=== PATIENT | male | born 1935 | race Caucasian/White ===

== ENCOUNTER → 2020-10-11 12:40 | Outpatient (BNVA) | payer OTHER, SELFPAY | PROVIDERS: PCP Internal Medicine; Referring Provider Internal Medicine; Visit Provider Internal Medicine Pulmonary Disease | DX: Z76.89 Persons encountering health services in other specified circumstances (principal) ==

== ENCOUNTER 2020-12-05 10:21 | Outpatient (REF) | payer OTHER, SELFPAY ==
[2020-12-05 11:15] LABS: Anion Gap 12 (12-20); Blood Urea Nitrogen 34 mg/dL (9-16); Calcium 8.5 mg/dL (8.4-10.2); Carbon Dioxide 32 mmol/L (22-29); Chloride 99 mmol/L (96-108); Estimated Glomerular Filt Rate 31; Potassium 4.7 mmol/L (3.3-5.1); Sodium 138 mmol/L (135-145)
== END 2020-12-05 10:22 | disposition home or self-care (01) ==
LOC: HO.LAB 10:21
PROVIDERS: PCP Internal Medicine; Visit Provider Internal Medicine Hypertension Specialist
DX: I13.0 Hypertensive heart and chronic kidney disease with heart failure and stage 1 through stage 4 chronic kidney disease, or unspecified chronic kidney disease (principal); N18.30 Chronic kidney disease, stage 3 unspecified
CPT/HCPCS: 36415; 80051; 82310; 82565; 84520

== ENCOUNTER → 2021-01-01 14:15 | Outpatient (BNVA) | payer OTHER, SELFPAY | PROVIDERS: PCP Internal Medicine; Visit Provider Internal Medicine | DX: Z45.02 Encounter for adjustment and management of automatic implantable cardiac defibrillator (principal); I25.5 Ischemic cardiomyopathy; I48.0 Paroxysmal atrial fibrillation; Z51.81 Encounter for therapeutic drug level monitoring; Z79.899 Other long term (current) drug therapy | CPT/HCPCS: 93005 ==

== ENCOUNTER 2021-01-09 11:04 | Outpatient (REF) | payer OTHER, SELFPAY ==
[2021-01-09 12:35] LABS: TSH reflex Free T4 1.47 uIU/mL (0.32-4.0)
== END 2021-01-09 11:05 | disposition home or self-care (01) ==
LOC: HO.LAB 11:04
PROVIDERS: PCP Internal Medicine; Visit Provider Internal Medicine
DX: I25.5 Ischemic cardiomyopathy (principal)
CPT/HCPCS: 36415; 84443

== ENCOUNTER 2021-02-02 10:23 | Outpatient (REF) | payer OTHER, SELFPAY ==
[2021-02-02 11:38] LABS: Hematocrit 44.7 % (42-52); Mean Corpuscular HGB Conc 31.3 g/dl (31.0-36.0); Mean Corpuscular Hemoglobin 31.4 pg (27.0-33.0); Mean Corpuscular Volume 100.2 fL (80-98); Mean Platelet Volume 10.9 fL (9.4-12.4); Platelet Count 119 X10*3/uL (160-400); Red Blood Count 4.46 X10*6/uL (4.60-5.80); Red Cell Distribution Width 14.4 % (11.0-16.0); White Blood Count 6.7 X10*3/uL (4.8-10.8)
[2021-02-02 11:45] LABS: Glucose Urine UA NEG (NEG); Leukocyte Esterase Urine NEG (NEG); Nitrite Urine NEG (NEG); PH 6.5 (5.0-8.0); Specific Gravity - Urine <= 1.005 (1.005-1.025); Urine Blood NEG (NEG); Urine Ketones NEG (NEG); Urine Protein NEG (NEG-TRACE)
[2021-02-02 11:48] LABS: Appearance Urine CLEAR; Color Urine YELLOW
[2021-02-02 12:25] LABS: Creatinine Urine 27.13 mg/dL; Protein/Creatinine Ratio, Ur 0.55 (<0.2); Total Protein Urine Random 15 mg/dL (<12)
[2021-02-02 16:02] LABS: Anion Gap 11 (12-20); Blood Urea Nitrogen 26 mg/dL (9-16); Calcium 8.6 mg/dL (8.4-10.2); Carbon Dioxide 30 mmol/L (22-29); Chloride 105 mmol/L (96-108); Estimated Glomerular Filt Rate 38; Potassium 5.2 mmol/L (3.3-5.1); Sodium 141 mmol/L (135-145)
== END 2021-02-02 10:24 | disposition home or self-care (01) ==
LOC: HO.LAB 10:23
PROVIDERS: PCP Internal Medicine; Visit Provider Internal Medicine Hypertension Specialist
DX: N18.31 Chronic kidney disease, stage 3a (principal)
CPT/HCPCS: 36415; 80051; 81003; 82310; 82565; 84156; 84520; 85027; 86021

== ENCOUNTER 2021-02-26 13:45 | Outpatient (REF) | payer OTHER, SELFPAY ==
--- NOTE | ~2021-02-26 | XR_ITS ---
EXAMINATION: XR FOOT, RIGHT CLINICAL INFORMATION: Pain over lateral and plantar areas. Rule out fracture. COMPARISON: None TECHNIQUE: Three-view right foot study. FINDINGS: There is no evidence of acute fracture or dislocation of the right foot. No radiopaque foreign body identified. No significant joint space narrowing is noted. There is a small plantar calcaneal spur. An Achilles calcaneal spur is also seen. There are vascular calcifications present. XR/XR foot RT min 3V IMPRESSION: No significant right foot bony abnormality appreciated. No radiopaque foreign body.
== END 2021-02-26 13:46 | disposition home or self-care (01) ==
LOC: HO.XRAY 13:45
PROVIDERS: PCP Internal Medicine; Visit Provider Internal Medicine
DX: M79.671 Pain in right foot (principal)
CPT/HCPCS: 73630

== ENCOUNTER 2021-04-19 10:18 | Inpatient (IN) | payer OTHER, SELFPAY ==
--- NOTE | ~2021-04-19 | CT_ITS ---
EXAMINATION: CT CHEST WITHOUT CONTRAST CLINICAL INFORMATION: Dyspnea and scant hemoptysis COMPARISON: None TECHNIQUE: Multidetector volumetric CT imaging of the chest was done. Axial MIP volume rendering provided. Sagittal and coronal reformatted images were obtained. This CT examination was performed using dose optimization techniques as appropriate, variously including the following: *Automated exposure control *Adjustment of mA and/or kV according to patient size (this includes techniques or standardized protocols for targeted exams where dose is matched to indication/reason for exam; i.e. 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 There are a several subpleural parenchymal thickening in both lower lobes and right middle lobe. There is mild thickening of superior right major fissure. There is no consolidation, mass or nodule seen. MEDIASTINUM: There are numerous mediastinal lymph nodes. The largest precarinal pretracheal lymph node measures 1.2 x 1.7 cm. Second largest para-aortic lymph node measures 1.8 x 1.2 cm. Thoracic aorta is of normal caliber. No pericardial effusion seen. There are coronary artery calcifications present. There are pacer electrodes in right atrium and right ventricle. Central trachea and the bronchi appears widely patent. No bronchiectasis seen. PLEURA: There is minimal bilateral posterior pleural thickening. No evidence of pleural effusion. AXILLA: No lymphadenopathy. UPPER ABDOMEN: Visualized liver, spleen, pancreas and bilateral adrenal glands are unremarkable. No radiopaque gallstones seen. OSSEOUS STRUCTURES: No lytic or sclerotic process seen. There is mild degenerative disc changes mid dorsal spine with superior endplate deformities T4 and T5 vertebra likely chronic. CT/CT chest wo con IMPRESSION: Diffuse chronic interstitial lung disease with superimposed groundglass attenuation likely acute parenchymal inflammatory changes but no acute consolidation seen. No large mass or mass effect seen. There is diffuse reactionary abnormal mediastinal lymph nodes secondary to inflammatory process. Bilateral posterior pleural thickening without effusion. No calcifications seen.
--- NOTE | 2021-04-19 10:23 | ED.SOB ---
HPI - SOB/Dyspnea General Chief Complaint: Dyspnea Stated Complaint: SOB Time Seen by Provider: 04/19/21 10:22 Source: patient Mode of arrival: ambulatory Limitations: no limitations History of Present Illness HPI Narrative: 86 yo male with hx of IPF not on O2 and doesn't use inhalers, ischemic cardiomyopathy with [employer] device (recently interrogated) PAF on eliquis always compliant here with 2 weeks of worsening shortness of breath with exertion he has a cough with scant hemoptysis as wel, no CP, no weight gain or LE edema MD elicited complaint: shortness of breath and cough Pertinent past history: congestive heart failure and other (IPF) Onset (ago): week(s) (2) Timing: intermittent and progressively worsening Severity: moderate Exacerbating factors: exertion and coughing Relieving factors: rest Known history of: congestive heart failure Associated symptoms: cough, wheezing and sputum production (with some scant hemoptysis) Treatment prior to arrival: none Related Data Home Medications Medication Instructions Recorded Confirmed gabapentin 100 mg capsule 200 mg PO TID PRN cap 10/11/20 04/19/21 simvastatin 10 mg tablet 10 mg PO BEDTIME 10/11/20 04/19/21 amiodarone 100 mg tablet 100 mg PO MOWEFR@1000 tab 01/01/21 04/19/21 furosemide 20 mg PO DAILY 04/19/21 04/19/21 Previous Rx's Medication Instructions Recorded apixaban 2.5 mg tablet 2.5 mg PO BID #180 tab 03/13/21 Allergies Allergy/AdvReac Type Severity Reaction Status Date / Time metoprolol [METOPROLOL] AdvReac Severe SYNCOPE Verified 01/01/21 14:40 Review of Systems Review of Systems: Constitutional : No Fever, No Chills ENT/Mouth : No sore throat, No Rhinorrhea, No Swallowing Difficulty Eyes: No Eye Pain, No Swelling, No Redness Cardiovascular : No Chest Pain, positive SOB, No Orthopnea, no Edema Respiratory : pos Cough, pos Sputum, No Wheezing, positive dyspnea Gastrointestinal : No Nausea, No Vomiting, No Diarrhea, No abdominal Pain, No Hematochezia, No Melena Genitourinary : No Dysuria, No Urinary Frequency, No Hematuria Musculoskeletal : No joint pain, No Myalgias Skin : No Skin Lesions, No rash Neuro : No Weakness, No Numbness, No Dizziness, No Headache Psych : No Anxiety/Panic, No Depression Heme/Lymph: No Bruising, No Lymphadenopathy Endocrine : No Polyuria, No Polydipsia All other systems reviewed and are negative [facility] Past Medical History Attestation statement: The following information was validated with the patient. Medical History Ischemic cardiomyopathy PAF (paroxysmal atrial fibrillation) Surgical History History of implantable cardiac defibrillator (ICD) (~02/2016) Family History Family History (Updated 01/01/21 @ 14:41 by Yasmin Blas Roger) Father No problems noted. Mother No problems noted. Social History Social History (Updated 04/19/21 @ 10:36 by Lara Sweeney DO) Patient Tobacco Use Status: Former Tobacco user Use of substances other than those prescribed or required for medical reasons: No Advance Directives: Yes Advance Directives Information Provided: Yes Advance Directives on File: No Physical Exam Vital Signs: Vital Signs: Last Vital Signs Temp 97.4 F 04/19/21 10:29 Pulse 68 04/19/21 11:27 Resp 12 04/19/21 10:29 BP 141/100 H 04/19/21 10:29 Pulse Ox 87 L 04/19/21 13:19 Body Mass Index 25.7 Appearance: Alert. Oriented X3. No acute distress. Eyes: Pupils equal, round and reactive to light. ENT: Pharynx normal. Neck: Normal inspection. Neck supple. CVS: irregular heart rate and rhythm. Pulses slightly decreased throughout Respiratory: No respiratory distress. Breath sounds decreased with rhonchi and wheezes end exp wheezes posteriorly Abdomen: Soft and non-tender. Skin: Skin warm and dry. Normal skin color. Normal skin turgor. Extremities: No lower extremity edema. No calf ttp Neuro: Oriented X 3. No motor deficit. No sensory deficit. Course Course Course Narrative: still 87% RA after treatments which is new for the patient at this time given CT scan possible infection/bronchitis suspected will start on antibiotics and admit to medicine 1418 lactic acidosis is post albuterol use and not due to infection or severe sepsis at this time MDM - SOB/Dyspnea MDM Narrative Medical decision making narrative: 86 yo male with hx of IPF not on O2 and doesn't use inhalers, ischemic cardiomyopathy with [employer] device (recently interrogated) PAF on eliquis always compliant here with 2 weeks of worsening shortness of breath with exertion he has a cough with scant hemoptysis as well, no CP, no weight gain or LE edema at this time he has wheezing at this time will try neb and IV steroids could be bronchitis, bnp, EKG, CT chest for mass/lesion, pneumonia, dispo per results and findings may need admission given hypoxia normal range 95% came in at 87% Lab Data Result diagrams: 04/19/21 11:16 04/19/21 11:16 Labs: Lab Results 04/19/21 04/19/21 04/19/21 Range/Units 11:16 11:16 11:16 WBC 6.6 (4.8-10.8) X10*3/uL RBC 5.13 (4.60-5.80) X10*6/uL Hgb 15.8 (14.0-18.0) g/dl Hct 49.3 (42-52) % MCV 96.1 (80-98) fL MCH 30.8 (27.0-33.0) pg MCHC 32.0 (31.0-36.0) g/dl RDW 13.2 (11.0-16.0) % Plt Count 128 L (160-400) X10*3/uL MPV 10.4 (9.4-12.4) fL Immature Gran % (Auto) 0.3 (0.0-0.4) % Neut % (Auto) 70.9 (45-73) % Lymph % (Auto) 16.3 L (20-40) % [place] % (Auto) 7.3 (2-11) % Eos % (Auto) 4.7 H (0-4) % Baso % (Auto) 0.5 (0-2) % Lymph # (Auto) 1.1 L (1.2-4.9) X10*3/uL [place] # (Auto) 0.5 (0.1-1.2) X10*3/uL Eos # (Auto) 0.3 (0.0-0.4) X10*3/uL Baso # (Auto) 0.0 (0.0-0.2) X10*3/uL Abs Immat Gran (auto) 0.02 (0.00-0.03) X10*3/uL Absolute Neuts (auto) 4.7 (2.0-8.3) X10*3/uL Absolute Nucleated RBC 0.000 (0.0-0.012) X10*3/uL Nucleated RBC % (auto) 0.0 (0.0-0.2) /100WBC PT (10.8-13.0) SEC INR (0.9-1.1) APTT Cancelled Sodium 140 (135-145) mmol/L Potassium 4.8 (3.3-5.1) mmol/L Chloride 103 (96-108) mmol/L Carbon Dioxide 29 (22-29) mmol/L Anion Gap 13 (12-20) BUN 30 H (9-16) mg/dL Creatinine 1.60 H (0.5-1.4) mg/dL Estim Creat Clear Calc 36.3 Estimated GFR 41 Random Glucose 108 (60-115) mg/dL Lactic Acid (0.5-2.0) mmol/L Calcium 9.2 D (8.4-10.2) mg/dL Magnesium 2.1 (1.6-2.6) mg/dL Total Bilirubin 0.5 (0.0-1.0) mg/dL Direct Bilirubin 0.3 (0.0-0.5) mg/dL AST 22 (5-37) U/L ALT 15 (0-40) U/L Alkaline Phosphatase 128 H (39-117) U/L Troponin I High Sens (<3.5-35.0) ng/L B-Natriuretic Peptide (<100) pg/mL Total Protein 7.2 (6.5-8.0) g/dL Albumin 4.0 (3.5-5.0) g/dL Lipase 14 (8-78) U/L COVID-19 (MICHELLE) (Negative) COVID-19 Clin Com 04/19/21 04/19/21 04/19/21 Range/Units 11:16 11:16 11:16 WBC (4.8-10.8) X10*3/uL RBC (4.60-5.80) X10*6/uL Hgb (14.0-18.0) g/dl Hct (42-52) % MCV (80-98) fL MCH (27.0-33.0) pg MCHC (31.0-36.0) g/dl RDW (11.0-16.0) % Plt Count (160-400) X10*3/uL MPV (9.4-12.4) fL Immature Gran % (Auto) (0.0-0.4) % Neut % (Auto) (45-73) % Lymph % (Auto) (20-40) % [place] % (Auto) (2-11) % Eos % (Auto) (0-4) % Baso % (Auto) (0-2) % Lymph # (Auto) (1.2-4.9) X10*3/uL [place] # (Auto) (0.1-1.2) X10*3/uL Eos # (Auto) (0.0-0.4) X10*3/uL Baso # (Auto) (0.0-0.2) X10*3/uL Abs Immat Gran (auto) (0.00-0.03) X10*3/uL Absolute Neuts (auto) (2.0-8.3) X10*3/uL Absolute Nucleated RBC (0.0-0.012) X10*3/uL Nucleated RBC % (auto) (0.0-0.2) /100WBC PT 13.9 H (10.8-13.0) SEC INR 1.2 H (0.9-1.1) APTT 35.7 Sodium (135-145) mmol/L Potassium (3.3-5.1) mmol/L Chloride (96-108) mmol/L Carbon Dioxide (22-29) mmol/L Anion Gap (12-20) BUN (9-16) mg/dL Creatinine (0.5-1.4) mg/dL Estim Creat Clear Calc Estimated GFR Random Glucose (60-115) mg/dL Lactic Acid (0.5-2.0) mmol/L Calcium (8.4-10.2) mg/dL Magnesium (1.6-2.6) mg/dL Total Bilirubin (0.0-1.0) mg/dL Direct Bilirubin (0.0-0.5) mg/dL AST (5-37) U/L ALT (0-40) U/L Alkaline Phosphatase (39-117) U/L Troponin I High Sens 16.4 (<3.5-35.0) ng/L B-Natriuretic Peptide 1481 H (<100) pg/mL Total Protein (6.5-8.0) g/dL Albumin (3.5-5.0) g/dL Lipase (8-78) U/L COVID-19 (MICHELLE) (Negative) COVID-19 Clin Com 04/19/21 04/19/21 Range/Units 11:22 13:50 WBC (4.8-10.8) X10*3/uL RBC (4.60-5.80) X10*6/uL Hgb (14.0-18.0) g/dl Hct (42-52) % MCV (80-98) fL MCH (27.0-33.0) pg MCHC (31.0-36.0) g/dl RDW (11.0-16.0) % Plt Count (160-400) X10*3/uL MPV (9.4-12.4) fL Immature Gran % (Auto) (0.0-0.4) % Neut % (Auto) (45-73) % Lymph % (Auto) (20-40) % [place] % (Auto) (2-11) % Eos % (Auto) (0-4) % Baso % (Auto) (0-2) % Lymph # (Auto) (1.2-4.9) X10*3/uL [place] # (Auto) (0.1-1.2) X10*3/uL Eos # (Auto) (0.0-0.4) X10*3/uL Baso # (Auto) (0.0-0.2) X10*3/uL Abs Immat Gran (auto) (0.00-0.03) X10*3/uL Absolute Neuts (auto) (2.0-8.3) X10*3/uL Absolute Nucleated RBC (0.0-0.012) X10*3/uL Nucleated RBC % (auto) (0.0-0.2) /100WBC PT (10.8-13.0) SEC INR (0.9-1.1) APTT Sodium (135-145) mmol/L Potassium (3.3-5.1) mmol/L Chloride (96-108) mmol/L Carbon Dioxide (22-29) mmol/L Anion Gap (12-20) BUN (9-16) mg/dL Creatinine (0.5-1.4) mg/dL Estim Creat Clear Calc Estimated GFR Random Glucose (60-115) mg/dL Lactic Acid 3.2 H* (0.5-2.0) mmol/L Calcium (8.4-10.2) mg/dL Magnesium (1.6-2.6) mg/dL Total Bilirubin (0.0-1.0) mg/dL Direct Bilirubin (0.0-0.5) mg/dL AST (5-37) U/L ALT (0-40) U/L Alkaline Phosphatase (39-117) U/L Troponin I High Sens (<3.5-35.0) ng/L B-Natriuretic Peptide (<100) pg/mL Total Protein (6.5-8.0) g/dL Albumin (3.5-5.0) g/dL Lipase (8-78) U/L COVID-19 (MICHELLE) Negative (Negative) COVID-19 Clin Com See Note ECG Data Attestation: I personally reviewed and interpreted this ECG as follows: ECG interpretation date: 04/19/21 ECG interpretation time: 11:23 Interpretation: Rate: 68 Rhythm: paced with PVCs x 2 [place]: left Normal P waves. Normal KAVIN. wide QRS ST T wave : no RACHEL, nonspecific qTC: normal prior studies: no acute ischemia The study has been interpreted contemporaneously by me. . Discharge Plan Discharge Clinical Impression: Bronchitis, Hemoptysis, Hypoxia Patient Disposition: Admitted As Inpatient
[2021-04-19 10:29] VITALS: BP 141/100; PULSE 120; RESP 12; TEMP 36.3; O2SAT 94; BMI 25.7
--- NOTE | 2021-04-19 10:30 | ECG_ITS ---
Test Reason : SHORTNESS OF BREATH Blood Pressure : / mmHG Vent. Rate : 068 BPM Atrial Rate : 068 BPM P-R Int : 120 ms QRS Dur : 184 ms QT Int : 514 ms P-R-T Axes : 058 -67 119 degrees QTc Int : 546 ms Atrial-sensed ventricular-paced rhythm with occasional Premature ventricular complexes Abnormal ECG When compared with ECG of 11-AUG-2019 12:14, Premature ventricular complexes are now Present Referred By: Lara Sweeney Electronically Signed By:BETITO LANDEROS
--- NOTE | 2021-04-19 10:48 | HE.PHANOTE ---
MED REC COMPLETE, NO ISSUES
[2021-04-19 11:21] LABS: MANUAL DIFF FLAG NO
[2021-04-19] MEDS: Albuterol Sulfate (0.083%) 2.5 MG/3 ML VIAL.NEB INHALE (11:26)
[2021-04-19 11:27] VITALS: PULSE 68; O2SAT 94
[2021-04-19 11:27] LABS: Basophils Percent Auto 0.5 % (0-2); Eosinophils Absolute Auto 0.3 X10*3/uL (0.0-0.4); Eosinophils Percent Auto 4.7 % (0-4); Hematocrit 49.3 % (42-52); Hemoglobin 15.8 g/dl (14.0-18.0); Imm Gran Abs Auto 0.02 X10*3/uL (0.00-0.03); Imm Gran Pct Auto 0.3 % (0.0-0.4); Lymphocytes Absolute Auto 1.1 X10*3/uL (1.2-4.9); Lymphocytes Percent Auto 16.3 % (20-40); Mean Corpuscular Hemoglobin 30.8 pg (27.0-33.0); Mean Corpuscular Volume 96.1 fL (80-98); Mean Platelet Volume 10.4 fL (9.4-12.4); Monocytes Absolute Auto 0.5 X10*3/uL (0.1-1.2); Monocytes Percent Auto 7.3 % (2-11); Neutrophils Absolute Auto 4.7 X10*3/uL (2.0-8.3); Neutrophils Percent Auto 70.9 % (45-73); Platelet Count 128 X10*3/uL (160-400); Red Blood Count 5.13 X10*6/uL (4.60-5.80); Red Cell Distribution Width 13.2 % (11.0-16.0); White Blood Count 6.6 X10*3/uL (4.8-10.8)
[2021-04-19 11:32] LABS: INTERNATIONAL NORM RATIO 1.2 (0.9-1.1); Prothrombin Time 13.9 SEC (10.8-13.0)
[2021-04-19 11:35] LABS: Partial Thromboplastin Time 35.7 SEC (24.1-38.0)
[2021-04-19] MEDS: methylPREDNISolone Sod Succ 125 MG/2 ML VIAL 60 MG IVPUSH (11:40)
[2021-04-19 11:46] LABS: COVID-19 Test Negative (Negative); IDNOW Serial# 9DD0AD1C
[2021-04-19 11:58] LABS: Alanine Aminotransferase 15 U/L (0-40); Alkaline Phosphatase 128 U/L (39-117); Anion Gap 13 (12-20); Aspartate Amino Transferase 22 U/L (5-37); Bilirubin Direct 0.3 mg/dL (0.0-0.5); Bilirubin Total 0.5 mg/dL (0.0-1.0); Blood Urea Nitrogen 30 mg/dL (9-16); Calcium 9.2 mg/dL (8.4-10.2); Carbon Dioxide 29 mmol/L (22-29); Chloride 103 mmol/L (96-108); Creatinine Clr Calc Pharmacy 36.3; Estimated Glomerular Filt Rate 41; Glucose Random 108 mg/dL (60-115); Lipase 14 U/L (8-78); Magnesium 2.1 mg/dL (1.6-2.6); Potassium 4.8 mmol/L (3.3-5.1); Sodium 140 mmol/L (135-145); Total Protein 7.2 g/dL (6.5-8.0)
[2021-04-19 12:01] LABS: B Type Natriuretic Peptide 1481 pg/mL (<100); Troponin-I High Sensitivity 16.4 ng/L (<3.5-35.0)
[2021-04-19 13:19] VITALS: O2SAT 87
[2021-04-19] MEDS: cefTRIAXone sodium 1 GM in 0.9 % Sodium Chloride 50 ML IV (14:18)
[2021-04-19 14:27] LABS: Lactic Acid 3.2 mmol/L (0.5-2.0)
[2021-04-19] MEDS: Doxycycline Hyclate 100 MG in 0.9 % Sodium Chloride 250 ML 166.67 MG IV (15:12)
[2021-04-19 15:53] LABS: Reflex Lactate? Lactic Acid Added
[2021-04-19 16:00] VITALS: PULSE 70; RESP 18; O2SAT 97
--- NOTE | 2021-04-19 16:39 | PM.IMHP ---
History of Present Illness Date of Service: 04/19/21 <YULIET Mcdonald - Last Filed: 04/19/21 17:06> Chief Complaint: Shortness of breath <YULIET Mcdonald - Last Filed: 04/19/21 17:06> This is an 86-year-old male with history underlying idiopathic pulmonary fibrosis, atrial fibrillation on ischemic cardiomyopathy status post ICD placement who presented to the emergency department with complaints of shortness breath. Patient was diagnosed with IPF 10 years ago but does not currently use any inhaler or nebulizer at home. He reports a change in his breathing over the past few days but stops short of saying he feels short of breath. He reports having chronic postnasal drip and chronic cough especially in the morning. He has in admitted phlegm production which is primarily clear. He had 1 episode of pink tinged sputum this morning which prompted him to come to the emergency department for evaluation. He denies any recent sick contacts, fever, chills. He denies orthopnea, PND. He exercises on a daily basis. Has never required home oxygen. Today his oxygen saturation was low at 87% on room air. Lab work was unremarkable with the exception of a lactic acid of 3.2. Chest CT shows interstitial lung disease with superimposed ground-glass attenuation acute parenchymal inflammatory changes but no acute consolidation. He was given a breathing treatment, IV Solu-Medrol and empiric antibiotics in the decision was made to admit him for further management. <YULIET Mcdonald - Last Filed: 04/19/21 17:06> Review of Systems Review of Systems: Yes all other systems are reviewed and are negative <YULIET Mcdonald Last Filed: 04/19/21 17:06> Constitutional: Constitutional: Denies chills and Denies fever(s) <YULIET Mcdonald Last Filed: 04/19/21 17:06> Cardiovascular: Cardiovascular: Denies chest pain and Denies dyspnea on exertion <YULIET Mcdonald Last Filed: 04/19/21 17:06> Respiratory: Respiratory: Denies change in phlegm color, Denies excessive phlegm production and Denies dyspnea on exertion <YULIET Mcdonald Last Filed: 04/19/21 17:06> Gastrointestinal: Gastrointestinal: Denies abdominal pain <YULIET Mcdonald - Last Filed: 04/19/21 17:06> [facility] Medical History: Medical History CKD (chronic kidney disease) IPF (idiopathic pulmonary fibrosis) Ischemic cardiomyopathy PAF (paroxysmal atrial fibrillation) <YULIET Mcdonald - Last Filed: 04/19/21 17:06> Functional capacity: independent ambulation <YULIET Mcdonald - Last Filed: 04/19/21 17:06> Family History: Family History Father No problems noted. Mother No problems noted. <YULIET Mcdonald - Last Filed: 04/19/21 17:06> Family history: reviewed and not pertinent <YULIET Mcdonald - Last Filed: 04/19/21 17:06> Surgical History: Surgical History History of implantable cardiac defibrillator (ICD) (~02/2016) <YULIET Mcdonald - Last Filed: 04/19/21 17:06> Social History: Social History Household Members: Family Household Members Other:: son Housing: House Do you presently have visiting nurse or other home services: No Alcohol intake: former Patient Tobacco Use Status: Former Tobacco user Quit Date: 1973 Smoked in Last 30 Days: No e-Cigarette/Vaping Use: Former Use Use of substances other than those prescribed or required for medical reasons: No Currently Displaying Signs/Symptoms of Drug Intoxication Withdrawal: No Any prior treatment program specific to substance use: No Have you been hit, kicked, punched, or otherwise hurt by someone within the past year? If so, by whom?: No Do you feel safe in your current relationship?: No Current Relationship Is there a partner from a previous relationship who is making you feel unsafe now?: No Are you made to feel afraid or neglected: No Advance Directives: Yes Advance Directives Information Provided: Yes Advance Directives on File: No Advance Directives Date on File: 04/19/21 Do you have thoughts of harming others: None Do you have a plan to hurt others: No Plan Recently lost weight without trying: No Eating poorly because of decreased appetite: No Nutrition Risks: No Nutritional Risk Poor oral hygiene: No service: Yes Current occupational status: retired <YULIET Mcdonald - Last Filed: 04/19/21 17:06> Meds Allergies/Adverse reactions: Allergies Allergy/AdvReac Type Severity Reaction Status Date / Time metoprolol [METOPROLOL] AdvReac Severe SYNCOPE Verified 01/01/21 14:40 <YULIET Mcdonald - Last Filed: 04/19/21 17:06> Active Medications: Current Medications Generic Name Dose Route Start Last Admin Trade Name Freq PRN Reason Stop Dose Admin Pharmacy Consult 1 each 04/19/21 10:30 Consult Rx Perform Med Rec MISCELLANE ONCE PRN Consult order <YULIET Mcdonald - Last Filed: 04/19/21 17:06> Home medications: Home Medications Medication Instructions Recorded Confirmed Last Taken Type gabapentin 100 mg capsule 200 mg PO TID PRN cap 10/11/20 04/19/21 Unknown History simvastatin 10 mg tablet 10 mg PO BEDTIME 10/11/20 04/19/21 04/18/21 History amiodarone 100 mg tablet 100 mg PO MOWEFR@1000 tab 01/01/21 04/19/21 04/18/21 History furosemide 20 mg PO DAILY 04/19/21 04/19/21 04/19/21 History <YULIET Mcdonald - Last Filed: 04/19/21 17:06> Physical Exam Vital Signs and Narrative: Vital Signs: Last Vital Signs Temp 97.4 F 04/19/21 10:29 Pulse 68 04/19/21 11:27 Resp 12 04/19/21 10:29 BP 141/100 H 04/19/21 10:29 Pulse Ox 87 L 04/19/21 13:19 Body Mass Index 25.7 <YULIET Mcdonald - Last Filed: 04/19/21 17:06> Const: Nutritional Appearance: well nourished <YULIET Mcdonald - Last Filed: 04/19/21 17:06> Orientation/consciousness: patient oriented x3 <YULIET Mcdonald - Last Filed: 04/19/21 17:06> HENMT: Head: Yes normocephalic and Yes atraumatic <YULIET Mcdonald - Last Filed: 04/19/21 17:06> Eyes: Sclerae: sclerae normal <YULIET Mcdonald - Last Filed: 04/19/21 17:06> Chest: Chest palpation & inspection: normal inspection of the chest <YULIET Mcdonald - Last Filed: 04/19/21 17:06> Resp: Other: dry inspiratory crackles <YULIET Mcdonald - Last Filed: 04/19/21 17:06> Effort & Inspection: normal respiratory effort and no respiratory distress <YULIET Mcdonald - Last Filed: 04/19/21 17:06> Cardio: Rate: regular rate <YULIET Mcdonald - Last Filed: 04/19/21 17:06> Rhythm: regular rhythm <YULIET Mcdonald - Last Filed: 04/19/21 17:06> GI: Palpation (GI): Soft to palpation and nontender <YULIET Mcdonald - Last Filed: 04/19/21 17:06> Neuro: General: patient oriented x3 <YULIET Mcdonald - Last Filed: 04/19/21 17:06> Cranial nerves: Yes CN's II-XII intact bilaterally and Yes Bilaterally intact EOM present <YULIET Mcdonald - Last Filed: 04/19/21 17:06> Extrem: Other: no leg edema <YULIET Mcdonald - Last Filed: 04/19/21 17:06> Results Labs CBC and Chem 7: : 04/19/21 11:16 04/19/21 11:16 <YULIET Mcdonald - Last Filed: 04/19/21 17:06> Labs: Laboratory Results - last 24 hr 04/19/21 04/19/21 04/19/21 11:16 11:16 11:16 MCV 96.1 MCH 30.8 MCHC 32.0 RDW 13.2 Plt Count 128 L MPV 10.4 Immature Gran % (Auto) 0.3 Neut % (Auto) 70.9 Lymph % (Auto) 16.3 L [place] % (Auto) 7.3 Eos % (Auto) 4.7 H Baso % (Auto) 0.5 Lymph # (Auto) 1.1 L [place] # (Auto) 0.5 Eos # (Auto) 0.3 Baso # (Auto) 0.0 Abs Immat Gran (auto) 0.02 Absolute Neuts (auto) 4.7 Absolute Nucleated RBC 0.000 Nucleated RBC % (auto) 0.0 PT INR APTT Cancelled Anion Gap 13 Estim Creat Clear Calc 36.3 Estimated GFR 41 Random Glucose 108 Lactic Acid Calcium 9.2 D Magnesium 2.1 Total Bilirubin 0.5 Direct Bilirubin 0.3 AST 22 ALT 15 Alkaline Phosphatase 128 H Troponin I High Sens B-Natriuretic Peptide Total Protein 7.2 Albumin 4.0 Lipase 14 COVID-19 (MICHELLE) COVID-19 [facility] [place] 04/19/21 04/19/21 04/19/21 11:16 11:16 11:16 MCV MCH MCHC RDW Plt Count MPV Immature Gran % (Auto) Neut % (Auto) Lymph % (Auto) [place] % (Auto) Eos % (Auto) Baso % (Auto) Lymph # (Auto) [place] # (Auto) Eos # (Auto) Baso # (Auto) Abs Immat Gran (auto) Absolute Neuts (auto) Absolute Nucleated RBC Nucleated RBC % (auto) PT 13.9 H INR 1.2 H APTT 35.7 Anion Gap Estim Creat Clear Calc Estimated GFR Random Glucose Lactic Acid Calcium Magnesium Total Bilirubin Direct Bilirubin AST ALT Alkaline Phosphatase Troponin I High Sens 16.4 B-Natriuretic Peptide 1481 H Total Protein Albumin Lipase COVID-19 (MICHELLE) COVID-[place] 04/19/21 04/19/21 11:22 13:50 MCV MCH MCHC RDW Plt Count MPV Immature Gran % (Auto) Neut % (Auto) Lymph % (Auto) [place] % (Auto) Eos % (Auto) Baso % (Auto) Lymph # (Auto) [place] # (Auto) Eos # (Auto) Baso # (Auto) Abs Immat Gran (auto) Absolute Neuts (auto) Absolute Nucleated RBC Nucleated RBC % (auto) PT INR APTT Anion Gap Estim Creat Clear Calc Estimated GFR Random Glucose Lactic Acid 3.2 H* Calcium Magnesium Total Bilirubin Direct Bilirubin AST ALT Alkaline Phosphatase Troponin I High Sens B-Natriuretic Peptide Total Protein Albumin Lipase COVID-19 (MICHELLE) Negative COVID-19 Clin Com See Note <YULIET Mcdonald - Last Filed: 04/19/21 17:06> Imaging Radiologist's Impressions: Impressions Chest CT 04/19/21 10:30 IMPRESSION: Diffuse chronic interstitial lung disease with superimposed groundglass attenuation likely acute parenchymal inflammatory changes but no acute consolidation seen. No large mass or mass effect seen. There is diffuse reactionary abnormal mediastinal lymph nodes secondary to inflammatory process. Bilateral posterior pleural thickening without effusion. No calcifications seen. <YULIET Mcdonald - Last Filed: 04/19/21 17:06> Assessment and Plan (1) Hypoxia: Status: Acute <YULIET Mcdonald - Last Filed: 04/19/21 17:06> (2) PAF (paroxysmal atrial fibrillation): Status: Acute <YULIET Mcdonald - Last Filed: 04/19/21 17:06> This is an 86-year-old male with history of IPF, ischemic cardiomyopathy status post ICD placement, CKD, a atrial fibrillation on amiodarone and anticoagulation with Eliquis who presents to the emergency department with shortness of breath found to have hypoxia Acute respiratory failure with hypoxia Likely progression of underlying IPF. No heart failure symptoms No evidence of superimposed pneumonia Does not use supplemental oxygen or any inhalers at home. -continue supplemental oxygen. Will need home oxygen evaluation -continue IV solu-medrol bid -prn breathing treatments -pulmonary consult -received empiric in ED, but with no leukocytosis, fever or phlegm production, no indication to continue abx at this time Ischemic cardiomyopathy Although BNP is elevated, patient does not appear to be in acute CHF -continue home dose of Lasix -unable to tolerate beta-sean in the past due to bradycardia, syncope. Unable to tolerate Gul[place]an/Arb due to underlying CKD -monitor fluid status closely while receiving steroids -of note lasix dose was recently decreased from 40 qd to 20 qd Hemoptysis In setting of AC for Eliquis One episode of pink tinged phlegm -continue Eliquis for now -monitor for further episodes of hemoptysis Elevated lactic acid Likely related to albuterol No evidence of sepsis. 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 Platelets at baseline DVT prophylaxis-Eliquis Code status-DNR/DNI HCP - Augustin Oswald Jr Attending-Dr. Kendrick <YULIET Mcdonald - Last Filed: 04/19/21 17:06> Quality Stroke Does the patient have a stroke diagnosis?: No <YULIET Mcdonald - Last Filed: 04/19/21 17:06> VTE Prior VTE?: No <YULIET Mcdonald - Last Filed: 04/19/21 17:06> VTE Risk Level:: Medical - moderate - high <YULIET Mcdonald - Last Filed: 04/19/21 17:06> VTE Device Contraindication: Treatment Not Indicated <YULIET Mcdonald - Last Filed: 04/19/21 17:06> VTE Drug Contraindication: N/A - Med Ordered <YULIET Mcdonald - Last Filed: 04/19/21 17:06>
[2021-04-19 17:57] VITALS: PULSE 77; RESP 18; O2SAT 97
[2021-04-19] MEDS: methylPREDNISolone Sod Succ 40 MG/ML VIAL IVPUSH (18:21)
--- NOTE | 2021-04-19 18:49 | MHC.CM.PN ---
CM met with this A&O, very independent, pleasant man, who lives with his son. Pt was in the [employer] and in the [employer]. Pt worked for the [employer] and did not pay into Social Security, so he does not qualify for Medicare. Pt has private insurance through [employer]. No IMM necessary. HCP is on file. Darek Arana Jr, So, is the HCP ([phone]). Pt has hx of idiopathic pulmonary fibrosis and does not use oxygen presently at home. Pt concerned that he may need home O2. CM explained that he is being treated for bronchitis with antibiotics and his oxygen saturation my improve with treatment. Explained that prior to d/c, he may have a respiratory assessment to determine if he needs home oxygen. Explained that RT and CM would work with him during his hospital stay. CM will follow for d/c needs.
[2021-04-19 19:10] LABS: ~Lactic Acid-LAB USE ONLY 2.8 mmol/L (0.5-2.0)
[2021-04-19 20:38] LABS: Reflex Lactate? 2 Y
[2021-04-19 21:23] LABS: ~Lactic Acid-LAB USE ONLY 3.4 mmol/L (0.5-2.0)
--- NOTE | 2021-04-19 21:31 | PC.NURSE ---
Report given to ASHLEY Newberry on [facility]. Preparing for admission/transfer to [facility].
[2021-04-19 21:57] VITALS: BP 129/76; PULSE 88; RESP 18; TEMP 36.9; O2SAT 98
[2021-04-19 22:19] VITALS: BMI 26.4
[2021-04-19] MEDS: Gabapentin 100 MG CAPSULE 200 MG PO (22:20)
[2021-04-19] MEDS: 0.9 % Sodium Chloride Flush 3 ML SYRINGE IVFLUSH (22:21)
[2021-04-19] MEDS: Apixaban 2.5 MG TABLET PO (22:21)
[2021-04-19] MEDS: Atorvastatin Calcium 10 MG TABLET PO (22:21)
[2021-04-20] VITALS (8 sets, daily range): BP systolic 125–153; BP diastolic 63–87; PULSE 61–98; RESP 18–20; TEMP 36–36.6; O2SAT 94–99; BMI 26.6
[2021-04-20] MEDS: methylPREDNISolone Sod Succ 40 MG/ML VIAL IVPUSH ×2 (05:09→15:48)
--- NOTE | 2021-04-20 09:38 | PM.CNPUL ---
History of Present Illness History of Present Illness Consult date: 04/20/21 Chief complaint: acute respiratory failure Narrative: This is a pulmonary evaluation. The patient is an 86-year-old gentleman with a known history of pulmonary fibrosis, cardiomyopathy and atrial fibrillation on amiodarone and Eliquis who presents with several months of worsening cough. He felt the cough is related to a postnasal drip. He did feel some congestion in the chest area however. On the day of the admission the patient brought up some pink tinged sputum he became concerned and jose to the emergency department. There he was noted to be hypoxic down to 87%. He denies any significant increased weight gain or lower extremity edema or orthopnea. Patient recently had his diuretics cut down. In addition to that he has continued on a small dose of amiodarone. He did have a repeat CT scan of the chest which demonstrated the ongoing fibrotic changes primarily in the periphery at the bases suggestive of idiopathic pulmonary fibrosis. In addition to that extensive ground-glass opacities. In the ER the patient was placed on oxygen was given a breathing treatment that quickly improved the cough. He did cough up more pink sputum which was blood mixed in with saliva he describes. Denied cleared up. In the hospital he has been kept on the Eliquis in seems to be tolerating it well. He also was started on Solu-Medrol and antibiotics. Also to note his lactic acid was elevated. Patient denies any fevers or chills or any sick contacts. Review of Systems Constitutional: Constitutional: Denies fever(s), Denies malaise, Denies night sweats and Denies weight gain ENT: Denies change in voice, Denies lip swelling, Denies mouth pain, Reports nasal congestion, Reports nasal discharge and Denies tongue swelling Cardiovascular: Cardiovascular: Denies chest pain Respiratory: Respiratory: Reports cough, Reports hemoptysis, Denies excessive phlegm production, Denies pain on inspiration and Denies pain with cough Gastrointestinal: Gastrointestinal: Denies abdominal pain Musculoskeletal: Musculoskeletal: Denies no additional musculoskeletal complaints Neurologic: Denies Neuro-related abnormal movements Psychiatric: Psychiatric: Denies no additional psychiatric complaints Hematologic/Lymphatic: Hematologic/Lymphatic: Denies easy bleeding and Denies lymphadenopathy Allergic/Immunologic: Allergic/Immunologic: Denies lip swelling and Denies tongue swelling [facility] Past Medical History Medical History (Updated 04/20/21 @ 09:44 by Quinton Gonzalez MD) CKD (chronic kidney disease) IPF (idiopathic pulmonary fibrosis) Ischemic cardiomyopathy PAF (paroxysmal atrial fibrillation) Pneumonia Functional capacity: independent ambulation Family History Family History Father No problems noted. Mother No problems noted. Family history: reviewed and not pertinent Surgical History Surgical History History of implantable cardiac defibrillator (ICD) (~02/2016) Social History Social History Household Members: Family Household Members Other:: son Housing: House Do you presently have visiting nurse or other home services: No Alcohol intake: former Patient Tobacco Use Status: Former Tobacco user Quit Date: 1973 Smoked in Last 30 Days: No e-Cigarette/Vaping Use: Former Use Use of substances other than those prescribed or required for medical reasons: No Currently Displaying Signs/Symptoms of Drug Intoxication Withdrawal: No Any prior treatment program specific to substance use: No Have you been hit, kicked, punched, or otherwise hurt by someone within the past year? If so, by whom?: No Do you feel safe in your current relationship?: No Current Relationship Is there a partner from a previous relationship who is making you feel unsafe now?: No Are you made to feel afraid or neglected: No Advance Directives: Yes Advance Directives Information Provided: Yes Advance Directives on File: No Advance Directives Date on File: 04/19/21 Do you have thoughts of harming others: None Do you have a plan to hurt others: No Plan Recently lost weight without trying: No Eating poorly because of decreased appetite: No Nutrition Risks: No Nutritional Risk Poor oral hygiene: No service: Yes Current occupational status: retired Meds Allergies Allergy/AdvReac Type Severity Reaction Status Date / Time metoprolol [METOPROLOL] AdvReac Severe SYNCOPE Verified 01/01/21 14:40 Active Medications: Current Medications Generic Name Dose Route Start Last Admin Trade Name Freq PRN Reason Stop Dose Admin Acetaminophen 650 mg 04/19/21 20:13 Acetaminophen 325 Mg Tablet PO Q6H PRN Pain, Mild (Pain Scale 1-3) Albuterol/Ipratropium 3 ml 04/19/21 20:13 Albuterol/Iprat 2.5/0.5mg 3 Ml Ampul.Neb INHALE RQ6H PRN Shortness of Breath Amiodarone HCl 100 mg 04/20/21 10:00 Amiodarone Hcl 200 Mg Tablet PO MOWEFR@1000 [facility] Apixaban 2.5 mg 04/19/21 21:00 04/19/21 22:21 Apixaban 2.5 Mg Tablet PO 2.5 mg BID NIKA Administration Atorvastatin Calcium 10 mg 04/19/21 21:00 04/19/21 22:21 Atorvastatin Calcium 10 Mg Tablet PO 10 mg BEDTIME NIKA Administration Docusate Sodium 100 mg 04/19/21 20:13 Docusate Sodium 100 Mg Capsule PO DAILY PRN Constipation Furosemide 20 mg 04/20/21 08:00 Furosemide 20 Mg Tablet PO DAILY@0800 [facility] Protocol Gabapentin 200 mg 04/19/21 20:13 04/19/21 22:20 Gabapentin 100 Mg Capsule PO 200 mg TID PRN Administration NEUROPATHY Methylprednisolone Sodium Succinate 40 mg 04/19/21 17:00 04/20/21 05:09 Methylprednisolone Sod Succ 40 Mg/Ml Vial IVPUSH 40 mg Q12H NIKA Administration Ondansetron HCl 4 mg 04/19/21 20:13 Ondansetron Hcl 4 Mg/2 Ml Vial IVPUSH Q8H PRN Nausea and Vomiting Pharmacy Consult 1 each 04/19/21 10:30 Consult Rx Perform Med Rec MISCELLANE ONCE PRN Consult order Sodium Chloride 3 ml 04/20/21 00:00 04/19/21 22:21 0.9 % Sodium Chloride Flush 3 Ml Syringe IVFLUSH 3 ml QSHIFT [facility] Administration Home Medications Medication Instructions Recorded Confirmed Last Taken Type gabapentin 100 mg capsule 200 mg PO TID PRN cap 10/11/20 04/19/21 Unknown History simvastatin 10 mg tablet 10 mg PO BEDTIME 10/11/20 04/19/21 04/18/21 History amiodarone 100 mg tablet 100 mg PO MOWEFR@1000 tab 01/01/21 04/19/21 04/18/21 History furosemide 20 mg PO DAILY 04/19/21 04/19/21 04/19/21 History Physical Exam Vital Signs: Vital Signs: Last Vital Signs Temp 97.3 F 04/20/21 07:54 Pulse 61 04/20/21 07:54 Resp 18 04/20/21 07:54 BP 153/73 H 04/20/21 07:54 Pulse Ox 99 04/20/21 07:54 Body Mass Index 26.6 Const: General: alert HENMT: General nose exam: Abnormal external nose present and Nasal discharge present Eyes: Pupils: Equal, round and reactive pupils present Neck: Neck: Yes normal visual inspection, Yes full ROM and Yes no lymphadenopathy Chest: Chest palpation & inspection: normal inspection of the chest Resp: Auscultation: diminished lung sounds Cardio: Rate: regular rate Rhythm: regular rhythm Heart sounds: S1 normal heart sound present and S2 normal heart sound present GI: Palpation (GI): Soft to palpation and nontender Auscultation: normal bowel sounds : General: Yes no CVA tenderness Back/Spine/Pelvis: Back: no CVA tenderness Skin: General skin exam: rashes and/or lesions noted Neuro: Cranial nerves: Yes Equal, round and reactive pupils present Results Laboratory Findings CBC and BMP: 04/19/21 11:16 04/19/21 11:16 ABG, PT/INR, D-dimer: ABG B-Natriuretic Peptide 1481 pg/mL (<100) H 04/19/21 11:16 PT/INR, D-dimer PT 13.9 SEC (10.8-13.0) H 04/19/21 11:16 INR 1.2 (0.9-1.1) H 04/19/21 11:16 Abnormal lab findings: Abnormal Labs 04/19/21 04/19/21 04/19/21 11:16 11:16 11:16 Plt Count 128 L Lymph % (Auto) 16.3 L Eos % (Auto) 4.7 H Lymph # (Auto) 1.1 L PT INR BUN 30 H Creatinine 1.60 H Lactic Acid Lactic Acid Fup @ 2Hr Lactic Acid Fup @ 4Hr Alkaline Phosphatase 128 H B-Natriuretic Peptide 1481 H 04/19/21 04/19/21 04/19/21 11:16 13:50 18:35 Plt Count Lymph % (Auto) Eos % (Auto) Lymph # (Auto) PT 13.9 H INR 1.2 H BUN Creatinine Lactic Acid 3.2 H* Lactic Acid Fup @ 2Hr 2.8 H* Lactic Acid Fup @ 4Hr Alkaline Phosphatase B-Natriuretic Peptide 04/19/21 20:52 Plt Count Lymph % (Auto) Eos % (Auto) Lymph # (Auto) PT INR BUN Creatinine Lactic Acid Lactic Acid Fup @ 2Hr Lactic Acid Fup @ 4Hr 3.4 H* Alkaline Phosphatase B-Natriuretic Peptide Assessment and Plan (1) Bronchitis: Status: Acute (2) Hemoptysis: Status: Acute (3) IPF (idiopathic pulmonary fibrosis): Status: Acute (4) Pneumonia: Qualifiers: Pneumonia type: due to unspecified organism Laterality: bilateral Lung location: unspecified part of lung Qualified Code(s): J18.9 - Pneumonia, unspecified organism Status: Acute Patient is presenting with frothy bloody sputum suggestive of an alveolar process. In this case pneumonitis versus diffuse alveolar hemorrhage. The diffuse event hemorrhage may be in the setting of Eliquis and volume overload status. In addition to that the patient does have evidence of wheezing and bronchospasms that were alleviated once he started the bronchodilator therapy. He does have a history of pulmonary fibrosis and has been given a diagnosis of idiopathic pulmonary fibrosis., but I do not feel strongly that this is related to an IPF exacerbation. In the meantime the use of amiodarone may be very actively contraindicated due to the concerns pulmonary toxicity. Recommendations: -continue IV steroids for an additional day then switch to p.o. with taper -continue antibiotics to cover 7 day, Vantin and doxycycline will be sufficient -6 minutes walk test to address the need for oxygen with activity -echocardiogram to assess any evidence of heart failure with his elevated brain atretic peptide and recently decreased Lasix -blood work requested evaluating for inflammatory conditions such as hyper sensitivity pneumonitis and connective tissue conditions -continue Eliquis, but, monitoring for any evidence of any worsening bleeding he should stop it -would really recommend stopping the amiodarone if it alternative could be due to his worsening interstitial lung disease in pneumonitis Procedures Date of Service Date of Service: 04/20/21
[2021-04-20] MEDS: Amiodarone HCL 200 MG TABLET 100 MG PO (09:41)
[2021-04-20] MEDS: Apixaban 2.5 MG TABLET PO ×2 (09:43→20:35)
[2021-04-20] MEDS: 0.9 % Sodium Chloride Flush 3 ML SYRINGE IVFLUSH ×3 (09:43→20:41)
[2021-04-20] MEDS: Furosemide 20 MG TABLET PO (09:43)
[2021-04-20] MEDS: Gabapentin 100 MG CAPSULE 200 MG PO ×2 (09:46→20:40)
[2021-04-20 10:34] LABS: Erythrocyte Sedimentation Rate 6 MM/HR (0-15)
--- NOTE | 2021-04-20 11:00 | CA_ITS ---
Transthoracic Echocardiogram Patient (Last, First, Middle): Darek Arana J Gender: Male Date of : 1935 Age: 86 Procedure Date: 04/20/2021 Procedure Type: Transthoracic Echocardiogram Location: OP Height: 182.88 cm Weight: 88.45 kg BSA: 2.11 m2 Heart Rate: bpm BP: 153 / 73 mmHg [employer]: DESTIN Referring MD: Quinton Gonzalez MD Symptoms: dyspnea, ?CHF Study Quality: Fair ECG Rhythm: Sinus, V paced, PVC Conclusions: - The left ventricular systolic function is severely decreased. The visually estimated ejection fraction is between 10-15%. - Evidence suggests grade II (moderate) diastolic dysfunction. - The apex, apical inferior, apical lateral, apical septum, and mid anteroseptal segments are akinetic. - Moderate pulmonary hypertension is present. Findings Left Ventricle Severely increased left ventricular cavity size. The left ventricular systolic function is severely decreased. The visually estimated ejection fraction is between 10-15%. E/E prime ratio is >15, consistent with elevated filling pressures. Evidence suggests grade II (moderate) diastolic dysfunction. Globally hypokinetic with additional regionality as described. Wall Motion Rest Echo Findings The apex, apical inferior, apical lateral, apical septum, and mid anteroseptal segments are akinetic. Tricuspid Valve There is mild tricuspid valve regurgitation. The right ventricular systolic pressure is 66 mmHg. Moderate pulmonary hypertension is present. Venous The inferior vena cava is mildly dilated and collapses less than 50% with inspiration. Prior Study Comparison Changes noted compared to prior study dated: 04/08/2019. LVEF lower. LV is dilated. RVSP is higher. Measurements 2D Linear Measurements IVSd: 0.61 0.6-0.9/0.6-1.0 cm LVIDd: 6.83 3.9-5.3/4.2-5.9 cm LVIDd Index: 3.24 2.4-3.2/2.2-3.1 cm/m2 LVIDs: 6.53 2.0-3.6 cm LVPWd: 0.77 0.7-1.1 cm LV Mass: 244.17 67-162/88-224 g LV Mass Index: 115.72 43-95/49-115 g/m2 2D Systolic Function EF 4C: 8.52 >55% EF 2C: 36.30 >55% EF BiP: 22.60 >55% Mitral Valve MV Pk E: 1.51 MV PK A: 1.18 MV Decel Time: 148.00 E/A: 1.30 E'Lateral: 5.10 E'Medial: 3.83 E/E' Med: 39.40 E/E' Lat: 29.60 PHT: 43.00 MVA PHT: 5.12 Decel Holt: 10.14 Diastolic Function MV Pk E: 1.51 MV Pk A: 1.18 E/A: 1.30 E'Medial: 3.83 E/E' Med: 39.40 E' Laterial: 5.10 E/E' Lat: 29.60 Tricuspid Valve TR Pk Antoni: 3.56 TR Pk Grad: 51.00 RA Press: 15.00 RVSP: 66.00 Updated in Other Vendor System with Status of Final Rudy De La Cruz MD electronically signed on 04/20/2021 2:13:57 PM with status of Final
--- NOTE | 2021-04-20 14:16 | P.PNIM_ITS ---
Subjective Subjective Date of Service: 04/20/21 Interval History: Noted 1 episode of hemoptysis this a.m. less than 1 tsp dark- colored blood, feels there is something at back of the throat, has history of chronic postnasal drip has tried Flonase in the past and developed nose bleed therefore stopped it, denies allergy symptoms, denies shortness of breath or worsening cough. ROS General no headache,no dizziness, no fever chills. CVS no chest pain, no palpitation. Respiratory + cough ,no sob Gastrointestinal no nausea, no vomiting, no abdominal pain Physical Exam Vital Signs: Vital Signs: Last Vital Signs Temp 97.9 F 04/20/21 11:20 Pulse 79 04/20/21 11:20 Resp 20 04/20/21 11:20 BP 150/86 H 04/20/21 11:20 Pulse Ox 97 04/20/21 11:20 Body Mass Index 26.6 General resting comfortably in no acute distress. Oral mucosa moist uvula midline, no redness Neck supple, no JVD. CVS regular rate rhythm, Respiratory lungs dry crackles at base, no respiratory distress, no wheeze, no rhonchi. Gastrointestinal abdomen soft, nontender, bowel sounds audible, no no guarding , no rigidity. Extremities no clubbing cyanosis or edema. Neuro nonfocal , moving all 4 extremity ,speech clear. Skin no rash Objective Data Current Medications Generic Name Dose Route Start Last Admin Trade Name Freq PRN Reason Stop Dose Admin Acetaminophen 650 mg 04/19/21 20:13 Acetaminophen 325 Mg Tablet PO Q6H PRN Pain, Mild (Pain Scale 1-3) Albuterol/Ipratropium 3 ml 04/19/21 20:13 Albuterol/Iprat 2.5/0.5mg 3 Ml Ampul.Neb INHALE RQ6H PRN Shortness of Breath Amiodarone HCl 100 mg 04/20/21 10:00 04/20/21 09:41 Amiodarone Hcl 200 Mg Tablet PO 100 mg MOWEFR@1000 NIKA Administration Apixaban 2.5 mg 04/19/21 21:00 04/20/21 09:43 Apixaban 2.5 Mg Tablet PO 2.5 mg BID NIKA Administration Atorvastatin Calcium 10 mg 04/19/21 21:00 04/19/21 22:21 Atorvastatin Calcium 10 Mg Tablet PO 10 mg BEDTIME NIKA Administration Docusate Sodium 100 mg 04/19/21 20:13 Docusate Sodium 100 Mg Capsule PO DAILY PRN Constipation Furosemide 20 mg 04/20/21 08:00 04/20/21 09:43 Furosemide 20 Mg Tablet PO 20 mg DAILY@0800 NIKA Administration Protocol Gabapentin 200 mg 04/19/21 20:13 04/20/21 09:46 Gabapentin 100 Mg Capsule PO 200 mg TID PRN Administration NEUROPATHY Methylprednisolone Sodium Succinate 40 mg 04/19/21 17:00 04/20/21 05:09 Methylprednisolone Sod Succ 40 Mg/Ml Vial IVPUSH 40 mg Q12H NIKA Administration Ondansetron HCl 4 mg 04/19/21 20:13 Ondansetron Hcl 4 Mg/2 Ml Vial IVPUSH Q8H PRN Nausea and Vomiting Pharmacy Consult 1 each 04/19/21 10:30 Consult Rx Perform Med Rec MISCELLANE ONCE PRN Consult order Sodium Chloride 3 ml 04/20/21 00:00 04/20/21 09:43 0.9 % Sodium Chloride Flush 3 Ml Syringe IVFLUSH 3 ml QSHIFT [facility] Administration Labs CBC & Chem 7: 04/19/21 11:16 04/19/21 11:16 Labs: Laboratory Results - last 24 hr 04/19/21 04/19/21 04/19/21 13:50 18:35 20:52 ESR Lactic Acid 3.2 H* Lactic Acid Fup @ 2Hr 2.8 H* Lactic Acid Fup @ 4Hr 3.4 H* 04/20/21 09:44 ESR 6 Lactic Acid Lactic Acid Fup @ 2Hr Lactic Acid Fup @ 4Hr Quality Stroke Does the patient have a stroke diagnosis?: No VTE Prior VTE?: No VTE Risk Level:: Medical - moderate - high VTE Device Contraindication: Treatment Not Indicated VTE Drug Contraindication: N/A - Med Ordered Assessment and Plan (1) Hypoxia: Status: Acute (2) Pneumonia: Status: Acute (3) IPF (idiopathic pulmonary fibrosis): Status: Acute (4) PAF (paroxysmal atrial fibrillation): Status: Acute (5) Ischemic cardiomyopathy: Status: Acute (6) Encounter for monitoring amiodarone therapy: Status: Acute (7) Hemoptysis: Status: Acute (8) Bronchitis: Status: Acute Assessment and Plan: 86-year-old male with history of IPF, ischemic cardiomyopathy status post ICD placement, CKD, a atrial fibrillation on amiodarone and anticoagulation with Eliquis who presents to the emergency department with shortness of breath found to have hypoxia Acute respiratory failure with hypoxia Feels better this morning, denies shortness of of breath, had 2 more episode of bloody sputum small amount, subsequent to that clear phlegm Question etiology, Likely progression of underlying IPF versus heart failure with history of ischemic cardiomyopathy status post ICD, Patient denies PND orthopnea, no leg edema although has elevated BNP 1481, previous BNP 626 in July 2019. No evidence of superimposed pneumonia, procalcitonin less than 0.02 Does not use supplemental oxygen or any inhalers at home. Echocardiogram obtained that showed EF of 10-15% with significant wall motion abnormality case discussed with Dr. De La Cruz patient EF his declined as co mpared to previous study Patient dose of Lasix was recently reduced to 20 from 40 mg Likely patient has CHF exacerbation will treat with low-dose IV Lasix 20 mg b.i.d., follow BMP and BNP, I/os daily wt. Will discontinue IV steroid, home O2 eval obtain patient does not qualify for oxygen, continue home inhalers, hold antibiotic Patient seen by Dr. Gonzalez await Pulmonary input Will obtain cardiology consultation Ischemic cardiomyopathy with mild CHF exacerbation with poor EF As above EF 10-15% will place on low-dose IV Lasix 20 b.i.d. -unable to tolerate beta-sean in the past due to bradycardia, syncope. Unable to tolerate Gulshan/Arb due to underlying CKD -monitor fluid status closely while receiving Lasix -of note lasix dose was recently decreased from 40 qd to 20 qd Hemoptysis Likely due to CHF exacerbation versus viral infection,In setting of AC for Eliquis, patient feels he is coughing up some thing that is stuck in throat and back of throat, exam benign Since no significant hemoptysis, stable hematocrit, will continue Eliquis for now monitor for further episodes of hemoptysis Elevated lactic acid Likely related to albuterol,No evidence of sepsis. 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 Platelets at baseline DVT prophylaxis-Eliquis Code status-DNR/DNI
[2021-04-20 16:00] LABS: Procalcitonin 0.02 ng/mL
[2021-04-20] MEDS: Furosemide 20 MG/2 ML VIAL IVPUSH (18:45)
[2021-04-20] MEDS: Atorvastatin Calcium 10 MG TABLET PO (20:35)
[2021-04-21 03:51] VITALS: BP 177/88; PULSE 66; RESP 18; TEMP 36.8; O2SAT 96
[2021-04-21] MEDS: Furosemide 20 MG/2 ML VIAL IVPUSH ×2 (04:23→16:37)
[2021-04-21 06:00] VITALS: BMI 25.8
[2021-04-21 06:07] LABS: Hematocrit 46.1 % (42-52); Mean Corpuscular HGB Conc 32.5 g/dl (31.0-36.0); Mean Corpuscular Hemoglobin 31.1 pg (27.0-33.0); Mean Corpuscular Volume 95.4 fL (80-98); Platelet Count 149 X10*3/uL (160-400); Red Blood Count 4.83 X10*6/uL (4.60-5.80); Red Cell Distribution Width 13.4 % (11.0-16.0); White Blood Count 14.8 X10*3/uL (4.8-10.8)
[2021-04-21 06:43] LABS: B Type Natriuretic Peptide 1464 pg/mL (<100)
[2021-04-21 07:45] VITALS: BP 138/81; PULSE 63; RESP 20; TEMP 35.9; O2SAT 98
[2021-04-21] MEDS: Apixaban 2.5 MG TABLET PO ×2 (08:56→21:20)
[2021-04-21] MEDS: Gabapentin 100 MG CAPSULE 200 MG PO (08:56)
[2021-04-21] MEDS: 0.9 % Sodium Chloride Flush 3 ML SYRINGE IVFLUSH ×3 (08:57→21:20)
[2021-04-21 11:17] VITALS: BP 156/87; PULSE 63; RESP 18; TEMP 36.3; O2SAT 99
[2021-04-21] MEDS: predniSONE 20 MG TABLET 40 MG PO (11:51)
--- NOTE | 2021-04-21 11:53 | PM.CNCAR ---
History of Present Illness History of Present Illness Date of Service: 04/21/21 Consult reason: congestive heart failure Chief complaint: acute respiratory failure Narrative: This is a cardiology consultation regarding congestive heart failure. He has been feeling somewhat short of breath in the last few days. 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 He also has history of paroxysmal atrial fibrillation suppressed with very low-dose of amiodarone. Additionally, chronic lung disease which predated the initiation of amiodarone. We not stress as the shortness of breath to see if cardiac issues play a role. Otherwise, he has not had any anginal-type symptoms. No significant leg swelling. It seems that his Lasix dose was cut back few months back, possibly due to renal insufficiency. Review of Systems Review of Systems: Yes all other systems are reviewed and are negative Cardiovascular: Cardiovascular: Reports as per HPI, Reports no additional cardiovascular complaints, Denies acrocyanosis, Denies cool extremities, Denies painful fingertips, Denies chest pain, Denies chest pain at rest, Denies diaphoresis, Denies syncope, Denies irregular heart rhythm, Denies claudication, Denies leg edema, Denies lightheadedness, Denies palpitations and Reports dyspnea Respiratory: Respiratory: Reports dyspnea Neurologic: Denies syncope Endocrine: Endocrine: Denies palpitations [facility] Past Medical History Medical History (Updated 04/21/21 @ 11:58 by Rudy De La Cruz MD) CKD (chronic kidney disease) IPF (idiopathic pulmonary fibrosis) Ischemic cardiomyopathy PAF (paroxysmal atrial fibrillation) Pneumonia Functional capacity: independent ambulation Family History Family History Father No problems noted. Mother No problems noted. Family history: reviewed and not pertinent Surgical History Surgical History History of implantable cardiac defibrillator (ICD) (~02/2016) Social History Social History Household Members: Family Household Members Other:: son Housing: House Do you presently have visiting nurse or other home services: No Alcohol intake: former Patient Tobacco Use Status: Former Tobacco user Quit Date: 1973 Smoked in Last 30 Days: No e-Cigarette/Vaping Use: Former Use Use of substances other than those prescribed or required for medical reasons: No Currently Displaying Signs/Symptoms of Drug Intoxication Withdrawal: No Any prior treatment program specific to substance use: No Have you been hit, kicked, punched, or otherwise hurt by someone within the past year? If so, by whom?: No Do you feel safe in your current relationship?: No Current Relationship Is there a partner from a previous relationship who is making you feel unsafe now?: No Are you made to feel afraid or neglected: No Advance Directives: Yes Advance Directives Information Provided: Yes Advance Directives on File: No Advance Directives Date on File: 04/19/21 Do you have thoughts of harming others: None Do you have a plan to hurt others: No Plan Recently lost weight without trying: No Eating poorly because of decreased appetite: No Nutrition Risks: No Nutritional Risk Poor oral hygiene: No service: Yes Current occupational status: retired [employer] Allergies Allergy/AdvReac Type Severity Reaction Status Date / Time metoprolol [METOPROLOL] AdvReac Severe SYNCOPE Verified 01/01/21 14:40 Active Medications: Current Medications Generic Name Dose Route Start Last Admin Trade Name Freq PRN Reason Stop Dose Admin Acetaminophen 650 mg 04/19/21 20:13 Acetaminophen 325 Mg Tablet PO Q6H PRN Pain, Mild (Pain Scale 1-3) Albuterol/Ipratropium 3 ml 04/19/21 20:13 Albuterol/Iprat 2.5/0.5mg 3 Ml Ampul.Neb INHALE RQ6H PRN Shortness of Breath Amiodarone HCl 100 mg 04/20/21 10:00 04/20/21 09:41 Amiodarone Hcl 200 Mg Tablet PO 100 mg MOWEFR@1000 NIKA Administration Apixaban 2.5 mg 04/19/21 21:00 04/21/21 08:56 Apixaban 2.5 Mg Tablet PO 2.5 mg BID NIKA Administration Atorvastatin Calcium 10 mg 04/19/21 21:00 04/20/21 20:35 Atorvastatin Calcium 10 Mg Tablet PO 10 mg BEDTIME NIKA Administration Cefuroxime Axetil 250 mg 04/21/21 09:00 04/21/21 11:51 Cefuroxime Axetil 250 Mg Tablet PO 250 mg Q12H NIKA Administration Docusate Sodium 100 mg 04/19/21 20:13 Docusate Sodium 100 Mg Capsule PO DAILY PRN Constipation Doxycycline Hyclate 100 mg 04/21/21 09:00 04/21/21 11:51 Doxycycline Hyclate 100 Mg Tablet PO 100 mg Q12H NIKA Administration Furosemide 20 mg 04/20/21 16:15 04/21/21 04:23 Furosemide 20 Mg/2 Ml Vial IVPUSH 20 mg Q12H NIAK Administration Protocol Gabapentin 200 mg 04/19/21 20:13 04/21/21 08:56 Gabapentin 100 Mg Capsule PO 200 mg TID PRN Administration NEUROPATHY Ondansetron HCl 4 mg 04/19/21 20:13 Ondansetron Hcl 4 Mg/2 Ml Vial IVPUSH Q8H PRN Nausea and Vomiting Pharmacy Consult 1 each 04/19/21 10:30 Consult Rx Perform Med Rec MISCELLANE ONCE PRN Consult order Prednisone 40 mg 04/21/21 09:00 04/21/21 11:51 Prednisone 20 Mg Tablet PO 40 mg DAILY NIKA Administration Sodium Chloride 3 ml 04/20/21 00:00 04/21/21 08:57 0.9 % Sodium Chloride Flush 3 Ml Syringe IVFLUSH 3 ml QSHIFT NIKA Administration Home Medications Medication Instructions Recorded Confirmed Last Taken Type gabapentin 100 mg capsule 200 mg PO TID PRN cap 10/11/20 04/19/21 Unknown History simvastatin 10 mg tablet 10 mg PO BEDTIME 10/11/20 04/19/21 04/18/21 History amiodarone 100 mg tablet 100 mg PO MOWEFR@1000 tab 01/01/21 04/19/21 04/18/21 History furosemide 20 mg PO DAILY 04/19/21 04/19/21 04/19/21 History Physical Exam Vital Signs: Vital Signs: Last Vital Signs Temp 97.4 F 04/21/21 11:17 Pulse 63 04/21/21 11:17 Resp 18 04/21/21 11:17 BP 156/87 H 04/21/21 11:17 Pulse Ox 99 04/21/21 11:17 Body Mass Index 25.8 Const: General: cooperative and no acute distress HENMT: Other: Unremarkable Neck: Neck: Yes normal visual inspection Chest: Chest palpation & inspection: normal inspection of the chest Resp: Auscultation: crackles and no wheezes Cardio: Jugular venous distension: no JVD Palpation: normal PMI Heart sounds: S1 normal heart sound present, S2 normal heart sound present, no gallops, no murmurs and no rubs GI: Palpation (GI): Soft to palpation Back/Spine/Pelvis: Other: unremarkable Skin: General skin exam: no rashes or lesions noted Neuro: Cranial nerves: Yes Other cranial nerve findings present Extrem: General: Yes no clubbing, cyanosis or edema Psych: Mental Status: other Results Labs and Meds Result diagrams: 04/21/21 05:03 04/19/21 11:16 Lab results: Laboratory Results - last 24 hr 04/20/21 04/21/21 04/21/21 15:00 05:03 05:03 WBC 14.8 H RBC 4.83 Hgb 15.0 Hct 46.1 MCV 95.4 MCH 31.1 MCHC 32.5 RDW 13.4 Plt Count 149 L MPV 11.0 Absolute Nucleated RBC 0.000 Nucleated RBC % (auto) 0.0 B-Natriuretic Peptide 1464 H Procalcitonin 0.02 ECG Attestation: I personally reviewed and interpreted this ECG as follows: Interpretation: EKG on admission with atrial sensing with biventricular pacing. Some atrial pacing as well. PVCs. Assessment and Plan (1) Acute on chronic systolic (congestive) heart failure: Status: Acute (2) Ischemic cardiomyopathy: Status: Acute (3) PAF (paroxysmal atrial fibrillation): Status: Acute (4) IPF (idiopathic pulmonary fibrosis): Status: Acute (5) PVC (premature ventricular contraction): Status: Acute (6) ICD (implantable cardioverter-defibrillator) in place: Status: Acute Overall, data are discordant. Clinically, he does not have any obvious volume overload. Impedance monitoring from his ICD does not show any fluid accumulation. Cardiac BNP is elevated about 1400 which is much higher than a prior value of 626 in 2019. Also it seems that lowering Lasix dose may have played a role but again not definitive. May try some empiric diuretics to see if it helps at all. If renal function gets worse then we will need to obviously cut back. Otherwise with regard to amiodarone, he is on the lowest possible dose. If we stop this, he will most likely go back into atrial fibrillation and he does not have any other options at this time. Other antiarrhythmics including sotalol, Tikosyn, flecainide extra are not suitable for someone like him with impaired LV function as well as renal insufficiency. Also he is not a good candidate for atrial fibrillation ablation. One option might be AV glynn ablation. Additionally he also has PVCs that interfere with biventricular pacing which limits the total effective time he has Bi V paced. If he stop the amiodarone his PVC burden might go up which will again interfere with the biventricular device function. This may in turn lead to more heart failure. Above was discussed in detail with the patient and he understands. For now may remain on the current dose of amiodarone. Also discussed with him about the fact that continuing amiodarone may possibly worsened lung disease but unfortunately there are no other options I could offer at this time. Also discussed with son at the bedside. Goals of care will need to get decided based on advanced cardiac as well as pulmonary disease and renal insufficiency. Procedures Date of Service Date of Service: 04/21/21
--- NOTE | 2021-04-21 12:07 | PM.PNPUL ---
Subjective Subjective Date of Service: 04/21/21 Interval history: Seen and examined. Doing well. Did have a walking oximetry and did desaturate briefly. I do think he would benefit from oxygen with activity if he desaturated to 88%. ECHO done with EF 10-15%. Diurising well. No significant hemoptysis, tolerating the Eliquis. Objective Data Labs CBC & Chem 7: 04/21/21 05:03 04/19/21 11:16 Labs: Laboratory Results - last 24 hr 04/20/21 04/21/21 04/21/21 15:00 05:03 05:03 WBC 14.8 H RBC 4.83 Hgb 15.0 Hct 46.1 MCV 95.4 MCH 31.1 MCHC 32.5 RDW 13.4 Plt Count 149 L MPV 11.0 Absolute Nucleated RBC 0.000 Nucleated RBC % (auto) 0.0 B-Natriuretic Peptide 1464 H Procalcitonin 0.02 Microbiology Microbiology Results: Microbiology 04/19/21 14:16 Blood - Venous Blood Culture - Preliminary No growth after 24 hours. 04/19/21 13:50 Blood - Venous Blood Culture - Preliminary No growth after 24 hours. Review of Systems Constitutional: Denies night sweats Denies change in voice, Denies lip swelling, Denies mouth pain, Reports nasal congestion, Reports nasal discharge and Denies tongue swelling Cardiovascular: Denies chest pain and Reports dyspnea on exertion Respiratory: Reports change in phlegm color, Reports chest congestion, Reports cough, Denies hemoptysis and Reports dyspnea on exertion Gastrointestinal: Denies abdominal pain Musculoskeletal: Denies no additional musculoskeletal complaints Denies Neuro-related abnormal movements Psychiatric: Denies no additional psychiatric complaints Hematologic/Lymphatic: Denies easy bleeding and Denies lymphadenopathy Allergic/Immunologic: Denies lip swelling and Denies tongue swelling Physical Exam Vital Signs: Vital Signs: Last Vital Signs Temp 97.4 F 04/21/21 11:17 Pulse 63 04/21/21 11:17 Resp 18 04/21/21 11:17 BP 156/87 H 04/21/21 11:17 Pulse Ox 99 04/21/21 11:17 Body Mass Index 25.8 Const: General: alert Neck: Neck: Yes normal visual inspection, Yes full ROM and Yes no lymphadenopathy Chest: Chest palpation & inspection: normal inspection of the chest Resp: Auscultation: rales and diminished lung sounds Cardio: Rate: regular rate Rhythm: regular rhythm Heart sounds: S1 normal heart sound present and S2 normal heart sound present GI: Palpation (GI): Soft to palpation and nontender Auscultation: normal bowel sounds Skin: General skin exam: rashes and/or lesions noted Procedures Date of Service Date of Service: 04/21/21 Assessment and Plan Assessment and plan (1) Acute on chronic systolic (congestive) heart failure: Status: Acute (2) Pneumonia: Status: Acute (3) IPF (idiopathic pulmonary fibrosis): Status: Acute (4) Hemoptysis: Status: Acute Assessment and Plan: Diuresis as tolerated LISBETH only as needed Osygen with activity of pox88% with activity Prednisone taper Complete 8 days of antibiotics Will set up F/U with Dr Fontanez in 1-2 weeks upon discharge Time Spent With Patient Time: Total time spent is greater than 50% in coordination of care (as documented) at patient's floor/unit and/or counseling patient: Time with patient: 15 - 24 minutes Progress Note: Quality Stroke Does the patient have a stroke diagnosis?: No
[2021-04-21 15:11] VITALS: BP 150/76; PULSE 61; RESP 18; TEMP 36.4; O2SAT 99
--- NOTE | 2021-04-21 15:54 | HO.PM.IMPN ---
Subjective Subjective Date of Service: 04/21/21 Interval History: 1 episode mild hemoptysis, since then coughing up only mucus dyspnea improved no chest pain no edema Physical Exam Vital Signs: Vital Signs: Last Vital Signs Temp 97.5 F 04/21/21 15:11 Pulse 61 04/21/21 15:11 Resp 18 04/21/21 15:11 BP 150/76 H 04/21/21 15:11 Pulse Ox 99 04/21/21 15:11 Body Mass Index 25.8 Gen: in no acute distress HEENT: sclera anicteric, moist mucus membranes Neck: supple Lungs: dry inspiratory crackles bilaterally Heart: regular rate and rhythm, no murmurs Abd: soft, non-tender, non-distended Ext: no edema Skin: warm/well-perfused Neuro: alert and oriented x3, no focal findings Psych: appropriate affect Objective Data Current Medications Generic Name Dose Route Start Last Admin Trade Name Freq PRN Reason Stop Dose Admin Acetaminophen 650 mg 04/19/21 20:13 Acetaminophen 325 Mg Tablet PO Q6H PRN Pain, Mild (Pain Scale 1-3) Albuterol/Ipratropium 3 ml 04/19/21 20:13 Albuterol/Iprat 2.5/0.5mg 3 Ml Ampul.Neb INHALE RQ6H PRN Shortness of Breath Amiodarone HCl 100 mg 04/20/21 10:00 04/20/21 09:41 Amiodarone Hcl 200 Mg Tablet PO 100 mg MOWEFR@1000 NIKA Administration Apixaban 2.5 mg 04/19/21 21:00 04/21/21 08:56 Apixaban 2.5 Mg Tablet PO 2.5 mg BID NIKA Administration Atorvastatin Calcium 10 mg 04/19/21 21:00 04/20/21 20:35 Atorvastatin Calcium 10 Mg Tablet PO 10 mg BEDTIME NIKA Administration Cefuroxime Axetil 250 mg 04/21/21 09:00 04/21/21 11:51 Cefuroxime Axetil 250 Mg Tablet PO 250 mg Q12H INKA Administration Docusate Sodium 100 mg 04/19/21 20:13 Docusate Sodium 100 Mg Capsule PO DAILY PRN Constipation Doxycycline Hyclate 100 mg 04/21/21 09:00 04/21/21 11:51 Doxycycline Hyclate 100 Mg Tablet PO 100 mg Q12H NIKA Administration Furosemide 20 mg 04/20/21 16:15 04/21/21 04:23 Furosemide 20 Mg/2 Ml Vial IVPUSH 20 mg Q12H NIKA Administration Protocol Gabapentin 200 mg 04/19/21 20:13 04/21/21 08:56 Gabapentin 100 Mg Capsule PO 200 mg TID PRN Administration NEUROPATHY Ondansetron HCl 4 mg 04/19/21 20:13 Ondansetron Hcl 4 Mg/2 Ml Vial IVPUSH Q8H PRN Nausea and Vomiting Pharmacy Consult 1 each 04/19/21 10:30 Consult Rx Perform Med Rec MISCELLANE ONCE PRN Consult order Prednisone 40 mg 04/21/21 09:00 04/21/21 11:51 Prednisone 20 Mg Tablet PO 40 mg DAILY NIKA Administration Sodium Chloride 3 ml 04/20/21 00:00 04/21/21 08:57 0.9 % Sodium Chloride Flush 3 Ml Syringe IVFLUSH 3 ml QSHIFT NIKA Administration Labs CBC & Chem 7: 04/21/21 05:03 04/19/21 11:16 Labs: Laboratory Results - last 24 hr 04/20/21 04/21/21 04/21/21 15:00 05:03 05:03 WBC 14.8 H RBC 4.83 Hgb 15.0 Hct 46.1 MCV 95.4 MCH 31.1 MCHC 32.5 RDW 13.4 Plt Count 149 L MPV 11.0 Absolute Nucleated RBC 0.000 Nucleated RBC % (auto) 0.0 B-Natriuretic Peptide 1464 H Procalcitonin 0.02 Microbiology Microbiology Results: Microbiology 04/19/21 13:50 Blood Culture - Preliminary Blood - Venous No growth after 48 hours. 04/19/21 14:16 Blood Culture - Preliminary Blood - Venous No growth after 24 hours. Quality Stroke Does the patient have a stroke diagnosis?: No VTE Prior VTE?: No VTE Risk Level:: Medical - moderate - high VTE Device Contraindication: Treatment Not Indicated VTE Drug Contraindication: N/A - Med Ordered Assessment and Plan (1) Hypoxia: Status: Acute (2) Pneumonia: Status: Acute (3) IPF (idiopathic pulmonary fibrosis): Status: Acute (4) PAF (paroxysmal atrial fibrillation): Status: Acute (5) Ischemic cardiomyopathy: Status: Acute (6) Encounter for monitoring amiodarone therapy: Status: Acute (7) Hemoptysis: Status: Acute (8) Bronchitis: Status: Acute Assessment and Plan: hospital d#3 86yo M with IPF, ischemic CM, HFrEF s/p ICD placement, CKD, AF anticoagulated with apixaban presented with dyspnea admitted with hypoxic respiratory failure # acute bronchitis # IPF - per Pulmonology, steroid taper and cefuroxime/doxycycline d#1 - O2 weaned off - OK to continue AC per Pulmonology - risks of continuing amiodarone reviewed but no better options per Cardiology; see discussion below # COPD # ischemic CM with acute/chronic HFrEF - LVEF 10-15%. On low-dose IV furosemide 20 mg bid. Outpt PO dose recently decreased from 40 mg daily to 20 mg daily; may require something in between - Cardiology following, discussed amiodarone as below - unable to tolerate B-sean in past due to bradycardia/syncope - unable to tolerate ISI-I/ARB due to CKD # acute respiratory failure with hypoxia - resolved, does not require home O2. treat bronchitis and CHF as above # hemoptysis - mild and appears to be resolving - suspect due to CHF exacerbation/COPD exacerbation in setting of AC with apixaban. discussed with Pulmonology- continue apixaban for now and continue to monitor. 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
[2021-04-21] MEDS: Atorvastatin Calcium 10 MG TABLET PO (21:20)
[2021-04-21 22:55] VITALS: BP 131/71; PULSE 82; RESP 18; TEMP 36.6; O2SAT 94
[2021-04-22] VITALS (7 sets, daily range): BP systolic 115–170; BP diastolic 64–97; PULSE 62–89; RESP 16–19; TEMP 36.1–37.1; O2SAT 94–98; BMI 25.4
[2021-04-22] MEDS: Furosemide 20 MG/2 ML VIAL IVPUSH ×2 (05:15→15:42)
[2021-04-22 06:32] LABS: Hematocrit 51.3 % (42-52); Hemoglobin 16.6 g/dl (14.0-18.0); Mean Corpuscular HGB Conc 32.4 g/dl (31.0-36.0); Mean Corpuscular Hemoglobin 30.7 pg (27.0-33.0); Mean Corpuscular Volume 94.8 fL (80-98); Mean Platelet Volume 10.8 fL (9.4-12.4); Platelet Count 170 X10*3/uL (160-400); Red Blood Count 5.41 X10*6/uL (4.60-5.80); Red Cell Distribution Width 13.3 % (11.0-16.0); White Blood Count 14.5 X10*3/uL (4.8-10.8)
[2021-04-22 06:57] LABS: Anion Gap 12 (12-20); Blood Urea Nitrogen 43 mg/dL (9-16); Calcium 9.1 mg/dL (8.4-10.2); Carbon Dioxide 31 mmol/L (22-29); Chloride 100 mmol/L (96-108); Estimated Glomerular Filt Rate 43; Glucose Random 96 mg/dL (60-115); Potassium 4.4 mmol/L (3.3-5.1); Sodium 139 mmol/L (135-145)
[2021-04-22 07:00] LABS: B Type Natriuretic Peptide 1445 pg/mL (<100)
[2021-04-22 08:34] LABS: Procalcitonin 0.02 ng/mL
[2021-04-22] MEDS: 0.9 % Sodium Chloride Flush 3 ML SYRINGE IVFLUSH ×2 (08:44→15:43)
[2021-04-22] MEDS: predniSONE 20 MG TABLET 40 MG PO (08:44)
[2021-04-22] MEDS: Apixaban 2.5 MG TABLET PO ×2 (08:44→20:56)
--- NOTE | 2021-04-22 11:50 | PM.PNCARD ---
Subjective Subjective Date of Service: 04/22/21 Interval history: States he feels better. Review of Systems Review of Systems Yes all other systems are reviewed and are negative Cardiovascular: Reports as per HPI, Reports no additional cardiovascular complaints, Denies acrocyanosis, Denies cool extremities, Denies painful fingertips, Denies chest pain, Denies chest pain at rest, Denies diaphoresis, Denies syncope, Denies irregular heart rhythm, Denies claudication, Denies leg edema, Denies lightheadedness, Denies palpitations and Reports dyspnea Respiratory: Reports dyspnea Denies syncope Endocrine: Denies palpitations Physical Exam Vital Signs: Last Vital Signs Temp 97.4 F 04/22/21 11:16 Pulse 65 04/22/21 11:16 Resp 16 04/22/21 11:16 BP 161/89 H 04/22/21 11:16 Pulse Ox 98 04/22/21 11:16 Body Mass Index 25.4 Const General: cooperative and no acute distress HENTX Other: Unremarkable Neck Neck: Yes normal visual inspection Chest Chest palpation & inspection: normal inspection of the chest Resp Auscultation: crackles and no wheezes Cardio Jugular venous distension: no JVD Palpation: normal PMI Heart sounds: S1 normal heart sound present, S2 normal heart sound present, no gallops, no murmurs and no rubs GI Palpation (GI): Soft to palpation Back/Spine/Pelvis Other: unremarkable Skin General skin exam: no rashes or lesions noted Neuro Cranial nerves: Yes Other cranial nerve findings present Extrem General: Yes no clubbing, cyanosis or edema Psych Mental Status: other Results Labs and Meds Result diagrams: 04/22/21 06:01 04/22/21 06:01 Lab results: Laboratory Results - last 24 hr 04/22/21 04/22/21 04/22/21 06:01 06:01 06:01 WBC 14.5 H RBC 5.41 Hgb 16.6 Hct 51.3 MCV 94.8 MCH 30.7 MCHC 32.4 RDW 13.3 Plt Count 170 MPV 10.8 Absolute Nucleated RBC 0.000 Nucleated RBC % (auto) 0.0 Sodium 139 Potassium 4.4 Chloride 100 Carbon Dioxide 31 H Anion Gap 12 BUN 43 H Creatinine 1.53 H Estim Creat Clear Calc 38.0 Estimated GFR 43 Random Glucose 96 Calcium 9.1 Magnesium 2.0 B-Natriuretic Peptide 1445 H Procalcitonin 04/22/21 06:01 WBC RBC Hgb Hct MCV MCH MCHC RDW Plt Count MPV Absolute Nucleated RBC Nucleated RBC % (auto) Sodium Potassium Chloride Carbon Dioxide Anion Gap BUN Creatinine Estim Creat Clear Calc Estimated GFR Random Glucose Calcium Magnesium B-Natriuretic Peptide Procalcitonin 0.02 Progress Note: A&P Assessment and plan (1) Acute on chronic systolic (congestive) heart failure: Status: Acute (2) Ischemic cardiomyopathy: Status: Acute (3) PAF (paroxysmal atrial fibrillation): Status: Acute (4) IPF (idiopathic pulmonary fibrosis): Status: Acute (5) PVC (premature ventricular contraction): Status: Acute (6) ICD (implantable cardioverter-defibrillator) in place: Status: Acute Assessment and Plan: Overall, data are discordant. Clinically, he does not have any obvious volume overload. Impedance monitoring from his ICD does not show any fluid accumulation. Cardiac BNP is elevated about 1400 which is much higher than a prior value of 626 in 2019. Also it seems that lowering Lasix dose may have played a role but again not definitive. May try some empiric diuretics to see if it helps at all. If renal function gets worse then we will need to obviously cut back. Otherwise with regard to amiodarone, he is on the lowest possible dose. If we stop this, he will most likely go back into atrial fibrillation and he does not have any other options at this time. Other antiarrhythmics including sotalol, Tikosyn, flecainide extra are not suitable for someone like him with impaired LV function as well as renal insufficiency. Also he is not a good candidate for atrial fibrillation ablation. One option might be AV glynn ablation. Additionally he also has PVCs that interfere with biventricular pacing which limits the total effective time he has Bi V paced. If we stop the amiodarone his PVC burden might go up which will again interfere with the biventricular device function. This may in turn lead to more heart failure. Hence, for now may remain on the current dose of amiodarone. Also discussed with him about the fact that continuing amiodarone may possibly worsened lung disease but unfortunately there are no other options I could offer at this time. Goals of care will need to get decided based on advanced cardiac as well as pulmonary disease and renal insufficiency. Fall Risk Details Current Medications: Current Medications Generic Name Dose Route Start Last Admin Trade Name Mariano PRN Reason Stop Dose Admin Acetaminophen 650 mg 04/19/21 20:13 Acetaminophen 325 Mg Tablet PO Q6H PRN Pain, Mild (Pain Scale 1-3) Albuterol/Ipratropium 3 ml 04/19/21 20:13 Albuterol/Iprat 2.5/0.5mg 3 Ml Ampul.Neb INHALE RQ6H PRN Shortness of Breath Amiodarone HCl 100 mg 04/20/21 10:00 04/20/21 09:41 Amiodarone Hcl 200 Mg Tablet PO 100 mg MOWEFR@1000 NIKA Administration Apixaban 2.5 mg 04/19/21 21:00 04/22/21 08:44 Apixaban 2.5 Mg Tablet PO 2.5 mg BID NIKA Administration Atorvastatin Calcium 10 mg 04/19/21 21:00 04/21/21 21:20 Atorvastatin Calcium 10 Mg Tablet PO 10 mg BEDTIME NIKA Administration Cefuroxime Axetil 250 mg 04/21/21 09:00 04/22/21 08:43 Cefuroxime Axetil 250 Mg Tablet PO 250 mg Q12H NIKA Administration Docusate Sodium 100 mg 04/19/21 20:13 Docusate Sodium 100 Mg Capsule PO DAILY PRN Constipation Doxycycline Hyclate 100 mg 04/21/21 09:00 04/22/21 08:44 Doxycycline Hyclate 100 Mg Tablet PO 100 mg Q12H NIKA Administration Furosemide 20 mg 04/20/21 16:15 04/22/21 05:15 Furosemide 20 Mg/2 Ml Vial IVPUSH 20 mg Q12H NIKA Administration Protocol Gabapentin 200 mg 04/19/21 20:13 04/21/21 08:56 Gabapentin 100 Mg Capsule PO 200 mg TID PRN Administration NEUROPATHY Ondansetron HCl 4 mg 04/19/21 20:13 Ondansetron Hcl 4 Mg/2 Ml Vial IVPUSH Q8H PRN Nausea and Vomiting Pharmacy Consult 1 each 04/19/21 10:30 Consult Rx Perform Med Rec MISCELLANE ONCE PRN Consult order Prednisone 40 mg 04/21/21 09:00 04/22/21 08:44 Prednisone 20 Mg Tablet PO 40 mg DAILY NIKA Administration Sodium Chloride 3 ml 04/20/21 00:00 04/22/21 08:44 0.9 % Sodium Chloride Flush 3 Ml Syringe IVFLUSH 3 ml QSHIFT NIKA Administration Time Spent With Patient Time: Total time spent is greater than 50% in coordination of care (as documented) at patient's floor/unit and/or counseling patient: Time with patient: less than 15 minutes Progress Note: Quality Stroke Does the patient have a stroke diagnosis?: No Procedures Date of Service Date of Service: 04/22/21
--- NOTE | 2021-04-22 14:46 | HO.PM.IMPN ---
Subjective Subjective Date of Service: 04/22/21 Interval History: no further hemoptysis dyspneic with exertion no chest pain Physical Exam Vital Signs: Vital Signs: Last Vital Signs Temp 97.4 F 04/22/21 11:16 Pulse 65 04/22/21 11:16 Resp 16 04/22/21 11:16 BP 161/89 H 04/22/21 11:16 Pulse Ox 98 04/22/21 11:16 Body Mass Index 25.4 Gen: in no acute distress HEENT: sclera anicteric, moist mucus membranes Neck: supple Lungs: dry inspiratory crackles bilaterally Heart: regular rate and rhythm, no murmurs Abd: soft, non-tender, non-distended Ext: no edema Skin: warm/well-perfused Neuro: alert and oriented x3, no focal findings Psych: appropriate affect Objective Data Current Medications Generic Name Dose Route Start Last Admin Trade Name Freq PRN Reason Stop Dose Admin Acetaminophen 650 mg 04/19/21 20:13 Acetaminophen 325 Mg Tablet PO Q6H PRN Pain, Mild (Pain Scale 1-3) Albuterol/Ipratropium 3 ml 04/19/21 20:13 Albuterol/Iprat 2.5/0.5mg 3 Ml Ampul.Neb INHALE RQ6H PRN Shortness of Breath Amiodarone HCl 100 mg 04/20/21 10:00 04/20/21 09:41 Amiodarone Hcl 200 Mg Tablet PO 100 mg MOWEFR@1000 NIKA Administration Apixaban 2.5 mg 04/19/21 21:00 04/22/21 08:44 Apixaban 2.5 Mg Tablet PO 2.5 mg BID NIKA Administration Atorvastatin Calcium 10 mg 04/19/21 21:00 04/21/21 21:20 Atorvastatin Calcium 10 Mg Tablet PO 10 mg BEDTIME NIKA Administration Cefuroxime Axetil 250 mg 04/21/21 09:00 04/22/21 08:43 Cefuroxime Axetil 250 Mg Tablet PO 250 mg Q12H NIKA Administration Docusate Sodium 100 mg 04/19/21 20:13 Docusate Sodium 100 Mg Capsule PO DAILY PRN Constipation Doxycycline Hyclate 100 mg 04/21/21 09:00 04/22/21 08:44 Doxycycline Hyclate 100 Mg Tablet PO 100 mg Q12H NIKA Administration Furosemide 20 mg 04/20/21 16:15 04/22/21 05:15 Furosemide 20 Mg/2 Ml Vial IVPUSH 20 mg Q12H NIKA Administration Protocol Gabapentin 200 mg 04/19/21 20:13 04/21/21 08:56 Gabapentin 100 Mg Capsule PO 200 mg TID PRN Administration NEUROPATHY Ondansetron HCl 4 mg 04/19/21 20:13 Ondansetron Hcl 4 Mg/2 Ml Vial IVPUSH Q8H PRN Nausea and Vomiting Pharmacy Consult 1 each 04/19/21 10:30 Consult Rx Perform Med Rec MISCELLANE ONCE PRN Consult order Prednisone 40 mg 04/21/21 09:00 04/22/21 08:44 Prednisone 20 Mg Tablet PO 40 mg DAILY NIKA Administration Sodium Chloride 3 ml 04/20/21 00:00 04/22/21 08:44 0.9 % Sodium Chloride Flush 3 Ml Syringe IVFLUSH 3 ml QSHIFT NIKA Administration Labs CBC & Chem 7: 04/22/21 06:01 04/22/21 06:01 Labs: Laboratory Results - last 24 hr 04/22/21 04/22/21 04/22/21 06:01 06:01 06:01 WBC 14.5 H RBC 5.41 Hgb 16.6 Hct 51.3 MCV 94.8 MCH 30.7 MCHC 32.4 RDW 13.3 Plt Count 170 MPV 10.8 Absolute Nucleated RBC 0.000 Nucleated RBC % (auto) 0.0 Sodium 139 Potassium 4.4 Chloride 100 Carbon Dioxide 31 H Anion Gap 12 BUN 43 H Creatinine 1.53 H Estim Creat Clear Calc 38.0 Estimated GFR 43 Random Glucose 96 Calcium 9.1 Magnesium 2.0 B-Natriuretic Peptide 1445 H Procalcitonin 04/22/21 06:01 WBC RBC Hgb Hct MCV MCH MCHC RDW Plt Count MPV Absolute Nucleated RBC Nucleated RBC % (auto) Sodium Potassium Chloride Carbon Dioxide Anion Gap BUN Creatinine Estim Creat Clear Calc Estimated GFR Random Glucose Calcium Magnesium B-Natriuretic Peptide Procalcitonin 0.02 Microbiology Microbiology Results: Microbiology 04/19/21 14:16 Blood Culture - Preliminary Blood - Venous No growth after 48 hours. 04/19/21 13:50 Blood Culture - Preliminary Blood - Venous No growth after 48 hours. Quality Stroke Does the patient have a stroke diagnosis?: No VTE Prior VTE?: No VTE Risk Level:: Medical - moderate - high VTE Device Contraindication: Treatment Not Indicated VTE Drug Contraindication: N/A - Med Ordered Assessment and Plan (1) Hypoxia: Status: Acute (2) Pneumonia: Status: Acute (3) IPF (idiopathic pulmonary fibrosis): Status: Acute (4) PAF (paroxysmal atrial fibrillation): Status: Acute (5) Ischemic cardiomyopathy: Status: Acute (6) Encounter for monitoring amiodarone therapy: Status: Acute (7) Hemoptysis: Status: Acute (8) Bronchitis: Status: Acute Assessment and Plan: hospital d#4 86yo M with IPF, ischemic CM, HFrEF s/p ICD placement, CKD, AF anticoagulated with apixaban presented with dyspnea admitted with hypoxic respiratory failure # acute bronchitis # IPF - per Pulmonology, steroid taper and cefuroxime/doxycycline d#2 - O2 weaned off - OK to continue AC per Pulmonology - risks of continuing amiodarone reviewed but no better options per Cardiology; see discussion below # COPD # ischemic CM with acute/chronic HFrEF - LVEF 10-15%. On low-dose IV furosemide 20 mg bid- continue for 1 more day. Outpt PO dose recently decreased from 40 mg daily to 20 mg daily; may require something in between - Cardiology following, discussed amiodarone as below - unable to tolerate B-sean in past due to bradycardia/syncope - unable to tolerate ISI-I/ARB due to CKD # acute respiratory failure with hypoxia - resolved, does not require home O2. treat bronchitis and CHF as above # hemoptysis - mild and appears to be resolving - suspect due to CHF exacerbation/COPD exacerbation in setting of AC with apixaban. discussed with Pulmonology- continue apixaban for now and continue to monitor. 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
--- NOTE | 2021-04-22 15:45 | PC.NURSE ---
Patient had back to back runs vtach for about 5 minutes. Patient asymptomatic. Patient in paced rhythm. Dr. Park notified. No new orders.
--- NOTE | 2021-04-22 16:22 | W.MHC.ACPN ---
Advanced Care Planning Note Advanced Care Planning Note Discussed with: patient Time spent (in minutes): 20 Narrative: Discussed patient's overall prognosis. While has has improved clinically this admission, long-term prognosis is poor. Pt is DNR/DNI. He knows well that he has 3 serious dysfunctional organ systems: cardiac, pulmonary, and renal. He recognizes his conditions are not curable. His goal is palliation of symptoms. His from pancreatic cancer and he wishes to avoid suffering as she did. Plan d/c home with VNA, could consider hospice at some point if he wishes not to return to the hospital. Date of service 04/22/21 Problems Discussed (1) Hypoxia: (2) Pneumonia: (3) IPF (idiopathic pulmonary fibrosis): (4) PAF (paroxysmal atrial fibrillation): (5) Ischemic cardiomyopathy: (6) Encounter for monitoring amiodarone therapy: (7) Hemoptysis: (8) Bronchitis:
[2021-04-22] MEDS: Atorvastatin Calcium 10 MG TABLET PO (20:56)
[2021-04-23] MEDS: 0.9 % Sodium Chloride Flush 3 ML SYRINGE IVFLUSH ×2 (01:28→08:39)
[2021-04-23 03:44] VITALS: BP 138/85; PULSE 63; RESP 20; TEMP 36.8; O2SAT 98
[2021-04-23] MEDS: Furosemide 20 MG/2 ML VIAL IVPUSH (05:17)
[2021-04-23 05:33] VITALS: BMI 26.3
[2021-04-23 07:42] VITALS: BP 126/75; PULSE 76; RESP 18; TEMP 36.3; O2SAT 97
[2021-04-23 08:36] VITALS: BP 126/75; PULSE 76
[2021-04-23] MEDS: Amiodarone HCL 200 MG TABLET 100 MG PO (08:36)
[2021-04-23] MEDS: Apixaban 2.5 MG TABLET PO (08:37)
[2021-04-23] MEDS: predniSONE 20 MG TABLET 40 MG PO (08:37)
[2021-04-23 09:58] VITALS: BP 126/75; PULSE 76
--- NOTE | 2021-04-23 11:41 | MHC.CM.PN ---
Patient has been medically cleared for dc to home with VNA.A referral has been made to NA, who has been made aware of today's dc.
--- NOTE | 2021-04-23 11:46 | P.DS_ITS ---
DS: Providers Provider Date of Service: 04/23/21 Date of admission: 04/19/21 16:36 Primary care physician: Song Quiñonez MD Consults: 04/19/21 20:13 Consult to Pulmonology Routine Consulting Provider: Quinton Gonzalez Reason for consultation: Respiratory failure, IPF Has provider been notified: No 04/20/21 16:11 Consult to Cardiology Routine Consulting Provider: Rudy De La Cruz Reason for consultation: chf Has provider been notified: Yes DS: Diagnosis Discharge Diagnosis (1) Hypoxia: Status: Acute (2) Pneumonia: Status: Acute (3) IPF (idiopathic pulmonary fibrosis): Status: Acute (4) PAF (paroxysmal atrial fibrillation): Status: Acute (5) Ischemic cardiomyopathy: Status: Acute (6) Encounter for monitoring amiodarone therapy: Status: Acute (7) Hemoptysis: Status: Acute (8) Bronchitis: Status: Acute (9) Acute on chronic HFrEF (heart failure with reduced ejection fraction): Status: Acute (10) CKD (chronic kidney disease): Status: Acute DS: Medications Discharge Medications Home Medications: Home Medications Medication Instructions Recorded Confirmed gabapentin 100 mg capsule 200 mg PO TID PRN cap 10/11/20 04/19/21 simvastatin 10 mg tablet 10 mg PO BEDTIME 10/11/20 04/19/21 amiodarone 100 mg tablet 100 mg PO MOWEFR@1000 tab 01/01/21 04/19/21 Previous Rx's Medication Instructions Recorded apixaban 2.5 mg tablet 2.5 mg PO BID #180 tab 03/13/21 cefuroxime axetil 250 mg PO Q12H #6 tab 04/23/21 doxycycline hyclate 100 mg PO Q12H #6 tab 04/23/21 furosemide 20 mg PO Q OTHER DAY #15 tab 04/23/21 furosemide 40 mg PO Q OTHER DAY #15 tab 04/23/21 prednisone See Rx Instructions .ROUTE 04/23/21 .COMPLEX #11 tab DS: Summary Hospital Course Hospital Course: from admission H+P by hospitalist YULIET Lindsay, 04/19/21: This is an 86-year-old male with history underlying idiopathic pulmonary fibrosis, atrial fibrillation on ischemic cardiomyopathy status post ICD placement who presented to the emergency department with complaints of shortness breath. Patient was diagnosed with IPF 10 years ago but does not currently use any inhaler or nebulizer at home. He reports a change in his breathing over the past few days but stops short of saying he feels short of breath. He reports having chronic postnasal drip and chronic cough especially in the morning. He has in admitted phlegm production which is primarily clear. He had 1 episode of pink tinged sputum this morning which prompted him to come to the emergency department for evaluation. He denies any recent sick contacts, fever, chills. He denies orthopnea, PND. He exercises on a daily basis. Has never required home oxygen. Today his oxygen saturation was low at 87% on room air. Lab work was unremarkable with the exception of a lactic acid of 3.2. Chest CT shows interstitial lung disease with superimposed ground-glass attenuation acute parenchymal inflammatory changes but no acute consolidation. He was given a breathing treatment, IV Solu-Medrol and empiric antibiotics in the decision was made to admit him for further management. This 86 year-old man with IPF, ischemic cardiomyopathy, ischemic cardiomyopathy, AF, and CKD was admitted to the [facility] with hypoxic respiratory failure. Cardiology and Pulmonology were consulted. Minor hemoptysis resolved and ultimately was attributed to pulmonary edema and bronchitis/pneumonia in the setting of apixaban anticoagulation. He was treated with steroid taper [to continue 8 more days upon discharge] and cefuroxime plus doxycycline [to complete 3 more days upon discharge]. He was diuresed with IV furosemide, with negative fluid balance of 6.4L over the course of the admission. His outpatient furosemide dose was changed to 40 mg alternating with 20 mg on alternate days. Ultimately, it was decided to continue amiodarone at the lowest possible dosedue to concern of ILD; other antiarrhythmics were not usable due to renal insufficiency. Also, the amiodarone suppresses his PVCs, which interfere with biventricular pacing; stopping amiodarone might increase PVC burden and interfere with BiV pacer function, provoking worsening CHF. No beta sean was started due to intolerance with bradycardia and syncope in the past; ISI-I/ARB could not be started due to renal dysfunction. Renal function remained stable at baseline CKD 3/4. He was weaned off O2 and did not qualify for home O2. He was discharged home with VNA services and will require follow up with Cardiology, Pulmonology and Nephrology. Hypersensitivity pneumonia and connective tissue disorder labs are pending at the time of discharge and should be followed up by his primary care doctor and intravenous therapy nurse. Time Spent with Patient Time attestation: Total time spent providing and/or coordinating discharge services: 45 Discharge coordination time: Greater than 30 minutes Quality: Stroke Does the patient have a stroke diagnosis?: No Physical Exam Vital Signs: Vital Signs: Last Vital Signs Temp 97.3 F 04/23/21 07:42 Pulse 76 04/23/21 09:58 Resp 18 04/23/21 07:42 BP 126/75 04/23/21 09:58 Pulse Ox 97 04/23/21 07:42 Body Mass Index 26.3 Gen: in no acute distress HEENT: sclera anicteric, moist mucus membranes Neck: supple Lungs: dry inspiratory crackles bilaterally Heart: regular rate and rhythm, no murmurs Abd: soft, non-tender, non-distended Ext: no edema Skin: warm/well-perfused Neuro: alert and oriented x3, no focal findings Psych: appropriate affect DS: Data Data Completed and Pending Completed studies during hospitalization [Text1]: Laboratory Results WBC 14.5 X10*3/uL (4.8-10.8) H 04/22/21 06:01 RBC 5.41 X10*6/uL (4.60-5.80) 04/22/21 06:01 Hgb 16.6 g/dl (14.0-18.0) 04/22/21 06:01 Hct 51.3 % (42-52) 04/22/21 06:01 MCV 94.8 fL (80-98) 04/22/21 06:01 MCH 30.7 pg (27.0-33.0) 04/22/21 06:01 MCHC 32.4 g/dl (31.0-36.0) 04/22/21 06:01 RDW 13.3 % (11.0-16.0) 04/22/21 06:01 Plt Count 170 X10*3/uL (160-400) 04/22/21 06:01 MPV 10.8 fL (9.4-12.4) 04/22/21 06:01 Immature Gran % (Auto) 0.3 % (0.0-0.4) 04/19/21 11:16 Neut % (Auto) 70.9 % (45-73) 04/19/21 11:16 Lymph % (Auto) 16.3 % (20-40) L 04/19/21 11:16 Calvert % (Auto) 7.3 % (2-11) 04/19/21 11:16 Eos % (Auto) 4.7 % (0-4) H 04/19/21 11:16 Baso % (Auto) 0.5 % (0-2) 04/19/21 11:16 Lymph # (Auto) 1.1 X10*3/uL (1.2-4.9) L 04/19/21 11:16 Calvert # (Auto) 0.5 X10*3/uL (0.1-1.2) 04/19/21 11:16 Eos # (Auto) 0.3 X10*3/uL (0.0-0.4) 04/19/21 11:16 Baso # (Auto) 0.0 X10*3/uL (0.0-0.2) 04/19/21 11:16 Abs Immat Gran (auto) 0.02 X10*3/uL (0.00-0.03) 04/19/21 11:16 Absolute Neuts (auto) 4.7 X10*3/uL (2.0-8.3) 04/19/21 11:16 Absolute Nucleated RBC 0.000 X10*3/uL (0.0-0.012) 04/22/21 06:01 Nucleated RBC % (auto) 0.0 /100WBC (0.0-0.2) 04/22/21 06:01 ESR 6 MM/HR (0-15) 04/20/21 09:44 PT 13.9 SEC (10.8-13.0) H 04/19/21 11:16 INR 1.2 (0.9-1.1) H 04/19/21 11:16 APTT 35.7 SEC (24.1-38.0) 04/19/21 11:16 APTT Cancelled 04/19/21 11:16 Sodium 139 mmol/L (135-145) 04/22/21 06:01 Potassium 4.4 mmol/L (3.3-5.1) 04/22/21 06:01 Chloride 100 mmol/L (96-108) 04/22/21 06:01 Carbon Dioxide 31 mmol/L (22-29) H 04/22/21 06:01 Anion Gap 12 (12-20) 04/22/21 06:01 BUN 43 mg/dL (9-16) H 04/22/21 06:01 Creatinine 1.53 mg/dL (0.5-1.4) H 04/22/21 06:01 Estim Creat Clear Calc 38.0 04/22/21 06:01 Estimated GFR 43 04/22/21 06:01 Random Glucose 96 mg/dL (60-115) 04/22/21 06:01 Lactic Acid 3.2 mmol/L (0.5-2.0) H* 04/19/21 13:50 Lactic Acid Fup @ 2Hr 2.8 mmol/L (0.5-2.0) H* 04/19/21 18:35 Lactic Acid Fup @ 4Hr 3.4 mmol/L (0.5-2.0) H* 04/19/21 20:52 Calcium 9.1 mg/dL (8.4-10.2) 04/22/21 06:01 Magnesium 2.0 mg/dL (1.6-2.6) 04/22/21 06:01 Total Bilirubin 0.5 mg/dL (0.0-1.0) 04/19/21 11:16 Direct Bilirubin 0.3 mg/dL (0.0-0.5) 04/19/21 11:16 AST 22 U/L (5-37) 04/19/21 11:16 ALT 15 U/L (0-40) 04/19/21 11:16 Alkaline Phosphatase 128 U/L (39-117) H 04/19/21 11:16 Troponin I High Sens 16.4 ng/L (<3.5-35.0) 04/19/21 11:16 B-Natriuretic Peptide 1445 pg/mL (<100) H 04/22/21 06:01 Total Protein 7.2 g/dL (6.5-8.0) 04/19/21 11:16 Albumin 4.0 g/dL (3.5-5.0) 04/19/21 11:16 Lipase 14 U/L (8-78) 04/19/21 11:16 Procalcitonin 0.02 ng/mL 04/22/21 06:01 COVID-19 (MICHELLE) Negative (Negative) 04/19/21 11:22 COVID-19 Clin Com See Note 04/19/21 11:[address] 04/19/21 10:30 IMPRESSION: Diffuse chronic interstitial lung disease with superimposed groundglass attenuation likely acute parenchymal inflammatory changes but no acute consolidation seen. No large mass or mass effect seen. There is diffuse reactionary abnormal mediastinal lymph nodes secondary to inflammatory process. Bilateral posterior pleural thickening without effusion. No calcifications seen. TTE 04/20/21 - The left ventricular systolic function is severely decreased. The visually estimated ejection fraction is between 10-15%. - Evidence suggests grade II (moderate) diastolic dysfunction. - The apex, apical inferior, apical lateral, apical septum, and mid anteroseptal segments are akinetic. - Moderate pulmonary hypertension is present. Discharge Plan Discharge Patient Disposition: Home Health Service Discharge Diagnosis: bronchitis, pulmonary fibrosis, CHF, ischemic cardiomyopathy, hemoptysis, SAULO/CKD, hypoxia Referrals: Shahzad KIM [Outside] - 1 Week Song Quiñonez MD [Primary Care Provider] - 1 Week Discharge Medications: New cefuroxime axetil 250 mg Tablet 250 mg PO Q12H Qty: 6 RF: 0 doxycycline hyclate 100 mg Tablet 100 mg PO Q12H Qty: 6 RF: 0 prednisone 10 mg tablet See Rx Instructions .ROUTE .COMPLEX Qty: 11 RF: 0 furosemide 20 mg tablet 20 mg PO Q OTHER DAY Qty: 15 RF: 0 furosemide 40 mg tablet 40 mg PO Q OTHER DAY Qty: 15 RF: 0 Continued apixaban [Eliquis] 2.5 mg tablet 2.5 mg PO BID Qty: 180 RF: 2 amiodarone 100 mg tablet 100 mg PO MOWEFR@1000 RF: 0 simvastatin 10 mg tablet 10 mg PO BEDTIME RF: 0 gabapentin 100 mg capsule 200 mg PO TID PRN (Reason: NEUROPATHY) RF: 0 Discontinued furosemide 20 mg Tablet 20 mg PO DAILY RF: 0 Discharge Orders: Discharge Order (Routine); Ordered 04/23/21 Ordered By: Kimi Park Diet: low salt diet Activity on Discharge: As tolerated Stand Alone Forms: Patient Portal Discharge page Other Ambulatory Orders: Basic Metabolic Panel (Routine) Timeframe: 1 Week Facility: [facility] - Location: Laboratory Ordered By: Kimi Park Care Plan Goals: relief of shortness of breath palliation of symptoms Health Concerns: heart failure, pulmonary fibrosis, bronchitis, pneumonia, chronic kidney disease Plan of Treatment: see Dr Quiñonez (Primary Care) in 1 week take furosemide 40 mg every other day, alternating with 20 mg every other day weigh yourself daily; dry weight is around 176 lb follow up with Dr De La Cruz (Cardiology) in 2 weeks [address] [facility] [place] [address] take antibiotics, cefuroxime 250 mg twice daily PLUS doxycycline 100 mg twice daily for 3 more days take prednisone taper for 8 more days as follows: 20 mg daily x 4 days 10 mg daily x 2 days 5 mg daily x 2 days follow up with Dr Fontanez (Pulmonology) in 2 weeks [address] [place] [address] draw labs in 1-2 weeks: BMP [non-fasting] follow up with Dr Cyr (Nephrology) in 2 weeks [address] [facility], [address] [place] [address] (p) [phone] Assessment: as above Patient Instructions: Heart Failure (DC), Pneumonia (DC)
--- NOTE | 2021-04-23 11:59 | W.MHC.F2F ---
Service Date Service Date: 04/23/21 Encounter Date of encounter: 04/23/21 Reasons for Services Signs and symptoms assessed: dyspnea Reason for shelter: medication management, medication treatment and teach disease management Reason for physical therapy: home safety and mobility, therapeutic exercises, gait/transfer training, assess need for DME, ADL training and energy conservation Overseeing Care: Song Quiñonez Homebound: Leaving the home is medically contraindicated at this time without the asist of a device and/or another person due th the listed conditions above and below. Reason homebound: unsteady gait / fall risk, fall risk related to blood pressure changes and weakness related to hospital stay Homebound supporting statement: Mr Arana was admitted to [facility] 04/19-04/23/21 for CHF exacerbation, bronchitis/pneumonia, pulmonary fibrosis, and AF. Requesting VNA services for CHF monitoring/medication management and home PT. Certification: Based on the above findings, I certify that this patient is confined to the home and needs intermittent shelter care, physical therapy and/or speech therapy, or continues to need occupational therapy. The patient is under my care, and I have initiated the establishment of the plan of care. The patient will be followed by a physician who will periodically review the plan of care.
[2021-04-23 12:00] VITALS: BP 133/90; PULSE 89; RESP 16; TEMP 36.4; O2SAT 100
[2021-04-23 14:42] LABS: Anti Nuclear Antibody Screen POSITIVE (NEGATIVE); Anti Nuclear Antibody Titer 1:40 titer
[2021-04-26 21:42] LABS: Immunoglobulin E 1633 kU/L (<OR=114)
[2021-04-27 21:57] LABS: Asperg fumigatus Precip Abs NEGATIVE (NEGATIVE); Micropoly faeni Abs NEGATIVE (NEGATIVE); Pigeon serum Abs NEGATIVE (NEGATIVE); Saccharo pora viridis Abs NEGATIVE (NEGATIVE); Thermo candidus Abs NEGATIVE (NEGATIVE); Thermoa vulgaris #1 NEGATIVE (NEGATIVE)
== END 2021-04-23 12:48 | disposition home health service (06) | DRG 139 ==
LOC: HO.ED 13:15 → HO.EDOVER 17:21 → HO.IMC 20:42
PROVIDERS: Hospitalist; Admitting Provider Physician Assistant Medical; Emergency Provider Emergency Medicine; PCP Internal Medicine; Visit Provider Family Medicine
DX: J18.9 Pneumonia, unspecified organism (principal); J96.01 Acute respiratory failure with hypoxia; I50.23 Acute on chronic systolic (congestive) heart failure; D69.6 Thrombocytopenia, unspecified; E87.2 Acidosis; J84.112 Idiopathic pulmonary fibrosis; J44.0 Chronic obstructive pulmonary disease with (acute) lower respiratory infection; N18.4 Chronic kidney disease, stage 4 (severe); I25.5 Ischemic cardiomyopathy; J44.1 Chronic obstructive pulmonary disease with (acute) exacerbation; R04.2 Hemoptysis; J20.9 Acute bronchitis, unspecified; I49.3 Ventricular premature depolarization; I48.0 Paroxysmal atrial fibrillation; Z95.810 Presence of automatic (implantable) cardiac defibrillator; Z20.822 Contact with and (suspected) exposure to COVID-19; Z79.01 Long term (current) use of anticoagulants; Z87.891 Personal history of nicotine dependence; Z79.899 Other long term (current) drug therapy; E78.5 Hyperlipidemia, unspecified; Z66 Do not resuscitate
CPT/HCPCS: 36415; 71250; 80048; 80076; 82785; 83605; 83690; 83735; 83880; 84145; 84484; 85025; 85027; 85610; 85652; 85730; 86038; 86039; 86331; 86606; 86609; 87040; 87635; 93005; 93308; 94640; 97116; 97161; 99285; J0696; J1940; J2920; J2930

== ENCOUNTER 2021-04-30 09:54 | Outpatient (REF) | payer OTHER, SELFPAY ==
[2021-04-30 11:18] LABS: Anion Gap 12 (12-20); Blood Urea Nitrogen 34 mg/dL (9-16); Carbon Dioxide 31 mmol/L (22-29); Chloride 102 mmol/L (96-108); Estimated Glomerular Filt Rate 42; Glucose Random 97 mg/dL (60-115); Potassium 4.9 mmol/L (3.3-5.1); Sodium 140 mmol/L (135-145)
== END 2021-04-30 09:55 | disposition home or self-care (01) ==
LOC: HO.LAB 09:54
PROVIDERS: PCP Internal Medicine; Referring Provider Internal Medicine Hypertension Specialist; Visit Provider Family Medicine
DX: I50.23 Acute on chronic systolic (congestive) heart failure (principal); N18.9 Chronic kidney disease, unspecified
CPT/HCPCS: 36415; 80048

== ENCOUNTER 2021-05-01 10:24 | Outpatient (REF) | payer OTHER, SELFPAY ==
--- NOTE | ~2021-05-01 | XR_ITS ---
EXAMINATION: XR CHEST CLINICAL INFORMATION: Rule out pneumonia. COMPARISON: None TECHNIQUE: 2 views of the chest were obtained. FINDINGS: The lungs are well-expanded with prominent reticular interstitial changes groundglass opacification in both lungs but no confluent infiltrate. There is mild bronchial wall thickening but no bronchiectasis seen. There is no pleural effusion. The heart size is normal. Pulmonary vascularity is normal. There are pacer electrodes in right atrium and right ventricle. No gross bony abnormality seen. XR/XR chest 2V IMPRESSION: Increased reticular interstitial thickening, mild bronchial wall thickening and groundglass attenuation suggestive of chronic interstitial lung changes. Similar findings were seen on the CT chest exam 04/19/2021. No acute infiltrate seen.
== END 2021-05-01 10:25 | disposition home or self-care (01) ==
LOC: HO.XRAY 10:24
PROVIDERS: PCP Internal Medicine; Visit Provider Internal Medicine
DX: J98.09 Other diseases of bronchus, not elsewhere classified (principal)
CPT/HCPCS: 71046

== ENCOUNTER → 2021-05-08 11:11 | Outpatient (BNVA) | payer OTHER, SELFPAY | PROVIDERS: PCP Internal Medicine; Visit Provider Internal Medicine Pulmonary Disease ==

== ENCOUNTER → 2021-07-02 13:12 | Outpatient (REF) | payer OTHER, SELFPAY ==
--- NOTE | 2021-07-02 13:18 | CA_ITS ---
Transthoracic Echocardiogram Patient (Last, First, Middle): Darek Arana J Gender: Male Date of : 1935 Age: 86 Procedure Date: 07/02/2021 Procedure Type: Transthoracic Echocardiogram Location: OP Height: 185.42 cm Weight: 82.56 kg BSA: 2.07 m2 Heart Rate: bpm BP: 105 / 55 mmHg Fine Arts Packer: Referring MD: Rudy De La Cruz MD Symptoms: I25.5 - Ischemic cardiomyopathy Conclusions: - Mildly dilated left ventricle with severe LV systolic dysfunction with LVEF of 15-20% with regional wall motion abnormality in LAD territory consistent with prior infarction and overall findings consistent with ischemic cardiomyopathy. Impaired relaxation with elevated filling pressures noted Findings Procedure Information The patient receives contrast. Left Ventricle Mildly increased left ventricular cavity size. There is normal left ventricular wall thickness. The left ventricular systolic function is severely decreased. The visually estimated ejection fraction is between 15 20%. There is evidence of regional wall motion abnormalities. Spectral Doppler is indicative of an impaired relaxation filling pattern. Elevated filling pressures. Wall Motion Rest Echo Findings The basal anterior segment is hypokinetic. The apical anterior, mid anterior, mid inferoseptal, basal anteroseptal, and mid anteroseptal segments are akinetic. The apex and apical septum segments are dyskinetic. All other scored wall segments showed normal motion. Prior Study Comparison No significant change compared to prior study dated: 04/20/2021. Measurements 2D Linear Measurements LVIDd: 6.01 3.9-5.3/4.2-5.9 cm LVIDd Index: 2.90 2.4-3.2/2.2-3.1 cm/m2 LVIDs: 5.63 2.0-3.6 cm LVPWd: 0.87 0.7-1.1 cm 2D Systolic Function EF 4C: 9.47 >55% EF 2C: 52.00 >55% Mitral Valve MV Pk E: 0.68 MV PK A: 1.08 MV Decel Time: 391.00 E/A: 0.60 E'Lateral: 4.43 E'Medial: 2.48 E/E' Med: 27.30 E/E' Lat: 15.30 Diastolic Function MV Pk E: 0.68 MV Pk A: 1.08 E/A: 0.60 E'Medial: 2.48 E/E' Med: 27.30 E' Laterial: 4.43 E/E' Lat: 15.30 Tricuspid Valve TR Pk Antoni: 2.78 TR Pk Grad: 31.00 RA Press: 3.00 RVSP: 34.00 Updated in Other Vendor System with Status of Final Matteo Adams MD electronically signed on 07/03/2021 8:51:17 AM with status of Final
== END ==
LOC: HO.CARD 13:12
PROVIDERS: Visit Provider Internal Medicine
DX: I25.5 Ischemic cardiomyopathy (principal)
CPT/HCPCS: 93308; Q9957

== ENCOUNTER → 2021-08-06 12:18 | Outpatient (BNVA) | payer OTHER, SELFPAY | PROVIDERS: PCP Internal Medicine; Referring Provider Internal Medicine; Visit Provider Internal Medicine | DX: Z45.02 Encounter for adjustment and management of automatic implantable cardiac defibrillator (principal); I25.5 Ischemic cardiomyopathy; I48.0 Paroxysmal atrial fibrillation; Z51.81 Encounter for therapeutic drug level monitoring; Z79.899 Other long term (current) drug therapy | CPT/HCPCS: 93005 ==

== ENCOUNTER → 2021-10-17 12:47 | Outpatient (BNVA) | payer OTHER, SELFPAY | PROVIDERS: PCP Internal Medicine; Visit Provider Internal Medicine Pulmonary Disease ==

== ENCOUNTER 2021-10-30 08:33 | Outpatient (REF) | payer OTHER, SELFPAY ==
--- NOTE | ~2021-10-30 | CT_ITS ---
EXAMINATION: CT CHEST WITHOUT CONTRAST CLINICAL INFORMATION: J84.112 - Idiopathic pulmonary fibrosis COMPARISON: Chest radiographs 05/01/2021, 07/11/2019, CT chest 04/19/2021, 07/19/2020, 02/11/2019 TECHNIQUE: Multidetector volumetric CT imaging of the chest is performed without intravenous contrast. Axial MIP volume rendering provided. Sagittal and coronal reformatted images were obtained. Additional 3 high-resolution images obtained through the upper, mid, and lower zones. This CT examination was performed using dose optimization techniques as appropriate, variously including the following: *Automated exposure control *Adjustment of mA and/or kV according to patient size (this includes techniques or standardized protocols for targeted exams where dose is matched to indication/reason for exam; i.e. extremities or head) *Use of iterative reconstruction technique DLP: 283 mGy-cm FINDINGS: VET TECH: AICD with 3 leads. Generator overlying left shoulder. LUNGS: Scattered geographic groundglass opacities noted on prior exam 04/19/2021 have resolved. There is no lobar or segmental airspace consolidation or residual groundglass opacities. The central airways are clear. There is again mild uniform bronchiolar wall thickening greater bilateral lower zones. Emphysematous changes are stable. Accentuated subpleural reticular markings are again noted along with honeycombing similar in severity and distribution to prior exams. This involves both the upper and lower zones, greatest right lateral base. There is no mass or interval nodule. There are a few scattered punctate subpleural calcified granulomata are again seen. MEDIASTINUM: Scattered small mediastinal nodes stable. No interval hilar or mediastinal adenopathy or mass. No pericardial effusion. Thoracic aorta normal in caliber. Fullness right main pulmonary artery stable. PLEURA: There is no pleural effusion. No pleural mass or thickening. AXILLA: No lymphadenopathy. UPPER ABDOMEN: Small cyst interpolar left kidney under 2 cm stable. Small splenule left upper quadrant stable. Adrenal glands are unremarkable. OSSEOUS STRUCTURES: No acute bony abnormality. Multilevel degenerative changes thoracic spine. Superior endplate concavity's upper thoracic region stable. CT/CT chest wo con IMPRESSION: 1. Interval resolution geographic groundglass opacities since prior CT 04/19/2021. 2. Subpleural fibrotic changes similar in distribution and severity to prior studies dating back to 02/11/2019.
== END 2021-10-30 08:34 | disposition home or self-care (01) ==
LOC: HO.CT 08:33
PROVIDERS: PCP Internal Medicine; Visit Provider Internal Medicine Pulmonary Disease
DX: J84.112 Idiopathic pulmonary fibrosis (principal); Z95.810 Presence of automatic (implantable) cardiac defibrillator
CPT/HCPCS: 71250

== ENCOUNTER 2021-11-08 14:33 | Outpatient (REF) | payer OTHER, SELFPAY ==
--- NOTE | 2021-11-08 17:14 | PFT_ITS ---
Forced vital capacity, FEV1, VEF57-05, and MVV are all normal. Post bronchodilator therapy, there is no change. Total lung capacity is slightly decreased. Residual volume moderately decreased. Diffusion capacity is markedly decreased. CLINICAL IMPRESSION: There is no evidence of obstructive airway disorder. Mild to moderate restrictive pulmonary disorder is noted. Diffusion capacity is markedly decreased and this may be due to pulmonary emphysema, pulmonary vascular disease, non pulmonary factors. For this, clinical correlation is recommended. These results are compared with the test of 10/06/2019 and basically there is no significant change. Regulo Mancini MD MSB/MODL / [id number]
== END 2021-11-08 14:34 | disposition home or self-care (01) ==
LOC: HO.RESP 14:33
PROVIDERS: PCP Internal Medicine; Visit Provider Internal Medicine Pulmonary Disease
DX: J84.112 Idiopathic pulmonary fibrosis (principal)
CPT/HCPCS: 94060; 94727; 94729

== ENCOUNTER → 2021-12-20 13:44 | Outpatient (BNVA) | payer OTHER, SELFPAY | PROVIDERS: PCP Internal Medicine; Visit Provider Internal Medicine Pulmonary Disease ==

== ENCOUNTER → 2022-02-04 13:19 | Outpatient (BNVA) | payer OTHER, SELFPAY | PROVIDERS: PCP Internal Medicine; Referring Provider Internal Medicine; Visit Provider Internal Medicine | DX: Z45.02 Encounter for adjustment and management of automatic implantable cardiac defibrillator (principal); I25.5 Ischemic cardiomyopathy; I48.0 Paroxysmal atrial fibrillation; Z51.81 Encounter for therapeutic drug level monitoring; Z79.899 Other long term (current) drug therapy | CPT/HCPCS: 93005 ==

== ENCOUNTER 2022-02-14 09:54 | Outpatient (REF) | payer OTHER, SELFPAY ==
[2022-02-14 10:17] LABS: MANUAL DIFF FLAG NO
[2022-02-14 10:49] LABS: Basophils Percent Auto 0.4 % (0-2); Eosinophils Absolute Auto 0.3 X10*3/uL (0.0-0.4); Eosinophils Percent Auto 4.9 % (0-4); Hemoglobin 13.9 g/dl (14.0-18.0); Imm Gran Abs Auto 0.02 X10*3/uL (0.00-0.03); Imm Gran Pct Auto 0.3 % (0.0-0.4); Lymphocytes Absolute Auto 1.2 X10*3/uL (1.2-4.9); Lymphocytes Percent Auto 16.7 % (20-40); Mean Corpuscular HGB Conc 32.3 g/dl (31.0-36.0); Mean Corpuscular Hemoglobin 30.7 pg (27.0-33.0); Mean Corpuscular Volume 94.9 fL (80.0-98.0); Mean Platelet Volume 10.4 fL (9.4-12.4); Monocytes Absolute Auto 0.6 X10*3/uL (0.1-1.2); Monocytes Percent Auto 8.2 % (2-11); Neutrophils Absolute Auto 4.8 x10*3/uL (2.0-8.3); Neutrophils Percent Auto 69.5 % (45-73); Platelet Count 135 X10*3/uL (160-400); Red Blood Count 4.53 X10*6/uL (4.60-5.80); Red Cell Distribution Width 13.6 % (11.0-16.0)
[2022-02-14 11:09] LABS: Anion Gap 15 (12-20); Blood Urea Nitrogen 33 mg/dL (9-16); Calcium 9.3 mg/dL (8.4-10.2); Carbon Dioxide 28 mmol/L (22-29); Chloride 100 mmol/L (96-108); Estimated Glomerular Filt Rate 33; Potassium 4.6 mmol/L (3.3-5.1); Sodium 138 mmol/L (135-145)
== END 2022-02-14 09:55 | disposition home or self-care (01) ==
LOC: HO.LAB 09:54
PROVIDERS: PCP Internal Medicine; Visit Provider Internal Medicine Hypertension Specialist
DX: N18.31 Chronic kidney disease, stage 3a (principal)
CPT/HCPCS: 36415; 80051; 82310; 82565; 84520; 85025

== ENCOUNTER 2022-03-25 11:31 | Emergency (ER) | payer OTHER, SELFPAY ==
--- NOTE | ~2022-03-25 | XR_ITS ---
EXAMINATION: XR CHEST CLINICAL INFORMATION: Shaking chills COMPARISON: Chest CT 10/30/2021 TECHNIQUE: 2 views of the chest were obtained. FINDINGS: The lungs are hyperinflated with bilateral increased reticular interstitial thickening likely chronic interstitial disease unchanged to previous CT 10/22/2021. No consolidation seen. Heart size and pulmonary vascularity is normal. There are dual pacer electrodes in right atrium and right ventricle. No gross bony abnormality seen. XR/XR chest 2V IMPRESSION: Chronic interstitial lung changes with no acute pneumonic consolidation.
[2022-03-25 11:56] VITALS: BP 137/71; PULSE 100; RESP 18; TEMP 37; O2SAT 97; BMI 23.8
--- NOTE | 2022-03-25 12:02 | ECG_ITS ---
Test Reason : BRADYCARDIC Blood Pressure : / mmHG Vent. Rate : 106 BPM Atrial Rate : 106 BPM P-R Int : 128 ms QRS Dur : 168 ms QT Int : 368 ms P-R-T Axes : 088 -76 111 degrees QTc Int : 488 ms Atrial-sensed ventricular-paced rhythm Abnormal ECG When compared with ECG of 19-APR-2021 11:17, Premature ventricular complexes are no longer Present Vent. rate has increased BY 38 BPM Referred By: Generic ED Physician Electronically Signed By:Samuel Rosas
[2022-03-25 12:16] LABS: MANUAL DIFF FLAG NO
[2022-03-25 12:21] LABS: Basophils Percent Auto 0.5 % (0-2); Eosinophils Absolute Auto 0.1 X10*3/uL (0.0-0.4); Eosinophils Percent Auto 2.1 % (0-4); Hematocrit 49.9 % (42.0-52.0); Hemoglobin 15.7 g/dl (14.0-18.0); Imm Gran Abs Auto 0.02 X10*3/uL (0.00-0.03); Imm Gran Pct Auto 0.3 % (0.0-0.4); Lymphocytes Absolute Auto 0.5 X10*3/uL (1.2-4.9); Lymphocytes Percent Auto 7.1 % (20-40); Mean Corpuscular HGB Conc 31.5 g/dl (31.0-36.0); Mean Corpuscular Hemoglobin 30.4 pg (27.0-33.0); Mean Corpuscular Volume 96.5 fL (80.0-98.0); Mean Platelet Volume 9.7 fL (9.4-12.4); Monocytes Absolute Auto 0.1 X10*3/uL (0.1-1.2); Monocytes Percent Auto 1.7 % (2-11); Neutrophils Absolute Auto 5.9 x10*3/uL (2.0-8.3); Neutrophils Percent Auto 88.3 % (45-73); Platelet Count 130 X10*3/uL (160-400); Red Blood Count 5.17 X10*6/uL (4.60-5.80); Red Cell Distribution Width 13.4 % (11.0-16.0); White Blood Count 6.7 X10*3/uL (4.8-10.8)
[2022-03-25 12:34] LABS: Anion Gap 16 (12-20); Blood Urea Nitrogen 31 mg/dL (9-16); Calcium 9.5 mg/dL (8.4-10.2); Carbon Dioxide 26 mmol/L (22-29); Chloride 103 mmol/L (96-108); Estimated Glomerular Filt Rate 34; Glucose Random 109 mg/dL (60-115); Potassium 5.5 mmol/L (3.3-5.1); Sodium 139 mmol/L (135-145)
--- NOTE | 2022-03-25 17:17 | ED.GENADULT ---
HPI - General Adult General Chief complaint: General Medical Stated complaint: shakes Time Seen by Provider: 03/25/22 17:17 Source: patient Mode of arrival: ambulatory Limitations: no limitations History of Present Illness HPI narrative: [place] cold and started to have the shakes, could not stop shivering. A nurse saw him, Pulse was 48, and he appeared cold. Patient now feels better Related Data Home Medications Medication Instructions Recorded Confirmed gabapentin 100 mg capsule 200 mg PO TID PRN cap 10/11/20 02/04/22 simvastatin 10 mg tablet 10 mg PO BEDTIME 10/11/20 02/04/22 Previous Rx's Medication Instructions Recorded furosemide 20 mg tablet 20 mg PO Q OTHER DAY #15 tab 04/23/21 furosemide 40 mg tablet 40 mg PO Q OTHER DAY #15 tab 04/23/21 amiodarone 100 mg tablet 100 mg PO MOWEFR@1000 90 Days #39 06/04/21 tab apixaban 2.5 mg tablet (Eliquis) 2.5 mg PO BID #180 tab 01/02/22 Allergies Allergy/AdvReac Type Severity Reaction Status Date / Time metoprolol [METOPROLOL] AdvReac Severe SYNCOPE Verified 02/04/22 13:41 Review of Systems Constitutional: Constitutional: Reports no additional constitutional complaints Eyes: Eyes: Reports no additional eye complaints ENT: Denies dizziness Cardiovascular: Cardiovascular: Reports no additional cardiovascular complaints Respiratory: Respiratory: Reports as per HPI Gastrointestinal: Gastrointestinal: Reports no additional gastrointestinal complaints Musculoskeletal: Musculoskeletal: Reports no additional musculoskeletal complaints Integumentary/Breasts: Skin/Breast: Denies rash Neurologic: Reports system reviewed and no additional complaints, except as documented, Denies dizziness and Denies Sensory deficit (Neuro) Psychiatric: Psychiatric: Denies anxiety [facility] Past Medical History Medical History (Updated 03/25/22 @ 20:20 by Kevin Henriquez MD) Acute on chronic HFrEF (heart failure with reduced ejection fraction) Acute on chronic systolic (congestive) heart failure Bronchitis CKD (chronic kidney disease) Encounter for monitoring amiodarone therapy Hemoptysis Hypoxia ICD (implantable cardioverter-defibrillator) in place IPF (idiopathic pulmonary fibrosis) Ischemic cardiomyopathy PAF (paroxysmal atrial fibrillation) Pneumonia PVC (premature ventricular contraction) Surgical History History of implantable cardiac defibrillator (ICD) (~02/2016) Family History Family History Father No problems noted. Mother No problems noted. Social History Social History Household Members: Family Household Members Other:: son Housing: House Do you presently have visiting nurse or other home services: No Alcohol intake: former Patient Tobacco Use Status: Former Tobacco user Quit Date: 1973 e-Cigarette/Vaping Use: Former Use Advance Directives: Yes Advance Directives on File: Yes Advance Directives Date on File: 04/19/21 service: Yes Current occupational status: retired Physical Exam ED Vital Signs: Vital Signs - 24 hr 03/25/22 11:56 Temperature 98.6 F Pulse Rate 100 Respiratory Rate 18 Blood Pressure 137/71 Pulse Oximetry 97 BMI result Body Mass Index 23.8 Const General: healthy appearing Nutritional Appearance: average body habitus Orientation/consciousness: oriented to person and patient oriented x3 Limitations: no limitations HENMT Head: Yes normal to inspection Ears: external ears normal General nose exam: Normal external nose present Mouth: Normal oral and palatal mucosa present and oropharynx normal Throat: Yes posterior oropharynx normal Eyes General: appearance normal, both eyes and all related structures Neck Neck: Yes normal visual inspection Chest Other: RRR 3/6 ANGELITO Resp Auscultation: clear to auscultation bilaterally Cardio Other: 3/6 ANGELITO Jugular venous distension: no JVD Rate: regular rate Rhythm: regular rhythm GI Inspection: Yes normal to inspection Palpation (GI): Soft to palpation, nontender and No hepatosplenomegaly present Auscultation: normal bowel sounds General: Yes no CVA tenderness Back/Spine/Pelvis Back: no CVA tenderness Skin General skin exam: no rashes or lesions noted Neuro General: oriented to person and patient oriented x3 Cranial nerves: Yes CN's II-XII intact bilaterally Motor exam (neuro): 5/5 motor strength present throughout Sensory Exam: No Sensory deficit (Neuro) Extrem General: Yes normal to inspection Psych Appearance: grossly normal Course Reevaluation(s) Reevaluation #1: patient does not want to wait for urine, no evidence of infection will follow up with doctor to check urine and revisted. I doubt that this is infection of nature Time: 20:18 Medical Decision Making Lab Data Result diagrams: 03/25/22 12:12 03/25/22 12:12 Labs: Lab Results 03/25/22 03/25/22 Range/Units 12:12 12:12 WBC 6.7 (4.8-10.8) X10*3/uL RBC 5.17 (4.60-5.80) X10*6/uL Hgb 15.7 (14.0-18.0) g/dl Hct 49.9 (42.0-52.0) % MCV 96.5 (80.0-98.0) fL MCH 30.4 (27.0-33.0) pg MCHC 31.5 (31.0-36.0) g/dl RDW 13.4 (11.0-16.0) % Plt Count 130 L (160-400) X10*3/uL MPV 9.7 (9.4-12.4) fL Immature Gran % (Auto) 0.3 (0.0-0.4) % Neut % (Auto) 88.3 H (45-73) % Lymph % (Auto) 7.1 L (20-40) % [place] % (Auto) 1.7 L (2-11) % Eos % (Auto) 2.1 (0-4) % Baso % (Auto) 0.5 (0-2) % Lymph # (Auto) 0.5 L (1.2-4.9) X10*3/uL [place] # (Auto) 0.1 (0.1-1.2) X10*3/uL Eos # (Auto) 0.1 (0.0-0.4) X10*3/uL Baso # (Auto) 0.0 (0.0-0.2) X10*3/uL Abs Immat Gran (auto) 0.02 (0.00-0.03) X10*3/uL Absolute Neuts (auto) 5.9 (2.0-8.3) x10*3/uL Absolute Nucleated RBC 0.000 (0.0-0.012) X10*3/uL Nucleated RBC % (auto) 0.0 (0.0-0.2) /100WBC Sodium 139 (135-145) mmol/L Potassium 5.5 H (3.3-5.1) mmol/L Chloride 103 (96-108) mmol/L Carbon Dioxide 26 (22-29) mmol/L Anion Gap 16 (12-20) BUN 31 H (9-16) mg/dL Creatinine 1.90 H (0.5-1.4) mg/dL Estim Creat Clear Calc 30.0 Estimated GFR 34 Random Glucose 109 (60-115) mg/dL Calcium 9.5 (8.4-10.2) mg/dL Imaging Data Chest x-ray: Radiologist's impression: FINDINGS: The lungs are hyperinflated with bilateral increased reticular interstitial thickening likely chronic interstitial disease unchanged to previous CT 10/22/2021. No consolidation seen. Heart size and pulmonary vascularity is normal. There are dual pacer electrodes in right atrium and right ventricle. No gross bony abnormality seen. XR/XR chest 2V IMPRESSION: Chronic interstitial lung changes with no acute pneumonic consolidation. ECG Data Attestation: I personally reviewed and interpreted this ECG as follows: Interpretation: sinus rate 60, ventricular paced rhythm Discharge Plan Discharge Clinical Impression: Shaking, Shaking chills Patient Disposition: Home, Self-Care Additional Instructions: return for increase fever, shortness of breath or shaking chills Prescriptions: No Action amiodarone 100 mg tablet 100 mg PO MOWEFR@1000 90 Days Qty: 39 3RF Eliquis 2.5 mg tablet 2.5 mg PO BID Qty: 180 2RF furosemide 20 mg tablet 20 mg PO Q OTHER DAY Qty: 15 0RF furosemide 40 mg tablet 40 mg PO Q OTHER DAY Qty: 15 0RF simvastatin 10 mg tablet 10 mg PO BEDTIME 0RF gabapentin 100 mg capsule 200 mg PO TID PRN (Reason: NEUROPATHY) 0RF Referrals: Song Quiñonez MD [Primary Care Provider] - 2 days
[2022-03-25 18:00] VITALS: BP 120/81; PULSE 87; RESP 15; TEMP 36.8; O2SAT 94
--- NOTE | 2022-03-25 20:52 | PC.NURSE ---
assessment not completed by previous RN
== END 2022-03-25 20:53 | disposition home or self-care (01) ==
PROVIDERS: Emergency Provider Emergency Medicine; PCP Internal Medicine
DX: R68.83 Chills (without fever) (principal); I13.0 Hypertensive heart and chronic kidney disease with heart failure and stage 1 through stage 4 chronic kidney disease, or unspecified chronic kidney disease; N18.9 Chronic kidney disease, unspecified; I50.23 Acute on chronic systolic (congestive) heart failure; I48.0 Paroxysmal atrial fibrillation; Z79.01 Long term (current) use of anticoagulants; Z95.810 Presence of automatic (implantable) cardiac defibrillator
CPT/HCPCS: 36415; 71046; 80048; 85025; 93005; 99283

== ENCOUNTER 2022-05-29 08:53 | Outpatient (REF) | payer OTHER, SELFPAY ==
[2022-05-29 09:49] LABS: Hematocrit 42.6 % (42.0-52.0); Hemoglobin 13.4 g/dl (14.0-18.0); Mean Corpuscular HGB Conc 31.5 g/dl (31.0-36.0); Mean Corpuscular Volume 95.5 fL (80.0-98.0); Mean Platelet Volume 10.4 fL (9.4-12.4); Platelet Count 142 X10*3/uL (160-400); Red Blood Count 4.46 X10*6/uL (4.60-5.80); Red Cell Distribution Width 13.3 % (11.0-16.0); White Blood Count 6.3 X10*3/uL (4.8-10.8)
[2022-05-29 10:26] LABS: Anion Gap 13 (12-20); Blood Urea Nitrogen 32 mg/dL (9-16); Carbon Dioxide 29 mmol/L (22-29); Chloride 105 mmol/L (96-108); Estimated Glomerular Filt Rate 30; Potassium 5.6 mmol/L (3.3-5.1); Sodium 141 mmol/L (135-145)
[2022-05-29 10:32] LABS: Uric Acid 8.8 mg/dL (3.4-7.0)
[2022-05-29 12:16] LABS: Creatinine Urine 100.72 mg/dL; Protein/Creatinine Ratio, Ur 0.42 (<0.2); Total Protein Urine Random 42 mg/dL (<12)
[2022-05-30 14:22] LABS: Calcium (PTHI) 9.3 mg/dL (8.6-10.3); PTHI 91 pg/mL (16-77)
== END 2022-05-29 08:54 | disposition home or self-care (01) ==
LOC: HO.LAB 08:53
PROVIDERS: PCP Internal Medicine; Visit Provider Internal Medicine Hypertension Specialist
DX: N18.32 Chronic kidney disease, stage 3b (principal)
CPT/HCPCS: 36415; 80051; 82310; 82565; 83970; 84156; 84520; 84550; 85027

== ENCOUNTER → 2022-08-05 12:59 | Outpatient (BNVA) | payer OTHER, SELFPAY | PROVIDERS: PCP Internal Medicine; Referring Provider Internal Medicine; Visit Provider Internal Medicine | DX: Z45.02 Encounter for adjustment and management of automatic implantable cardiac defibrillator (principal); I25.5 Ischemic cardiomyopathy; I48.0 Paroxysmal atrial fibrillation; Z51.81 Encounter for therapeutic drug level monitoring; Z79.899 Other long term (current) drug therapy | CPT/HCPCS: 93005 ==

== ENCOUNTER → 2023-01-10 12:46 | Outpatient (BNVA) | payer OTHER, SELFPAY | PROVIDERS: PCP Internal Medicine; Visit Provider Internal Medicine Pulmonary Disease | DX: J84.112 Idiopathic pulmonary fibrosis (principal) ==

== ENCOUNTER → 2023-02-03 12:35 | Outpatient (BNVA) | payer OTHER, SELFPAY | PROVIDERS: PCP Internal Medicine; Referring Provider Internal Medicine; Visit Provider Internal Medicine | DX: I25.5 Ischemic cardiomyopathy (principal); I48.0 Paroxysmal atrial fibrillation | CPT/HCPCS: 93005 ==

== ENCOUNTER 2023-02-10 09:10 | Outpatient (REF) | payer OTHER, SELFPAY ==
[2023-02-10 10:15] LABS: Anion Gap 11 (12-20); Blood Urea Nitrogen 31 mg/dL (9-16); Carbon Dioxide 30 mmol/L (22-29); Chloride 104 mmol/L (96-108); Estimated Glomerular Filt Rate 33; Glucose Random 84 mg/dL (60-115); Potassium 4.6 mmol/L (3.3-5.1); Sodium 140 mmol/L (135-145)
== END 2023-02-10 09:11 | disposition home or self-care (01) ==
LOC: HO.LAB 09:10
PROVIDERS: PCP Internal Medicine; Visit Provider Internal Medicine Hypertension Specialist
DX: I12.9 Hypertensive chronic kidney disease with stage 1 through stage 4 chronic kidney disease, or unspecified chronic kidney disease (principal); N18.32 Chronic kidney disease, stage 3b
CPT/HCPCS: 36415; 80048

== ENCOUNTER → 2023-05-23 23:59 | Outpatient (BNV) | payer OTHER, SELFPAY ==
--- NOTE | 2023-06-05 21:16 | MHC.OFFVIS ---
Intake Intake Visit Reasons: Remote ICD Check- [facility] Allergies metoprolol [METOPROLOL] Adverse Reaction (Severe, Verified 02/03/23 12:59) SYNCOPE PFSH Medical History Acute on chronic HFrEF (heart failure with reduced ejection fraction) Acute on chronic systolic (congestive) heart failure Bronchitis CKD (chronic kidney disease) Encounter for monitoring amiodarone therapy Hemoptysis Hypoxia ICD (implantable cardioverter-defibrillator) in place IPF (idiopathic pulmonary fibrosis) Ischemic cardiomyopathy PAF (paroxysmal atrial fibrillation) Pneumonia PVC (premature ventricular contraction) Surgical History History of implantable cardiac defibrillator (ICD) (~02/2016) Family History Father No problems noted. Mother No problems noted. Social History Household Members: Family Household Members Other:: son Housing: House Do you presently have visiting nurse or other home services: No Alcohol intake: former Patient Tobacco Use Status: Former Tobacco user Quit Date: 1973 e-Cigarette/Vaping Use: Former Use Advance Directives Date on File: 04/19/21 service: Yes Current occupational status: retired Office Procedures Cardiac Device Check Cardiac Device Check Details: Date of service 05/23/2023; Battery life 4.8months; normal lead parameters; no treated VT/VF; adequate Biv pacing ; normal ICD function. [id number] Cardiac Interrogation, implant defibrillator w/interim Procedure code (CPT) selection complete Assessment & Plan Assessment & Plan (1) Ischemic cardiomyopathy: Code(s): I25.5 - Ischemic cardiomyopathy Coding Level of Care Code Procedure Only Diagnoses Ischemic cardiomyopathy I25.5 CPT Codes Cardiac Device Check - Cardiac Device 13: [id number] Cardiac Interrogation, implant defibrillator w/interim ([id number])
== END ==
PROVIDERS: PCP Internal Medicine; Visit Provider Internal Medicine
DX: I25.5 Ischemic cardiomyopathy (principal); Z95.810 Presence of automatic (implantable) cardiac defibrillator
CPT/HCPCS: 93295

== ENCOUNTER → 2023-06-02 23:59 | Outpatient (BNV) | payer OTHER, SELFPAY ==
--- NOTE | 2023-06-07 14:33 | MHC.OFFVIS ---
Intake Intake Visit Reasons: Remote HF Monitoring- [facility] Allergies metoprolol [METOPROLOL] Adverse Reaction (Severe, Verified 02/03/23 12:59) SYNCOPE PFSH Medical History Acute on chronic HFrEF (heart failure with reduced ejection fraction) Acute on chronic systolic (congestive) heart failure Bronchitis CKD (chronic kidney disease) Encounter for monitoring amiodarone therapy Hemoptysis Hypoxia ICD (implantable cardioverter-defibrillator) in place IPF (idiopathic pulmonary fibrosis) Ischemic cardiomyopathy PAF (paroxysmal atrial fibrillation) Pneumonia PVC (premature ventricular contraction) Surgical History History of implantable cardiac defibrillator (ICD) (~02/2016) Family History Father No problems noted. Mother No problems noted. Social History Household Members: Family Household Members Other:: son Housing: House Do you presently have visiting nurse or other home services: No Alcohol intake: former Patient Tobacco Use Status: Former Tobacco user Quit Date: 1973 e-Cigarette/Vaping Use: Former Use Advance Directives Date on File: 04/19/21 service: Yes Current occupational status: retired Office Procedures Cardiac Device Check Cardiac Device Check Details: Date of service- 06/02/2023; based on impedance data and physiological variables, there is no evidence of worsening congestive heart failure. [id number] Cardiac Device Interrogation, cardio physiologic monitor Procedure code (CPT) selection complete Assessment & Plan Assessment & Plan (1) Ischemic cardiomyopathy: Code(s): I25.5 - Ischemic cardiomyopathy Coding Level of Care Code Procedure Only Diagnoses Ischemic cardiomyopathy I25.5 CPT Codes Cardiac Device Check - Cardiac Device 15: [id number] Cardiac Device Interrogation, cardio physiologic monitor ([id number])
== END ==
PROVIDERS: PCP Internal Medicine; Visit Provider Internal Medicine
DX: I25.5 Ischemic cardiomyopathy (principal)
CPT/HCPCS: 93297

== ENCOUNTER → 2023-07-28 23:59 | Outpatient (BNV) | payer OTHER, SELFPAY ==
--- NOTE | 2023-08-03 10:16 | MHC.OFFVIS ---
Intake Intake Visit Reasons: REmote HF monitoring- [facility] Allergies metoprolol [METOPROLOL] Adverse Reaction (Severe, Verified 02/03/23 12:59) SYNCOPE PFSH Medical History Acute on chronic HFrEF (heart failure with reduced ejection fraction) Acute on chronic systolic (congestive) heart failure Bronchitis CKD (chronic kidney disease) Encounter for monitoring amiodarone therapy Hemoptysis Hypoxia ICD (implantable cardioverter-defibrillator) in place IPF (idiopathic pulmonary fibrosis) Ischemic cardiomyopathy PAF (paroxysmal atrial fibrillation) Pneumonia PVC (premature ventricular contraction) Surgical History History of implantable cardiac defibrillator (ICD) (~02/2016) Family History Father No problems noted. Mother No problems noted. Social History Household Members: Family Household Members Other:: son Housing: House Do you presently have visiting nurse or other home services: No Alcohol intake: former Patient Tobacco Use Status: Former Tobacco user Quit Date: 1973 e-Cigarette/Vaping Use: Former Use Advance Directives Date on File: 04/19/21 service: Yes Current occupational status: retired Office Procedures Cardiac Device Check Cardiac Device Check Details: Date of service- 07/28/2023; based on impedance data and physiological variables, there is no evidence of worsening congestive heart failure. [id number] Cardiac Device Interrogation, cardio physiologic monitor Procedure code (CPT) selection complete Assessment & Plan Assessment & Plan (1) Ischemic cardiomyopathy: Code(s): I25.5 - Ischemic cardiomyopathy Coding Level of Care Code Procedure Only Diagnoses Ischemic cardiomyopathy I25.5 CPT Codes Cardiac Device Check - Cardiac Device 15: [id number] Cardiac Device Interrogation, cardio physiologic monitor ([id number])
== END ==
PROVIDERS: PCP Internal Medicine; Visit Provider Internal Medicine
DX: I25.5 Ischemic cardiomyopathy (principal)
CPT/HCPCS: 93297

== ENCOUNTER 2023-08-04 12:32 | Outpatient (AMB) | payer OTHER, SELFPAY ==
--- NOTE | 2023-08-04 12:53 | MHC.OFFVIS ---
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 He has as functional as he has been in the last several years. Still able to exercise, do sit-ups, right indoor bicycle extra. Sometimes gets short of breath but other times he can do a lot of activity. [facility] Medical History Acute on chronic HFrEF (heart failure with reduced ejection fraction) Acute on chronic systolic (congestive) heart failure Bronchitis CKD (chronic kidney disease) Encounter for monitoring amiodarone therapy Hemoptysis Hypoxia ICD (implantable cardioverter-defibrillator) in place IPF (idiopathic pulmonary fibrosis) Ischemic cardiomyopathy PAF (paroxysmal atrial fibrillation) Pneumonia PVC (premature ventricular contraction) Surgical History History of implantable cardiac defibrillator (ICD) (~02/2016) Family History Father No problems noted. Mother No problems noted. Social History Household Members: Family Household Members Other:: son Housing: House Do you presently have visiting nurse or other home services: No Alcohol intake: former Patient Tobacco Use Status: Former Tobacco user Quit Date: 1973 e-Cigarette/Vaping Use: Former Use Advance Directives Date on File: 04/19/21 service: Yes Current occupational status: retired Review of Systems Const Denies weakness ENT Denies dizziness Card Denies chest pain, Denies chest pain with activity, Denies syncope, Denies rapid heart rate, Denies pedal edema, Denies edema, Denies leg edema, Denies lightheadedness, Denies palpitations, Denies dyspnea, Denies dyspnea on exertion and Denies orthopnea Resp Denies cough, Denies dyspnea and Denies dyspnea on exertion GI Denies hematochezia and Denies change in stool character Musc Denies abnormal gait, Denies muscle cramps, Denies muscle weakness, Denies numbness, Denies radiating pain into limb and Denies tingling Neuro Denies abnormal gait, Denies dizziness, Denies syncope, Denies numbness, Denies tingling and Denies weakness Endo Denies palpitations Physical Exam Vital Signs: Last Vital Signs Pulse 79 08/04/23 12:55 BP 130/62 08/04/23 12:55 BMI result Body Mass Index 24.7 Const General: comfortable and no acute distress Orientation/consciousness: patient oriented x3 HEENT Other: Unremarkable Head: Yes normal to inspection Neck Neck: Yes normal visual inspection Chest Chest palpation & inspection: normal inspection of the chest Resp Auscultation: rales Cardio Palpation: normal PMI Heart sounds: S1 normal heart sound present, S2 normal heart sound present, no gallops, no murmurs and no rubs GI Palpation (GI): Soft to palpation Back/Spine/Pelvis Other: unremarkable Skin General skin exam: no rashes or lesions noted Neuro General: patient oriented x3 Extrem General: Yes normal to inspection Psych Mental Status: mental status grossly normal Office Procedures Cardiac Device Check Cardiac Device Check Details: ICD interrogated today. Battery status will reach TRESSA in less than 3 months. Normal lead parameters. Biventricular pacing 92%. No shocks delivered. Overall, normal device function. [id number] Cardiac Device Check, multi lead implantable defibrillator Procedure code (CPT) selection complete EKG Details: EKG with atrial sensed, biventricular paced rhythm but there is also PVCs in a pattern of bigeminy. [id number], Complete Assessment & Plan Assessment & Plan (1) Ischemic cardiomyopathy: Code(s): I25.5 - Ischemic cardiomyopathy Plan: Clinically, no volume overload. Can remain on the current dose of Lasix. In the past, recurrent episodes of symptomatic hypotension/syncope from beta-blockers and hence not taking it. Due to CKD, not on any ISI inhibitors or ARB or Entresto and also runs low blood pressures. (2) PAF (paroxysmal atrial fibrillation): Code(s): I48.0 - Paroxysmal atrial fibrillation Plan: Maintained on low-dose amiodarone. Not considered to be a suitable ablation candidate. Last TSH unremarkable, through PCP. Will call PCP's office for any recent labs. If not can repeat. Patient is well aware of the fact that he does not have any other alternative to Amiodarone in spite of the fact that he has some pulmonary disease. (3) Encounter for monitoring amiodarone therapy: Code(s): Z51.81 - Encounter for therapeutic drug level monitoring; Z79.899 - Other computer terminal operator (current) drug therapy Plan: Follow thyroid function as above. Pulmonary status can be followed through pulmonology. There is no other alternative to Amiodarone and if stopped, probably will go back into atrial fibrillation leading to decompensated heart failure. Hence the need to continue. This has been discussed several times. (4) Implantable cardioverter-defibrillator generator end of life: Code(s): Z45.02 - Encounter for adjustment and management of automatic implantable cardiac defibrillator Plan: Device to reach TRESSA less than 3 months. Hence will call EP for appointment. Patient aware. Plan Plan discussed with son who came for appointment. Orders: Referrals Cardiac Electrophysiology Referral I42.9 - Cardiomyopathy, unspecified, Z45.02 - Encounter for adjustment and management of automatic implantable cardiac defibrillator Coding Level of Care Code Est Pt Level 4 (91011) Diagnoses Ischemic cardiomyopathy I25.5 PAF (paroxysmal atrial fibrillation) I48.0 Encounter for monitoring amiodarone therapy Z51.81; Z79.899 Implantable cardioverter-defibrillator generator end of life Z45.02 CPT Codes Cardiac Device Check - Cardiac Device 6: [id number] Cardiac Device Check, multi lead implantable defibrillator ([id number]) EKG - CPT: 89933-Xxmkmlxhzzuhwfrsm, Complete ([id number])
[2023-08-04 12:55] VITALS: BP 130/62; PULSE 79; BMI 24.7
== END 2023-08-04 13:29 | disposition home or self-care (01) ==
PROVIDERS: PCP Internal Medicine; Visit Provider Internal Medicine
DX: I25.5 Ischemic cardiomyopathy (principal); I48.0 Paroxysmal atrial fibrillation; Z51.81 Encounter for therapeutic drug level monitoring; Z79.899 Other long term (current) drug therapy; Z45.02 Encounter for adjustment and management of automatic implantable cardiac defibrillator
CPT/HCPCS: 93010; 93284; 99214

== ENCOUNTER → 2023-08-04 12:32 | Outpatient (BNVA) | payer OTHER, SELFPAY | PROVIDERS: PCP Internal Medicine; Visit Provider Internal Medicine | DX: I25.5 Ischemic cardiomyopathy (principal); I48.0 Paroxysmal atrial fibrillation | CPT/HCPCS: 93005 ==

== ENCOUNTER → 2023-08-12 23:59 | Outpatient (BNV) | payer OTHER, SELFPAY ==
--- NOTE | 2023-08-19 13:39 | A.OFFVIS_ITS ---
Intake Intake Visit Reasons: Remote ICD Check- [facility] Allergies metoprolol [METOPROLOL] Adverse Reaction (Severe, Verified 08/04/23 12:54) [facility] [employer] [facility] Medical History Acute on chronic HFrEF (heart failure with reduced ejection fraction) Acute on chronic systolic (congestive) heart failure Bronchitis CKD (chronic kidney disease) Encounter for monitoring amiodarone therapy Hemoptysis Hypoxia ICD (implantable cardioverter-defibrillator) in place IPF (idiopathic pulmonary fibrosis) Ischemic cardiomyopathy PAF (paroxysmal atrial fibrillation) Pneumonia PVC (premature ventricular contraction) Surgical History History of implantable cardiac defibrillator (ICD) (~02/2016) Family History Father No problems noted. Mother No problems noted. Social History Household Members: Family Household Members Other:: son Housing: House Do you presently have visiting nurse or other home services: No Alcohol intake: former Patient Tobacco Use Status: Former Tobacco user Quit Date: 1973 e-Cigarette/Vaping Use: Former Use Advance Directives Date on File: 04/19/21 service: Yes Current occupational status: retired Office Procedures Cardiac Device Check Cardiac Device Check Details: Date of service 08/12/2023; Battery life <3months; normal lead parameters; adequate biv pacing; no treated VT/VF; ; normal ICD function. [id number] Cardiac Interrogation, implant defibrillator w/interim Procedure code (CPT) selection complete Assessment & Plan Assessment & Plan (1) Ischemic cardiomyopathy: Code(s): I25.5 - Ischemic cardiomyopathy Coding Level of Care Code Procedure Only Diagnoses Ischemic cardiomyopathy I25.5 CPT Codes Cardiac Device Check - Cardiac Device 13: [id number] Cardiac Interrogation, implant defibrillator w/interim ([id number])
== END ==
PROVIDERS: PCP Internal Medicine; Visit Provider Internal Medicine
DX: I25.5 Ischemic cardiomyopathy (principal); Z95.810 Presence of automatic (implantable) cardiac defibrillator
CPT/HCPCS: 93295

== ENCOUNTER 2023-08-13 08:34 | Outpatient (REF) | payer OTHER, SELFPAY | END 2023-08-13 08:35 | disposition home or self-care (01) | LOC: HO.LAB 08:34 | PROVIDERS: PCP Internal Medicine; Visit Provider Internal Medicine Hypertension Specialist | DX: N18.32 Chronic kidney disease, stage 3b (principal) | CPT/HCPCS: 36415; 80048; 85027 ==

== ENCOUNTER 2023-08-29 10:34 | Outpatient (REF) | payer OTHER, SELFPAY ==
--- NOTE | ~2023-08-29 | XR_ITS ---
EXAMINATION: XR KNEE AP STANDING CLINICAL INFORMATION: Bilateral knee pain. COMPARISON: None available. TECHNIQUE: AP and lateral standing views of bilateral knees. FINDINGS: LEFT KNEE: Marked degenerative changes in the medial compartment with loss of the joint space, subchondral sclerosis and remodeling. Mild chondrocalcinosis in the lateral compartment. No significant joint effusion. Bones are diffusely demineralized. Vascular calcifications. RIGHT KNEE: The bones are diffusely demineralized. Vascular calcifications. No significant joint effusion. Mild medial joint space narrowing with small medial marginal osteophytes. XR/XR knee standing BI IMPRESSION: 1. Marked degenerative changes left knee. 2. Mild degenerative changes right knee.
== END 2023-08-29 10:35 | disposition home or self-care (01) ==
LOC: HO.HMGCX 10:34
PROVIDERS: PCP Internal Medicine; Visit Provider Internal Medicine
DX: M25.561 Pain in right knee (principal); M25.562 Pain in left knee
CPT/HCPCS: 73565

== ENCOUNTER 2023-09-05 10:50 | Outpatient (AMB) | payer OTHER, SELFPAY ==
[2023-09-05 11:00] VITALS: BP 122/60; PULSE 65; BMI 25.8
--- NOTE | 2023-09-05 11:00 | HO.NEPHOV_ITS ---
HPI HPI Comments History of Present Illness Details Elderly man with significant for?persistent AFib Eliquis, HFrEF w/ EF 15-20% on 09/09/2023, NSTEMI 09/2023, idiopathic pulmonary fibrosis, ischemic cardiomyopathy s/p AICD placement, CKD 3, and gout Here for follow-up regarding CKD. 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 Mother No problems noted. Social History Household Members: Children Household Members Other:: son Housing: House Do you presently have visiting nurse or other home services: No Alcohol intake: former Patient Tobacco Use Status: Former Tobacco user Quit Date: 1973 Tobacco use type: Cigarette, Cigar and Pipe e-Cigarette/Vaping Use: Never Used Second Hand Smoke Exposure: No Advance Directives Date on File: 04/19/21 service: Yes Current occupational status: retired Vital Signs 09/05/23 11:00 Height 6 ft Weight 190 lb 2 oz BMI 25.8 BP 122/60 Blood Pressure Location Lt brachial Position Sitting Pulse 65 Pulse Source Palpation Physical Exam Vital Signs: Last Vital Signs Pulse 65 09/05/23 11:00 BP 122/60 09/05/23 11:00 BMI result Body Mass Index 25.8 Const General: comfortable Nutritional Appearance: well nourished Orientation/consciousness: patient oriented x3 HEENT Head: No normal to inspection Mouth: moist mucous membranes Neck Neck: Yes supple and Yes no JVD Resp Auscultation: clear to auscultation bilaterally, no rales and rub present Cardio Jugular venous distension: no JVD Palpation: no palpable S3 and no palpable S4 Heart sounds: no rubs GI Palpation (GI): Soft to palpation and nontender Percussion: No Fluid wave present General: Yes no CVA tenderness Back/Spine/Pelvis Back: no CVA tenderness Skin General skin exam: no rashes or lesions noted Neuro General: patient oriented x3 Extrem General: Yes no pedal edema and No clubbing Results Reviewed Results Reviewed: Labs labs reviewed Assessment & Plan Assessment & Plan (1) CKD (chronic kidney disease): Code(s): N18.9 - Chronic kidney disease, unspecified Qualifiers: Chronic kidney disease stage: stage 3 (moderate) Chronic kidney disease stage 3 subtype: stage 3b (GFR 30-44) Qualified Code(s): N18.32 - Chronic kidney disease, stage 3b Plan: Renal functions close to baseline. No signs or symptoms of uremia or fluid overload. Continue washing function closely and avoid nephrotoxic agents including NSAIDs (2) Acute on chronic HFrEF (heart failure with reduced ejection fraction): Code(s): I50.23 - Acute on chronic systolic (congestive) heart failure Plan: Needs to stay on low-salt diet. Continue same dose of diuretics Follow-up with Cardiology as needed Orders: Orders Blood Urea Nitrogen 6 Months I50.23 - Acute on chronic systolic (congestive) heart failure, N18.9 - Chronic kidney disease, unspecified Calcium 6 Months I50.23 - Acute on chronic systolic (congestive) heart failure, N18.9 - Chronic kidney disease, unspecified PTHI 6 Months I50.23 - Acute on chronic systolic (congestive) heart failure, N18.9 - Chronic kidney disease, unspecified Electrolytes 6 Months I50.23 - Acute on chronic systolic (congestive) heart failure, N18.9 - Chronic kidney disease, unspecified Creatinine 6 Months I50.23 - Acute on chronic systolic (congestive) heart failure, N18.9 - Chronic kidney disease, unspecified Complete Blood Count no Diff 6 Months I50.23 - Acute on chronic systolic (conges tive) heart failure, N18.9 - Chronic kidney disease, unspecified Uric Acid 6 Months I50.23 - Acute on chronic systolic (congestive) heart failure, N18.9 - Chronic kidney disease, unspecified Coding Level of Care Code Est Pt Level 3 (54049) Diagnoses Stage 3b chronic kidney disease N18.32 Chronic kidney disease stage: stage 3 (moderate) Chronic kidney disease stage 3 subtype: stage 3b (GFR 30-44) Acute on chronic HFrEF (heart failure with reduced ejection fraction) I50.23
== END 2023-09-05 11:19 | disposition home or self-care (01) ==
LOC: HO.HKA 10:50
PROVIDERS: PCP Internal Medicine; Visit Provider Internal Medicine Hypertension Specialist
DX: N18.32 Chronic kidney disease, stage 3b (principal); I50.23 Acute on chronic systolic (congestive) heart failure
CPT/HCPCS: 99213

== ENCOUNTER → 2023-09-05 10:50 | Outpatient (BNVA) | payer OTHER, SELFPAY | PROVIDERS: PCP Internal Medicine; Visit Provider Internal Medicine Hypertension Specialist ==

== ENCOUNTER 2023-09-08 11:20 | Inpatient (IN) | payer OTHER, SELFPAY ==
[2023-09-08] VITALS (9 sets, daily range): BP systolic 99–140; BP diastolic 52–80; PULSE 48–77; RESP 14–20; TEMP 36.1–36.8; O2SAT 94–100; BMI 25.8; BMI 25.1
--- NOTE | ~2023-09-08 | XR_ITS ---
EXAMINATION: XR CHEST CLINICAL INFORMATION: Pain COMPARISON: Previous chest x-ray most recent March 2022 TECHNIQUE: 2 views of the chest were obtained. FINDINGS: The cardiac silhouette is enlarged but stable. There is a left subclavian pacemaker unchanged in position. There are increased peripheral interstitial markings suggestive of interstitial lung disease. This appears increased from previous exam. No definite acute pneumonia is seen. There is no pleural effusion or pneumothorax. There are degenerative changes of the spine and right shoulder. XR/XR chest 2V IMPRESSION: Interstitial lung disease. This appears increased from prior chest x-ray March 2022.
--- NOTE | 2023-09-08 11:35 | ECG_ITS ---
Test Reason : pain Blood Pressure : / mmHG Vent. Rate : 074 BPM Atrial Rate : 040 BPM P-R Int : 000 ms QRS Dur : 188 ms QT Int : 476 ms P-R-T Axes : 000 -66 133 degrees QTc Int : 528 ms AV dual-paced rhythm with frequent Premature ventricular complexes Abnormal ECG When compared with ECG of 25-MAR-2022 11:59, Premature ventricular complexes are now Present Vent. rate has decreased BY 32 BPM Referred By: Lui Arnold Electronically Signed By:REAGAN FAJARDO MD
--- NOTE | 2023-09-08 11:35 | ED.GENADULT ---
HPI - General Adult General Chief complaint: Dyspnea Stated complaint: SOB Time Seen by Provider: 09/08/23 12:57 Source: patient and family Mode of arrival: ambulatory History of Present Illness HPI narrative: An 88-year-old male with underlying IPF, chronic heart failure, CKD, cardiomyopathy who presents after having his AICD adjusted he thinks approximately 1 month ago and since that time states that he has become progressively more short of breath, he is currently on chronic anticoagulation. He denies any chest pain or palpitations but states that he has been experiencing dizziness on exertion but denies any lower extremity swelling. Patient has taken all medications today. Related Data Home Medications Medication Instructions Recorded Confirmed gabapentin 100 mg capsule 200 mg PO TID NEUROPATHY 10/11/20 09/08/23 simvastatin 10 mg tablet 10 mg PO BEDTIME 10/11/20 09/08/23 allopurinol 100 mg tablet 100 mg PO DAILY 02/03/23 09/08/23 amiodarone 100 mg tablet 100 mg PO MOWEFR@0900 09/08/23 09/08/23 furosemide 20 mg tablet 20 mg PO SUTUTHSA@0900 09/08/23 09/08/23 furosemide 40 mg tablet 40 mg PO MOWEFR@0900 09/08/23 09/08/23 Previous Rx's Medication Instructions Recorded apixaban 2.5 mg tablet (Eliquis) 2.5 mg PO BID #180 tabs 05/26/23 Allergies Allergy/AdvReac Type Severity Reaction Status Date / Time metoprolol [METOPROLOL] AdvReac Severe SYNCOPE Verified 09/05/23 11:01 Review of Systems Review of Systems: Pertinent positives and negatives as stated in HPI [facility] Past Medical History Source: nursing notes reviewed Medical History Acute on chronic HFrEF (heart failure with reduced ejection fraction) ICD (implantable cardioverter-defibrillator) in place PVC (premature ventricular contraction) Acute on chronic systolic (congestive) heart failure Pneumonia CKD (chronic kidney disease) Hypoxia Hemoptysis Bronchitis Encounter for monitoring amiodarone therapy PAF (paroxysmal atrial fibrillation) IPF (idiopathic pulmonary fibrosis) Ischemic cardiomyopathy Surgical History History of implantable cardiac defibrillator (ICD) (~02/2016) Family History Family History Father No problems noted. Mother No problems noted. Social History Social History Household Members: Family Household Members Other:: son Housing: House Do you presently have visiting nurse or other home services: No Alcohol intake: former Patient Tobacco Use Status: Former Tobacco user Quit Date: 1973 Smoked in Last 30 Days: No e-Cigarette/Vaping Use: Former Use Use of substances other than those prescribed or required for medical reasons: No Advance Directives: No Advance Directives Information Provided: No Advance Directives Date on File: 04/19/21 service: Yes Current occupational status: retired Physical Exam ED Vital Signs: Vital Signs - 24 hr 09/08/23 11:35 09/08/23 11:55 09/08/23 13:08 Temperature 98.2 F Pulse Rate 52 48 L 62 Respiratory Rate 18 14 14 Blood Pressure 122/62 119/68 Pulse Oximetry 100 99 98 Oxygen Delivery Method Room Air Room Air Room Air BMI result Body Mass Index 25.8 VITAL SIGNS: Reviewed. GENERAL: Well developed, well nourished, in no acute distress. HEAD: Normocephalic/atraumatic EYES: PERRLA, EOMI EARS: Ext canals without abnormality NOSE: Nares patent bilateral OROPHARYNX: no oral lesions noted, posterior pharynx clear NECK: Supple, no adenopathy LUNGS: Bibasilar rales, no tachypnea and no expiratory wheeze, good inspiratory effort. SpO2<98> CARDIOVASCULAR: Regular rate and rhythm without noted murmurs, no JVD or lower extremity edema. ABDOMEN: Soft, non-tender, non-distended with bowel sounds. MUSCULOSKELETAL: No tenderness, deformities, or effusions noted on gross inspection. EXTREMITIES: No cyanosis, clubbing or edema. SKIN: Inspection of the skin reveals no rashes NEUROLOGIC: Alert and oriented x 4. Strength and sensation to light touch were grossly intact x 4. Course Course Course Narrative: CHLOE- an 80-year-old male presents for evaluation of shortness of breath with exertion. Patient has a pacemaker he believes the batteries are running low and is not capturing appropriately. He reports that his pulse was ?45 this morning. ? Plan for EKG, labs. Patient follows with cardiology this facility, Dr De La Cruz Medical Decision Making Medical Decision Making [facility] Narrative: 1310: 88-year-old male with history and clinical presentation, DDX: CHF, unlikely to be viral or bacterial etiologies as there is no clinical history of fevers/cough, will rule out anemia, given cardiac history will evaluate for primary cardiac etiology. 1319: I reviewed all investigations and hematologic indices demonstrates a chronically stable normocytic anemia without leukocytosis or left shift, there is a chronically stable thrombocytopenia. Coagulation studies demonstrate results consistent with chronic anticoagulation, patient's last Eliquis was this morning. Chemistry indices demonstrate chronically stable CKD without electrolyte abnormalities, there is slight elevation in the transaminases but the alkaline phosphatase is chronically elevated arguing against in combination with clinical exam any hepatobiliary obstruction. High sensitivity troponin is noted to be elevated in the absence of worsening renal failure and comparison is 16.4, patient without complaints of active chest pain but does describe some dizziness with the shortness of breath. On review of the EKG, 30 not seem to be consistent pacer spikes, HR-74. Will repeat troponin, order BNP. 1324: I have reviewed cardiology's note from 08/19/2023 regarding interrogation on 08/12/2023 and interpretation at that time was that leads were within normal parameters with adequate be IV pacing and categorized as normal ICD function. At this time I will contact Cardiology for further direction and interrogate the ICD at this time. 1326: I discussed with Cardiology who was able to stand the [employer] novelties sales representative down stairs and this novelties sales representative reports that the ICD is functioning normally, Dr. De La Cruz feels that patient should be admitted. 1345: Repeat troponin is flat but still remains significantly elevated. In addition, BNP is noted to be significantly elevated without worsening renal function and on evaluation of corresponding chest x-rays given the underlying IPF difficult to determine on prelim read whether there is increased vascular congestion. Official read is still pending. 1349: I discussed case with inpatient hospitalist who is accepting admission. Patient given 40mg lasix, he is without hypoxia and otherwise appears stable. Differential Diagnosis Differential Diagnoses: The differential diagnosis associated with the presentation includes Please see the discussion above Admission/Observation Consideration of admission/observation: Escalation of care including admission/observation considered Please see the discussion above Consult Healthcare Provider Management of the patient was discussed with: Hospitalist and Drain Technician Please see the discussion above Lab Data [facility] Lab Attestation statement: I reviewed the patient's lab results. Please see the discussion above 09/08/23 12:06 09/08/23 12:06 Labs: Lab Results 09/08/23 09/08/23 09/08/23 Range/Units 10:26 12:06 13:08 WBC 6.4 (4.8-10.8) X10*3/uL RBC 4.32 L (4.60-5.80) X10*6/uL Hgb 13.5 L (14.0-18.0) g/dl Hct 42.3 (42.0-52.0) % MCV 97.9 (80.0-98.0) fL MCH 31.3 (27.0-33.0) pg MCHC 31.9 (31.0-36.0) g/dl RDW 14.0 (11.0-16.0) % Plt Count 150 L (160-400) X10*3/uL MPV 10.1 (9.4-12.4) fL Immature Gran % (Auto) 0.2 (0.0-0.4) % Neut % (Auto) 71.7 (45-73) % Lymph % (Auto) 14.9 L (20-40) % [place] % (Auto) 8.9 (2-11) % Eos % (Auto) 3.7 (0-4) % Baso % (Auto) 0.6 (0-2) % Lymph # (Auto) 1.0 L (1.2-4.9) X10*3/uL [place] # (Auto) 0.6 (0.1-1.2) X10*3/uL Eos # (Auto) 0.2 (0.0-0.4) X10*3/uL Baso # (Auto) 0.0 (0.0-0.2) X10*3/uL Abs Immat Gran (auto) 0.01 (0.00-0.03) X10*3/uL Absolute Neuts (auto) 4.6 (2.0-8.3) x10*3/uL Absolute Nucleated RBC 0.000 (0.0-0.012) X10*3/uL Nucleated RBC % (auto) 0.0 (0.0-0.2) /100WBC PT 13.4 H (11.1-13.3) SEC INR 1.1 (0.9-1.1) APTT 30.1 (26.0-36.4) SEC Sodium 138 (135-145) mmol/L Potassium 4.2 (3.3-5.1) mmol/L Chloride 102 (96-108) mmol/L Carbon Dioxide 27 (22-29) mmol/L Anion Gap 13 (12-20) BUN 30 H (9-16) mg/dL Creatinine 1.95 H (0.5-1.4) mg/dL Estim Creat Clear Calc 28.7 Estimated GFR 33 Random Glucose 123 H (60-115) mg/dL Calcium 9.1 (8.4-10.2) mg/dL Total Bilirubin 0.5 (0.0-1.0) mg/dL AST 70 H (5-37) U/L ALT 46 H (0-40) U/L Alkaline Phosphatase 120 H (39-117) U/L Troponin I High Sens 900.1 H* 906.2 H* (<3.5-35.0) ng/L B-Natriuretic Peptide 1584 H (<100) pg/mL Total Protein 7.6 (6.5-8.0) g/dL Albumin 3.7 (3.5-5.0) g/dL Lipase 12 (8-78) U/L Independent Interpretation I performed an independent interpretation of an: EKG Interpretation: AV dual paced, HR-74, no STEMI Radiology Impression Discussion of test interpretation with radiology: I have reviewed the radiologist's reading. Radiologist Impression: Official read from the radiologist has not yet been completed, preliminary review by me appears to be chronically stable when compared to prior chest x-ray. External Record Review External record reviewed: Office record, Outpatient record, Prior outpatient labs and Prior outpatient radiology Chronic Conditions Patient?s care impacted by: Other CKD, chronic anticoagulation, CHF Critical Care Time Critical Care Time Critical Care Time: Yes Total Critical Care Time: 45 Attestation: I personally attest to this time spent taking care of the patient. Discharge Plan Discharge Clinical Impression: Acute on chronic HFrEF (heart failure with reduced ejection fraction), Breath shortness, Elevated troponin, Dizziness Patient Disposition: Admitted As Inpatient
--- NOTE | 2023-09-08 12:09 | PC.NURSE ---
pt a&o x4, pleasant, calm, and cooperative. speaking in full complete sentences. pt resting quietly on stretcher with visitor at bedside. pt sts sob x1 week or so that has progressively worsened. pt also sts pulse should be in the 50s and has been in the 40s all morning. pt sts had pacemaker placed in 2015 and needs battery changed. appointment scheduled for october 2023. pt changed over to hospital attire. 20G IV placed to LAC, labs drawn and sent. pt placed on monitor and O2 monitor. awaiting provider pickup.
[2023-09-08 12:11] LABS: MANUAL DIFF FLAG NO
[2023-09-08 12:14] LABS: Basophils Percent Auto 0.6 % (0-2); Eosinophils Absolute Auto 0.2 X10*3/uL (0.0-0.4); Eosinophils Percent Auto 3.7 % (0-4); Hematocrit 42.3 % (42.0-52.0); Hemoglobin 13.5 g/dl (14.0-18.0); Imm Gran Abs Auto 0.01 X10*3/uL (0.00-0.03); Imm Gran Pct Auto 0.2 % (0.0-0.4); Lymphocytes Percent Auto 14.9 % (20-40); Mean Corpuscular HGB Conc 31.9 g/dl (31.0-36.0); Mean Corpuscular Hemoglobin 31.3 pg (27.0-33.0); Mean Corpuscular Volume 97.9 fL (80.0-98.0); Mean Platelet Volume 10.1 fL (9.4-12.4); Monocytes Absolute Auto 0.6 X10*3/uL (0.1-1.2); Monocytes Percent Auto 8.9 % (2-11); Neutrophils Absolute Auto 4.6 x10*3/uL (2.0-8.3); Neutrophils Percent Auto 71.7 % (45-73); Platelet Count 150 X10*3/uL (160-400); Red Blood Count 4.32 X10*6/uL (4.60-5.80); White Blood Count 6.4 X10*3/uL (4.8-10.8)
[2023-09-08 12:19] LABS: INTERNATIONAL NORM RATIO 1.1 (0.9-1.1); Prothrombin Time 13.4 SEC (11.1-13.3)
[2023-09-08 12:21] LABS: Partial Thromboplastin Time 30.1 SEC (26.0-36.4)
[2023-09-08 12:29] LABS: Alanine Aminotransferase 46 U/L (0-40); Albumin Level 3.7 g/dL (3.5-5.0); Alkaline Phosphatase 120 U/L (39-117); Anion Gap 13 (12-20); Aspartate Amino Transferase 70 U/L (5-37); Bilirubin Total 0.5 mg/dL (0.0-1.0); Blood Urea Nitrogen 30 mg/dL (9-16); Calcium 9.1 mg/dL (8.4-10.2); Carbon Dioxide 27 mmol/L (22-29); Chloride 102 mmol/L (96-108); Creatinine Clr Calc Pharmacy 28.7; Estimated Glomerular Filt Rate 33; Glucose Random 123 mg/dL (60-115); Lipase 12 U/L (8-78); Potassium 4.2 mmol/L (3.3-5.1); Sodium 138 mmol/L (135-145); Total Protein 7.6 g/dL (6.5-8.0)
[2023-09-08 12:39] LABS: Troponin-I High Sensitivity 900.1 ng/L (<3.5-35.0)
--- NOTE | 2023-09-08 12:41 | PC.NURSE ---
pt troponin back and elevated. pt still waiting for provider pickup. ASHLEY Vaughan notified Dr. Russell. aware.
--- NOTE | 2023-09-08 13:22 | PC.NURSE ---
pt 2nd troponin drawn per Dr. Hurley order. vital signs taken and stable. pt appears well. speaking in full complete sentences. rr even/unlabored.
[2023-09-08 13:36] LABS: B Type Natriuretic Peptide 1584 pg/mL (<100)
[2023-09-08 13:42] LABS: Troponin-I High Sensitivity 906.2 ng/L (<3.5-35.0)
--- NOTE | 2023-09-08 14:12 | PHA.MEDREC ---
Pharmacy Consult ? Medication Reconciliation Pharmacy has completed the medication reconciliation. Patient's son had list of medications. Patient confirmed medications. Hetal Newman, KayD
--- NOTE | 2023-09-08 14:51 | P.HPHOSP_ITS ---
History of Present Illness Date of Service: 09/08/23 Chief Complaint: Shortness of breath This is an 88-year-old male with history of idiopathic pulmonary fibrosis on home O2, atrial fibrillation on eliquis, ischemic cardiomyopathy status post AICD placement with generator due to replacment next month. He presents to the emergency department with shortness breath that has been ongoing for nearly a month now and seemed worse over the last weekend. His symptoms are more pronounced with exertion and at times associated with dizziness. No weight gain, no swelling in the legs. No chest pain. Work up has revealed increased BNP to 1584, troponin I to 906, repeat unchanged. No PND or orthopnea. Pace maker seems to be function properly, CXR is pending. He's given IV Lasix x 1 Review of Systems 2 Review of Systems: Shortness of breath with exertion, no chest pain, +dizziness, Yes all other systems are reviewed and are negative COUNT INCLUDES [facility] Medical History Acute on chronic HFrEF (heart failure with reduced ejection fraction) ICD (implantable cardioverter-defibrillator) in place PVC (premature ventricular contraction) Acute on chronic systolic (congestive) heart failure Pneumonia CKD (chronic kidney disease) Hypoxia Hemoptysis Bronchitis Encounter for monitoring amiodarone therapy PAF (paroxysmal atrial fibrillation) IPF (idiopathic pulmonary fibrosis) Ischemic cardiomyopathy Family History Father No problems noted. Mother No problems noted. Surgical History History of implantable cardiac defibrillator (ICD) (~02/2016) Social History Household Members: Family Household Members Other:: son Housing: House Do you presently have visiting nurse or other home services: No Alcohol intake: former Patient Tobacco Use Status: Former Tobacco user Quit Date: 1973 e-Cigarette/Vaping Use: Former Use Advance Directives Date on File: 04/19/21 service: Yes Current occupational status: retired Meds Allergies Allergy/AdvReac Type Severity Reaction Status Date / Time metoprolol [METOPROLOL] AdvReac Severe SYNCOPE Verified 09/05/23 11:01 Home Medications Medication Instructions Recorded Confirmed Last Taken Type gabapentin 100 mg capsule 200 mg PO TID NEUROPATHY 10/11/20 09/08/23 09/08/23 History simvastatin 10 mg tablet 10 mg PO BEDTIME 10/11/20 09/08/23 09/07/23 History allopurinol 100 mg tablet 100 mg PO DAILY 02/03/23 09/08/23 09/08/23 History amiodarone 100 mg tablet 100 mg PO MOWEFR@0900 09/08/23 09/08/23 09/08/23 History furosemide 20 mg tablet 20 mg PO SUTUTHSA@0900 09/08/23 09/08/23 09/07/23 History furosemide 40 mg tablet 40 mg PO MOWEFR@0900 09/08/23 09/08/23 09/08/23 History Physical Exam 2 Vital Signs and Narrative: Vital Signs: Last Vital Signs Temp 98.2 F 09/08/23 11:35 Pulse 62 09/08/23 13:08 Resp 14 09/08/23 13:08 BP 119/68 09/08/23 13:08 Pulse Ox 98 09/08/23 13:08 O2 Del Method Room Air 09/08/23 13:08 BMI result Body Mass Index 25.8 Const: Other: Constitutional: Alert, in no distress, heatlhy for his age Mental Status: Oriented to person, place and time. Eyes: Pupils are equal, round and reactive to light. Ear, Nose and Throat: Oropharynx clear, mucous membranes moist. Ears and nose without eformities. Respiratory: Clear to auscultation. No wheezing, rales or rhonchi. Cardiovascular: S1 S2 regular. No murmurs, rubs or gallops. Rales at both bases. No pedal edema Gastrointestinal: Abdomen soft, non-tender, non-distended. Normal bowel sounds.? Neurologic: Cranial nerves II-XII grossly intact. No focal neurological deficits. Moves all extremities spontaneously.? Skin: No rashes or lesions.? Musculoskeletal: No cyanosis or clubbing. Psychiatric: Normal mood and affect? Results Labs 09/08/23 12:06 09/08/23 12:06 Labs: Laboratory Results - last 24 hr 09/08/23 09/08/23 10:26 12:06 MCV 97.9 MCH 31.3 MCHC 31.9 RDW 14.0 Plt Count 150 L MPV 10.1 Immature Gran % (Auto) 0.2 Neut % (Auto) 71.7 Lymph % (Auto) 14.9 L [place] % (Auto) 8.9 Eos % (Auto) 3.7 Baso % (Auto) 0.6 Lymph # (Auto) 1.0 L [place] # (Auto) 0.6 Eos # (Auto) 0.2 Baso # (Auto) 0.0 Abs Immat Gran (auto) 0.01 Absolute Neuts (auto) 4.6 Absolute Nucleated RBC 0.000 Nucleated RBC % (auto) 0.0 PT 13.4 H INR 1.1 APTT 30.1 Anion Gap 13 Estim Creat Clear Calc 28.7 Estimated GFR 33 Random Glucose 123 H Calcium 9.1 Total Bilirubin 0.5 AST 70 H ALT 46 H Alkaline Phosphatase 120 H B-Natriuretic Peptide 1584 H Total Protein 7.6 Albumin 3.7 Lipase 12 Assessment and Plan (1) Dizziness: Status: Acute (2) Elevated troponin: Status: Acute (3) Breath shortness: Status: Acute (4) Implantable cardioverter-defibrillator generator end of life: Status: Acute Plan This is an 88-year-old male with history of idiopathic pulmonary fibrosis on home O2, atrial fibrillation on eliquis, ischemic cardiomyopathy status post AICD placement with generator due to replacment next month. Here with BURROWS, elevated BNP and elevated troponin. BURROWS--likely multifactorial from worsening IPF, heart failure -Treate unspecified heart failure with diuretic, bronchodilators and steroid for IPF Elevated troponin--? NTEMI, no chest pain, consult cardiology for further management, consider heparin if trops trending up Chronic AFIB--continue Amio, and Apixiban HLD statin h/o gout--allopurinol Neuropathy--Gabapenting admission for at least 2 midnights for management of BURROWS, Elevated tropnoin that need further work up and expert assessment DVT prophylaxis: Nelly full code, discussion Quality Stroke Does the patient have a stroke diagnosis?: No VTE Prior VTE?: No VTE Risk Level:: Medical - moderate - high VTE Device Contraindication: Treatment Not Indicated VTE Drug Contraindication: N/A - Med Ordered
[2023-09-08] MEDS: Furosemide 40 MG/4 ML VIAL IVPUSH (15:47)
--- NOTE | 2023-09-08 15:51 | PC.NURSE ---
pt medicated per jan. provided with urinal. rr even/unlabored. pt on monitor, HR in 70s. sating 95% on room air. speaking in full complete sentences. family at bedside. awaiting admit orders.
[2023-09-08] MEDS: methylPREDNISolone Sod Succ 40 MG/ML VIAL 20 MG IVPUSH (16:12)
[2023-09-08] MEDS: Albuterol/Iprat 2.5/0.5MG 3 ML AMPUL.NEB INHALE ×2 (16:18→19:38)
--- NOTE | 2023-09-08 19:06 | PC.NURSE ---
nurse to nurse report given to ASHLEY Nelson.
[2023-09-08] MEDS: Gabapentin 100 MG CAPSULE 200 MG PO (20:22)
[2023-09-08] MEDS: Atorvastatin Calcium 10 MG TABLET PO (20:22)
[2023-09-08] MEDS: Apixaban 2.5 MG TABLET PO (20:22)
[2023-09-08] MEDS: 0.9 % Sodium Chloride Flush 3 ML SYRINGE IVFLUSH (20:22)
[2023-09-08 20:32] LABS: Troponin-I High Sensitivity 1411.6 ng/L (<3.5-35.0)
[2023-09-09] VITALS (9 sets, daily range): BP systolic 105–134; BP diastolic 55–83; PULSE 50–92; RESP 16–20; TEMP 36.1–36.6; O2SAT 94–100; BMI 24.8
[2023-09-09] MEDS: methylPREDNISolone Sod Succ 40 MG/ML VIAL 20 MG IVPUSH ×2 (03:25→15:14)
--- NOTE | 2023-09-09 07:00 | CA_ITS ---
Transthoracic Echocardiogram Patient (Last, First, Middle): Darek Arana J Gender: Male Date of : 1935 Age: 88 Procedure Date: 09/09/2023 Procedure Type: Transthoracic Echocardiogram Location: [facility] [place] Height: 182.88 cm Weight: 83.92 kg BSA: 2.06 m2 Heart Rate: 78 bpm BP: 127 / 83 mmHg Drop Wire Operator: SARAH Referring MD: Kevin Alvarenga MD Bakery Sales Clerk: Matteo Adams MD Symptoms: NSTEMI, heart failure Study Quality: Fair but Adequate w Contrast ECG Rhythm: Ventriculary paced rhythm With PVCs Conclusions: - Mildly dilated left ventricle with severely reduced LV ejection fraction 15-20% with regional wall motion abnormality consistent with ischemic cardiomyopathy Findings Procedure Information Contrast agent, definity, is being given per protocol without apparent complications. Left Ventricle Mildly increased left ventricular cavity size. The left ventricular systolic function is severely decreased. The visually estimated ejection fraction is between 15-20%. Spectral Doppler is indicative of a pseudonormal filling pattern. E/E prime ratio is >15, consistent with elevated filling pressures. Evidence suggests grade II (moderate) diastolic dysfunction. There is no evidence of a thrombus in the left ventricle. Wall Motion Rest Echo Findings The inferior wall, inferolateral wall, the basal anterior, apical lateral, and basal anterolateral segments are hypokinetic. The entire septum, the apical anterior, and mid anterior segments are akinetic. The apex segment is dyskinetic. All other scored wall segments showed normal motion. Measurements 2D Linear Measurements IVSd: 0.85 0.6-0.9/0.6-1.0 cm LVIDd: 6.12 3.9-5.3/4.2-5.9 cm LVIDd Index: 2.97 2.4-3.2/2.2-3.1 cm/m2 LVIDs: 5.63 2.0-3.6 cm LVPWd: 1.12 0.7-1.1 cm LV Mass: 312.67 67-162/88-224 g LV Mass Index: 151.78 43-95/49-115 g/m2 LVOT Diam: 2.10 3.0+(-)1.3 cm 2D Systolic Function EF 4C: 19.00 >55% EF 2C: 14.10 >55% EF BiP: 18.50 >55% Mitral Valve MV Pk E: 1.16 MV PK A: 0.83 MV Decel Time: 179.00 E/A: 1.40 E'Lateral: 3.26 E'Medial: 3.37 E/E' Med: 34.40 E/E' Lat: 35.60 PHT: 52.00 MVA PHT: 4.23 Decel Eagle: 6.49 LVOT LVOT Pk Antoni: 0.82 LVOT Mn Antoni: 0.59 LVOT VTI: 0.16 LVOT Pk Grad: 3.00 LVOT Mn Grad: 2.00 LVOT Diam: 2.10 LVOT Area: 3.46 Diastolic Function MV Pk E: 1.16 MV Pk A: 0.83 E/A: 1.40 E'Medial: 3.37 E/E' Med: 34.40 E' Laterial: 3.26 E/E' Lat: 35.60 Right Ventricle TAPSE (mm): 18.00 TVS' Antoni: 9.00 Tricuspid Valve TR Pk Antoni: 2.98 TR Pk Grad: 36.00 RA Press: 15.00 RVSP: 51.00 Updated in Other Vendor System with Status of Final Matteo Adams MD electronically signed on 09/09/2023 4:28:54 PM with status of Final
[2023-09-09] MEDS: Albuterol/Iprat 2.5/0.5MG 3 ML AMPUL.NEB INHALE ×3 (07:56→19:50)
[2023-09-09] MEDS: Apixaban 2.5 MG TABLET PO (08:19)
[2023-09-09] MEDS: Furosemide 20 MG TABLET PO (08:19)
[2023-09-09] MEDS: allopurinoL 100 MG TABLET PO (08:20)
[2023-09-09] MEDS: Gabapentin 100 MG CAPSULE 200 MG PO ×3 (08:20→20:18)
[2023-09-09] MEDS: 0.9 % Sodium Chloride Flush 3 ML SYRINGE IVFLUSH ×2 (08:20→20:18)
--- NOTE | 2023-09-09 09:02 | MHC.CM.PN ---
Pt lives at home with his son/HCP Darek Arana . he is self-care, uses a cane. Pts goal is to return home with his son, pts son will transport him home. PCP: Dr. Song Quiñonez
--- NOTE | 2023-09-09 10:21 | P.PNIM_ITS ---
Subjective Subjective Date of Service: 09/09/23 Interval History: f/u on NSTEMI, heart failure overall reports feeling better, no chest pain or sob Physical Exam 2 Vital Signs: Vital Signs: Last Vital Signs Temp 97.0 F 09/09/23 07:22 Pulse 75 09/09/23 07:56 Resp 16 09/09/23 07:56 BP 127/83 09/09/23 07:22 Pulse Ox 96 09/09/23 07:22 O2 Del Method Room Air 09/09/23 07:22 BMI result Body Mass Index 24.8 Const: Other: General: AO X 3, no acute distress Resp: CTA bilateral CVS: S1,S2,RRR GI: +BS, NT, no distention Skin: No rash Neuro: motor grossly intact Psych: appropriate affect Objective Data Active Medications Acetaminophen (Acetaminophen 325 Mg Tablet) 650 mg PO Q6H PRN PRN Reason: Pain, Mild (Pain Scale 1-3) Albuterol Sulfate (Albuterol Sulfate (0.083%) 2.5 Mg/3 Ml Vial.Neb) 2.5 mg INHALE Q2H PRN PRN Reason: Shortness of Breath/Wheezing Albuterol/Ipratropium (Albuterol/Iprat 2.5/0.5mg 3 Ml Ampul.Neb) 3 ml INHALE RQ4H WHILE AWAKE [facility] Last Admin: 09/09/23 07:56 Dose: 3 ml Documented By: MARGOTH Allopurinol (Allopurinol 100 Mg Tablet) 100 mg PO DAILY [facility] Last Admin: 09/09/23 08:20 Dose: 100 mg Documented By: NAVDEEP Amiodarone HCl (Amiodarone Hcl 200 Mg Tablet) 100 mg PO MOWEFR@0900 [facility] Atorvastatin Calcium (Atorvastatin Calcium 10 Mg Tablet) 10 mg PO BEDTIME [facility] Last Admin: 09/08/23 20:22 Dose: 10 mg Documented By: TRES Furosemide (Furosemide 20 Mg Tablet) 20 mg PO SUTUTHSA@09 [facility]; Protocol Last Admin: 09/09/23 08:19 Dose: 20 mg Documented By: NAVDEEP Furosemide (Furosemide 40 Mg Tablet) 40 mg PO MOWEFR@0900 [facility]; Protocol Gabapentin (Gabapentin 100 Mg Capsule) 200 mg PO TID [facility] Last Admin: 09/09/23 08:20 Dose: 200 mg Documented By: NAVDEEP Melatonin (Melatonin 3 Mg Tablet) 6 mg PO BEDTIME PRN PRN Reason: Insomnia Methylprednisolone Sodium Succinate (Methylprednisolone Sod Succ 40 Mg/Ml Vial) 20 mg IVPUSH Q12H [facility] Last Admin: 09/09/23 03:25 Dose: 20 mg Documented By: TRES Ondansetron HCl (Ondansetron Hcl 4 Mg/2 Ml Vial) 4 mg IVPUSH Q8H PRN PRN Reason: Nausea and Vomiting Sodium Chloride (0.9 % Sodium Chloride Flush 3 Ml Syringe) 3 ml IVFLUSH QSHIFT [facility] Last Admin: 09/09/23 08:20 Dose: 3 ml Documented By: NAVDEEP Labs 09/08/23 12:06 09/08/23 12:06 Labs: Laboratory Results - last 24 hr 09/08/23 09/08/23 10:26 12:06 MCV 97.9 MCH 31.3 MCHC 31.9 RDW 14.0 Plt Count 150 L MPV 10.1 Immature Gran % (Auto) 0.2 Neut % (Auto) 71.7 Lymph % (Auto) 14.9 L [place] % (Auto) 8.9 Eos % (Auto) 3.7 Baso % (Auto) 0.6 Lymph # (Auto) 1.0 L [place] # (Auto) 0.6 Eos # (Auto) 0.2 Baso # (Auto) 0.0 Abs Immat Gran (auto) 0.01 Absolute Neuts (auto) 4.6 Absolute Nucleated RBC 0.000 Nucleated RBC % (auto) 0.0 PT 13.4 H INR 1.1 APTT 30.1 Anion Gap 13 Estim Creat Clear Calc 28.7 Estimated GFR 33 Random Glucose 123 H Calcium 9.1 Total Bilirubin 0.5 AST 70 H ALT 46 H Alkaline Phosphatase 120 H B-Natriuretic Peptide 1584 H Total Protein 7.6 Albumin 3.7 Lipase 12 Assessment and Plan (1) NSTEMI (non-ST elevated myocardial infarction): Status: Acute Plan This is an 88-year-old male with history of idiopathic pulmonary fibrosis on home O2, atrial fibrillation on eliquis, ischemic cardiomyopathy status post AICD placement with generator due to replacment next month. Here with BURROWS, elevated BNP and elevated troponin. BURROWS--likely multifactorial from worsening IPF, heart failure and NSTEMI -Treate unspecified heart failure with diuretic, bronchodilators and steroid for IPF, echo Elevated troponin, trend consistent with NTEMI, no chest pain -starting IV heparin for up to 72 hours, hold eliquis, ASA, no BB d/t reported allergy, Statin, Echo as above. cardiology to assess Chronic AFIB--continue Amio, and Apixiban (on hold while on IV heparin) HLD statin h/o gout--allopurinol CKD 4, Cr slightly worse, Nephrology consult Neuropathy--Gabapenting admission for at least 2 midnights for management of BURROWS, Elevated tropnoin that need further work up and expert assessment DVT prophylaxis: Eliquis full code, discussion Need for inpt: IV heparin for NSTEMI Quality Stroke Does the patient have a stroke diagnosis?: No VTE Prior VTE?: No VTE Risk Level:: Medical - moderate - high VTE Device Contraindication: Treatment Not Indicated VTE Drug Contraindication: N/A - Med Ordered
--- NOTE | 2023-09-09 10:38 | P.CONCA_ITS ---
History of Present Illness History of Present Illness Date of Service: 09/09/23 Requesting physician: Kevin [facility] Consult reason: myocardial infarction Chief complaint: BURROWS Narrative: I was consulted to see Darek in cardiology consultation today for progressive shortness of breath and elevated troponins. History was obtained from the patient in presence of his son at bedside. Patient with prior complicated medical history including myocardial infarction with anterior myocardial infarction 9096 with what appears to be since then significant ischemic cardiomyopathy. Patient also has atrial fibrillation status post cardioversion and being maintained on amiodarone therapy and had no recurrence. Heart failure with reduced ejection fraction, biventricular ICD placement for resynchronization therapy as has severe cardiomyopathy as a primary prevention. Eighty appendix pulmonary fibrosis, chronic kidney disease. Patient says usually in very good shape. Exercises regularly. He has been limited in more recent past due to his arthritis but otherwise remains functional. Over the last week or so as started noticing increasing exertional shortness of breath. Interestingly his symptoms during myocardial infarction in 1995 for exertional shortness of breath. He was admitted 2 years ago decompensated congestive heart failure. This time he came into the hospital and he felt that his symptoms were worse because of recent changes made to his ICD. Although on ICD interrogation it seems like he is Bi V pacing 94% time with frequent PVCs causing probably in adequate Bi V pacing with no episodes of atrial fibrillation. Initial blood workup showed elevated troponin and subsequent serial troponins have been rising with last troponin the 5000 range. His BNP is in about 2000 range. He denies any clear orthopnea, PND, leg edema. Does complain of dizziness. He has not had any syncopal episode or ICD discharge. He has been intolerant to multiple medications the past due to hypertension especially metoprolol which has caused him to have significant orthostatic hypotension and ICU admission in the past. He has also not currently on ISI-inhibitor or angiotensin receptor sean due to advanced kidney disease. Review of Systems 2 Constitutional: Constitutional: Denies chills, Reports fatigue, Denies fever(s), Denies night sweats and Reports weakness Eyes: Eyes: Reports no additional eye complaints Cardiovascular: Cardiovascular: Denies chest pain, Denies rapid heart rate, Denies leg edema, Reports lightheadedness, Denies palpitations and Reports dyspnea on exertion Respiratory: Respiratory: Reports no additional respiratory complaints and Reports dyspnea on exertion Gastrointestinal: Gastrointestinal: Reports no additional gastrointestinal complaints Genitourinary: Genitourinary: Reports no additional male genitourinary complaints Musculoskeletal: Musculoskeletal: Reports no additional musculoskeletal complaints Integumentary/Breasts: Skin/Breast: Reports system reviewed and no additional complaints, except as docu Neurologic: Reports system reviewed and no additional complaints, except as documented and Reports weakness Endocrine: Endocrine: Reports no additional endocrine complaints, Reports fatigue and Denies palpitations Hematologic/Lymphatic: Hematologic/Lymphatic: Reports no additional hematologic/lymphatic complaints [facility] Past Medical History Medical History Acute on chronic HFrEF (heart failure with reduced ejection fraction) ICD (implantable cardioverter-defibrillator) in place PVC (premature ventricular contraction) Acute on chronic systolic (congestive) heart failure Pneumonia CKD (chronic kidney disease) Hypoxia Hemoptysis Bronchitis Encounter for monitoring amiodarone therapy PAF (paroxysmal atrial fibrillation) IPF (idiopathic pulmonary fibrosis) Ischemic cardiomyopathy Family History Family History Father No problems noted. Mother No problems noted. Surgical History Surgical History History of implantable cardiac defibrillator (ICD) (~02/2016) Social History Social History Household Members: Family Household Members Other:: son Housing: House Do you presently have visiting nurse or other home services: No Alcohol intake: former Patient Tobacco Use Status: Former Tobacco user Quit Date: 1973 e-Cigarette/Vaping Use: Former Use Advance Directives Date on File: 04/19/21 service: Yes Current occupational status: retired Meds Allergies Allergy/AdvReac Type Severity Reaction Status Date / Time metoprolol [METOPROLOL] AdvReac Severe SYNCOPE Verified 09/05/23 11:01 Active Medications: Current Medications Acetaminophen (Acetaminophen 325 Mg Tablet) 650 mg PO Q6H PRN PRN Reason: Pain, Mild (Pain Scale 1-3) Albuterol Sulfate (Albuterol Sulfate (0.083%) 2.5 Mg/3 Ml Vial.Neb) 2.5 mg INHALE Q2H PRN PRN Reason: Shortness of Breath/Wheezing Albuterol/Ipratropium (Albuterol/Iprat 2.5/0.5mg 3 Ml Ampul.Neb) 3 ml INHALE RQ4H WHILE AWAKE [facility] Last Admin: 09/09/23 07:56 Dose: 3 ml Allopurinol (Allopurinol 100 Mg Tablet) 100 mg PO DAILY [facility] Last Admin: 09/09/23 08:20 Dose: 100 mg Amiodarone HCl (Amiodarone Hcl 200 Mg Tablet) 100 mg PO MOWEFR@0900 [facility] Aspirin (Aspirin Enteric Coated 81 Mg Tablet.) 81 mg PO DAILY [facility] Atorvastatin Calcium (Atorvastatin Calcium 40 Mg Tablet) 40 mg PO BEDTIME [facility] Furosemide (Furosemide 20 Mg Tablet) 20 mg PO SUTUTHSA@0900 [facility]; Protocol Last Admin: 09/09/23 08:19 Dose: 20 mg Furosemide (Furosemide 40 Mg Tablet) 40 mg PO MOWEFR@0900 [facility]; Protocol Gabapentin (Gabapentin 100 Mg Capsule) 200 mg PO TID [facility] Last Admin: 09/09/23 08:20 Dose: 200 mg Heparin Sodium (Porcine) (Heparin Sodium,Porcine 5,000 Unit/Ml Vial) 3,300 unit 40 unit/kg (3300 unit) IVPUSH PROTOCOL BOLUS PRN; Protocol PRN Reason: 40 unit/kg - Heparin Protocol Heparin Sodium (Porcine) (Heparin Sodium,Porcine 5,000 Unit/Ml Vial) 6,600 unit 80 unit/kg (6600 unit) IVPUSH PROTOCOL BOLUS PRN; Protocol PRN Reason: 80 unit/kg - Heparin Protocol Heparin Sodium/Sodium Chloride (Heparin Sodium,Porcine/1/2ns) 25,000 unit in 250 mls @ 0 mls/hr IVCONT .Q0M [facility]; Protocol Melatonin (Melatonin 3 Mg Tablet) 6 mg PO BEDTIME PRN PRN Reason: Insomnia Methylprednisolone Sodium Succinate (Methylprednisolone Sod Succ 40 Mg/Ml Vial) 20 mg IVPUSH Q12H [facility] Last Admin: 09/09/23 03:25 Dose: 20 mg Ondansetron HCl (Ondansetron Hcl 4 Mg/2 Ml Vial) 4 mg IVPUSH Q8H PRN PRN Reason: Nausea and Vomiting Sodium Chloride (0.9 % Sodium Chloride Flush 3 Ml Syringe) 3 ml IVFLUSH QSHIFT [facility] Last Admin: 09/09/23 08:20 Dose: 3 ml Home Medications Medication Instructions Recorded Confirmed Last Taken Type gabapentin 100 mg capsule 200 mg PO TID NEUROPATHY 10/11/20 09/08/23 09/08/23 History simvastatin 10 mg tablet 10 mg PO BEDTIME 10/11/20 09/08/23 09/07/23 History allopurinol 100 mg tablet 100 mg PO DAILY 02/03/23 09/08/23 09/08/23 History amiodarone 100 mg tablet 100 mg PO MOWEFR@0900 09/08/23 09/08/23 09/08/23 History furosemide 20 mg tablet 20 mg PO SUTUTHSA@0900 09/08/23 09/08/23 09/07/23 History furosemide 40 mg tablet 40 mg PO MOWEFR@0900 09/08/23 09/08/23 09/08/23 History Physical Exam 2 Vital Signs: Vital Signs: Last Vital Signs Temp 97.0 F 09/09/23 07:22 Pulse 75 09/09/23 07:56 Resp 16 09/09/23 07:56 BP 127/83 09/09/23 07:22 Pulse Ox 96 09/09/23 07:22 O2 Del Method Room Air 09/09/23 07:22 BMI result Body Mass Index 24.8 Const: General: cooperative, comfortable, no acute distress, alert, awake and Physically active Nutritional Appearance: well nourished O rientation/consciousness: patient oriented x3 HEENT: Head: Yes normocephalic and Yes atraumatic Neck: Neck: Yes trachea midline, Yes supple and Yes no JVD Resp: Effort & Inspection: normal respiratory effort Auscultation: crackles (Coarse) bilateral at the base and diminished lung sounds Cardio: Jugular venous distension: no JVD Palpation: abnormal PMI displaced PMI Rate: regular rate Rhythm: abnormal rhythm with ectopic beats H eart sounds: S1 normal heart sound present, S2 normal heart sound present, no click, no gallops and Murmur heart sound present systolic early GI: Auscultation: normal bowel sounds Skin: General skin exam: no rashes or lesions noted Neuro: General: patient oriented x3 and no focal motor deficits Extrem: General: Yes no clubbing, cyanosis or edema Psych: Appearance: grossly normal Objective Labs and Meds 09/08/23 12:06 09/08/23 12:06 Lab results: Laboratory Results - last 24 hr 09/08/23 09/08/23 09/08/23 10:26 12:06 13:08 WBC 6.4 RBC 4.32 L Hgb 13.5 L Hct 42.3 MCV 97.9 MCH 31.3 MCHC 31.9 RDW 14.0 Plt Count 150 L MPV 10.1 Immature Gran % (Auto) 0.2 Neut % (Auto) 71.7 Lymph % (Auto) 14.9 L [place] % (Auto) 8.9 Eos % (Auto) 3.7 Baso % (Auto) 0.6 Lymph # (Auto) 1.0 L [place] # (Auto) 0.6 Eos # (Auto) 0.2 Baso # (Auto) 0.0 Abs Immat Gran (auto) 0.01 Absolute Neuts (auto) 4.6 Absolute Nucleated RBC 0.000 Nucleated RBC % (auto) 0.0 PT 13.4 H INR 1.1 APTT 30.1 Sodium 138 Potassium 4.2 Chloride 102 Carbon Dioxide 27 Anion Gap 13 BUN 30 H Creatinine 1.95 H Estim Creat Clear Calc 28.7 Estimated GFR 33 Random Glucose 123 H Calcium 9.1 Total Bilirubin 0.5 AST 70 H ALT 46 H Alkaline Phosphatase 120 H Troponin I High Sens 900.1 H* 906.2 H* B-Natriuretic Peptide 1584 H Total Protein 7.6 Albumin 3.7 Lipase 12 09/08/23 09/09/23 19:42 08:31 WBC RBC Hgb Hct MCV MCH MCHC RDW Plt Count MPV Immature Gran % (Auto) Neut % (Auto) Lymph % (Auto) [place] % (Auto) Eos % (Auto) Baso % (Auto) Lymph # (Auto) [place] # (Auto) Eos # (Auto) Baso # (Auto) Abs Immat Gran (auto) Absolute Neuts (auto) Absolute Nucleated RBC Nucleated RBC % (auto) PT INR APTT Sodium Potassium Chloride Carbon Dioxide Anion Gap BUN Creatinine Estim Creat Clear Calc Estimated GFR Random Glucose Calcium Total Bilirubin AST ALT Alkaline Phosphatase Troponin I High Sens 1411.6 H* D 5263.0 H* D B-Natriuretic Peptide Total Protein Albumin Lipase EKG shows normal sinus rhythm with LV pacing and frequent PVCs, unifocal Imaging Radiologist's impression: Impressions Chest X-Ray 09/08/23 12:45 IMPRESSION: Interstitial lung disease. This appears increased from prior chest x-ray March 2022. Assessment and Plan (1) NSTEMI (non-ST elevated myocardial infarction): Status: Acute Patient progressive symptoms of shortness of breath with reduced exercise capacity, his symptoms of ischemia were shortness of breath in the past. Highly suggestive of NSTEMI and myocardial ischemia. At rest he is not having symptoms clinically does appear to be in heart failure. Elevated BNP most likely related to acute myocardial infarction as well. There is high likelihood of progressive coronary artery disease as a cause of his presentation and symptoms. This was discussed with him. He has multiple comorbidities including chronic kidney disease, advanced age, pulmonary fibrosis as well as atrial fibrillation which is currently controlled in addition to advanced LV systolic dysfunction. However given his overall generally good health we discussed about potential invasive approach to management of his NSTEMI. This will require switching his Eliquis to IV heparin and and eventual transfer to [facility] for cardiac catheterization. Risks related to procedure given his multiple comorbidities including risk of contrast induced nephropathy was discussed. He understands agrees and wants to discuss with Nephrology for further management. We discussed progressive ischemia and LV systolic dysfunction can also impact his near term as well as long-term outcomes including worsening renal function. He understands and agrees. Continue aspirin. High-intensity statin should be pursued. He has not tolerated any vasoactive medications due to low blood pressures in the past and would avoid metoprolol as well as renin angiotensin inhibitors. Overall prognosis is guarded. Greater than 40 minutes was spent in managing his complex care. Procedures Date of Service Date of Service: 09/09/23
[2023-09-09 11:01] LABS: INTERNATIONAL NORM RATIO 1.1 (0.9-1.1); Prothrombin Time 13.8 SEC (11.1-13.3)
[2023-09-09 11:04] LABS: PTT Heparin Drip 29.7 SEC (53-77.9)
[2023-09-09 11:15] LABS: Hematocrit 38.3 % (42.0-52.0); Hemoglobin 12.4 g/dl (14.0-18.0); Mean Corpuscular HGB Conc 32.4 g/dl (31.0-36.0); Mean Corpuscular Hemoglobin 30.8 pg (27.0-33.0); Mean Platelet Volume 10.5 fL (9.4-12.4); Platelet Count 158 X10*3/uL (160-400); Red Blood Count 4.03 X10*6/uL (4.60-5.80); Red Cell Distribution Width 13.8 % (11.0-16.0); White Blood Count 9.9 X10*3/uL (4.8-10.8)
[2023-09-09] MEDS: Heparin Sodium,Porcine/1/2NS 25,000 UNIT/250 ML IV.SOLN 9.95 UNIT IVCONT (11:23)
[2023-09-09] MEDS: Aspirin Enteric Coated 81 MG TABLET.DR PO (15:14)
[2023-09-09 18:22] LABS: PTT Heparin Drip 41.4 SEC (53-77.9)
[2023-09-09] MEDS: Heparin Sodium,Porcine 5,000 UNIT/ML VIAL 3300 UNIT IVPUSH (18:48)
[2023-09-09] MEDS: Atorvastatin Calcium 40 MG TABLET PO (20:18)
[2023-09-10] VITALS (7 sets, daily range): BP systolic 99–122; BP diastolic 63–95; PULSE 55–75; RESP 16–20; TEMP 36–36.7; O2SAT 95–97
[2023-09-10 00:44] LABS: PTT Heparin Drip 79.4 SEC (53-77.9)
[2023-09-10] MEDS: methylPREDNISolone Sod Succ 40 MG/ML VIAL 20 MG IVPUSH ×2 (02:49→14:41)
[2023-09-10 07:30] LABS: Prothrombin Time 12.7 SEC (11.1-13.3)
[2023-09-10 07:32] LABS: Hematocrit 38.1 % (42.0-52.0); Hemoglobin 12.6 g/dl (14.0-18.0); Mean Corpuscular HGB Conc 33.1 g/dl (31.0-36.0); Mean Corpuscular Hemoglobin 31.7 pg (27.0-33.0); Mean Platelet Volume 10.6 fL (9.4-12.4); PTT Heparin Drip 51.8 SEC (53-77.9); Platelet Count 158 X10*3/uL (160-400); Red Blood Count 3.97 X10*6/uL (4.60-5.80); Red Cell Distribution Width 14.2 % (11.0-16.0); White Blood Count 11.7 X10*3/uL (4.8-10.8)
[2023-09-10] MEDS: Amiodarone HCL 200 MG TABLET 100 MG PO (08:26)
[2023-09-10] MEDS: allopurinoL 100 MG TABLET PO (08:26)
[2023-09-10] MEDS: Gabapentin 100 MG CAPSULE 200 MG PO ×3 (08:26→22:48)
[2023-09-10] MEDS: Furosemide 40 MG TABLET PO (08:26)
[2023-09-10] MEDS: Aspirin Enteric Coated 81 MG TABLET.DR PO (08:26)
[2023-09-10] MEDS: 0.9 % Sodium Chloride Flush 3 ML SYRINGE IVFLUSH ×2 (08:29→22:49)
--- NOTE | 2023-09-10 09:41 | PM.EVENT ---
Event Note Date of Service: 09/10/23 Event Note: Thank you for the consult. 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 Renal function currently stable. Detailed consult note to follow.
[2023-09-10] MEDS: Heparin Sodium,Porcine/1/2NS 25,000 UNIT/250 ML IV.SOLN 11.61 UNIT IVCONT (10:15)
--- NOTE | 2023-09-10 10:48 | MHC.CM.PN ---
Per MD rounds patient is not medically cleared for dc, remains on heparin gtt. CM will continue to follow for dc needs.
[2023-09-10] MEDS: Ranolazine 500 MG TAB.ER.12H PO ×2 (10:55→22:49)
--- NOTE | 2023-09-10 11:15 | PM.PNCARD ---
Subjective Subjective Date of Service: 09/10/23 Principal diagnosis: NSTEMI Interval history: Patient complain of shortness of breath walking the hallways. Says these are tolerable symptoms. Denies any other heart failure symptoms. Denies lightheadedness, syncope. Blood pressure is optimized. Echocardiogram shows severely reduced LV ejection fraction at 15-20% Review of Systems Constitutional: Reports no additional constitutional complaints Cardiovascular: Denies chest pain, Denies rapid heart rate, Denies lightheadedness, Denies Loss of Consciousness, Reports dyspnea on exertion and Denies orthopnea Respiratory: Reports dyspnea on exertion Gastrointestinal: Reports no additional gastrointestinal complaints Musculoskeletal: Reports no additional musculoskeletal complaints Reports system reviewed and no additional complaints, except as documented Endocrine: Reports no additional endocrine complaints Physical Exam Vital Signs: Last Vital Signs Temp 98.1 F 09/10/23 07:56 Pulse 68 09/10/23 07:56 Resp 18 09/10/23 07:56 BP 117/70 09/10/23 07:56 Pulse Ox 97 09/10/23 07:56 O2 Del Method Room Air 09/10/23 07:56 BMI result Body Mass Index 24.8 Const General: cooperative, comfortable, no acute distress, alert, awake and Physically active Nutritional Appearance: well nourished Orientation/consciousness: patient oriented x3 HEENT Head: Yes normocephalic and Yes atraumatic Neck Neck: Yes trachea midline, Yes supple and Yes no JVD Resp Effort & Inspection: normal respiratory effort Auscultation: crackles (Coarse) bilateral at the base and diminished lung sounds Cardio Jugular venous distension: no JVD Palpation: abnormal PMI displaced PMI Rate: regular rate Rhythm: abnormal rhythm with ectopic beats Heart sounds: S1 normal heart sound present, S2 normal heart sound present, no click, no gallops and Murmur heart sound present systolic early GI Auscultation: normal bowel sounds Skin General skin exam: no rashes or lesions noted Neuro General: patient oriented x3 and no focal motor deficits Extrem General: Yes no clubbing, cyanosis or edema Psych Appearance: grossly normal Objective Labs and Meds 09/10/23 07:12 09/08/23 12:06 Lab results: Laboratory Results - last 24 hr 09/09/23 09/09/23 09/10/23 11:04 17:44 00:29 WBC 9.9 RBC 4.03 L Hgb 12.4 L Hct 38.3 L MCV 95.0 MCH 30.8 MCHC 32.4 RDW 13.8 Plt Count 158 L MPV 10.5 Absolute Nucleated RBC 0.000 Nucleated RBC % (auto) 0.0 PT INR aPTT Heparin Protocol 41.4 L D 79.4 H D 09/10/23 07:12 WBC 11.7 H RBC 3.97 L Hgb 12.6 L Hct 38.1 L MCV 96.0 MCH 31.7 MCHC 33.1 RDW 14.2 Plt Count 158 L MPV 10.6 Absolute Nucleated RBC 0.000 Nucleated RBC % (auto) 0.0 PT 12.7 INR 1.0 aPTT Heparin Protocol 51.8 L D Imaging Radiologist's impression: Impressions Chest X-Ray 09/08/23 12:45 IMPRESSION: Interstitial lung disease. This appears increased from prior chest x-ray March 2022. Progress Note: A&P Assessment and plan (1) NSTEMI (non-ST elevated myocardial infarction): Status: Acute Assessment and Plan: Patient with symptomatic myocardial ischemia with exertional shortness of breath with his anginal equivalent with NSTEMI. Still has exertional shortness of breath although he said he can not tolerate the symptoms. We discussed a cardiac catheterization yesterday and today tells me the sided to pursue conservative management. This is okay decision by me. He has multiple comorbidities including severe LV systolic dysfunction, idiopathic pulmonary fibrosis and chronic kidney disease and he is most worried about contrast induced nephropathy leading to end-stage renal disease. Cannot maximize any other medications as he has low blood pressure. Was started on Ranexa 500 mg b.i.d. as an antianginal. Continue amiodarone for rhythm control. Would add Plavix to his regimen. Continue IV heparin for 1 more day and switch to Eliquis starting tomorrow. Continue high-intensity statin therapy. Overall prognosis is guarded and we discussed about risk of recurrent myocardial infarction, progressive LV systolic dysfunction heart failure. He understands and agrees. Can switch to p.o. Lasix. Will continue to follow with you Time Spent With Patient Time: Total time managing care of this patient today ____ minutes. Progress Note: Quality Stroke Does the patient have a stroke diagnosis?: No Procedures Date of Service Date of Service: 09/10/23
--- NOTE | 2023-09-10 13:36 | P.PNIM_ITS ---
Subjective Subjective Date of Service: 09/10/23 Interval History: Feels good, no chest pain, but sob with exertion Physical Exam 2 Vital Signs: Vital Signs: Last Vital Signs Temp 98.1 F 09/10/23 11:35 Pulse 69 09/10/23 11:35 Resp 18 09/10/23 11:35 BP 113/65 09/10/23 11:35 Pulse Ox 95 09/10/23 11:35 O2 Del Method Room Air 09/10/23 11:35 BMI result Body Mass Index 24.8 Objective Data Active Medications Acetaminophen (Acetaminophen 325 Mg Tablet) 650 mg PO Q6H PRN PRN Reason: Pain, Mild (Pain Scale 1-3) Albuterol Sulfate (Albuterol Sulfate (0.083%) 2.5 Mg/3 Ml Vial.Neb) 2.5 mg INHALE Q2H PRN PRN Reason: Shortness of Breath/Wheezing Albuterol/Ipratropium (Albuterol/Iprat 2.5/0.5mg 3 Ml Ampul.Neb) 3 ml INHALE RQ4H WHILE AWAKE [facility] Last Admin: 09/10/23 11:56 Dose: Not Given Documented By: MARGOTH Non-Admin Reason: Patient Asleep Allopurinol (Allopurinol 100 Mg Tablet) 100 mg PO DAILY [facility] Last Admin: 09/10/23 08:26 Dose: 100 mg Documented By: JOYCE Amiodarone HCl (Amiodarone Hcl 200 Mg Tablet) 100 mg PO MOWEFR@0900 [facility] Last Admin: 09/10/23 08:26 Dose: 100 mg Documented By: JOYCE Aspirin (Aspirin Enteric Coated 81 Mg Tablet.) 81 mg PO DAILY [facility] Last Admin: 09/10/23 08:26 Dose: 81 mg Documented By: JOYCE Atorvastatin Calcium (Atorvastatin Calcium 40 Mg Tablet) 40 mg PO BEDTIME [facility] Last Admin: 09/09/23 20:18 Dose: 40 mg Documented By: RAYMOND Furosemide (Furosemide 20 Mg Tablet) 20 mg PO SUTUTHSA@0900 [facility]; Protocol Last Admin: 09/09/23 08:19 Dose: 20 mg Documented By: NAVDEEP Furosemide (Furosemide 40 Mg Tablet) 40 mg PO MOWEFR@0900 [facility]; Protocol Last Admin: 09/10/23 08:26 Dose: 40 mg Documented By: JOYCE Gabapentin (Gabapentin 100 Mg Capsule) 200 mg PO TID [facility] Last Admin: 09/10/23 08:26 Dose: 200 mg Documented By: JOYCE Heparin Sodium (Porcine) (Heparin Sodium,Porcine 5,000 Unit/Ml Vial) 3,300 unit 40 unit/kg (3300 unit) IVPUSH PROTOCOL BOLUS PRN; Protocol PRN Reason: 40 unit/kg - Heparin Protocol Last Admin: 09/09/23 18:48 Dose: 3,300 unit Documented By: NAVDEEP Heparin Sodium (Porcine) (Heparin Sodium,Porcine 5,000 Unit/Ml Vial) 6,600 unit 80 unit/kg (6600 unit) IVPUSH PROTOCOL BOLUS PRN; Protocol PRN Reason: 80 unit/kg - Heparin Protocol Heparin Sodium/Sodium Chloride (Heparin Sodium,Porcine/1/2ns) 25,000 unit in 250 mls @ 0 mls/hr IVCONT .Q0M [facility]; Protocol Last Admin: 09/10/23 10:15 Dose: 14 units/kg/hr, 11.61 mls/hr Documented By: JOYCE Co-signed By: RALPH Melatonin (Melatonin 3 Mg Tablet) 6 mg PO BEDTIME PRN PRN Reason: Insomnia Methylprednisolone Sodium Succinate (Methylprednisolone Sod Succ 40 Mg/Ml Vial) 20 mg IVPUSH Q12H [facility] Last Admin: 09/10/23 02:49 Dose: 20 mg Documented By: RAYMOND Ondansetron HCl (Ondansetron Hcl 4 Mg/2 Ml Vial) 4 mg IVPUSH Q8H PRN PRN Reason: Nausea and Vomiting Ranolazine (Ranolazine 500 Mg Tab.Er.12h) 500 mg PO BID [facility] Last Admin: 09/10/23 10:55 Dose: 500 mg Documented By: JOYCE Sodium Chloride (0.9 % Sodium Chloride Flush 3 Ml Syringe) 3 ml IVFLUSH QSHIFT [facility] Last Admin: 09/10/23 08:29 Dose: 3 ml Documented By: JOYCE Labs 09/10/23 07:12 09/08/23 12:06 Labs: Laboratory Results - last 24 hr 09/09/23 09/10/23 09/10/23 17:44 00:29 07:12 MCV 96.0 MCH 31.7 MCHC 33.1 RDW 14.2 Plt Count 158 L MPV 10.6 Absolute Nucleated RBC 0.000 Nucleated RBC % (auto) 0.0 PT 12.7 INR 1.0 aPTT Heparin Protocol 41.4 L D 79.4 H D 51.8 L D Assessment and Plan (1) NSTEMI (non-ST elevated myocardial infarction): Status: Acute Plan This is an 88-year-old male with history of idiopathic pulmonary fibrosis on home O2, atrial fibrillation on eliquis, ischemic cardiomyopathy status post AICD placement with generator due to replacment next month. Here with BURROWS, elevated BNP and elevated troponin. BURROWS--likely multifactorial from worsening IPF, heart failure and NSTEMI -Treating heart failure with diuretic, bronchodilators and steroid for IPF, echo NTEMI, no chest pain - IV heparin for up to 48 hours, hold eliquis, ASA, NO BB d/t reported allergy, Statin, Echo EF 15-20% with regional wall motion abnormality consistent with ischemic cardiomyopathy. Cardiology has advised further testing including cath but he prefers medical management alone Chronic AFIB--continue Amio, and Apixiban (on hold while on IV heparin) HLD statin h/o gout--allopurinol CKD 4, Cr slightly worse, Nephrology consult Neuropathy--Gabapenting admission for at least 2 midnights for management of BURROWS, Elevated tropnoin that need further work up and expert assessment DVT prophylaxis: Nelly full code, discussion Need for inpt: IV heparin for NSTEMI discussed with pt and son Quality Stroke Does the patient have a stroke diagnosis?: No VTE Prior VTE?: No VTE Risk Level:: Medical - moderate - high VTE Device Contraindication: Treatment Not Indicated VTE Drug Contraindication: N/A - Med Ordered
[2023-09-10 15:07] LABS: PTT Heparin Drip 36.7 SEC (53-77.9)
[2023-09-10] MEDS: Heparin Sodium,Porcine 5,000 UNIT/ML VIAL 6600 UNIT IVPUSH (15:31)
[2023-09-10] MEDS: Albuterol/Iprat 2.5/0.5MG 3 ML AMPUL.NEB INHALE (20:36)
[2023-09-10 22:10] LABS: PTT Heparin Drip 167.2 SEC (53-77.9)
[2023-09-10] MEDS: Atorvastatin Calcium 40 MG TABLET PO (22:48)
[2023-09-11 00:02] LABS: PTT Heparin Drip 81.2 SEC (53-77.9)
[2023-09-11 03:57] VITALS: BP 113/78; PULSE 64; RESP 18; TEMP 36.7; O2SAT 95
[2023-09-11] MEDS: methylPREDNISolone Sod Succ 40 MG/ML VIAL 20 MG IVPUSH (05:20)
[2023-09-11 07:25] LABS: PTT Heparin Drip 47.1 SEC (53-77.9)
[2023-09-11 07:53] VITALS: BP 112/75; PULSE 75; RESP 18; TEMP 37.1; O2SAT 95
[2023-09-11] MEDS: Gabapentin 100 MG CAPSULE 200 MG PO (08:00)
[2023-09-11] MEDS: Ranolazine 500 MG TAB.ER.12H PO (08:00)
[2023-09-11] MEDS: allopurinoL 100 MG TABLET PO (08:00)
[2023-09-11] MEDS: Aspirin Enteric Coated 81 MG TABLET.DR PO (08:00)
[2023-09-11] MEDS: Furosemide 20 MG TABLET PO (08:00)
[2023-09-11] MEDS: Albuterol/Iprat 2.5/0.5MG 3 ML AMPUL.NEB INHALE ×2 (08:03→11:31)
[2023-09-11 08:05] VITALS: PULSE 76; RESP 20; O2SAT 94
[2023-09-11] MEDS: Heparin Sodium,Porcine/1/2NS 25,000 UNIT/250 ML IV.SOLN 13.26 UNIT IVCONT (08:11)
[2023-09-11] MEDS: Heparin Sodium,Porcine 5,000 UNIT/ML VIAL 3300 UNIT IVPUSH (08:18)
--- NOTE | 2023-09-11 10:22 | P.PNIM_ITS ---
Subjective Subjective Date of Service: 09/11/23 Interval History: overall is feeling better, doing better, no chest pain, or sob Physical Exam 2 Vital Signs: Vital Signs: Last Vital Signs Temp 98.7 F 09/11/23 07:53 Pulse 76 09/11/23 08:05 Resp 20 09/11/23 08:05 BP 112/75 09/11/23 07:53 Pulse Ox 95 09/11/23 07:53 O2 Del Method Room Air 09/11/23 07:53 BMI result Body Mass Index 24.8 Const: Other: General: AO X 3, no acute distress Resp: rales at bases, chronic CVS: S1,S2,RRR GI: +BS, NT, no distention Skin: No rash Neuro: motor grossly intact Psych: appropriate affect Objective Data Active Medications Acetaminophen (Acetaminophen 325 Mg Tablet) 650 mg PO Q6H PRN PRN Reason: Pain, Mild (Pain Scale 1-3) Albuterol Sulfate (Albuterol Sulfate (0.083%) 2.5 Mg/3 Ml Vial.Neb) 2.5 mg INHALE Q2H PRN PRN Reason: Shortness of Breath/Wheezing Albuterol/Ipratropium (Albuterol/Iprat 2.5/0.5mg 3 Ml Ampul.Neb) 3 ml INHALE RQ4H WHILE AWAKE [facility] Last Admin: 09/11/23 08:03 Dose: 3 ml Documented By: SIMONA Allopurinol (Allopurinol 100 Mg Tablet) 100 mg PO DAILY [facility] Last Admin: 09/11/23 08:00 Dose: 100 mg Documented By: SMITA Amiodarone HCl (Amiodarone Hcl 200 Mg Tablet) 100 mg PO MOWEFR@0900 [facility] Last Admin: 09/10/23 08:26 Dose: 100 mg Documented By: JOYCE Aspirin (Aspirin Enteric Coated 81 Mg Tablet.) 81 mg PO DAILY [facility] Last Admin: 09/11/23 08:00 Dose: 81 mg Documented By: SMITA Atorvastatin Calcium (Atorvastatin Calcium 40 Mg Tablet) 40 mg PO BEDTIME [facility] Last Admin: 09/10/23 22:48 Dose: 40 mg Documented By: SIMÓN Furosemide (Furosemide 20 Mg Tablet) 20 mg PO SUTUTHSA@0900 [facility]; Protocol Last Admin: 09/11/23 08:00 Dose: 20 mg Documented By: SMITA Furosemide (Furosemide 40 Mg Tablet) 40 mg PO MOWEFR@0900 [facility]; Protocol Last Admin: 09/10/23 08:26 Dose: 40 mg Documented By: JOYCE Gabapentin (Gabapentin 100 Mg Capsule) 200 mg PO TID [facility] Last Admin: 09/11/23 08:00 Dose: 200 mg Documented By: SMITA Melatonin (Melatonin 3 Mg Tablet) 6 mg PO BEDTIME PRN PRN Reason: Insomnia Methylprednisolone Sodium Succinate (Methylprednisolone Sod Succ 40 Mg/Ml Vial) 20 mg IVPUSH Q12H [facility] Last Admin: 09/11/23 05:20 Dose: 20 mg Documented By: SIMÓN Ondansetron HCl (Ondansetron Hcl 4 Mg/2 Ml Vial) 4 mg IVPUSH Q8H PRN PRN Reason: Nausea and Vomiting Ranolazine (Ranolazine 500 Mg Tab.Er.12h) 500 mg PO BID [facility] Last Admin: 09/11/23 08:00 Dose: 500 mg Documented By: SMITA Sodium Chloride (0.9 % Sodium Chloride Flush 3 Ml Syringe) 3 ml IVFLUSH QSHIFT [facility] Last Admin: 09/11/23 08:20 Dose: Not Given Documented By: SMITA Non-Admin Reason: IV Running Labs 09/10/23 07:12 09/08/23 12:06 Labs: Laboratory Results - last 24 hr 09/10/23 09/10/23 09/10/23 13:51 21:32 23:25 Hold Purple Top aPTT Heparin Protocol 36.7 L D 167.2 H* D 81.2 H D 09/11/23 09/11/23 06:39 07:09 Hold Purple Top SEE NOTE aPTT Heparin Protocol 47.1 L D Assessment and Plan (1) NSTEMI (non-ST elevated myocardial infarction): Status: Acute Plan This is an 88-year-old male with history of idiopathic pulmonary fibrosis on home O2, atrial fibrillation on eliquis, ischemic cardiomyopathy status post AICD placement with generator due to replacment next month. Here with BURROWS, elevated BNP and elevated troponin. BURROWS--likely multifactorial from worsening IPF, heart failure and NSTEMI -Treated heart failure with diuretic, bronchodilators and steroid for IP NTEMI, no chest pain, treated medically with IV heparin, ASA, Statin. Echo EF 15-20% with regional wall motion abnormality consistent with ischemic cardiomyopathy. He declined cardiac catherization Chronic AFIB--continue Amio, and Apixiban (on hold while on IV heparin), resume later today HLD statin h/o gout--allopurinol CKD 4, Cr slightly worse, Nephrology following Neuropathy--Gabapenting DVT prophylaxis: Nelly full code, discussion Need for inpt: management of acute [place], discussed with pt and son PT eval and possibly dc today Quality Stroke Does the patient have a stroke diagnosis?: No VTE Prior VTE?: No VTE Risk Level:: Medical - moderate - high VTE Device Contraindication: Treatment Not Indicated VTE Drug Contraindication: N/A - Med Ordered
[2023-09-11 11:13] VITALS: BP 121/70; PULSE 65; PULSE 76; RESP 18; TEMP 36.3; O2SAT 94
--- NOTE | 2023-09-11 11:20 | PM.PNCARD ---
Subjective Subjective Date of Service: 09/11/23 Principal diagnosis: NSTEMI Interval history: Patient is having no new symptoms. Denies any worsening shortness of breath. No orthopnea, PND. No lightheadedness. Did receive a Ranexa yesterday. No low blood pressure. Review of Systems Review of Systems Yes all other systems are reviewed and are negative Physical Exam Vital Signs: Last Vital Signs Temp 97.3 F 09/11/23 11:13 Pulse 76 09/11/23 11:13 Resp 18 09/11/23 11:13 BP 121/70 09/11/23 11:13 Pulse Ox 94 09/11/23 11:13 O2 Del Method Room Air 09/11/23 11:13 BMI result Body Mass Index 24.8 Const General: cooperative, comfortable, no acute distress, alert, awake and Physically active Nutritional Appearance: well nourished Orientation/consciousness: patient oriented x3 HEENT Head: Yes normocephalic and Yes atraumatic Neck Neck: Yes trachea midline, Yes supple and Yes no JVD Resp Effort & Inspection: normal respiratory effort Auscultation: crackles (Coarse) bilateral at the base and diminished lung sounds Cardio Jugular venous distension: no JVD Palpation: abnormal PMI displaced PMI Rate: regular rate Rhythm: abnormal rhythm with ectopic beats Heart sounds: S1 normal heart sound present, S2 normal heart sound present, no click, no gallops and Murmur heart sound present systolic early GI Auscultation: normal bowel sounds Skin General skin exam: no rashes or lesions noted Neuro General: patient oriented x3 and no focal motor deficits Extrem General: Yes no clubbing, cyanosis or edema Psych Appearance: grossly normal Objective Labs and Meds 09/10/23 07:12 09/08/23 12:06 Lab results: Laboratory Results - last 24 hr 09/10/23 09/10/23 09/10/23 13:51 21:32 23:25 Hold Purple Top aPTT Heparin Protocol 36.7 L D 167.2 H* D 81.2 H D 09/11/23 09/11/23 06:39 07:09 Hold Purple Top SEE NOTE aPTT Heparin Protocol 47.1 L D Progress Note: A&P Assessment and plan (1) NSTEMI (non-ST elevated myocardial infarction): Status: Acute Assessment and Plan: Recent NSTEMI with high likelihood of underlying obstructive coronary artery disease and myocardial ischemia and high likelihood of recurrent hospitalization. Patient elects to pursue conservative care given his multiple comorbidities especially renal insufficiency. This is okay given his multiple comorbidities. Continue Ranexa for ischemia management. Continue amiodarone for rhythm control. Nephrology would suggest to increases ongoing Lasix on a daily basis to 40 mg daily. I am okay with the same. I would switch to Plavix and Eliquis in the long run for both atrial fibrillation as well as recent NSTEMI. Will follow up as outpatient. Time Spent With Patient Time: Total time managing care of this patient today ____ minutes. Progress Note: Quality Stroke Does the patient have a stroke diagnosis?: No Procedures Date of Service Date of Service: 09/11/23
[2023-09-11 11:33] VITALS: PULSE 73; RESP 20; O2SAT 97
--- NOTE | 2023-09-11 11:57 | P.CONNP_ITS ---
History of Present Illness Reason for Consult Consult date: 09/11/23 Reason for consult: CKD 4 Chief Complaint Chief complaint: BURROWS History of Present Illness Narrative: 88-year-old male with idiopathic pulmonary fibrosis on home O2, CKD 4 ( Dr Cyr) among multiple other medical issues presented to the emergency department with shortness breath that has been ongoing for nearly a month now and seemed worse over the last weekend. His symptoms were more pronounced with exertion and at times associated with dizziness. No weight gain, no swelling in the legs. No chest pain. Work up has revealed increased BNP to 1584, troponin I high. No PND or orthopnea. He was admitted for further management. He declined cardiac catheterization. Nephrology has been consulted to assist in his clinical care during his current hospital stay Review of Systems Review of Systems Yes all other systems are reviewed and are negative PMFSH Past Medical History Medical History Acute on chronic HFrEF (heart failure with reduced ejection fraction) ICD (implantable cardioverter-defibrillator) in place PVC (premature ventricular contraction) Acute on chronic systolic (congestive) heart failure Pneumonia CKD (chronic kidney disease) Hypoxia Hemoptysis Bronchitis Encounter for monitoring amiodarone therapy PAF (paroxysmal atrial fibrillation) IPF (idiopathic pulmonary fibrosis) Ischemic cardiomyopathy Family History Family History Father No problems noted. Mother No problems noted. Surgical History Surgical History History of implantable cardiac defibrillator (ICD) (~02/2016) Social History Social History Household Members: Family Household Members Other:: son Housing: House Do you presently have visiting nurse or other home services: No Alcohol intake: former Patient Tobacco Use Status: Former Tobacco user Quit Date: 1973 e-Cigarette/Vaping Use: Former Use Advance Directives Date on File: 04/19/21 service: Yes Current occupational status: retired Meds Allergies Allergy/AdvReac Type Severity Reaction Status Date / Time metoprolol [METOPROLOL] AdvReac Severe SYNCOPE Verified 09/05/23 11:01 Active Medications: Current Medications Acetaminophen (Acetaminophen 325 Mg Tablet) 650 mg PO Q6H PRN PRN Reason: Pain, Mild (Pain Scale 1-3) Albuterol Sulfate (Albuterol Sulfate (0.083%) 2.5 Mg/3 Ml Vial.Neb) 2.5 mg INHALE Q2H PRN PRN Reason: Shortness of Breath/Wheezing Albuterol/Ipratropium (Albuterol/Iprat 2.5/0.5mg 3 Ml Ampul.Neb) 3 ml INHALE RQ4H WHILE AWAKE [facility] Last Admin: 09/11/23 11:31 Dose: 3 ml Allopurinol (Allopurinol 100 Mg Tablet) 100 mg PO DAILY [facility] Last Admin: 09/11/23 08:00 Dose: 100 mg Amiodarone HCl (Amiodarone Hcl 200 Mg Tablet) 100 mg PO MOWEFR@0900 [facility] Last Admin: 09/10/23 08:26 Dose: 100 mg Aspirin (Aspirin Enteric Coated 81 Mg Tablet.) 81 mg PO DAILY [facility] Last Admin: 09/11/23 08:00 Dose: 81 mg Atorvastatin Calcium (Atorvastatin Calcium 40 Mg Tablet) 40 mg PO BEDTIME [facility] Last Admin: 09/10/23 22:48 Dose: 40 mg Furosemide (Furosemide 20 Mg Tablet) 20 mg PO SUTUTHSA@0900 [facility]; Protocol Last Admin: 09/11/23 08:00 Dose: 20 mg Furosemide (Furosemide 40 Mg Tablet) 40 mg PO MOWEFR@0900 [facility]; Protocol Last Admin: 09/10/23 08:26 Dose: 40 mg Gabapentin (Gabapentin 100 Mg Capsule) 200 mg PO TID [facility] Last Admin: 09/11/23 08:00 Dose: 200 mg Melatonin (Melatonin 3 Mg Tablet) 6 mg PO BEDTIME PRN PRN Reason: Insomnia Methylprednisolone Sodium Succinate (Methylprednisolone Sod Succ 40 Mg/Ml Vial) 20 mg IVPUSH Q12H [facility] Last Admin: 09/11/23 05:20 Dose: 20 mg Ondansetron HCl (Ondansetron Hcl 4 Mg/2 Ml Vial) 4 mg IVPUSH Q8H PRN PRN Reason: Nausea and Vomiting Ranolazine (Ranolazine 500 Mg Tab.Er.12h) 500 mg PO BID [facility] Last Admin: 09/11/23 08:00 Dose: 500 mg Sodium Chloride (0.9 % Sodium Chloride Flush 3 Ml Syringe) 3 ml IVFLUSH QSHIFT [facility] Last Admin: 09/11/23 08:20 Dose: Not Given Home Medications Medication Instructions Recorded Confirmed Last Taken Type gabapentin 100 mg capsule 200 mg PO TID [facility]UROPATH[facility] 10/11/20 09/08/23 09/08/23 History simvastatin 10 mg tablet 10 mg PO BEDTIME 10/11/20 09/08/23 09/07/23 History allopurinol 100 mg tablet 100 mg PO DAILY 02/03/23 09/08/23 09/08/23 History amiodarone 100 mg tablet 100 mg PO MOWEFR@89909/08/23 09/08/23 09/08/23 History furosemide 20 mg tablet 20 mg PO SUTUTHSA@89909/08/23 09/08/23 09/07/23 History furosemide 40 mg tablet 40 mg PO MOWEFR@89909/08/23 09/08/23 09/08/23 History Physical Exam Vital Signs: Last Vital Signs Temp 97.3 F 09/11/23 11:13 Pulse 73 09/11/23 11:33 Resp 20 09/11/23 11:33 BP 121/70 09/11/23 11:13 Pulse Ox 94 09/11/23 11:13 O2 Del Method Room Air 09/11/23 11:13 BMI result Body Mass Index 24.8 Const General: comfortable and no acute distress Orientation/consciousness: patient oriented x3 HEENT Head: Yes normocephalic Mouth: Normal oral and palatal mucosa present Eyes EOM: EOMs intact bilaterally Neck Neck: Yes supple Resp Auscultation: rales and diminished lung sounds Cardio Jugular venous distension: no JVD Rate: regular rate Heart sounds: Murmur heart sound present GI Palpation (GI): Soft to palpation Auscultation: normal bowel sounds General: Yes no CVA tenderness Back/Spine/Pelvis Back: no CVA tenderness Skin General skin exam: no rashes or lesions noted Neuro General: patient oriented x3 and moves all extremities Extrem General: Yes no pedal edema Results Lab Results 09/10/23 07:12 09/08/23 12:06 Lab results: Chemistry 09/08/23 12:06 Sodium 138 Potassium 4.2 Carbon Dioxide 27 BUN 30 H Creatinine 1.95 H Calcium 9.1 Hematology 09/08/23 09/09/23 09/10/23 12:06 11:04 07:12 WBC 6.4 9.9 11.7 H Hgb 13.5 L 12.4 L 12.6 L Plt Count 150 L 158 L 158 L Assessment and Plan (1) CKD (chronic kidney disease) stage 4, GFR 15-29 ml/min: Status: Acute Plan Has advanced CKD @ baseline UO good; S/P LA now Doesnt want cardiac catheterization Doesnt want dialysis/ Home O2 Hemodynmics stable Furosemide 40 mg daily for now( D/W cards as well) Needs to F/U with Dr Cyr in 1 week after D/C Procedures Date of Service Date of Service: 09/11/23
--- NOTE | 2023-09-11 13:09 | PM.DS ---
DS: Providers Provider Date of Service: 10/11/23 Date of admission: 09/08/23 15:31 Primary care physician: Song Quiñonez MD Consults: 09/08/23 14:33 Consult to Cardiology Stat Consulting Provider: Rudy De La Cruz Reason for consultation: Elevated troponin, dizziness and shortness of breath Has provider been notified: Yes 09/09/23 09:32 Consult to Cardiology Routine Consulting Provider: [facility] [place] [facility] Reason for consultation: NSTEMI Has provider been notified: Yes 09/10/23 09:12 Consult to Nephrology Routine Consulting Provider: [facility] [place] [facility] Reason for consultation: CKD Has provider been notified: No DS: Diagnosis Discharge Diagnosis (1) CKD (chronic kidney disease) stage 4, GFR 15-29 ml/min: Status: Inactive DS: Summary Hospital Course Hospital Course: Chief Complaint: Shortness of breath This is an 88-year-old male with history of idiopathic pulmonary fibrosis on home O2, atrial fibrillation on eliquis, ischemic cardiomyopathy status post AICD placement with generator due to replacment next month. He presents to the emergency department with shortness breath that has been ongoing for nearly a month now and seemed worse over the last weekend. His symptoms are more pronounced with exertion and at times associated with dizziness. No weight gain, no swelling in the legs. No chest pain. Work up has revealed increased BNP to 1584, troponin I to 906, repeat unchanged. No PND or orthopnea. Pace maker seems to be function properly, CXR is pending. He's given IV Lasix x 1 Hospital course: Patient presented with dyspnea on exertion and work up revealed NSTEMI, and acute heart failure. NSTEMI was treated medically with IV heparin for 2 days, ASA and HI statin. Echo EF show 15-20% with regional wall motion abnormality consistent with ischemic cardiomyopathy. He declined cardiac catherization. Cardiology recommended cardiac cath however patient declined in favor of medical management only. And as such, he's been treated with Ranexa, ASA, Lipitor and will discharge with Plavix in addition to eliquis for AFIB. Heart failure was treated with IV Lasix and will discharge with oral Lasix 40 mg daily. He is allergic to beta sean. Overall his symptoms are much improved, PT recommend home with services Final diagnosis: NSTEMI cardiomyopathy Acute systolic heart failure CKD chronic afib Time Attestation Discharge coordination time: Greater than 30 minutes Quality: Safe Use of Opioids Does Pt have an Active Cancer Diagnosis on the Problem List?: No Quality: Stroke Does the patient have a stroke diagnosis?: No Physical Exam Vital Signs: Vital Signs: Last Vital Signs Temp 97.3 F 09/11/23 11:13 Pulse 73 09/11/23 11:33 Resp 20 09/11/23 11:33 BP 121/70 09/11/23 11:13 Pulse Ox 94 09/11/23 11:13 O2 Del Method Room Air 09/11/23 11:13 BMI result Body Mass Index 24.8 DS: Data Data Completed and Pending Labs on day of discharge: Laboratory Results - last 24 hr 09/10/23 09/10/23 09/10/23 13:51 21:32 23:25 Hold Purple Top aPTT Heparin Protocol 36.7 L D 167.2 H* D 81.2 H D 09/11/23 09/11/23 06:39 07:09 Hold Purple Top SEE NOTE aPTT Heparin Protocol 47.1 L D Discharge Plan Discharge Anticipated Discharge Date/Time: 09/11/23 13:03 Patient Disposition: Home Health Service Discharge Diagnosis: Acute NSTEMI, acute heart failure Referrals: Song Quiñonez MD [Primary Care Provider] - 1 Week Discharge Medications: Continued Eliquis 2.5 mg tablet 2.5 mg PO BID Qty: 180 2RF amiodarone 100 mg tablet 100 mg PO MOWEFR@0900 gabapentin 100 mg capsule 200 mg PO TID allopurinol 100 mg tablet 100 mg PO DAILY Discontinued furosemide 40 mg tablet 40 mg PO MOWEFR@0900 furosemide 20 mg tablet 20 mg PO SUTUTHSA@0900 simvastatin 10 mg tablet 10 mg PO BEDTIME No Action clopidogrel [Plavix] 75 mg tablet 75 mg PO DAILY Qty: 30 5RF simvastatin 10 mg Tablet 10 mg PO QPM hydralazine 25 mg Tablet 25 mg PO TID Qty: 90 0RF Protocol: Hold for SBP< HOLD for SBP < : 90 furosemide 40 mg Tablet 40 mg PO BID Qty: 60 0RF Protocol: Hold for SBP< HOLD for SBP < : 90 isosorbide dinitrate 10 mg tablet 10 mg PO TID Qty: 120 4RF Rx Instructions: allow nitrate-free interval of 12-14 hrs per 24-hr period Discharge Orders: Discharge Order (Routine); Ordered 09/11/23 Ordered By: Kevin Alvarenga Diet: Advance to usual diet Activity on Discharge: As tolerated Stand Alone Forms: Patient Portal Discharge page Care Plan Goals: recovery from heart attack and heart failure Health Concerns: heart attack and heart failure Plan of Treatment: Take all your medication as directed and follow up with your Doctor in a week Follow up with your heart doctor Lasix dose has been changed to 40 mg daily Take Plavix, Lipitor in place of Simvastatin, and Renexa as recommended Assessment: as above Discharge Date/Time: 09/11/23 14:32
--- NOTE | 2023-09-11 13:20 | W.MHC.F2F ---
Service Date Service Date: 09/11/23 Encounter Date of encounter: 09/11/23 Reasons for Services Signs and symptoms assessed: heart failure , shortness of breath, heart attack Reason for care home: medication management and teach disease management Homebound: Leaving the home is medically contraindicated at this time without the asist of a device and/or another person due th the listed conditions above and below. Reason homebound: shortness of breath with minimal effort Homebound supporting statement: homebound due to heart failure causing shortness of with minimal effort and needs the assistance of another person Certification: Based on the above findings, I certify that this patient is confined to the home and needs intermittent care home care, physical therapy and/or speech therapy, or continues to need occupational therapy. The patient is under my care, and I have initiated the establishment of the plan of care. The patient will be followed by a physician who will periodically review the plan of care. Time Spent With Patient Time: Total time managing care of this patient today ____ minutes.
[2023-09-11] MEDS: Apixaban 2.5 MG TABLET PO (13:30)
--- NOTE | 2023-09-11 13:32 | MHC.CM.PN ---
Per MD patient medically cleared for dc. DP: Home, self care, son to transport this afternoon. RN and MD aware.
[2023-09-11 14:19] LABS: PTT Heparin Drip 25.8 SEC (53-77.9)
== END 2023-09-11 14:32 | disposition home health service (06) | DRG 190 ==
LOC: HO.ED 14:31 → HO.EDOVER 15:36 → HO.IMC 17:41
PROVIDERS: Physician Assistant; Student in an Organized Health Care Education/Training Program; Admitting Provider Internal Medicine; Emergency Provider Student in an Organized Health Care Education/Training Program; PCP Internal Medicine; Visit Provider Internal Medicine
DX: I21.4 Non-ST elevation (NSTEMI) myocardial infarction (principal); I50.23 Acute on chronic systolic (congestive) heart failure; J84.112 Idiopathic pulmonary fibrosis; N18.4 Chronic kidney disease, stage 4 (severe); I48.20 Chronic atrial fibrillation, unspecified; E78.5 Hyperlipidemia, unspecified; G62.9 Polyneuropathy, unspecified; I25.10 Atherosclerotic heart disease of native coronary artery without angina pectoris; M10.9 Gout, unspecified; I25.5 Ischemic cardiomyopathy; Z79.01 Long term (current) use of anticoagulants; Z99.81 Dependence on supplemental oxygen; Z95.810 Presence of automatic (implantable) cardiac defibrillator; Z79.899 Other long term (current) drug therapy
CPT/HCPCS: 36415; 71046; 80053; 83690; 83880; 84484; 85025; 85027; 85610; 85730; 93005; 93308; 94640; 97162; 99285; J1643; J1940; J2920; Q9957

== ENCOUNTER 2023-09-08 15:31 | Outpatient (BNV) | payer OTHER, SELFPAY | END 2023-09-09 07:00 | PROVIDERS: Admitting Provider Internal Medicine; Emergency Provider Student in an Organized Health Care Education/Training Program; PCP Internal Medicine; Visit Provider Internal Medicine Cardiovascular Disease | DX: I21.4 Non-ST elevation (NSTEMI) myocardial infarction (principal) | CPT/HCPCS: 93308 ==

== ENCOUNTER → 2023-09-08 15:31 | Outpatient (BNV) | payer OTHER, SELFPAY | PROVIDERS: Admitting Provider Internal Medicine; Emergency Provider Student in an Organized Health Care Education/Training Program; PCP Internal Medicine; Visit Provider Internal Medicine Nephrology | DX: N18.4 Chronic kidney disease, stage 4 (severe) (principal); J84.112 Idiopathic pulmonary fibrosis | CPT/HCPCS: 99222; 99499 ==

== ENCOUNTER → 2023-09-08 15:31 | Outpatient (BNV) | payer OTHER, SELFPAY | PROVIDERS: Admitting Provider Internal Medicine; Emergency Provider Student in an Organized Health Care Education/Training Program; PCP Internal Medicine; Visit Provider Internal Medicine | DX: I21.4 Non-ST elevation (NSTEMI) myocardial infarction (principal); N18.4 Chronic kidney disease, stage 4 (severe) | CPT/HCPCS: 99223; 99232; 99233; 99239; G0180 ==

== ENCOUNTER → 2023-09-08 15:31 | Outpatient (BNV) | payer OTHER, SELFPAY | PROVIDERS: Admitting Provider Internal Medicine; Emergency Provider Student in an Organized Health Care Education/Training Program; PCP Internal Medicine; Visit Provider Internal Medicine Cardiovascular Disease | DX: I21.4 Non-ST elevation (NSTEMI) myocardial infarction (principal) | CPT/HCPCS: 99223; 99233 ==

== ENCOUNTER → 2023-09-08 23:59 | Outpatient (BNV) | payer OTHER, SELFPAY ==
--- NOTE | 2023-09-08 14:24 | MHC.OFFVIS ---
Intake Intake Visit Reasons: Remote HF Monitoring- [facility] Allergies metoprolol [METOPROLOL] Adverse Reaction (Severe, Verified 09/05/23 11:01) SYNCOPE PFSH Medical History Acute on chronic HFrEF (heart failure with reduced ejection fraction) ICD (implantable cardioverter-defibrillator) in place PVC (premature ventricular contraction) Acute on chronic systolic (congestive) heart failure Pneumonia CKD (chronic kidney disease) Hypoxia Hemoptysis Bronchitis Encounter for monitoring amiodarone therapy PAF (paroxysmal atrial fibrillation) IPF (idiopathic pulmonary fibrosis) Ischemic cardiomyopathy Surgical History History of implantable cardiac defibrillator (ICD) (~02/2016) Family History Father No problems noted. Mother No problems noted. Social History Household Members: Family Household Members Other:: son Housing: House Do you presently have visiting nurse or other home services: No Alcohol intake: former Patient Tobacco Use Status: Former Tobacco user Quit Date: 1973 Smoked in Last 30 Days: No e-Cigarette/Vaping Use: Former Use Use of substances other than those prescribed or required for medical reasons: No Advance Directives: No Advance Directives Information Provided: No Advance Directives Date on File: 04/19/21 service: Yes Current occupational status: retired Office Procedures Cardiac Device Check Cardiac Device Check Details: Date of service- 09/08/2023; based on impedance data, there is some divergence between daily and reference levels. Possible congestive heart failure but not definitive. [id number] Cardiac Device Interrogation, cardio physiologic monitor Procedure code (CPT) selection complete Assessment & Plan Assessment & Plan (1) Ischemic cardiomyopathy: Code(s): I25.5 - Ischemic cardiomyopathy Coding Level of Care Code Procedure Only Diagnoses Ischemic cardiomyopathy I25.5 CPT Codes Cardiac Device Check - Cardiac Device 15: [id number] Cardiac Device Interrogation, cardio physiologic monitor ([id number])
== END ==
PROVIDERS: PCP Internal Medicine; Visit Provider Internal Medicine
DX: I25.5 Ischemic cardiomyopathy (principal)
CPT/HCPCS: 93297

== ENCOUNTER → 2023-09-23 23:59 | Outpatient (BNV) | payer OTHER, SELFPAY ==
--- NOTE | 2023-09-24 15:20 | MHC.OFFVIS ---
Intake Intake Visit Reasons: Remote ICD Check- [facility] Allergies metoprolol [METOPROLOL] Adverse Reaction (Severe, Verified 09/05/23 11:01) SYNCOPE PFSH Medical History Acute on chronic HFrEF (heart failure with reduced ejection fraction) ICD (implantable cardioverter-defibrillator) in place PVC (premature ventricular contraction) Acute on chronic systolic (congestive) heart failure Pneumonia CKD (chronic kidney disease) Hypoxia Hemoptysis Bronchitis Encounter for monitoring amiodarone therapy PAF (paroxysmal atrial fibrillation) IPF (idiopathic pulmonary fibrosis) Ischemic cardiomyopathy Surgical History History of implantable cardiac defibrillator (ICD) (~02/2016) Family History Father No problems noted. Mother No problems noted. Household Members: Family Household Members Other:: son Housing: House Do you presently have visiting nurse or other home services: No Alcohol intake: former Patient Tobacco Use Status: Former Tobacco user Quit Date: 1973 e-Cigarette/Vaping Use: Former Use Advance Directives Date on File: 04/19/21 service: Yes Current occupational status: retired Office Procedures Cardiac Device Check Cardiac Device Check Details: Date of service 09/23/2023; Device at [facility]; normal lead parameters; BP 85%; no treated VT/VF; ; normal ICD function. [id number] Cardiac Interrogation, implant defibrillator w/interim Procedure code (CPT) selection complete Coding Level of Care Code Procedure Only CPT Codes Cardiac Device Check - Cardiac Device 13: [id number] Cardiac Interrogation, implant defibrillator w/interim ([id number])
== END ==
PROVIDERS: PCP Internal Medicine; Visit Provider Internal Medicine
DX: I25.5 Ischemic cardiomyopathy (principal); Z95.810 Presence of automatic (implantable) cardiac defibrillator
CPT/HCPCS: 93295

== ENCOUNTER 2023-09-25 08:34 | Inpatient (IN) | payer OTHER, SELFPAY ==
[2023-09-25] VITALS (17 sets, daily range): BP systolic 109–163; BP diastolic 60–77; PULSE 53–83; RESP 12–20; TEMP 36.5–36.8; O2SAT 92–98; BMI 25.8
--- NOTE | 2023-09-25 | ECG_ITS ---
Test Reason : SOB Blood Pressure : / mmHG Vent. Rate : 089 BPM Atrial Rate : 089 BPM P-R Int : 000 ms QRS Dur : 176 ms QT Int : 452 ms P-R-T Axes : 059 -55 122 degrees QTc Int : 549 ms Ventricular-paced rhythm with frequent Premature ventricular complexes Abnormal ECG When compared with ECG of 08-SEP-2023 11:41, Vent. rate has increased BY 15 BPM Referred By: Generic ED Physician Electronically Signed By:REAGAN FAJARDO MD
--- NOTE | ~2023-09-25 | XR_ITS ---
EXAMINATION: XR CHEST CLINICAL INFORMATION: SOB COMPARISON: None available. TECHNIQUE: 2 views of the chest were obtained. FINDINGS: The lungs are well-expanded with increased interstitial markings bilaterally. There is loss of right lung volume. No consolidation or pleural effusion seen. Heart size enlarged with pacer electrodes in right atrium and right ventricle. No gross bony abnormality seen. XR/XR chest 2V IMPRESSION: Chronic interstitial lung changes slightly more prominent in the right lung with loss of right lung volume. It is stable compared 09/08/2023. No change in pacer electrodes.
--- NOTE | 2023-09-25 09:05 | ED_ITS ---
HPI - SOB/Dyspnea General Chief Complaint: Dyspnea Stated Complaint: SOB Time Seen by Provider: 09/25/23 08:52 Source: patient and family Mode of arrival: ambulatory Limitations: no limitations History of Present Illness HPI Narrative: 88-year-old male history of idiopathic pulmonary fibrosis, AFib on Eliquis, ischemic cardiomyopathy, s/p AICD placement, non STEMI, coronary artery disease, CHF with reduced ejection fracture 15-20% use 40 mg of Lasix daily, patient is compliant with his medication, patient woke up from sleep with severe shortness of breath gasping for air that gradually improving after he set up. Decline chest pain, no lower extremity swelling or gaining weight. Patient is urinating normally at home especially with Lasix. No fever, no chills , no coughing, no symptoms of upper respiratory infection. Related Data Home Medications Medication Instructions Recorded Confirmed gabapentin 100 mg capsule 200 mg PO TID NEUROPATHY 10/11/20 09/08/23 allopurinol 100 mg tablet 100 mg PO DAILY 02/03/23 09/08/23 amiodarone 100 mg tablet 100 mg PO MOWEFR@0900 09/08/23 09/08/23 Previous Rx's Medication Instructions Recorded apixaban 2.5 mg tablet (Eliquis) 2.5 mg PO BID #180 tabs 05/26/23 atorvastatin 40 mg tablet 40 mg PO BEDTIME #30 tabs 09/11/23 clopidogrel 75 mg tablet (Plavix) 75 mg PO DAILY #30 tabs 09/11/23 furosemide 40 mg tablet (Lasix) 40 mg PO QAM #30 tabs 09/11/23 Allergies Allergy/AdvReac Type Severity Reaction Status Date / Time metoprolol [METOPROLOL] AdvReac Severe SYNCOPE Verified 09/25/23 08:42 Review of Systems 2 Review of Systems: all other systems are reviewed and are negative Constitutional: Reports as per HPI and Reports no additional constitutional complaints Eyes: Reports as per HPI and Reports no additional eye complaints Reports system reviewed and no additional complaints, except as documented Cardiovascular: Reports as per HPI and Reports no additional cardiovascular complaints Respiratory: Reports as per HPI and Reports no additional respiratory complaints Gastrointestinal: Reports as per HPI and Reports no additional gastrointestinal complaints Genitourinary: Reports no additional female genitourinary complaints Musculoskeletal: Reports no additional musculoskeletal complaints Skin/Breast: Reports system reviewed and no additional complaints, except as docu Psychiatric: Reports no additional psychiatric complaints Endocrine: Reports no additional endocrine complaints Hematologic/Lymphatic: Reports no additional hematologic/lymphatic complaints Allergic/Immunologic: Reports no additional allergic/immunologic complaints Reports system reviewed and no additional complaints, except as documented and Reports Abnormal speech present [facility] Past Medical History Medical History CKD (chronic kidney disease) stage 4, GFR 15-29 ml/min Dizziness Elevated troponin Implantable cardioverter-defibrillator generator end of life Acute on chronic HFrEF (heart failure with reduced ejection fraction) ICD (implantable cardioverter-defibrillator) in place PVC (premature ventricular contraction) Acute on chronic systolic (congestive) heart failure Pneumonia CKD (chronic kidney disease) Hypoxia Hemoptysis Bronchitis Encounter for monitoring amiodarone therapy PAF (paroxysmal atrial fibrillation) IPF (idiopathic pulmonary fibrosis) Ischemic cardiomyopathy Surgical History History of implantable cardiac defibrillator (ICD) (~02/2016) Family History Family History Father No problems noted. Mother No problems noted. Social History Household Members: Family Household Members Other:: son Housing: House Do you presently have visiting nurse or other home services: No Alcohol intake: former Patient Tobacco Use Status: Former Tobacco user Quit Date: 1973 Smoked in Last 30 Days: No e-Cigarette/Vaping Use: Former Use Use of substances other than those prescribed or required for medical reasons: No Advance Directives: Yes Advance Directives on File: Yes Advance Directives Date on File: 04/19/21 service: Yes Current occupational status: retired Physical Exam 2 Vital Signs: Vital Signs: Last Vital Signs Temp 98.3 F 09/25/23 08:38 Pulse 77 09/25/23 13:00 Resp 15 09/25/23 13:00 BP 110/64 09/25/23 13:00 Pulse Ox 95 09/25/23 13:00 O2 Del Method Room Air 09/25/23 13:00 BMI result Body Mass Index 25.8 Vital signs have been reviewed and appear to be correct. Blood pressure elevated. Heart rate normal. Respiratory rate normal. Temperature normal. Oxygen saturation normal. Appearance: Alert. Oriented X3. No acute distress. Head: Normal external exam. Normocephalic. Atraumatic. No Angel signs noted. No raccoon eyes noted Eyes: PERRLA. EOMI. Conjunctiva and sclera normal. Eyelids normal. ENT: TM's Normal. Pharynx normal. Uvula midline. Moist mucous membranes. No trismus noted. No drooling noted. No muffled voice noted. Neck: Normal inspection. Neck supple. FROM. No adenopathy. Thyroid Normal. No meningeal signs. No neck mass noted. CVS: Normal heart rate and rhythm. Heart sound normal. No murmurs noted. Pulses normal throughout. Respiratory: No respiratory distress. Painless inspiration. Breath sounds normal. bilateral rales to the lower lung talbot bilaterally. Chest nontender. No accessory muscle usage noted or decreased air movement noted. Abdomen: Soft and nontender. Bowel sounds normal in all 4 quadrants. No distention noted. No organomegaly noted. No visible injury noted. Back: No CVA tenderness. Full range of motion noted. Skin: Skin warm and dry. Normal skin color. Normal skin turgor. No rashes/lesions/lacerations noted. Extremities: +1 lower extremity edema. Extremities exhibit normal range of motion. Extremities nontender. Neuro: Oriented X 3. Cranial nerve exam: II-XII are grossly intact No motor deficit. No sensory deficit. Reflexes normal. Course Reevaluation(s) Reevaluation #1: 88-year-old male came in after having dyspnea and PND, patient is in acute congestive heart failure received 40 mg of Lasix and patient has urinated in the emergency department with improvement of patient's symptoms, also troponin is elevated with no delta change ( over all troponin is trending down). Time: 13:31 Medications Administered Discontinued Medications Generic Name Dose Route Start Last Admin Trade Name Freq PRN Reason Stop Dose Admin Furosemide 40 mg 09/25/23 09:13 09/25/23 09:34 Furosemide 40 Mg/4 Ml Vial IVPUSH 09/25/23 09:14 40 mg ONCE ONE Administration Protocol Nitroglycerin 0.5 inch 09/25/23 09:13 09/25/23 09:41 Nitroglycerin 2 % Oint 1 Gm Packet TRANSDERMA 09/25/23 09:14 Not Given ONCE ONE Medical Decision Making Differential Diagnosis Differential Diagnoses: The differential diagnosis associated with the presentation includes ( CHF, ACS, pneumonia, pneumothorax, pleural effusion.) Admission/Observation Consideration of admission/observation: Escalation of care including admission/observation considered Consult Healthcare Provider Management of the patient was discussed with: Hospitalist (Dr. Prado) Lab Data MDM Lab Attestation statement: I reviewed the patient's lab results. 09/25/23 09:14 09/25/23 09:14 Labs: Lab Results 09/25/23 09/25/23 09/25/23 Range/Units 09:14 10:12 12:23 WBC 6.7 (4.8-10.8) X10*3/uL RBC 4.13 L (4.60-5.80) X10*6/uL Hgb 12.7 L (14.0-18.0) g/dl Hct 39.3 L (42.0-52.0) % MCV 95.2 (80.0-98.0) fL MCH 30.8 (27.0-33.0) pg MCHC 32.3 (31.0-36.0) g/dl RDW 14.6 (11.0-16.0) % Plt Count 175 (160-400) X10*3/uL MPV 10.0 (9.4-12.4) fL Immature Gran % (Auto) 0.4 (0.0-0.4) % Neut % (Auto) 80.5 H (45-73) % Lymph % (Auto) 10.5 L (20-40) % Schley % (Auto) 6.0 (2-11) % Eos % (Auto) 2.2 (0-4) % Baso % (Auto) 0.4 (0-2) % Lymph # (Auto) 0.7 L (1.2-4.9) X10*3/uL Schley # (Auto) 0.4 (0.1-1.2) X10*3/uL Eos # (Auto) 0.2 (0.0-0.4) X10*3/uL Baso # (Auto) 0.0 (0.0-0.2) X10*3/uL Abs Immat Gran (auto) 0.03 (0.00-0.03) X10*3/uL Absolute Neuts (auto) 5.4 (2.0-8.3) x10*3/uL Absolute Nucleated RBC 0.000 (0.0-0.012) X10*3/uL Nucleated RBC % (auto) 0.0 (0.0-0.2) /100WBC Sodium 138 (135-145) mmol/L Potassium 4.4 (3.3-5.1) mmol/L Chloride 101 (96-108) mmol/L Carbon Dioxide 26 (22-29) mmol/L Anion Gap 15 (12-20) BUN 32 H (9-16) mg/dL Creatinine 2.16 H (0.5-1.4) mg/dL Estim Creat Clear Calc 25.9 Estimated GFR 29 Random Glucose 116 H (60-115) mg/dL Calcium 9.0 (8.4-10.2) mg/dL Troponin I High Sens 218.1 H* D 183.1 H* (<3.5-35.0) ng/L B-Natriuretic Peptide 3121 H (<100) pg/mL Urine Color Yellow Urine Appearance Clear Urine pH 7.0 (5.0-9.0) Ur Specific [place] <= 1.005 (1.005-1.025) Urine Protein Negative (Neg-Trace) mg/dL Urine Glucose (UA) Negative (Negative) mg/dL Urine Ketones Negative (Negative) mg/dL Urine Blood Negative (Negative) Urine Nitrite Negative (Negative) Ur Leukocyte Esterase Negative (Negative) Urine RBC 0-2 (0-2) /HPF Urine WBC 0-5 (0-5) /HPF Ur Squamous Epith Cells 0-2 (0-2) /HPF Urine Bacteria None Seen (None Seen) Hyaline Casts 0-2 (0-2) /LPF Independent Interpretation I performed an independent interpretation of an: Plain X-Ray ( chest:Chronic interstitial lung changes slightly more prominent in the right lung with loss of right lung volume. It is stable compared 09/08/2023. No change in pacer electrodes.) Radiology Impression Discussion of test interpretation with radiology: I have reviewed the radiologist's reading. Discharge Plan Discharge Clinical Impression: Acute on chronic clinical systolic heart failure, Acute on chronic renal insufficiency Patient Disposition: Admitted As Inpatient Prescriptions: No Action Eliquis 2.5 mg tablet 2.5 mg PO BID Qty: 180 2RF amiodarone 100 mg tablet 100 mg PO MOWEFR@0900 atorvastatin 40 mg Tablet 40 mg PO BEDTIME Qty: 30 0RF clopidogrel [Plavix] 75 mg tablet 75 mg PO DAILY Qty: 30 0RF furosemide [Lasix] 40 mg tablet 40 mg PO QAM Qty: 30 0RF gabapentin 100 mg capsule 200 mg PO TID allopurinol 100 mg tablet 100 mg PO DAILY
[2023-09-25 09:18] LABS: MANUAL DIFF FLAG NO
[2023-09-25 09:21] LABS: Basophils Percent Auto 0.4 % (0-2); Eosinophils Absolute Auto 0.2 X10*3/uL (0.0-0.4); Eosinophils Percent Auto 2.2 % (0-4); Hematocrit 39.3 % (42.0-52.0); Hemoglobin 12.7 g/dl (14.0-18.0); Imm Gran Abs Auto 0.03 X10*3/uL (0.00-0.03); Imm Gran Pct Auto 0.4 % (0.0-0.4); Lymphocytes Absolute Auto 0.7 X10*3/uL (1.2-4.9); Lymphocytes Percent Auto 10.5 % (20-40); Mean Corpuscular HGB Conc 32.3 g/dl (31.0-36.0); Mean Corpuscular Hemoglobin 30.8 pg (27.0-33.0); Mean Corpuscular Volume 95.2 fL (80.0-98.0); Monocytes Absolute Auto 0.4 X10*3/uL (0.1-1.2); Neutrophils Absolute Auto 5.4 x10*3/uL (2.0-8.3); Neutrophils Percent Auto 80.5 % (45-73); Platelet Count 175 X10*3/uL (160-400); Red Blood Count 4.13 X10*6/uL (4.60-5.80); Red Cell Distribution Width 14.6 % (11.0-16.0); White Blood Count 6.7 X10*3/uL (4.8-10.8)
[2023-09-25] MEDS: Furosemide 40 MG/4 ML VIAL IVPUSH ×2 (09:34→17:45)
[2023-09-25 09:36] LABS: Anion Gap 15 (12-20); Blood Urea Nitrogen 32 mg/dL (9-16); Carbon Dioxide 26 mmol/L (22-29); Chloride 101 mmol/L (96-108); Creatinine Clr Calc Pharmacy 25.9; Estimated Glomerular Filt Rate 29; Glucose Random 116 mg/dL (60-115); Potassium 4.4 mmol/L (3.3-5.1); Sodium 138 mmol/L (135-145)
--- NOTE | 2023-09-25 09:43 | PC.NURSE ---
20g IV access established in right AC. Labs drawn and sent for analysis, results pending at this time. Denies chest pain. Reports shortness of breath, with history of CHF. Takes Eliquis daily for blood thinners. Rales noted upon auscultation. Calm, cooperative, & pleasant at this time. Son (Darek Gonsales) at bedside visiting. Xray and EKG also previously obtained and reviewed by Dr. Perkins. Lasix 40mg given IV per orders, held Nitro paste at this time due to adequate vitals & denying chest pain - discussed this with Dr. Perkins who approved of holding this medication at this time. Instructed patient to notify this RN when able to urinate. Provided call adam and bedside urinal if needed. Pt and family verbalized understanding of instructions.
[2023-09-25 09:44] LABS: B Type Natriuretic Peptide 3121 pg/mL (<100)
[2023-09-25 09:52] LABS: Troponin-I High Sensitivity 218.1 ng/L (<3.5-35.0)
--- NOTE | 2023-09-25 09:56 | PC.NURSE ---
Troponin level 218.1, per lab. Critical lab result given to Dr. Perkins via phone. This RN present when result was given. Instructed to repeat troponin level at 12:14pm today. Pt continues to deny chest pain at this time. Recently given Lasix IV.
[2023-09-25 10:18] LABS: Appearance Urine Clear; Color Urine Yellow; Glucose Urine UA Negative (Negative); Leukocyte Esterase Urine Negative (Negative); Nitrite Urine Negative (Negative); Specific Gravity - Urine <= 1.005 (1.005-1.025); Urine Blood Negative (Negative); Urine Ketones Negative (Negative); Urine Protein Negative (Neg-Trace)
[2023-09-25 10:23] LABS: Bacteria Urine None Seen (None Seen); Hyaline Casts Urine 0-2 /LPF (0-2); RBC Urine 0-2 /HPF (0-2); Squamous Epithelial Cell Urine 0-2 /HPF (0-2); WBC Urine 0-5 /HPF (0-5)
--- NOTE | 2023-09-25 11:35 | PC.NURSE ---
assumed care. no respiratory distress. aox4. calm, coop. talking full sentences w regular breathing rate/depth/rhythm
[2023-09-25 12:52] LABS: Troponin-I High Sensitivity 183.1 ng/L (<3.5-35.0)
--- NOTE | 2023-09-25 13:00 | P.HPHOSP_ITS ---
<Statement entered by Elissa Osorio MD - 10/05/23 14:42> the patient was seen and evaluated with YULIET Patel. I agree with his note, assessment and plan with the following. In summary, 88-year-old male with PMH of HFrEF, AFib, CMP 15-20% s/p AICD placement, CKD 3, ILD among others who is presenting with SOB. Acute HFrEF exacerbation Elevated BNP w CXR showing fluid overload Furosemide 40 mg IV b.i.d. Trend Trop I Rest of evaluations by PA note. History of Present Illness Date of Service: 09/25/23 Attending physician on admission: Elissa Osorio Chief Complaint: SOB, orthopnea Pt is an 88-year-old male with a PMH significant for?persistent AFib Eliquis, HFrEF w/ EF 15-20% on 09/09/2023, NSTEMI 09/2023, idiopathic pulmonary fibrosis, ischemic cardiomyopathy s/p AICD placement, CKD 3, and gout who presents to the ED with?with worsening shortness of breath and orthopnea. Patient was recently admitted to the hospital on 09/08-09/11 for similar symptoms and found to have elevated BNP and significantly elevated troponins. Patient was treated for CHF exacerbation and NSTEMI. Cardiology recommended cardiac catheterization, however patient declined in favor of medical management only. Patient states that he felt well for the first week after discharge, but began to experienced increasing shortness of breath with exertion earlier this week. Patient especially felt short of breath last night when he awoke from sleep panting , which prompted his visit to the ED this morning. Has experienced a mostly dry cough though occasionally productive of clear sputum. Patient not on home O2. Patient states he has been compliant with home medications. Home Lasix was increased at time of last discharge from 20 mg to 40 mg daily, however patient notes he visited his PCP within changed his Lasix to alternating 40 mg versus 20 mg daily. Patient otherwise has no acute medical complaints. Denies chest pain/pressure, palpitations. No noticeable increased lower leg edema or weight gain. Denies fever, chills, nausea, vomiting, abdominal pain. In the ED pt was afebrile satting at 95% on RA. Labs were significant for stable normocytic anemia of 12.7/39.3, BUN 32 and creatinine 2.16 (around baseline), initial troponin 218.1 with repeat flat at 183.1, BNP 3121 (up from 1584 on 09/08/2023). UA negative for UTI. CXR showed chronic interstitial lung changes slightly more prominent in the right lung with loss of right lung volume. EKG demonstrated ventricular paced rhythm with frequent PVCs and elevated QTc of 549. Pt was treated with furosemide 40 mg IV. Pt will be admitted to the hospital for treatment and further evaluation of acute HFrEF exacerbation. [facility] Medical History CKD (chronic kidney disease) stage 4, GFR 15-29 ml/min Dizziness Elevated troponin Implantable cardioverter-defibrillator generator end of life Acute on chronic HFrEF (heart failure with reduced ejection fraction) ICD (implantable cardioverter-defibrillator) in place PVC (premature ventricular contraction) Acute on chronic systolic (congestive) heart failure Pneumonia CKD (chronic kidney disease) Hypoxia Hemoptysis Bronchitis Encounter for monitoring amiodarone therapy PAF (paroxysmal atrial fibrillation) IPF (idiopathic pulmonary fibrosis) Ischemic cardiomyopathy Family History Father No problems noted. Mother No problems noted. Surgical History History of implantable cardiac defibrillator (ICD) (~02/2016) Household Members: Family Household Members Other:: son Housing: House Do you presently have visiting nurse or other home services: No Alcohol intake: former Patient Tobacco Use Status: Former Tobacco user Quit Date: 1973 Smoked in Last 30 Days: No e-Cigarette/Vaping Use: Former Use Use of substances other than those prescribed or required for medical reasons: No Advance Directives: Yes Advance Directives on File: Yes Advance Directives Date on File: 04/19/21 service: Yes Current occupational status: retired Meds Allergies Allergy/AdvReac Type Severity Reaction Status Date / Time metoprolol [METOPROLOL] AdvReac Severe SYNCOPE Verified 09/25/23 08:42 Home Medications Medication Instructions Recorded Confirmed Last Taken Type gabapentin 100 mg capsule 200 mg PO TID NEUROPATHY 10/11/20 09/25/23 09/08/23 History allopurinol 100 mg tablet 100 mg PO DAILY 02/03/23 09/25/23 09/08/23 History amiodarone 100 mg tablet 100 mg PO MOWEFR@0900 09/08/23 09/25/23 09/08/23 History simvastatin 10 mg tablet 10 mg PO QPM 09/25/23 09/25/23 Unknown History Physical Exam 2 Vital Signs and Narrative: Vital Signs: Last Vital Signs Temp 98.3 F 09/25/23 08:38 Pulse 79 09/25/23 12:00 Resp 19 09/25/23 12:00 BP 122/71 09/25/23 12:00 Pulse Ox 97 09/25/23 12:00 O2 Del Method Room Air 09/25/23 12:00 BMI result Body Mass Index 25.8 Constitutional: Alert, in no acute distress. Mental Status: Oriented to person, place and time. Eyes: Pupils are equal, round, and reactive to light. Ear, Nose, and Throat: Oropharynx clear, mucous membranes moist. Ears and nose without deformities. Trachea midline. Respiratory: Clear to auscultation bilaterally. No wheezing, rales, or rhonchi. Cardiovascular: S1, S2 regular. No murmurs, rubs, or gallops. Gastrointestinal: Abdomen soft, non-tender, non-distended. Normal bowel sounds. Neurologic: Cranial nerves II-XII are grossly intact bilaterally. No focal neurological deficits. Moves all extremities spontaneously. Skin: Warm, dry. Musculoskeletal: No cyanosis or clubbing. Extremities: Trace bilateral edema. Psychiatric: Normal mood and affect. Results Labs 09/25/23 09:14 09/25/23 09:14 Labs: Laboratory Results - last 24 hr 09/25/23 09/25/23 09:14 10:12 MCV 95.2 MCH 30.8 MCHC 32.3 RDW 14.6 Plt Count 175 MPV 10.0 Immature Gran % (Auto) 0.4 Neut % (Auto) 80.5 H Lymph % (Auto) 10.5 L [place] % (Auto) 6.0 Eos % (Auto) 2.2 Baso % (Auto) 0.4 Lymph # (Auto) 0.7 L [place] # (Auto) 0.4 Eos # (Auto) 0.2 Baso # (Auto) 0.0 Abs Immat Gran (auto) 0.03 Absolute Neuts (auto) 5.4 Absolute Nucleated RBC 0.000 Nucleated RBC % (auto) 0.0 Anion Gap 15 Estim Creat Clear Calc 25.9 Estimated GFR 29 Random Glucose 116 H Calcium 9.0 B-Natriuretic Peptide 3121 H Urine Color Yellow Urine Appearance Clear Urine pH 7.0 Ur Specific [place] <= 1.005 Urine Protein Negative Urine Glucose (UA) Negative Urine Ketones Negative Urine Blood Negative Urine Nitrite Negative Ur Leukocyte Esterase Negative Urine RBC 0-2 Urine WBC 0-5 Ur Squamous Epith Cells 0-2 Urine Bacteria None Seen Hyaline Casts 0-2 Imaging Radiologist's Impressions: Impressions Chest X-Ray 09/25/23 08:50 IMPRESSION: Chronic interstitial lung changes slightly more prominent in the right lung with loss of right lung volume. It is stable compared 09/08/2023. No change in pacer electrodes. Assessment and Plan (1) Acute on chronic clinical systolic heart failure: Status: Acute Plan Pt is an 88-year-old male with a PMH significant for?persistent AFib Eliquis, HFrEF w/ EF 15-20% on 09/09/2023, NSTEMI 09/2023, idiopathic pulmonary fibrosis, ischemic cardiomyopathy s/p AICD placement, CKD 3, and gout who presents to the ED with?with worsening shortness of breath and orthopnea. Pt will be admitted to the hospital for treatment and further evaluation of acute HFrEF exacerbation. Acute HFrEF exacerbation Increasing SOB, orthopnea, elevated BNP x1 week Patient recently discharged 2 weeks prior for similar symptoms, home Lasix increased to 40 mg daily though PCP reduced to alternating Lasix 40 mg daily with 20mg daily d/t CKD 3 Furosemide 40 mg IV b.i.d. Follow lytes, MG, I/O Daily weights, low-salt and cardiac diet Echocardiogram on 09/09/2023 estimated EF of 15-20% Cardiology consult for diuretic management Monitor on telemetry Elevated troponin Initial troponin 218.1 with repeat flat at 183.1 Significantly decreased from prior admission were troponin was 5263.0 and patient was treated for an NSTEMI Patient asymptomatic: No chest pain/pressure No indication for intervention at this time Monitor on telemetry CKD 3 Creatinine 2.16, seems stable, at baseline Follow BMP Chronic AFib Continue amiodarone, Eliquis, patient with AICD CAD/HLD Continue aspirin, statin, Plavix Neuropathy Continue gabapentin Hx of gout Continue allopurinol DNR/DNI Attending?Dr. Osorio DVT Prophylaxis: On Eliquis Pt will require a hospitalization of at least two nights for treatment of?acute HFrEF exacerbation with IV diuretics, close monitoring, and specialist consultation. Quality Stroke Does the patient have a stroke diagnosis?: No VTE Prior VTE?: No VTE Risk Level:: Medical - moderate - high VTE Device Contraindication: Treatment Not Indicated VTE Drug Contraindication: N/A - Med Ordered
--- NOTE | 2023-09-25 14:02 | PHA.MEDREC ---
Pharmacy Consult ? Medication Reconciliation Spoke with patient. He stated he is no longer taking ranolazine er 500 mg per directions from he's PCP. Pharmacy has completed the medication reconciliation.
--- NOTE | 2023-09-25 15:03 | PC.NURSE ---
augustus naranjo notified pt ready for report to go up- stated is on lunch- will call for report.
--- NOTE | 2023-09-25 16:03 | PC.NURSE ---
Addendum entered by Nickie Zurita 09/25/23 17:03: this was from 1503 pm Original Note: augustus naranjo notified pt ready for report to go up- stated is on lunch- will call for report.
[2023-09-25] MEDS: Gabapentin 100 MG CAPSULE 200 MG PO ×2 (16:19→20:02)
[2023-09-25] MEDS: 0.9 % Sodium Chloride Flush 3 ML SYRINGE IVFLUSH ×2 (16:20→20:04)
--- NOTE | 2023-09-25 16:32 | PC.NURSE ---
report given to marcella. no transport in the er. only 2 techs on the floor. pt is in line for transport by a tech on the ed floor- current tech on this assignment is now a 1:1 and unavailable. charge attendant darci notified
[2023-09-25] MEDS: Apixaban 2.5 MG TABLET PO (20:02)
[2023-09-25] MEDS: Atorvastatin Calcium 10 MG TABLET PO (20:02)
[2023-09-26] VITALS (8 sets, daily range): BP systolic 105–143; BP diastolic 55–76; PULSE 60–103; RESP 18–20; TEMP 36.1–36.7; O2SAT 91–98
[2023-09-26 07:30] LABS: Hematocrit 37.7 % (42.0-52.0); Hemoglobin 12.3 g/dl (14.0-18.0); Mean Corpuscular HGB Conc 32.6 g/dl (31.0-36.0); Mean Corpuscular Hemoglobin 31.5 pg (27.0-33.0); Mean Corpuscular Volume 96.4 fL (80.0-98.0); Mean Platelet Volume 10.6 fL (9.4-12.4); Platelet Count 163 X10*3/uL (160-400); Red Blood Count 3.91 X10*6/uL (4.60-5.80); Red Cell Distribution Width 14.7 % (11.0-16.0); White Blood Count 5.6 X10*3/uL (4.8-10.8)
[2023-09-26 07:47] LABS: Anion Gap 14 (12-20); Blood Urea Nitrogen 36 mg/dL (9-16); Calcium 8.8 mg/dL (8.4-10.2); Carbon Dioxide 28 mmol/L (22-29); Chloride 103 mmol/L (96-108); Creatinine Clr Calc Pharmacy 26.3; Estimated Glomerular Filt Rate 29; Glucose Random 85 mg/dL (60-115); Magnesium 2.3 mg/dL (1.6-2.6); Potassium 4.4 mmol/L (3.3-5.1); Sodium 141 mmol/L (135-145)
[2023-09-26] MEDS: Apixaban 2.5 MG TABLET PO ×2 (09:40→22:07)
[2023-09-26] MEDS: Furosemide 40 MG/4 ML VIAL IVPUSH ×2 (09:40→17:45)
[2023-09-26] MEDS: allopurinoL 100 MG TABLET PO (09:40)
[2023-09-26] MEDS: Amiodarone HCL 200 MG TABLET 100 MG PO (09:40)
[2023-09-26] MEDS: 0.9 % Sodium Chloride Flush 3 ML SYRINGE IVFLUSH ×3 (09:40→22:08)
[2023-09-26] MEDS: Clopidogrel Bisulfate 75 MG TABLET PO (09:41)
[2023-09-26] MEDS: Gabapentin 100 MG CAPSULE 200 MG PO ×3 (09:41→22:06)
--- NOTE | 2023-09-26 09:52 | MHC.CM.PN ---
Pt is independent, lives with his son, he has a cane, he does not have home health services. Son will transport home upon DC. CM will follow and assist with DC planning.
--- NOTE | 2023-09-26 10:32 | P.CONCA_ITS ---
History of Present Illness History of Present Illness Date of Service: 09/26/23 Requesting physician: Kevin Alvarenga Chief complaint: CHF Exacerbation Narrative: 88-year-old gentleman who recently had NSTEMI and was diagnosed with severe cardiomyopathy. He had known history of chronic kidney disease previously and also has IPF. There was discussion about angiography but he decided to be conservatively treated. He also had atrial fibrillation and was discharged with Eliquis and Plavix. He was advised to take Lasix 40 mg daily. Previously was taking 40 mg in 20 mg on alternate days. He follows closely with Nephrology. He is presenting because yesterday he had an episode of PND. He said he woke up with shortness of breath and could not control his breathing. Eventually he set up in a recliner for some time and his breathing improved. He told his son and was brought to the emergency department. His troponins this time were flat. His BNP was significantly elevated. Creatinine continues to be elevated as before. He is saying he is otherwise not experiencing any other issues. He was started on Ranexa on last visit but it was stopped by his physician. 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 Mother No problems noted. Surgical History Surgical History History of implantable cardiac defibrillator (ICD) (~02/2016) Social History Household Members: Children Household Members Other:: son Housing: House Do you presently have visiting nurse or other home services: No Alcohol intake: former Patient Tobacco Use Status: Former Tobacco user Quit Date: 1973 Tobacco use type: Cigarette, Cigar and Pipe Smoked in Last 30 Days: No e-Cigarette/Vaping Use: Never Used Patient Interested in Nicotine Replacement: No Patient Given Instructions on How to Stop Smoking: No Second Hand Smoke Exposure: No Use of substances other than those prescribed or required for medical reasons: No Currently Displaying Signs/Symptoms of Drug Intoxication Withdrawal: No Any prior treatment program specific to substance use: No Have you been hit, kicked, punched, or otherwise hurt by someone within the past year? If so, by whom?: No Do you feel safe in your current relationship?: No Current Relationship Is there a partner from a previous relationship who is making you feel unsafe now?: No Are you made to feel afraid or neglected: No Advance Directives: Yes Advance Directives on File: Yes Advance Directives Date on File: 04/19/21 Do you have thoughts of harming others: None Do you have a plan to hurt others: No Plan Recently lost weight without trying: No Eating poorly because of decreased appetite: No Nutrition Risks: No Nutritional Risk service: Yes Current occupational status: retired [employer] Allergies Allergy/AdvReac Type Severity Reaction Status Date / Time metoprolol [METOPROLOL] AdvReac Severe SYNCOPE Verified 09/25/23 08:42 Active Medications: Current Medications Acetaminophen (Acetaminophen 325 Mg Tablet) 650 mg PO Q6H PRN PRN Reason: Pain, Mild (Pain Scale 1-3) Allopurinol (Allopurinol 100 Mg Tablet) 100 mg PO DAILY [facility] Last Admin: 09/26/23 09:40 Dose: 100 mg Amiodarone HCl (Amiodarone Hcl 200 Mg Tablet) 100 mg PO MOWEFR@0900 [facility] Last Admin: 09/26/23 09:40 Dose: 100 mg Apixaban (Apixaban 2.5 Mg Tablet) 2.5 mg PO BID [facility] Last Admin: 09/26/23 09:40 Dose: 2.5 mg Atorvastatin Calcium (Atorvastatin Calcium 10 Mg Tablet) 10 mg PO BEDTIME [facility] Last Admin: 09/25/23 20:02 Dose: 10 mg Benzonatate (Benzonatate 100 Mg Capsule) 100 mg PO TID PRN PRN Reason: Cough Clopidogrel Bisulfate (Clopidogrel Bisulfate 75 Mg Tablet) 75 mg PO DAILY [facility] Last Admin: 09/26/23 09:41 Dose: 75 mg Docusate Sodium (Docusate Sodium 100 Mg Capsule) 100 mg PO DAILY PRN PRN Reason: Constipation Furosemide (Furosemide 40 Mg/4 Ml Vial) 40 mg IVPUSH BID@0900,1800 [facility]; Protocol Last Admin: 09/26/23 09:40 Dose: 40 mg Gabapentin (Gabapentin 100 Mg Capsule) 200 mg PO TID [facility] Last Admin: 09/26/23 09:41 Dose: 200 mg Melatonin (Melatonin 3 Mg Tablet) 6 mg PO BEDTIME PRN PRN Reason: Insomnia Ondansetron HCl (Ondansetron Hcl 4 Mg/2 Ml Vial) 4 mg IVPUSH Q8H PRN PRN Reason: Nausea and Vomiting Sodium Chloride (0.9 % Sodium Chloride Flush 3 Ml Syringe) 3 ml IVFLUSH QSHIFT [facility] Last Admin: 09/26/23 09:40 Dose: 3 ml Home Medications Medication Instructions Recorded Confirmed Last Taken Type gabapentin 100 mg capsule 200 mg PO TID NEUROPATHY 10/11/20 09/25/23 09/08/23 History allopurinol 100 mg tablet 100 mg PO DAILY 02/03/23 09/25/23 09/08/23 History amiodarone 100 mg tablet 100 mg PO MOWEFR@0900 09/08/23 09/25/23 09/08/23 History simvastatin 10 mg tablet 10 mg PO QPM 09/25/23 09/25/23 Unknown History Physical Exam 2 Vital Signs: Vital Signs: Last Vital Signs Temp 97.2 F 09/26/23 07:36 Pulse 66 09/26/23 07:36 Resp 20 09/26/23 07:36 BP 124/75 09/26/23 07:36 Pulse Ox 97 09/26/23 07:36 O2 Del Method Room Air 09/26/23 07:36 BMI result Body Mass Index 25.8 GENERAL APPEARANCE: in no acute distress, pleasant. NECK: no carotid bruit, + jugular venous distention. SKIN: no suspicious lesions, warm and dry. HEART: no murmurs, regular rate and rhythm. LUNGS: Fine crackles at bases. ABDOMEN: soft, nontender. EXTREMITIES: no edema. PERIPHERAL PULSES: equal. NEUROLOGIC: No gross deficits, AAO X 3 Objective Labs and Meds 09/26/23 07:07 09/26/23 07:07 Lab results: Laboratory Results - last 24 hr 09/25/23 09/26/23 12:23 07:07 WBC 5.6 RBC 3.91 L Hgb 12.3 L Hct 37.7 L MCV 96.4 MCH 31.5 MCHC 32.6 RDW 14.7 Plt Count 163 MPV 10.6 Absolute Nucleated RBC 0.000 Nucleated RBC % (auto) 0.0 Sodium 141 Potassium 4.4 Chloride 103 Carbon Dioxide 28 Anion Gap 14 BUN 36 H Creatinine 2.13 H Estim Creat Clear Calc 26.3 Estimated GFR 29 Random Glucose 85 Calcium 8.8 Magnesium 2.3 Troponin I High Sens 183.1 H* Assessment and Plan (1) Acute on chronic clinical systolic heart failure: Status: Acute Plan Pleasant 88 year gentleman with acute on chronic congestive heart failure. Recently was in the hospital with NSTEMI and was diagnosed with cardiomyopathy and his diuretics dose was changed to 40 mg daily. Clinically appears to be volume overloaded. Continue IV Lasix 40 mg b.i.d.. Adding hydralazine 10 mg t.i.d. and Isordil 5 mg t.i.d. to his regimen. Due to kidney issues he is not on Gulshan inhibitors or ARBs. Will follow along with you. Thank you for allowing me to participate in the care of your patient. Please feel free to contact me if you have any questions. Procedures Date of Service Date of Service: 09/26/23
--- NOTE | 2023-09-26 13:22 | HO.PM.IMPN ---
Subjective Subjective Date of Service: 09/26/23 Interval History: f/u on heart failure, remains fluid overloaded Physical Exam Vital Signs: Vital Signs: Last Vital Signs Temp 97.3 F 09/26/23 11:05 Pulse 68 09/26/23 11:05 Resp 20 09/26/23 11:05 BP 122/69 09/26/23 11:05 Pulse Ox 92 09/26/23 11:05 O2 Del Method Room Air 09/26/23 11:05 BMI result Body Mass Index 25.8 Const: Other: General: AO X 3, no acute distress Resp: rales at bases CVS: S1,S2, iregular, GI: +BS, NT, no distention Skin: No rash Neuro: motor grossly intact Psych: appropriate affect Objective Data Active Medications Acetaminophen (Acetaminophen 325 Mg Tablet) 650 mg PO Q6H PRN PRN Reason: Pain, Mild (Pain Scale 1-3) Allopurinol (Allopurinol 100 Mg Tablet) 100 mg PO DAILY [facility] Last Admin: 09/26/23 09:40 Dose: 100 mg Documented By: JESSICA Amiodarone HCl (Amiodarone Hcl 200 Mg Tablet) 100 mg PO MOWEFR@0900 [facility] Last Admin: 09/26/23 09:40 Dose: 100 mg Documented By: JESSICA Apixaban (Apixaban 2.5 Mg Tablet) 2.5 mg PO BID [facility] Last Admin: 09/26/23 09:40 Dose: 2.5 mg Documented By: JESSICA Atorvastatin Calcium (Atorvastatin Calcium 10 Mg Tablet) 10 mg PO BEDTIME [facility] Last Admin: 09/25/23 20:02 Dose: 10 mg Documented By: DAVID Benzonatate (Benzonatate 100 Mg Capsule) 100 mg PO TID PRN PRN Reason: Cough Clopidogrel Bisulfate (Clopidogrel Bisulfate 75 Mg Tablet) 75 mg PO DAILY [facility] Last Admin: 09/26/23 09:41 Dose: 75 mg Documented By: JESSICA Docusate Sodium (Docusate Sodium 100 Mg Capsule) 100 mg PO DAILY PRN PRN Reason: Constipation Furosemide (Furosemide 40 Mg/4 Ml Vial) 40 mg IVPUSH BID@0900,1800 [facility]; Protocol Last Admin: 09/26/23 09:40 Dose: 40 mg Documented By: JESSICA Gabapentin (Gabapentin 100 Mg Capsule) 200 mg PO TID [facility] Last Admin: 09/26/23 09:41 Dose: 200 mg Documented By: JESSICA Hydralazine HCl (Hydralazine Hcl 10 Mg Tablet) 10 mg PO TID [facility]; Protocol Isosorbide Dinitrate (Isosorbide Dinitrate 5 Mg Tablet) 5 mg PO 0800,1300,1800 [facility]; Protocol Melatonin (Melatonin 3 Mg Tablet) 6 mg PO BEDTIME PRN PRN Reason: Insomnia Ondansetron HCl (Ondansetron Hcl 4 Mg/2 Ml Vial) 4 mg IVPUSH Q8H PRN PRN Reason: Nausea and Vomiting Sodium Chloride (0.9 % Sodium Chloride Flush 3 Ml Syringe) 3 ml IVFLUSH QSHIFT [facility] Last Admin: 09/26/23 09:40 Dose: 3 ml Documented By: JESSICA Labs 09/26/23 07:07 09/26/23 07:07 Labs: Laboratory Results - last 24 hr 09/26/23 07:07 MCV 96.4 MCH 31.5 MCHC 32.6 RDW 14.7 Plt Count 163 MPV 10.6 Absolute Nucleated RBC 0.000 Nucleated RBC % (auto) 0.0 Anion Gap 14 Estim Creat Clear Calc 26.3 Estimated GFR 29 Random Glucose 85 Calcium 8.8 Magnesium 2.3 Assessment and Plan (1) Acute on chronic clinical systolic heart failure: Status: Acute Plan Pt is an 88-year-old male with a PMH significant for?persistent AFib Eliquis, HFrEF w/ EF 15-20% on 09/09/2023, NSTEMI 09/2023, idiopathic pulmonary fibrosis, ischemic cardiomyopathy s/p AICD placement, CKD 3, and gout who presents to the ED with?with worsening shortness of breath and orthopnea. Pt will be admitted to the hospital for treatment and further evaluation of acute HFrEF exacerbation. Acute HFrEF exacerbation, still fluid overloaded, continue Furosemide 40 mg IV b.i.d. Follow lytes, MG, I/O Daily weights, low-salt and cardiac diet Echocardiogram on 09/09/2023 estimated EF of 15-20% cardiology following, added hydralazine and isordil Elevated troponin Initial troponin 218.1 with repeat flat at 183.1 Significantly decreased from prior admission were troponin was 5263.0 and patient was treated for an NSTEMI Patient asymptomatic: No chest pain/pressure No indication for intervention at this time Monitor on telemetry CKD 3 Creatinine 2.16, seems stable, at baseline Follow BMP Chronic AFib Continue amiodarone, Eliquis, patient with AICD CAD/HLD Continue aspirin, statin, Plavix Neuropathy Continue gabapentin Hx of gout Continue allopurinol DNR/DNI DVT Prophylaxis: On Eliquis Need for inpt: IV diuretic, monitoring labs, Quality Stroke Does the patient have a stroke diagnosis?: No VTE Prior VTE?: No VTE Risk Level:: Medical - moderate - high VTE Device Contraindication: Treatment Not Indicated VTE Drug Contraindication: N/A - Med Ordered
[2023-09-26] MEDS: hydrALAZINE HCl 10 MG TABLET PO ×2 (14:11→22:07)
[2023-09-26] MEDS: Isosorbide Dinitrate 5 MG TABLET PO ×2 (14:12→17:45)
[2023-09-26] MEDS: Atorvastatin Calcium 10 MG TABLET PO (22:07)
[2023-09-27 03:23] VITALS: BP 118/65; PULSE 67; RESP 18; TEMP 36.8; O2SAT 96
[2023-09-27 07:13] LABS: Anion Gap 15 (12-20); Blood Urea Nitrogen 43 mg/dL (9-16); Carbon Dioxide 28 mmol/L (22-29); Chloride 104 mmol/L (96-108); Estimated Glomerular Filt Rate 28; Glucose Random 114 mg/dL (60-115); Potassium 3.8 mmol/L (3.3-5.1); Sodium 143 mmol/L (135-145)
[2023-09-27 07:21] VITALS: BP 115/61; PULSE 65; RESP 20; TEMP 36.1; O2SAT 95
[2023-09-27] MEDS: Furosemide 40 MG/4 ML VIAL IVPUSH (09:20)
[2023-09-27] MEDS: Gabapentin 100 MG CAPSULE 200 MG PO ×3 (09:21→20:35)
[2023-09-27] MEDS: hydrALAZINE HCl 10 MG TABLET PO (09:21)
[2023-09-27] MEDS: Isosorbide Dinitrate 5 MG TABLET PO ×3 (09:21→17:42)
[2023-09-27] MEDS: 0.9 % Sodium Chloride Flush 3 ML SYRINGE IVFLUSH ×2 (09:21→15:13)
[2023-09-27] MEDS: Clopidogrel Bisulfate 75 MG TABLET PO (09:22)
[2023-09-27] MEDS: Apixaban 2.5 MG TABLET PO ×2 (09:22→20:38)
[2023-09-27] MEDS: allopurinoL 100 MG TABLET PO (09:22)
[2023-09-27 11:14] VITALS: BP 106/54; PULSE 71; RESP 20; TEMP 36.1; O2SAT 96
--- NOTE | 2023-09-27 11:32 | P.PNCA_ITS ---
Subjective Subjective Date of Service: 09/27/23 Interval history: Seen examined at bedside. Feeling better. Still has mild JVD. Physical Exam Vital Signs: Last Vital Signs Temp 97.0 F 09/27/23 11:14 Pulse 71 09/27/23 11:14 Resp 20 09/27/23 11:14 BP 106/54 L 09/27/23 11:14 Pulse Ox 96 09/27/23 11:14 O2 Del Method Room Air 09/27/23 11:14 BMI result Body Mass Index 25.8 GENERAL APPEARANCE: in no acute distress, pleasant. NECK: no carotid bruit, + jugular venous distention. SKIN: no suspicious lesions, warm and dry. HEART: no murmurs, regular rate and rhythm. LUNGS: Fine crackles at bases. ABDOMEN: soft, nontender. EXTREMITIES: no edema. PERIPHERAL PULSES: equal. NEUROLOGIC: No gross deficits, AAO X 3 Objective Labs and Meds 09/26/23 07:07 09/27/23 06:32 Lab results: Laboratory Results - last 24 hr 09/27/23 06:32 Hold Purple Top SEE NOTE Sodium 143 Potassium 3.8 Chloride 104 Carbon Dioxide 28 Anion Gap 15 BUN 43 H Creatinine 2.24 H Estim Creat Clear Calc 25.0 Estimated GFR 28 Random Glucose 114 Calcium 9.0 Magnesium 2.0 Progress Note: A&P Assessment and plan (1) Acute on chronic clinical systolic heart failure: Status: Acute (2) Ischemic cardiomyopathy: Status: Chronic (3) CKD (chronic kidney disease): Status: Acute Plan Pleasant 88-year-old gentleman who has known history of ischemic cardiomyopathy. He is presenting after recent admission when he presented with mild NSTEMI and drop in ejection fraction to 15-20%. He previously had an ICD and based on his EKGs he has a paced rhythm with premature ventricular complexes. He is on amiodarone 100 mg on Friday and Friday for previous history of atrial fibrillation. He also takes apixaban 2.5 mg twice a day and Plavix 75 mg daily. Plavix was added recently after NSTEMI admission. At that time detailed discussion was done by Dr. Adams about ischemic evaluation/angiography but the patient felt that he just wants to be conservatively treated. He is presenting again with PND and congestive heart failure. He is feeling better with diuretics at this point. He is on 40 mg IV b.i.d. Lasix. Will change to 40 mg p.o. b.i.d. Lasix. Added hydralazine and Isordil combination. Increasing hydralazine to 25 mg 3 times a day. He has significant PVCs but previously amiodarone was used 100 mg on Friday vascular Friday due to his known history of IPF. I think we continue same dose for now. He is due to get a gen change with Dr. Alonso and has severe cardiomyopathy at this point. He also has mitral regurgitation by examination. Will discuss with Dr. Alonso whether MANAGER COMPLETIONS D is an option. Thank you for allowing me to participate in the care of your patient. Please feel free to contact me if you have any questions. Time Spent With Patient Time: Total time managing care of this patient today ____ minutes. Progress Note: Quality Stroke Does the patient have a stroke diagnosis?: No Procedures Date of Service Date of Service: 09/27/23
--- NOTE | 2023-09-27 11:44 | P.PNIM_ITS ---
Subjective Subjective Date of Service: 09/27/23 Interval History: f/u on heart failure, remains fluid overloaded. Overall better today Physical Exam 2 Vital Signs: Vital Signs: Last Vital Signs Temp 97.0 F 09/27/23 11:14 Pulse 71 09/27/23 11:14 Resp 20 09/27/23 11:14 BP 106/54 L 09/27/23 11:14 Pulse Ox 96 09/27/23 11:14 O2 Del Method Room Air 09/27/23 11:14 BMI result Body Mass Index 25.8 Const: Other: General: AO X 3, no acute distress Resp: latrice mild rales at bases CVS: S1,S2, iregular iregular, no leg edema GI: +BS, NT, no distention Skin: No rash Neuro: motor grossly intact Psych: appropriate affect Objective Data Active Medications Acetaminophen (Acetaminophen 325 Mg Tablet) 650 mg PO Q6H PRN PRN Reason: Pain, Mild (Pain Scale 1-3) Allopurinol (Allopurinol 100 Mg Tablet) 100 mg PO DAILY [facility] Last Admin: 09/27/23 09:22 Dose: 100 mg Documented By: RIGO Amiodarone HCl (Amiodarone Hcl 200 Mg Tablet) 100 mg PO MOWEFR@0900 [facility] Last Admin: 09/26/23 09:40 Dose: 100 mg Documented By: JESSICA Apixaban (Apixaban 2.5 Mg Tablet) 2.5 mg PO BID [facility] Last Admin: 09/27/23 09:22 Dose: 2.5 mg Documented By: RIGO Atorvastatin Calcium (Atorvastatin Calcium 10 Mg Tablet) 10 mg PO BEDTIME [facility] Last Admin: 09/26/23 22:07 Dose: 10 mg Documented By: VIRAJ Benzonatate (Benzonatate 100 Mg Capsule) 100 mg PO TID PRN PRN Reason: Cough Clopidogrel Bisulfate (Clopidogrel Bisulfate 75 Mg Tablet) 75 mg PO DAILY [facility] Last Admin: 09/27/23 09:22 Dose: 75 mg Documented By: RIGO Docusate Sodium (Docusate Sodium 100 Mg Capsule) 100 mg PO DAILY PRN PRN Reason: Constipation Furosemide (Furosemide 40 Mg Tablet) 40 mg PO BID@0900,1800 [facility]; Protocol Gabapentin (Gabapentin 100 Mg Capsule) 200 mg PO TID [facility] Last Admin: 09/27/23 09:21 Dose: 200 mg Documented By: RIGO Hydralazine HCl (Hydralazine Hcl 25 Mg Tablet) 25 mg PO TID [facility]; Protocol Isosorbide Dinitrate (Isosorbide Dinitrate 5 Mg Tablet) 5 mg PO 0800,1300,1800 [facility]; Protocol Last Admin: 09/27/23 09:21 Dose: 5 mg Documented By: RIGO Melatonin (Melatonin 3 Mg Tablet) 6 mg PO BEDTIME PRN PRN Reason: Insomnia Ondansetron HCl (Ondansetron Hcl 4 Mg/2 Ml Vial) 4 mg IVPUSH Q8H PRN PRN Reason: Nausea and Vomiting Sodium Chloride (0.9 % Sodium Chloride Flush 3 Ml Syringe) 3 ml IVFLUSH QSHIFT [facility] Last Admin: 09/27/23 09:21 Dose: 3 ml Documented By: RIGO Labs 09/26/23 07:07 09/27/23 06:32 Labs: Laboratory Results - last 24 hr 09/27/23 06:32 Hold Purple Top SEE NOTE Anion Gap 15 Estim Creat Clear Calc 25.0 Estimated GFR 28 Random Glucose 114 Calcium 9.0 Magnesium 2.0 Assessment and Plan (1) Acute on chronic clinical systolic heart failure: Status: Acute Plan Pt is an 88-year-old male with a PMH significant for?persistent AFib Eliquis, HFrEF w/ EF 15-20% on 09/09/2023, NSTEMI 09/2023, idiopathic pulmonary fibrosis, ischemic cardiomyopathy s/p AICD placement, CKD 3, and gout who presents to the ED with?with worsening shortness of breath and orthopnea. Pt will be admitted to the hospital for treatment and further evaluation of acute HFrEF exacerbation. Acute HFrEF exacerbation, improved. Change to PO Lasix 40 bid today continue hydralazine and isordil per card recommendation, Follow lytes, MG, I/O Daily weights, low-salt and cardiac diet Echocardiogram on 09/09/2023 estimated EF of 15-20% Elevated troponin, related to acute HF and not NSTEMI, no further testing at this ruben CKD 3 Creatinine 2.16, seems stable, at baseline Follow BMP Chronic AFib Continue amiodarone, Eliquis, patient with AICD due for generator change soon, outpatient f/u CAD/HLD Continue aspirin, statin, Plavix Neuropathy Continue gabapentin Hx of gout Continue allopurinol DNR/DNI DVT Prophylaxis: On Eliquis Need for inpt: IV diuretic, monitoring labs, possible dc laer today vs tomorrow Quality Stroke Does the patient have a stroke diagnosis?: No VTE Prior VTE?: No VTE Risk Level:: Medical - moderate - high VTE Device Contraindication: Treatment Not Indicated VTE Drug Contraindication: N/A - Med Ordered
[2023-09-27 15:08] VITALS: BP 112/58; PULSE 84; RESP 16; TEMP 36.3; O2SAT 95
[2023-09-27] MEDS: hydrALAZINE HCl 25 MG TABLET PO ×2 (15:13→20:35)
[2023-09-27] MEDS: Furosemide 40 MG TABLET PO (17:43)
[2023-09-27 19:38] VITALS: BP 128/69; PULSE 92; RESP 16; TEMP 36.3; O2SAT 97
[2023-09-27] MEDS: Atorvastatin Calcium 10 MG TABLET PO (20:38)
[2023-09-27 23:30] VITALS: BP 99/50; PULSE 61; RESP 18; TEMP 36.8; O2SAT 96
[2023-09-28 03:21] VITALS: BP 109/64; PULSE 63; RESP 18; TEMP 36.6; O2SAT 96
[2023-09-28 07:44] VITALS: BP 99/64; PULSE 58; RESP 18; TEMP 36.4; O2SAT 97
[2023-09-28 07:53] LABS: Anion Gap 14 (12-20); Blood Urea Nitrogen 45 mg/dL (9-16); Carbon Dioxide 30 mmol/L (22-29); Chloride 102 mmol/L (96-108); Estimated Glomerular Filt Rate 25; Glucose Random 110 mg/dL (60-115); Magnesium 2.3 mg/dL (1.6-2.6); Potassium 3.6 mmol/L (3.3-5.1); Sodium 142 mmol/L (135-145)
[2023-09-28 09:14] VITALS: BP 102/52; PULSE 86
[2023-09-28] MEDS: Clopidogrel Bisulfate 75 MG TABLET PO (09:20)
[2023-09-28] MEDS: Apixaban 2.5 MG TABLET PO (09:20)
[2023-09-28] MEDS: hydrALAZINE HCl 25 MG TABLET PO (09:20)
[2023-09-28] MEDS: Isosorbide Dinitrate 5 MG TABLET PO ×2 (09:20→13:02)
[2023-09-28] MEDS: allopurinoL 100 MG TABLET PO (09:20)
[2023-09-28] MEDS: Furosemide 40 MG TABLET PO (09:20)
[2023-09-28] MEDS: Gabapentin 100 MG CAPSULE 200 MG PO (09:20)
[2023-09-28] MEDS: 0.9 % Sodium Chloride Flush 3 ML SYRINGE IVFLUSH (09:22)
--- NOTE | 2023-09-28 10:35 | PM.DS ---
DS: Providers Provider Date of Service: 09/28/23 Date of admission: 09/25/23 13:43 Primary care physician: Song Quiñonez MD Consults: 09/25/23 13:52 Consult to Cardiology Routine Consulting Provider: [facility] Reason for consultation: Diuretic management; pt d/c 2 weeks prior for CHF & NSTEMI DS: Diagnosis Discharge Diagnosis (1) Acute on chronic clinical systolic heart failure: Status: Acute DS: Summary Hospital Course Hospital Course: Chief Complaint: SOB, orthopnea Pt is an 88-year-old male with a PMH significant for?persistent AFib Eliquis, HFrEF w/ EF 15-20% on 09/09/2023, NSTEMI 09/2023, idiopathic pulmonary fibrosis, ischemic cardiomyopathy s/p AICD placement, CKD 3, and gout who presents to the ED with?with worsening shortness of breath and orthopnea. Patient was recently admitted to the hospital on 09/08-09/11 for similar symptoms and found to have elevated BNP and significantly elevated troponins. Patient was treated for CHF exacerbation and NSTEMI. Cardiology recommended cardiac catheterization, however patient declined in favor of medical management only. Patient states that he felt well for the first week after discharge, but began to experienced increasing shortness of breath with exertion earlier this week. Patient especially felt short of breath last night when he awoke from sleep panting , which prompted his visit to the ED this morning. Has experienced a mostly dry cough though occasionally productive of clear sputum. Patient not on home O2. Patient states he has been compliant with home medications. Home Lasix was increased at time of last discharge from 20 mg to 40 mg daily, however patient notes he visited his PCP within changed his Lasix to alternating 40 mg versus 20 mg daily. Patient otherwise has no acute medical complaints. Denies chest pain/pressure, palpitations. No noticeable increased lower leg edema or weight gain. Denies fever, chills, nausea, vomiting, abdominal pain. In the ED pt was afebrile satting at 95% on RA. Labs were significant for stable normocytic anemia of 12.7/39.3, BUN 32 and creatinine 2.16 (around baseline), initial troponin 218.1 with repeat flat at 183.1, BNP 3121 (up from 1584 on 09/08/2023). UA negative for UTI. CXR showed chronic interstitial lung changes slightly more prominent in the right lung with loss of right lung volume. EKG demonstrated ventricular paced rhythm with frequent PVCs and elevated QTc of 549. Pt was treated with furosemide 40 mg IV. Pt will be admitted to the hospital for treatment and further evaluation of acute HFrEF exacerbation. Hospital course:The patient presented with shortness and orthopnea and his clinical presenataion with acute on chronic heart failure due to ischemic cardiomyopathy with EF just 15%. Patient was diuressed with IV Lasix under the guidance of patient registration supervisor with rapid improvment in his symptoms. His renal function has mildly increased d/t to diuresis and will need to be closely monitor. Further medication adjustment has been made by cardiology with addition of hydralazine and isordil to his regimen. Will have repeat lab work done within a week and VNA services will be provided at home Time Attestation Discharge coordination time: Greater than 30 minutes Quality: Safe Use of Opioids Does Pt have an Active Cancer Diagnosis on the Problem List?: No Quality: Stroke Does the patient have a stroke diagnosis?: No Physical Exam Vital Signs: Vital Signs: Last Vital Signs Temp 97.5 F 09/28/23 07:44 Pulse 86 09/28/23 09:14 Resp 18 09/28/23 07:44 BP 102/52 L 09/28/23 09:14 Pulse Ox 97 09/28/23 07:44 O2 Del Method Room Air 09/28/23 07:44 BMI result Body Mass Index 25.8 Const: Other: General: AO X 3, no acute distress Resp: CTA bilateral CVS: S1,S2,RRR GI: +BS, NT, no distention Skin: No rash Neuro: motor grossly intact Psych: appropriate affect DS: Data Data Completed and Pending Labs on day of discharge: Laboratory Results - last 24 hr 09/28/23 07:10 Sodium 142 Potassium 3.6 Chloride 102 Carbon Dioxide 30 H Anion Gap 14 BUN 45 H Creatinine 2.43 H Estim Creat Clear Calc 23.0 Estimated GFR 25 Random Glucose 110 Calcium 9.0 Magnesium 2.3 Discharge Plan Discharge Anticipated Discharge Date/Time: 09/28/23 10:30 Patient Disposition: Home Health Service Discharge Diagnosis: acute exacerbation of heart failure Referrals: Song Quiñonez MD [Primary Care Provider] - 1 Week Discharge Medications: New isosorbide dinitrate 5 mg Tablet 5 mg PO 0800,1300,1800 Qty: 90 0RF Protocol: Hold for SBP< HOLD for SBP < : 90 hydralazine 25 mg Tablet 25 mg PO TID Qty: 90 0RF Protocol: Hold for SBP< HOLD for SBP < : 90 Continued Eliquis 2.5 mg tablet 2.5 mg PO BID Qty: 180 2RF amiodarone 100 mg tablet 100 mg PO MOWEFR@0900 clopidogrel [Plavix] 75 mg tablet 75 mg PO DAILY Qty: 30 0RF furosemide [Lasix] 40 mg tablet 40 mg PO QAM Qty: 30 0RF simvastatin 10 mg Tablet 10 mg PO QPM gabapentin 100 mg capsule 200 mg PO TID allopurinol 100 mg tablet 100 mg PO DAILY Discharge Orders: Discharge Order (Routine); Ordered 09/28/23 Ordered By: Kevin Alvarenga Diet: Low salt diet Activity on Discharge: As tolerated Stand Alone Forms: Patient Portal Discharge page Care Plan Goals: Full recovery from heart failure Health Concerns: Acute on chronic heart failure chronic kidney failure Plan of Treatment: Continue taking Lasix as recommended and follow up with your Doctor in a week, call to schedule appointment Assessment: as above
--- NOTE | 2023-09-28 10:54 | P.F2F_ITS ---
Service Date Service Date: 09/28/23 Encounter Date of encounter: 09/28/23 Reasons for Services Signs and symptoms assessed: heart failure with shortness of breath Reason for senior care: medication management and teach disease management Homebound: Leaving the home is medically contraindicated at this time without the asist of a device and/or another person due th the listed conditions above and below. Reason homebound: shortness of breath with minimal effort Homebound supporting statement: homebound due to shortness at rest and exertion due to heart failure, renal failure and therefore needs the assistance of another person Certification: Based on the above findings, I certify that this patient is confined to the home and needs intermittent senior care care, physical therapy and/or speech therapy, or continues to need occupational therapy. The patient is under my care, and I have initiated the establishment of the plan of care. The patient will be followed by a physician who will periodically review the plan of care. Time Spent With Patient Time: Total time managing care of this patient today ____ minutes.
--- NOTE | 2023-09-28 11:38 | MHC.CM.PN ---
order for home, self-care. CM acknowledge.
[2023-09-28 11:53] VITALS: BP 101/63; PULSE 79; RESP 18; TEMP 36.4; O2SAT 96
--- NOTE | 2023-09-28 12:25 | PM.PNCARD ---
Subjective Subjective Date of Service: 09/29/23 Interval history: Seen examined at bedside. Feeling better. Physical Exam Vital Signs: Last Vital Signs Temp 97.6 F 09/28/23 11:53 Pulse 79 09/28/23 11:53 Resp 18 09/28/23 11:53 BP 101/63 09/28/23 11:53 Pulse Ox 96 09/28/23 11:53 O2 Del Method Room Air 09/28/23 11:53 BMI result Body Mass Index 25.8 GENERAL APPEARANCE: in no acute distress, pleasant. NECK: no carotid bruit, no significant jugular venous distention. SKIN: no suspicious lesions, warm and dry. HEART: no murmurs, regular rate and rhythm. LUNGS: Fine crackles at bases. ABDOMEN: soft, nontender. EXTREMITIES: no edema. PERIPHERAL PULSES: equal. NEUROLOGIC: No gross deficits, AAO X 3 Objective Labs and Meds 09/26/23 07:07 09/28/23 07:10 Lab results: Laboratory Results - last 24 hr 09/28/23 07:10 Sodium 142 Potassium 3.6 Chloride 102 Carbon Dioxide 30 H Anion Gap 14 BUN 45 H Creatinine 2.43 H Estim Creat Clear Calc 23.0 Estimated GFR 25 Random Glucose 110 Calcium 9.0 Magnesium 2.3 Progress Note: A&P Assessment and plan (1) Acute on chronic clinical systolic heart failure: Status: Acute (2) Ischemic cardiomyopathy: Status: Chronic (3) CKD (chronic kidney disease): Status: Acute Plan Pleasant 88-year-old gentleman who has known history of ischemic cardiomyopathy. He is presenting after recent admission when he presented with mild NSTEMI and drop in ejection fraction to 15-20%. He previously had an ICD and based on his EKGs he has a paced rhythm with premature ventricular complexes. He is on amiodarone 100 mg on Friday and Friday for previous history of atrial fibrillation. He also takes apixaban 2.5 mg twice a day and Plavix 75 mg daily. Plavix was added recently after NSTEMI admission. At that time detailed discussion was done by Dr. Adams about ischemic evaluation/angiography but the patient felt that he just wants to be conservatively treated. He is presenting again with PND and congestive heart failure. He is feeling better with diuretics at this point. He has been transitioned to 40 mg p.o. b.i.d. Lasix. Hydralazine 25 mg 3 times a day, Isordil 5 mg 3 times a day. Can be discharged home at this stage. He will monitor his weight and reach out to us if his weight is changing. He is due to get a gen change with Dr. Alonso and has severe cardiomyopathy at this point. He also has mitral regurgitation by examination. Will discuss with Dr. Alonso whether INSTRUCTIONAL TECHNOLOGY COACH D is an option. Thank you for allowing me to participate in the care of your patient. Please feel free to contact me if you have any questions. Time Spent With Patient Time: Total time managing care of this patient today ____ minutes. Progress Note: Quality Stroke Does the patient have a stroke diagnosis?: No Procedures Date of Service Date of Service: 09/29/23
--- NOTE | 2023-09-28 13:23 | MHC.CM.PN ---
Noticed Pt still in house; checked chart, noticed D/C orders have changed. MD now ordering home w/home health services. Will refer to VNA for Pt's in-home care.
--- NOTE | 2023-09-28 13:41 | MHC.CM.PN ---
Per nursing, Pt reports he has family care and he does not want any additional in-home services. This RNCM reported to . acknowledged/aware.
--- NOTE | 2023-09-28 14:20 | PC.NURSE ---
Pt A&OX4. OOB to chair in am. Pt denies pain/discomfort. LS fine crackles at bases denies SOB or CP, Paced on tele. BS+X4 abdomen soft non-tender denies nausea/vomiting. Voiding in urinal without difficulty. Discharged to home with family. Education provided. Pt refusing VNA states son helps him. IV removed cath intact. Off unit in wheelchair for discharge
== END 2023-09-28 13:50 | disposition home health service (06) | DRG 194 ==
LOC: HO.ED 13:35 → HO.EDOVER 14:01 → HO.IMC 17:24
PROVIDERS: Admitting Provider Student in an Organized Health Care Education/Training Program; Emergency Provider Emergency Medicine; PCP Internal Medicine; Visit Provider Internal Medicine
DX: I50.23 Acute on chronic systolic (congestive) heart failure (principal); D63.1 Anemia in chronic kidney disease; J84.10 Pulmonary fibrosis, unspecified; I48.20 Chronic atrial fibrillation, unspecified; E78.5 Hyperlipidemia, unspecified; G62.9 Polyneuropathy, unspecified; I25.10 Atherosclerotic heart disease of native coronary artery without angina pectoris; Z66 Do not resuscitate; I34.0 Nonrheumatic mitral (valve) insufficiency; I49.3 Ventricular premature depolarization; I25.5 Ischemic cardiomyopathy; M10.9 Gout, unspecified; N18.30 Chronic kidney disease, stage 3 unspecified; Z79.02 Long term (current) use of antithrombotics/antiplatelets; Z87.891 Personal history of nicotine dependence; Z95.810 Presence of automatic (implantable) cardiac defibrillator; Z79.899 Other long term (current) drug therapy
CPT/HCPCS: 36415; 71046; 80048; 81001; 83735; 83880; 84484; 85025; 85027; 93005; 99285; J1940

== ENCOUNTER → 2023-09-25 13:43 | Outpatient (BNV) | payer OTHER, SELFPAY | PROVIDERS: Admitting Provider Student in an Organized Health Care Education/Training Program; Emergency Provider Emergency Medicine; PCP Internal Medicine; Visit Provider Internal Medicine | DX: I50.23 Acute on chronic systolic (congestive) heart failure (principal) | CPT/HCPCS: 99223; 99232; 99233; 99239; G0180 ==

== ENCOUNTER → 2023-09-25 13:43 | Outpatient (BNV) | payer OTHER, SELFPAY | PROVIDERS: Admitting Provider Student in an Organized Health Care Education/Training Program; Emergency Provider Emergency Medicine; PCP Internal Medicine; Visit Provider Internal Medicine Cardiovascular Disease | DX: I50.23 Acute on chronic systolic (congestive) heart failure (principal); I25.5 Ischemic cardiomyopathy; N18.32 Chronic kidney disease, stage 3b | CPT/HCPCS: 99223; 99232; 99233 ==

== ENCOUNTER 2023-10-06 13:51 | Outpatient (AMB) | payer OTHER, SELFPAY ==
[2023-10-06 13:53] VITALS: BP 140/60; PULSE 78; BMI 25.1
--- NOTE | 2023-10-06 13:53 | MHC.OFFVIS ---
Intake Vital Signs 10/06/23 13:53 Height 6 ft Weight 185 lb 3.013 oz BMI 25.1 BP 140/60 H Blood Pressure Location Lt brachial Position Sitting Pulse 78 Pulse Source Pulse Oximeter Intake Visit Reasons: per KM - fu ( Intake Note: f/u patient its fine [employer] Driver Required: No Accompanied by: Son Allergies metoprolol [METOPROLOL] Adverse Reaction (Severe, Verified 10/06/23 13:56) SYNCOPE Medication List - Last Reconciled 10/06/23 by Samuel Rosas MD allopurinol 100 mg PO DAILY amiodarone 100 mg PO MOWEFR@0900 apixaban (Eliquis) 2.5 mg PO BID clopidogrel (Plavix) 75 mg PO DAILY furosemide 40 mg See Protocol PO BID gabapentin 200 mg PO TID hydralazine 25 mg See Protocol PO TID isosorbide dinitrate 5 mg See Protocol PO 0800,1300,1800 simvastatin 10 mg PO QPM HPI HPI Comments History of Present Illness Details Pleasant 88-year-old gentleman is here for follow-up. He was seen in the hospital when he presented with congestive heart failure. In September he was admitted initially with NSTEMI and was found to have severe LV dysfunction. At that time he was started on medications and discharged home. There was a discussion before discharge about cardiac catheterization and further workup but the patient felt that he does not want to do any aggressive workup. He got admitted again and was seen by me at that time. At that time he was in congestive heart failure and presented with orthopnea/PND. He was diuresed and discharged home on 40 mg p.o. b.i.d. Lasix. We also added hydralazine 10 mg t.i.d. which was titrated to 25 mg t.i.d. along with isosorbide dinitrate 5 mg 3 times a day. He is returning now. He continues to have shortness of breath as he has background of idiopathic pulmonary fibrosis also. He has monitor his weight on some days and has noticed that his initial weight was 175 lb which went up to 177 and eventually 178 but then started coming down to 177 lb. He is not feeling different than before and still has some dyspnea which appears to be chronic. He has been sleeping in a recliner and has not had any orthopnea/PND. [facility] Medical History CKD (chronic kidney disease) stage 4, GFR 15-29 ml/min Dizziness Elevated troponin Implantable cardioverter-defibrillator generator end of life Acute on chronic HFrEF (heart failure with reduced ejection fraction) ICD (implantable cardioverter-defibrillator) in place PVC (premature ventricular contraction) Acute on chronic systolic (congestive) heart failure Pneumonia CKD (chronic kidney disease) Hypoxia Hemoptysis Bronchitis Encounter for monitoring amiodarone therapy PAF (paroxysmal atrial fibrillation) IPF (idiopathic pulmonary fibrosis) Ischemic cardiomyopathy Surgical History History of implantable cardiac defibrillator (ICD) (~02/2016) Family History Father No problems noted. Mother No problems noted. Social History Household Members: Children Household Members Other:: son Housing: House Do you presently have visiting nurse or other home services: No Alcohol intake: former Patient Tobacco Use Status: Former Tobacco user Quit Date: 1973 Tobacco use type: Cigarette, Cigar and Pipe e-Cigarette/Vaping Use: Never Used Second Hand Smoke Exposure: No Advance Directives Date on File: 04/19/21 service: Yes Current occupational status: retired Review of Systems Const Reports chills, Reports fatigue, Reports fever(s), Reports frequent falls, Reports weakness, Reports weight gain and Reports weight loss ENT Reports dizziness Card Reports chest pain, Reports leg edema, Reports lightheadedness, Reports palpitations, Reports dyspnea and Reports dyspnea on exertion Resp Reports cough, Reports dyspnea and Reports dyspnea on exertion GI Reports hematochezia Musc Reports abnormal gait, Reports muscle weakness, Reports numbness, Reports radiating pain into limb and Reports tingling Neuro Reports abnormal gait, Reports dizziness, Reports frequent falls, Reports numbness, Reports tingling and Reports weakness Endo Reports fatigue and Reports palpitations Physical Exam Vital Signs: Last Vital Signs Pulse 78 10/06/23 13:53 BP 140/60 H 10/06/23 13:53 BMI result Body Mass Index 25.1 GENERAL APPEARANCE: in no acute distress, pleasant. NECK: no carotid bruit, no jugular venous distention. SKIN: no suspicious lesions, warm and dry. HEART: no murmurs, regular rate and rhythm. LUNGS: clear to auscultation bilaterally. ABDOMEN: soft, nontender. EXTREMITIES: no edema. PERIPHERAL PULSES: equal. NEUROLOGIC: No gross deficits, AAO X 3 Assessment & Plan Assessment & Plan (1) Cardiomyopathy: Code(s): I42.9 - Cardiomyopathy, unspecified Plan Pleasant 88-year-old gentleman with cardiomyopathy with EF of 15-20%. He has previous pacemaker and has a wide QRS complex with pacing. EF is severely reduced. I had a discussion with the patient and Dr. Alonso as he is scheduled to have pacemaker generator change in October. We discussed about doing [employer] to see if that helps his ejection fraction. Dr. Alonso will discussed with him as he will go for his procedure and may consider putting left-sided lead. He has CKD and we have been quite conservative with diuretics in him. He is currently taking 40 mg twice a day. I have advised him to continue same dose as he does not appear to be volume overloaded by exam. I am increasing the Isordil to 10 mg 3 times a day. He will continue rest of medication as before. He would continue to monitor his weight and if he has any change in weight further then he will reach out to us. In that instant, my plan is to increase the Lasix to 80 mg in the morning and 40 in the afternoon. Follow-up with us in couple of months. Thank you for allowing me to participate in the care of your patient. Please feel free to contact me if you have any questions. Medications: New isosorbide dinitrate allow nitrate-free interval of 12-14 hrs per 24-hr period 10 mg PO TID 120 tabs 4RF I42.9 - Cardiomyopathy, unspecified Discontinued isosorbide dinitrate Discontinued Reason: Doctor's Order 5 mg See Protocol PO 0800,1300,1800 90 tabs 0RF Coding Level of Care Code Est Pt Level 4 (84515) Diagnoses Cardiomyopathy I42.9
== END 2023-10-06 14:31 | disposition home or self-care (01) ==
PROVIDERS: PCP Internal Medicine; Visit Provider Internal Medicine Cardiovascular Disease
DX: I42.9 Cardiomyopathy, unspecified (principal)
CPT/HCPCS: 99214

== ENCOUNTER → 2023-10-06 13:51 | Outpatient (BNVA) | payer OTHER, SELFPAY | PROVIDERS: PCP Internal Medicine; Visit Provider Internal Medicine Cardiovascular Disease ==

== ENCOUNTER 2023-10-21 08:09 | Outpatient (AMB) | payer OTHER, SELFPAY ==
[2023-10-21 08:27] VITALS: BP 114/62; PULSE 51; BMI 25.1
--- NOTE | 2023-10-21 08:27 | MHC.OFFVIS ---
Intake Vital Signs 10/21/23 08:27 Height 6 ft Weight 185 lb 3.013 oz BMI 25.1 BP 114/62 Blood Pressure Location Rt brachial Position Sitting Pulse 51 Pulse Source Pulse Oximeter Intake Visit Reasons: f/u per KM Bag Bundler Required: No Allergies metoprolol [METOPROLOL] Adverse Reaction (Severe, Verified 10/21/23 08:30) SYNCOPE Medication List - Last Reconciled 10/21/23 by Sherry Richards REPRESENTATIVE [employer]-[facility] allopurinol 100 mg PO DAILY amiodarone 100 mg orally 3 times weekly; apixaban (Eliquis) 2.5 mg PO BID clopidogrel (Plavix) 75 mg PO DAILY furosemide 40 mg See Protocol PO BID gabapentin 200 mg PO TID hydralazine 25 mg See Protocol PO TID isosorbide dinitrate 10 mg PO TID simvastatin 10 mg PO QPM HPI f/u per KM HPI Details Darek is an 88-year-old male past medical history of chronic kidney disease, pulmonary fibrosis, paroxysmal AFib, CAD with prior [place], ischemic cardiomyopathy status post ICD placement, heart failure with reduced EF, recent ICD generator change who was noticing increased shortness of breath and edema last week and his Lasix dose was increased. He now presents for follow-up. Today he reports that he has been feeling better with the increased Lasix dose. He has urinated a lot and his leg edema has improved. His breathing is now comfortable. He has been trying to sleep in a recliner as suggested by but does not find that it is comfortable. No noted PND, orthopnea. No chest discomfort at rest or with activity. He does not feel heart palpitations. His ICD site is feeling good. No lightheadedness, presyncope, syncope, falls. Son is present. Takes all meds as directed. [facility] Medical History (Updated 10/21/23 @ 09:22 by Sherry Richards, REPRESENTATIVE [employer]) CKD (chronic kidney disease) CKD (chronic kidney disease) stage 4, GFR 15-29 ml/min Dizziness Elevated troponin Implantable cardioverter-defibrillator generator end of life Acute on chronic HFrEF (heart failure with reduced ejection fraction) ICD (implantable cardioverter-defibrillator) in place PVC (premature ventricular contraction) Acute on chronic systolic (congestive) heart failure Pneumonia CKD (chronic kidney disease) Hypoxia Hemoptysis Bronchitis Encounter for monitoring amiodarone therapy PAF (paroxysmal atrial fibrillation) IPF (idiopathic pulmonary fibrosis) Ischemic cardiomyopathy Surgical History History of implantable cardiac defibrillator (ICD) (~02/2016) Family History Father No problems noted. Mother No problems noted. Social History Household Members: Children Household Members Other:: son Housing: House Do you presently have visiting nurse or other home services: No Alcohol intake: former Patient Tobacco Use Status: Former Tobacco user Quit Date: 1973 Tobacco use type: Cigarette, Cigar and Pipe e-Cigarette/Vaping Use: Never Used Second Hand Smoke Exposure: No Advance Directives Date on File: 04/19/21 service: Yes Current occupational status: retired Review of Systems Const All systems reviewed & are unremarkable except as noted in HPI and below ENT Denies dizziness Card Details: Ankle edema Denies chest pain, Denies chest pain at rest, Denies chest pain with activity, Denies rapid heart rate, Denies pedal edema, Denies edema, Denies leg edema, Denies lightheadedness, Denies palpitations, Denies dyspnea, Reports dyspnea on exertion and Denies orthopnea Resp Denies cough, Denies dyspnea and Reports dyspnea on exertion GI Denies hematochezia and Denies change in stool character Musc Denies abnormal gait, Denies limited range of motion, Denies muscle cramps, Denies muscle weakness, Denies numbness, Denies radiating pain into limb, Denies stiffness and Denies tingling Neuro Denies abnormal gait, Denies dizziness, Denies numbness and Denies tingling Endo Denies palpitations Physical Exam Vital Signs: Last Vital Signs Pulse 51 10/21/23 08:27 BP 114/62 10/21/23 08:27 BMI result Body Mass Index 25.1 Const General: cooperative, healthy appearing, comfortable and no acute distress Orientation/consciousness: patient oriented x3 Neck Neck: Yes normal visual inspection Chest Other: Pacemaker gin change site left upper chest fully intact, no signs of infection, no sweats swelling, no ecchymosis Resp Effort & Inspection: normal respiratory effort Auscultation: rales (1/3 up bilaterally), no rhonchi and no wheezes Cardio Jugular venous distension: no JVD Rate: regular rate Rhythm: regular rhythm Heart sounds: S1 normal heart sound present, S2 normal heart sound present, no murmurs and no rubs Neuro General: patient oriented x3 Extrem Other: soft pitting edema around ankles General: Yes normal to inspection, No no pedal edema and No calf tenderness Psych Appearance: grossly normal Mental Status: mental status grossly normal Speech and movement: Normal speech and movement present Assessment & Plan Assessment & Plan (1) Acute on chronic HFrEF (heart failure with reduced ejection fraction): Code(s): I50.23 - Acute on chronic systolic (congestive) heart failure Plan: History of heart failure with reduced EF. Last echo done 09/09/2023 showing EF 15-20% with regional wall motion abnormality consistent with ischemic cardiomyopathy. Last week he was getting pre shortness of breath, edema and we gain. Weight had gone to 180 lb at home. He called in and was instructed to increase his Lasix to 80 mg in the morning and 40 mg in the afternoon. With that change he is reporting improvement in his breathing, edema and weight is down to 177 lb at home. His dry weight is approximately 175 lb on his home scale. Will have him continue on current dose of Lasix for another few days then reduce back to 40 mg b.i.d.. He does have chronic kidney disease. Last labs 09/28/2023 showed creatinine 2.43. He is on hydralazine and isosorbide for neurohormonal modulation. He has BREASTFEEDING PROGRAM COORDINATOR D in place. He is on amiodarone and no other rate slowing agents. Signs and symptoms of heart failure reviewed. Emergency care if ever needed for symptoms. Cardiology follow-up already planned for February 2023. Will keep that appointment. (2) ICD (implantable cardioverter-defibrillator) in place: Code(s): Z95.810 - Presence of automatic (implantable) cardiac defibrillator Plan: [place] Bi V ICD in place. Recent generator change. Functioning normally on remote monitoring. On remote interrogation today there is Bi V pacing 80%, 80 AF burden 48% since yesterday. Will check with Dr. Rosas regarding the use of amiodarone. He is also known to have frequent PVCs in the past. Plan for office interrogation next visit. (3) Cardiomyopathy: Code(s): I42.9 - Cardiomyopathy, unspecified Plan: As above. Ischemic. (4) CKD (chronic kidney disease): Code(s): N18.9 - Chronic kidney disease, unspecified Qualifiers: Chronic kidney disease stage: stage 3 (moderate) Chronic kidney disease stage 3 subtype: stage 3b (GFR 30-44) Qualified Code(s): N18.32 - Chronic kidney disease, stage 3b Plan: As above (5) PAF (paroxysmal atrial fibrillation): Code(s): I48.0 - Paroxysmal atrial fibrillation Plan: History of paroxysmal atrial fibrillation. Currently on amiodarone to assist with rhythm control. Remote monitoring does show paroxysmal AFib, asymptomatic according to patient. Continue amiodarone at present. He is on renal dose Eliquis for anticoagulation. No bleeding issues reported. (6) PVC (premature ventricular contraction): Code(s): I49.3 - Ventricular premature depolarization Plan: History of frequent PVCs as above Plan Time spent with chart review, documentation, interview and assessment Coding Level of Care Code Est Pt Level 4 (16745) Diagnoses Acute on chronic HFrEF (heart failure with reduced ejection fraction) I50.23 ICD (implantable cardioverter-defibrillator) in place Z95.810 Cardiomyopathy I42.9 Stage 3b chronic kidney disease N18.32 Chronic kidney disease stage: stage 3 (moderate) Chronic kidney disease stage 3 subtype: stage 3b (GFR 30-44) PAF (paroxysmal atrial fibrillation) I48.0 PVC (premature ventricular contraction) I49.3 Time Spent (min) 28
== END 2023-10-21 09:09 | disposition home or self-care (01) ==
PROVIDERS: PCP Internal Medicine; Visit Provider Nurse Practitioner Family
DX: I50.23 Acute on chronic systolic (congestive) heart failure (principal); Z95.810 Presence of automatic (implantable) cardiac defibrillator; I42.9 Cardiomyopathy, unspecified; N18.32 Chronic kidney disease, stage 3b; I48.0 Paroxysmal atrial fibrillation; I49.3 Ventricular premature depolarization
CPT/HCPCS: 99214

== ENCOUNTER → 2023-10-21 08:09 | Outpatient (BNVA) | payer OTHER, SELFPAY | PROVIDERS: PCP Internal Medicine; Visit Provider Nurse Practitioner Family ==

== ENCOUNTER → 2023-10-21 23:59 | Outpatient (BNV) | payer OTHER, SELFPAY ==
--- NOTE | 2023-10-27 18:07 | A.OFFVIS_ITS ---
Intake Intake Visit Reasons: Remote ICD Check- [facility] Allergies metoprolol [METOPROLOL] Adverse Reaction (Severe, Verified 10/23/23 09:50) [facility] Medical History (Updated 10/23/23 @ 10:07 by Trenton Fontanez MD) CKD (chronic kidney disease) CKD (chronic kidney disease) stage 4, GFR 15-29 ml/min Dizziness Elevated troponin Implantable cardioverter-defibrillator generator end of life Acute on chronic HFrEF (heart failure with reduced ejection fraction) ICD (implantable cardioverter-defibrillator) in place PVC (premature ventricular contraction) Acute on chronic systolic (congestive) heart failure Pneumonia CKD (chronic kidney disease) Hypoxia Hemoptysis Bronchitis Encounter for monitoring amiodarone therapy PAF (paroxysmal atrial fibrillation) IPF (idiopathic pulmonary fibrosis) Ischemic cardiomyopathy Surgical History History of implantable cardiac defibrillator (ICD) (~02/2016) Family History Father No problems noted. Mother No problems noted. Social History Household Members: Children Household Members Other:: son Housing: House Do you presently have visiting nurse or other home services: No Alcohol intake: former Patient Tobacco Use Status: Former Tobacco user Quit Date: 1973 Tobacco use type: Cigarette, Cigar and Pipe e-Cigarette/Vaping Use: Never Used Second Hand Smoke Exposure: No Advance Directives Date on File: 04/19/21 service: Yes Current occupational status: retired Office Procedures Cardiac Device Check Cardiac Device Check Details: BiV AICD BP 80%. Afib burden 48%. No therapies from ICD. [id number] Cardiac Device Interrogation, pacemaker or defibrillator Procedure code (CPT) selection complete Assessment & Plan Assessment & Plan (1) Cardiomyopathy: Code(s): I42.9 - Cardiomyopathy, unspecified Plan: Orders: Orders AMB Cardiac Device Follow-up 10/21/23 I42.9 - Cardiomyopathy, unspecified Coding Level of Care Code Procedure Only Diagnoses Cardiomyopathy I42.9 CPT Codes Cardiac Device Check - Cardiac Device 14: [id number] Cardiac Device Interrogation, pacemaker or defibrillator ([id number])
== END ==
PROVIDERS: PCP Internal Medicine; Visit Provider Internal Medicine Cardiovascular Disease
DX: I42.9 Cardiomyopathy, unspecified (principal); Z95.810 Presence of automatic (implantable) cardiac defibrillator
CPT/HCPCS: 93296

== ENCOUNTER 2023-10-23 08:23 | Outpatient (REF) | payer OTHER, SELFPAY ==
--- NOTE | 2023-10-23 09:22 | PFT_ITS ---
Spirometry [] Forced vital capacity 67% FEV1 70%, FEV1/FVC ratio 76 , FEF 25-75 = 84% and MVV is 78%. Post bronchodilator therapy there is no improvement. Lung Volumes [] Total lung capacity 58% residual volume 58%. Diffusion Capacity [] DLCO 32% and dL/VA is 66% Methacholine Challenge [] Flow Volume Loops [] The pattern is that of restrictive disorder . MVV [] MIP/MEP(Max inspiratory pressure/Max expiratory pressure) [] 6 Minute Walk Test [] ABG [] Interpretation [] Restrictive lung disorder, moderately severe. No obstructive airway disorder. No response. to bronchodilator therapy Clinical correlation is recommended. MTDD
== END 2023-10-23 08:24 | disposition home or self-care (01) ==
LOC: HO.CT 08:23
PROVIDERS: PCP Internal Medicine; Visit Provider Internal Medicine Pulmonary Disease
DX: J84.112 Idiopathic pulmonary fibrosis (principal); R06.09 Other forms of dyspnea
CPT/HCPCS: 71250; 94010; 94727; 94729

== ENCOUNTER 2023-10-23 09:35 | Outpatient (AMB) | payer OTHER, SELFPAY ==
--- NOTE | 2023-10-23 09:45 | MHC.OFFVIS ---
Intake Vital Signs 10/23/23 09:47 Height 6 ft Weight 178 lb BMI 24.1 BP 108/62 Blood Pressure Location Rt brachial Position Sitting Pulse 72 Pulse Source Doppler Pulse Oximetry (%) 96 Oxygen Delivery Method Room Air Intake Visit Reasons: S/p pft Allergies metoprolol [METOPROLOL] Adverse Reaction (Severe, Verified 10/23/23 09:50) SYNCOPE HPI S/p pft HPI Details 88-year-old gentleman, former under 20 pack-year smoker, quit in 1971 with underlying history of AFib on amiodarone, systolic heart failure with EF of 15-20%, followed for IPF, initially diagnosed over 10 years ago.? After the last office visit he started develop significant dyspnea associated with exacerbation of underlying congestive heart failure. He did complete his follow-up CT chest and pulmonary function test. 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 Mother No problems noted. Social History Household Members: Children Household Members Other:: son Housing: House Do you presently have visiting nurse or other home services: No Alcohol intake: former Patient Tobacco Use Status: Former Tobacco user Quit Date: 1973 Tobacco use type: Cigarette, Cigar and Pipe e-Cigarette/Vaping Use: Never Used Second Hand Smoke Exposure: No Advance Directives Date on File: 04/19/21 service: Yes Current occupational status: retired Review of Systems Const Denies daytime sleepiness, Denies excessive sweating, Denies fatigue, Denies fever(s), Denies lethargy, Denies malaise, Denies night sweats, Denies snoring and Denies weight loss Eyes Denies blurry vision and Denies itchy eyes ENT Denies nasal congestion, Denies post nasal drip, Denies sinus pain, Denies sinus pressure and Denies other ( Thrush) Card Denies chest pain, Reports pedal edema, Denies dyspnea, Reports dyspnea on exertion, Reports orthopnea and Reports paroxysmal nocturnal dyspnea Resp Denies cough, Denies hemoptysis, Denies excessive phlegm production, Denies dyspnea, Reports dyspnea on exertion, Denies snoring and Denies wheezing GI Denies abdominal pain and Denies heartburn Musc Denies myalgias, Denies arthralgias and Denies joint swelling Skin/Breast Denies rash Neuro Denies memory loss and Denies seizure-like activity Psych Denies abnormal sleep pattern, Denies anxiety and Denies memory loss Endo Denies excessive sweating, Denies fatigue and Denies heat intolerance Ayaz/Lymph Denies easy bruising Aller/Immun Denies itchy eyes, Denies seasonal rhinorrhea and Denies wheezing Physical Exam Vital Signs: Last Vital Signs Pulse 72 10/23/23 09:47 BP 108/62 10/23/23 09:47 Pulse Ox 96 10/23/23 09:47 Oxygen Delivery Method Room Air 10/23/23 09:47 BMI result Body Mass Index 24.1 Const General: no acute distress and alert Nutritional Appearance: not obese Orientation/consciousness: Other orientation findings ( oriented) HEENT Head: Yes atraumatic Eyes General: appearance normal, both eyes and all related structures Sclerae: sclerae normal EOM: EOMs intact bilaterally Neck Neck: Yes supple Lymphatic: no lymphadenopathy noted Resp Effort & Inspection: normal respiratory effort and no use of accessory muscles Auscultation: clear to auscultation bilaterally Cardio Rate: regular rate Rhythm: regular rhythm Heart sounds: no gallops, Murmur heart sound present systolic (3/6) and no rubs Skin General skin exam: other ( warm) Extrem General: No clubbing, No cyanosis and Yes edema (2+ bilateral) Assessment & Plan Assessment & Plan (1) IPF (idiopathic pulmonary fibrosis): Code(s): J84.112 - Idiopathic pulmonary fibrosis Plan: Results of CT chest and pulmonary function test reviewed - underlying slowly worsening pulmonary fibrosis that does not require pharmacologic therapy at this time. Continue to monitor clinically. (2) Dyspnea on exertion: Code(s): R06.09 - Other forms of dyspnea Plan: Intermittent episodes of dyspnea on exertion associated with changing volume status and exacerbation of underlying congestive heart failure. Patient is on increased diuretic dose at this time and continues to follow-up with his repair table operator. Coding Level of Care Code Est Pt Level 4 (75045) Diagnoses IPF (idiopathic pulmonary fibrosis) J84.112 Dyspnea on exertion R06.09
[2023-10-23 09:47] VITALS: BP 108/62; PULSE 72; O2SAT 96; BMI 24.1
== END 2023-10-23 10:09 | disposition home or self-care (01) ==
PROVIDERS: PCP Internal Medicine; Visit Provider Internal Medicine Pulmonary Disease
DX: J84.112 Idiopathic pulmonary fibrosis (principal)
CPT/HCPCS: 94060; 94727; 94729; 99214

== ENCOUNTER → 2023-10-30 23:59 | Outpatient (BNV) | payer OTHER, SELFPAY ==
--- NOTE | 2023-11-10 13:17 | MHC.OFFVIS ---
Intake Intake Visit Reasons: Remote HF Monitoring- [facility] Allergies metoprolol [METOPROLOL] Adverse Reaction (Severe, Verified 10/23/23 09:50) SYNCOPE [facility] Medical History (Updated 10/23/23 @ 10:07 by Trenton Fontanez MD) CKD (chronic kidney disease) CKD (chronic kidney disease) stage 4, GFR 15-29 ml/min Dizziness Elevated troponin Implantable cardioverter-defibrillator generator end of life Acute on chronic HFrEF (heart failure with reduced ejection fraction) ICD (implantable cardioverter-defibrillator) in place PVC (premature ventricular contraction) Acute on chronic systolic (congestive) heart failure Pneumonia CKD (chronic kidney disease) Hypoxia Hemoptysis Bronchitis Encounter for monitoring amiodarone therapy PAF (paroxysmal atrial fibrillation) IPF (idiopathic pulmonary fibrosis) Ischemic cardiomyopathy Surgical History History of implantable cardiac defibrillator (ICD) (~02/2016) Family History Father No problems noted. Mother No problems noted. Social History Household Members: Children Household Members Other:: son Housing: House Do you presently have visiting nurse or other home services: No Alcohol intake: former Patient Tobacco Use Status: Former Tobacco user Quit Date: 1973 Tobacco use type: Cigarette, Cigar and Pipe e-Cigarette/Vaping Use: Never Used Second Hand Smoke Exposure: No Advance Directives Date on File: 04/19/21 service: Yes Current occupational status: retired Office Procedures Cardiac Device Check Cardiac Device Check Details: HF monitoring Stable thoracic impedance. [id number] Cardiac Device Interrogation, cardio physiologic monitor Procedure code (CPT) selection complete Assessment & Plan Assessment & Plan (1) Cardiomyopathy: Code(s): I42.9 - Cardiomyopathy, unspecified (2) ICD (implantable cardioverter-defibrillator) in place: Code(s): Z95.810 - Presence of automatic (implantable) cardiac defibrillator Plan Coding Level of Care Code Procedure Only Diagnoses Cardiomyopathy I42.9 ICD (implantable cardioverter-defibrillator) in place Z95.810 CPT Codes Cardiac Device Check - Cardiac Device 15: [id number] Cardiac Device Interrogation, cardio physiologic monitor ([id number])
== END ==
PROVIDERS: PCP Internal Medicine; Visit Provider Internal Medicine Cardiovascular Disease
DX: I50.23 Acute on chronic systolic (congestive) heart failure (principal); Z95.810 Presence of automatic (implantable) cardiac defibrillator
CPT/HCPCS: 93297

== ENCOUNTER 2023-11-04 09:09 | Outpatient (AMB) | payer OTHER, SELFPAY ==
--- NOTE | 2023-11-04 10:24 | AM.OFFVISNUR ---
Intake Intake Visit Reasons: EKG Intake Note: EKG per Dr. Ralph Powell noted breakthrough episodes of Afib on interrogation 10/20/23. Was on Ami 200mg M.W,F, now on Amiodarone 200mg daily per Dr. Rosas. Strategic Partnership Specialist Required: No Accompanied by: Son Allergies metoprolol [METOPROLOL] Adverse Reaction (Severe, Verified 10/23/23 09:50) SYNCOPE Medication List - Last Reconciled 11/04/23 by Hien Willoughby, ASHLEY allopurinol 100 mg PO DAILY amiodarone 200 mg PO DAILY apixaban (Eliquis) 2.5 mg PO BID clopidogrel (Plavix) 75 mg PO DAILY furosemide 40 mg See Protocol PO BID gabapentin 200 mg PO TID hydralazine 25 mg See Protocol PO TID 90 days isosorbide dinitrate 5 mg PO TID simvastatin 10 mg PO QPM Followed by:: Dr. Rosas Nursing Note Pt here for f/up EKG. H/O afib. EKG completed, EKG auto-reading; Ventricular-paced rhythm at [address] Rosas's desk for review and signature. Office Procedures EKG 29320-[id number], Complete Coding Level of Care Code Est Pt Level 1 (91602) CPT Codes EKG - CPT: 41134-[id number], Complete ([id number]) Time Spent (min) 20 Comment EKG, Medication Reconciliation, Questions, Documentation, Education
== END 2023-11-04 09:50 | disposition home or self-care (01) ==
PROVIDERS: PCP Internal Medicine; Visit Provider Internal Medicine Cardiovascular Disease
DX: R94.31 Abnormal electrocardiogram [ECG] [EKG] (principal)
CPT/HCPCS: 93010

== ENCOUNTER 2023-11-04 09:09 | Outpatient (REF) | payer OTHER, SELFPAY ==
[2023-11-04 11:14] LABS: Anion Gap 17 (12-20); Blood Urea Nitrogen 63 mg/dL (9-16); Calcium 9.3 mg/dL (8.4-10.2); Carbon Dioxide 26 mmol/L (22-29); Chloride 106 mmol/L (96-108); Estimated Glomerular Filt Rate 22; Glucose Random 97 mg/dL (60-115); Potassium 4.1 mmol/L (3.3-5.1); Sodium 145 mmol/L (135-145)
== END 2023-11-04 09:10 | disposition home or self-care (01) ==
LOC: HO.LAB 09:09
PROVIDERS: Internal Medicine; PCP Internal Medicine; Visit Provider Internal Medicine Cardiovascular Disease
DX: I50.23 Acute on chronic systolic (congestive) heart failure (principal); N18.9 Chronic kidney disease, unspecified; I50.32 Chronic diastolic (congestive) heart failure
CPT/HCPCS: 36415; 80048; 93005

== ENCOUNTER → 2023-11-04 23:59 | Outpatient (BNV) | payer OTHER, SELFPAY ==
--- NOTE | 2023-11-04 17:54 | MHC.OFFVIS ---
Intake Intake Visit Reasons: Remote ICD Check- [facility] Allergies metoprolol [METOPROLOL] Adverse Reaction (Severe, Verified 10/23/23 09:50) SYNCOPE [facility] Medical History (Updated 10/23/23 @ 10:07 by Trenton Fontanez MD) CKD (chronic kidney disease) CKD (chronic kidney disease) stage 4, GFR 15-29 ml/min Dizziness Elevated troponin Implantable cardioverter-defibrillator generator end of life Acute on chronic HFrEF (heart failure with reduced ejection fraction) ICD (implantable cardioverter-defibrillator) in place PVC (premature ventricular contraction) Acute on chronic systolic (congestive) heart failure Pneumonia CKD (chronic kidney disease) Hypoxia Hemoptysis Bronchitis Encounter for monitoring amiodarone therapy PAF (paroxysmal atrial fibrillation) IPF (idiopathic pulmonary fibrosis) Ischemic cardiomyopathy Surgical History History of implantable cardiac defibrillator (ICD) (~02/2016) Family History Father No problems noted. Mother No problems noted. Social History Household Members: Children Household Members Other:: son Housing: House Do you presently have visiting nurse or other home services: No Alcohol intake: former Patient Tobacco Use Status: Former Tobacco user Quit Date: 1973 Tobacco use type: Cigarette, Cigar and Pipe e-Cigarette/Vaping Use: Never Used Second Hand Smoke Exposure: No Advance Directives Date on File: 04/19/21 service: Yes Current occupational status: retired Office Procedures Cardiac Device Check Cardiac Device Check Details: Biv AICD battery life 5.4 years. BP 80% Afib/AT burden 14%. [id number] Cardiac Device Interrogation, pacemaker or defibrillator Procedure code (CPT) selection complete Assessment & Plan Assessment & Plan (1) ICD (implantable cardioverter-defibrillator) in place: Code(s): Z95.810 - Presence of automatic (implantable) cardiac defibrillator Plan: Orders: Orders AMB Cardiac Device Follow-up Today Z95.810 - Presence of automatic (implantable) cardiac defibrillator Coding Level of Care Code Procedure Only Diagnoses ICD (implantable cardioverter-defibrillator) in place Z95.810 CPT Codes Cardiac Device Check - Cardiac Device 14: [id number] Cardiac Device Interrogation, pacemaker or defibrillator ([id number])
== END ==
PROVIDERS: PCP Internal Medicine; Visit Provider Internal Medicine Cardiovascular Disease
DX: I25.5 Ischemic cardiomyopathy (principal); Z95.810 Presence of automatic (implantable) cardiac defibrillator
CPT/HCPCS: 93295

== ENCOUNTER 2023-11-10 21:50 | Inpatient (IN) | payer OTHER, SELFPAY ==
--- NOTE | ~2023-11-10 | XR_ITS ---
EXAMINATION: XR CHEST CLINICAL INFORMATION: Shortness of breath. COMPARISON: 09/25/2023 TECHNIQUE: Frontal view of the chest was obtained. FINDINGS: The left pectoral AICD unit is different from the prior study. The 3 leads appear unchanged. Low lung volumes with diffuse, peripheral predominant reticular opacities consistent with underlying interstitial lung disease with fibrotic change. Lung volumes are decreased as compared to prior. Interstitial opacities are slightly more pronounced as compared to prior. A superimposed component of pulmonary interstitial edema is possible. Pleural parenchymal scarring is again seen at the lung bases. No significant effusions. No pneumothorax. Cardiac and meniscal contours appear unchanged. Bones are osteopenic. XR/XR chest 1V IMPRESSION: Low lung volumes with chronic interstitial lung disease. Superimposed interstitial opacities are slightly more pronounced as compared to prior and could be due to a degree of pulmonary interstitial edema or an atypical infectious process. No significant pleural effusions.
[2023-11-10 22:07] VITALS: BP 128/74; PULSE 68; RESP 16; TEMP 36.4; O2SAT 87; BMI 27.0
--- NOTE | 2023-11-10 22:36 | ECG_ITS ---
Test Reason : DYSPNEA Blood Pressure : / mmHG Vent. Rate : 073 BPM Atrial Rate : 060 BPM P-R Int : 000 ms QRS Dur : 192 ms QT Int : 500 ms P-R-T Axes : 000 -52 126 degrees QTc Int : 550 ms Ventricular-paced rhythm with frequent Premature ventricular complexes Possible Atrial fibrillation underlying Biventricular pacemaker detected Abnormal ECG When compared with ECG of 25-SEP-2023 08:56, Vent. rate has decreased BY 16 BPM Referred By: Kanwal Monaco Electronically Signed By:MELISSA BEAR MD
--- NOTE | 2023-11-10 22:41 | ED_ITS ---
HPI - SOB/Dyspnea General Chief Complaint: Dyspnea Stated Complaint: SOB, diff breathing Time Seen by Provider: 11/10/23 22:12 History of Present Illness HPI Narrative: Patient is an 88-year-old male presents today with having the shortness of breath. Patient has been having shortness of breath that is been ongoing for couple days. Was noted by EMS to have a low O2 sat is 70. There is no chest pain. Positive history of congestive heart failure. Patient has a history of reduced EF of 15-20%. Status post AICD placement. Status post battery replacement about a month ago. Patient also has a history of atrial fibrillation. Currently is on Eliquis. History of pulmonary fibrosis. Normally see pulmonary. Patient complaining of increasing leg swelling. There has been no changes in his medication. He has been compliant with meds. No cough and no congestion. No fever no chills. Related Data Home Medications Medication Instructions Recorded Confirmed gabapentin 100 mg capsule 200 mg PO TID NEUROPATHY 10/11/20 11/04/23 allopurinol 100 mg tablet 100 mg PO DAILY 02/03/23 11/04/23 simvastatin 10 mg tablet 10 mg PO QPM 09/25/23 11/04/23 isosorbide dinitrate 5 mg tablet 5 mg PO TID 10/23/23 11/04/23 Previous Rx's Medication Instructions Recorded apixaban 2.5 mg tablet (Eliquis) 2.5 mg PO BID #180 tabs 05/26/23 furosemide 40 mg tablet 40 mg PO BID #60 tabs 09/28/23 clopidogrel 75 mg tablet (Plavix) 75 mg PO DAILY #30 tabs 10/14/23 amiodarone 200 mg tablet 200 mg PO DAILY #30 tabs 10/24/23 hydralazine 25 mg tablet 25 mg PO TID 90 days #270 tabs 10/29/23 Allergies Allergy/AdvReac Type Severity Reaction Status Date / Time metoprolol [METOPROLOL] AdvReac Severe SYNCOPE Verified 11/10/23 22:17 Review of Systems 2 Review of Systems: Positive shortness of breath, positive generalized malaise. Positive leg swelling Yes all other systems are reviewed and are negative PMFSH Past Medical History Attestation statement: The following information was validated with the patient. Onset Date is defined in the Problem List Problems that require an onset date and time if occurred within 24 hrs of arrival to the ED Aortic Dissection and Rupture; Neurologic impairment; Cardiopulmonary Arrest; Endotracheal Intubation; Insertion or Replacement of Mechanical Circulatory Assist Device Medical History CKD (chronic kidney disease) CKD (chronic kidney disease) stage 4, GFR 15-29 ml/min Dizziness Elevated troponin Implantable cardioverter-defibrillator generator end of life Acute on chronic HFrEF (heart failure with reduced ejection fraction) ICD (implantable cardioverter-defibrillator) in place PVC (premature ventricular contraction) Acute on chronic systolic (congestive) heart failure Pneumonia CKD (chronic kidney disease) Hypoxia Hemoptysis Bronchitis Encounter for monitoring amiodarone therapy PAF (paroxysmal atrial fibrillation) IPF (idiopathic pulmonary fibrosis) Ischemic cardiomyopathy Surgical History History of implantable cardiac defibrillator (ICD) (~02/2016) Family History Family History Father No problems noted. Mother No problems noted. Social History Social History Household Members: Children Household Members Other:: son Housing: House Do you presently have visiting nurse or other home services: No Alcohol intake: former Patient Tobacco Use Status: Former Tobacco user Quit Date: 1973 Tobacco use type: Cigarette, Cigar and Pipe e-Cigarette/Vaping Use: Never Used Second Hand Smoke Exposure: No Advance Directives: Yes Advance Directives on File: Yes Advance Directives Date on File: 04/19/21 service: Yes Current occupational status: retired Physical Exam 2 Vital Signs: Vital Signs: Last Vital Signs Temp 97.6 F 11/10/23 22:07 Pulse 68 11/11/23 00:14 Resp 16 11/11/23 00:14 BP 128/71 11/11/23 00:14 Pulse Ox 94 11/11/23 00:14 O2 Del Method Nasal Cannula 11/11/23 00:14 O2 Flow Rate 4 11/11/23 00:14 BMI result Body Mass Index 27.0 Appearance: Alert. Oriented X3. No acute distress. Eyes: Pupils equal, round and reactive to light. ENT: Pharynx normal. Neck: Normal inspection. Neck supple. No lymph nodes noted. No crepitus CVS: Normal heart rate and rhythm. Pulses normal. Normal S1 and S2 Respiratory: Crackles bilaterally 2/[address] the lung talbot bilaterally. Abdomen: Soft and nontender. No rigidity. No distention. good BS x4 Skin: Skin warm and dry. Normal skin color. Normal skin turgor. Extremities: 2+ lower extremity edema . Neurovascular intact to all extremities. No Lacerations. No Rash Neuro: Oriented X 3. No motor deficit. No sensory deficit. Moving all extermities. No slurred speech Medications Administered Discontinued Medications Generic Name Dose Route Start Last Admin Trade Name Freq PRN Reason Stop Dose Admin Albuterol Sulfate 2.5 mg 11/10/23 22:38 11/10/23 22:55 Albuterol Sulfate (0.083%) 2.5 Mg/3 Ml Vial.Neb INHALE 11/10/23 22:39 2.5 mg ONCE ONE Administration Furosemide 40 mg 11/10/23 22:37 11/10/23 23:20 Furosemide 40 Mg/4 Ml Vial IVPUSH 11/10/23 22:38 40 mg ONCE ONE Administration Protocol Methylprednisolone Sodium Succinate 125 mg 11/10/23 22:38 11/10/23 23:20 Methylprednisolone Sod Succ 125 Mg/2 Ml Vial IVPUSH 11/10/23 22:39 125 mg ONCE ONE Administration Nitroglycerin 0.5 inch 11/10/23 22:37 11/10/23 23:20 Nitroglycerin 2 % Oint 1 Gm Packet TRANSDERMA 11/10/23 22:38 0.5 inch ONCE ONE Administration Medical Decision Making Medical Decision Making [facility] Narrative: Patient has symptoms consistent with congestive heart failure. Positive increasing leg swelling positive shortness of breath. Cannot exclude a component of pulmonary fibrosis. Steroid was given. Albuterol given. Will monitor very carefully. COVID flu RSV was sent off. Patient is hypoxic will likely require admission. Chest x-ray consistent with congestive heart failure. Consistent with pulmonary fibrosis. Patient's feet elevated. Troponin elevated but history of the same. My interpretation of patient's EKG showed a paced rhythm. Given Lasix nitro. Will admit patient for further evaluation. Case discussed with the hospitalist team. Patient is flu RSV COVID were all negative. Patient's white count is normal symptoms not consistent with pneumonia. Differential Diagnosis Differential Diagnoses: The differential diagnosis associated with the presentation includes COVID flu RSV, pneumonia, pulmonary fibrosis, congestive heart failure. Admission/Observation Consideration of admission/observation: Escalation of care including admission/observation considered Will admit patient for further monitoring diuresis Consult Healthcare Provider Management of the patient was discussed with: Hospitalist (For admission) Lab Data MDM Lab Attestation statement: I reviewed the patient's lab results. 11/10/23 23:16 11/10/23 23:16 Labs: Lab Results 11/10/23 Range/Units 23:16 WBC 8.6 (4.8-10.8) X10*3/uL RBC 4.45 L (4.60-5.80) X10*6/uL Hgb 13.3 L (14.0-18.0) g/dl Hct 41.9 L (42.0-52.0) % MCV 94.2 (80.0-98.0) fL MCH 29.9 (27.0-33.0) pg MCHC 31.7 (31.0-36.0) g/dl RDW 17.0 H (11.0-16.0) % Plt Count 164 (160-400) X10*3/uL MPV 11.1 (9.4-12.4) fL Immature Gran % (Auto) 0.6 H (0.0-0.4) % Neut % (Auto) 89.8 H (45-73) % Lymph % (Auto) 4.4 L (20-40) % [place] % (Auto) 5.1 (2-11) % Eos % (Auto) 0.1 (0-4) % Baso % (Auto) 0.0 (0-2) % Lymph # (Auto) 0.4 L (1.2-4.9) X10*3/uL [place] # (Auto) 0.4 (0.1-1.2) X10*3/uL Eos # (Auto) 0.0 (0.0-0.4) X10*3/uL Baso # (Auto) 0.0 (0.0-0.2) X10*3/uL Abs Immat Gran (auto) 0.05 H (0.00-0.03) X10*3/uL Absolute Neuts (auto) 7.7 (2.0-8.3) x10*3/uL Absolute Nucleated RBC 0.260 H (0.0-0.012) X10*3/uL Nucleated RBC % (auto) 3.0 H (0.0-0.2) /100WBC Smear Tech's Comments VERIFIED Sodium 140 (135-145) mmol/L Potassium 4.3 (3.3-5.1) mmol/L Chloride 102 (96-108) mmol/L Carbon Dioxide 22 (22-29) mmol/L Anion Gap 20 (12-20) BUN 82 H (9-16) mg/dL Creatinine 3.14 H (0.5-1.4) mg/dL Estim Creat Clear Calc 17.8 Estimated GFR 19 Random Glucose 116 H (60-115) mg/dL Calcium 8.9 (8.4-10.2) mg/dL Total Bilirubin 2.1 H (0.0-1.0) mg/dL Direct Bilirubin 1.1 H (0.0-0.5) mg/dL AST 225 H (5-37) U/L ALT 149 H (0-40) U/L Alkaline Phosphatase 177 H (39-117) U/L Troponin I High Sens 72.4 H D (<3.5-35.0) ng/L B-Natriuretic Peptide 3038 H (<100) pg/mL Total Protein 7.0 (6.5-8.0) g/dL Albumin 3.1 L (3.5-5.0) g/dL Influenza Type A (PCR) NEGATIVE (Negative) Influenza Type B (PCR) NEGATIVE (Negative) RSV RNA Qual (PCR) NEGATIVE (Negative) SARS-CoV-2 RNA (RT-PCR) NEGATIVE (Negative) Independent Interpretation I performed an independent interpretation of an: EKG (Paced heart rate is 80) and Plain X-Ray (Congestive heart failure, pulmonary fibrosis) Radiology Impression Discussion of test interpretation with radiology: I have reviewed the radiologist's reading. Independent Historian Patient's family his son External Record Review External record reviewed: Inpatient record Previous cardiology record reviewed Chronic Conditions Patient?s care impacted by: Hypertension Congestive heart failure Discharge Plan Discharge Clinical Impression: Cardiomyopathy, Congestive heart failure Patient Disposition: Admitted As Inpatient Prescriptions: No Action Eliquis 2.5 mg tablet 2.5 mg PO BID Qty: 180 2RF clopidogrel [Plavix] 75 mg tablet 75 mg PO DAILY Qty: 30 5RF amiodarone 200 mg tablet 200 mg PO DAILY Qty: 30 5RF hydralazine 25 mg tablet 25 mg PO TID 90 Days Qty: 270 3RF Protocol: Hold for SBP< HOLD for SBP < : 90 simvastatin 10 mg Tablet 10 mg PO QPM furosemide 40 mg Tablet 40 mg PO BID Qty: 60 0RF Protocol: Hold for SBP< HOLD for SBP < : 90 gabapentin 100 mg capsule 200 mg PO TID allopurinol 100 mg tablet 100 mg PO DAILY isosorbide dinitrate 5 mg tablet 5 mg PO TID
[2023-11-10] MEDS: Albuterol Sulfate (0.083%) 2.5 MG/3 ML VIAL.NEB INHALE (22:55)
[2023-11-10 22:58] VITALS: PULSE 76; RESP 12; O2SAT 94
[2023-11-10 23:20] VITALS: BP 118/65; PULSE 74; RESP 16; O2SAT 95
[2023-11-10] MEDS: Nitroglycerin 2 % Oint 1 GM Packet 0.5 INCH TRANSDERMA (23:20)
[2023-11-10] MEDS: Furosemide 40 MG/4 ML VIAL IVPUSH (23:20)
[2023-11-10] MEDS: methylPREDNISolone Sod Succ 125 MG/2 ML VIAL IVPUSH (23:20)
--- NOTE | 2023-11-10 23:27 | PC.NURSE ---
IV established by EMS, labs and swab obtained by this RN. Pt medicated per JAN. Pt resting comfortably in bed with family at bedside, denies pain. VSS. Pt provided with urinal, call adam within reach. Continue to monitor.
[2023-11-10 23:29] VITALS: BP 117/65; PULSE 70
[2023-11-10 23:32] LABS: Eosinophils Percent Auto 0.1 % (0-4); Hematocrit 41.9 % (42.0-52.0); Hemoglobin 13.3 g/dl (14.0-18.0); Imm Gran Abs Auto 0.05 X10*3/uL (0.00-0.03); Imm Gran Pct Auto 0.6 % (0.0-0.4); Lymphocytes Absolute Auto 0.4 X10*3/uL (1.2-4.9); Lymphocytes Percent Auto 4.4 % (20-40); Mean Corpuscular HGB Conc 31.7 g/dl (31.0-36.0); Mean Corpuscular Hemoglobin 29.9 pg (27.0-33.0); Mean Corpuscular Volume 94.2 fL (80.0-98.0); Mean Platelet Volume 11.1 fL (9.4-12.4); Monocytes Absolute Auto 0.4 X10*3/uL (0.1-1.2); Monocytes Percent Auto 5.1 % (2-11); Neutrophils Absolute Auto 7.7 x10*3/uL (2.0-8.3); Neutrophils Percent Auto 89.8 % (45-73); Platelet Count 164 X10*3/uL (160-400); Red Blood Count 4.45 X10*6/uL (4.60-5.80); White Blood Count 8.6 X10*3/uL (4.8-10.8)
[2023-11-10 23:33] LABS: MANUAL DIFF FLAG SCAN
[2023-11-10 23:48] LABS: Alanine Aminotransferase 149 U/L (0-40); Albumin Level 3.1 g/dL (3.5-5.0); Alkaline Phosphatase 177 U/L (39-117); Anion Gap 20 (12-20); Aspartate Amino Transferase 225 U/L (5-37); Bilirubin Direct 1.1 mg/dL (0.0-0.5); Bilirubin Total 2.1 mg/dL (0.0-1.0); Blood Urea Nitrogen 82 mg/dL (9-16); Calcium 8.9 mg/dL (8.4-10.2); Carbon Dioxide 22 mmol/L (22-29); Chloride 102 mmol/L (96-108); Creatinine Clr Calc Pharmacy 17.8; Estimated Glomerular Filt Rate 19; Glucose Random 116 mg/dL (60-115); Potassium 4.3 mmol/L (3.3-5.1); Sodium 140 mmol/L (135-145)
[2023-11-10 23:51] LABS: Troponin-I High Sensitivity 72.4 ng/L (<3.5-35.0)
[2023-11-10 23:53] LABS: SLIDE REVIEW VERIFIED
[2023-11-11] VITALS (17 sets, daily range): BP systolic 117–135; BP diastolic 61–78; PULSE 68–74; RESP 15–23; O2SAT 83–96
[2023-11-11 00:13] LABS: Influenza A PCR NEGATIVE (Negative); Influenza B PCR NEGATIVE (Negative); Resp Syncy Virus RNA Qual PCR NEGATIVE (Negative); SARS COV2 PCR INHOUSE NEGATIVE (Negative)
[2023-11-11 00:18] LABS: B Type Natriuretic Peptide 3038 pg/mL (<100)
--- NOTE | 2023-11-11 00:57 | P.HPHOSP_ITS ---
History of Present Illness Date of Service: 11/11/23 Attending physician on admission: Audie Joseph Chief Complaint: Shortness of breath Darek Arana is a pleasant 88 years old man with past medical history significant for chronic systolic congestive heart failure/ischemic cardiomyopathy w/ EF 15-20% (TTE Sep 2023), implantable cardiac defibrillator, chronic kidney disease, atrial fibrillation on Eliquis and pulmonary fibrosis presents to the emergency department complaining of worsening shortness of breath over the last few days which is worse with exertion. He noted worsening edema to the lower extremities. He has an occasional cough. He denies fever or chills. He denies hip or headache or dizziness. He denies any acute gastrointestinal or genitourinary symptoms. He did not report tobacco smoking, alcohol abuse or illicit drug use. in the ED, he was found to have low oxygen saturation on room air, 85%. He is currently require 4 liters/minutes supplemental oxygen via nasal cannula. Blood workup is remarkable for elevated creatinine, 3.14 (baseline 2.1 - 2.7) and elevated LFTs. BNP is 3,038 and troponin 72.4. Viral testing is negative. CXR showed low lung volumes with chronic interstitial lung disease, superimposed interstitial opacity are slightly more prominent as compared to prior possibly due to a degree of pulmonary interstitial edema or an atypical infectious process. ECG show a paced rhythm. ED tx: Nitro ointment 2% 0.5 in, Lasix 40 mg IV, albuterol inhalation x1 and Solu-Medrol 125 mg IV x1. Review of Systems 2 Review of Systems: All 12 systems were reviewed and normal except as noted in HPI. 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 Mother No problems noted. Surgical History History of implantable cardiac defibrillator (ICD) (~02/2016) Social History Household Members: Children Household Members Other:: son Housing: House Do you presently have visiting nurse or other home services: No Alcohol intake: former Patient Tobacco Use Status: Former Tobacco user Quit Date: 1973 Tobacco use type: Cigarette, Cigar and Pipe e-Cigarette/Vaping Use: Never Used Second Hand Smoke Exposure: No Advance Directives: Yes Advance Directives on File: Yes Advance Directives Date on File: 04/19/21 service: Yes Current occupational status: retired Meds Allergies Allergy/AdvReac Type Severity Reaction Status Date / Time metoprolol [METOPROLOL] AdvReac Severe SYNCOPE Verified 11/10/23 22:17 Home Medications Medication Instructions Recorded Confirmed Last Taken Type gabapentin 100 mg capsule 200 mg PO TID NEUROPATHY 10/11/20 11/04/23 09/08/23 History allopurinol 100 mg tablet 100 mg PO DAILY 02/03/23 11/04/23 09/08/23 History simvastatin 10 mg tablet 10 mg PO QPM 09/25/23 11/04/23 Unknown History isosorbide dinitrate 5 mg tablet 5 mg PO TID 10/23/23 11/04/23 Unknown History amiodarone 200 mg tablet 200 mg PO DAILY 11/11/23 11/11/23 Unknown History apixaban 2.5 mg tablet (Eliquis) 2.5 mg PO BID 11/11/23 11/11/23 Unknown History clopidogrel 75 mg tablet 75 mg PO DAILY 11/11/23 11/11/23 Unknown History furosemide 20 mg tablet 40 mg PO BEDTIME 11/11/23 11/11/23 Unknown History furosemide 40 mg tablet 80 mg PO DAILY 11/11/23 11/11/23 Unknown History hydralazine 25 mg tablet 25 mg PO TID 11/11/23 11/11/23 Unknown History Physical Exam 2 Vital Signs and Narrative: Vital Signs: Last Vital Signs Temp 97.6 F 11/10/23 22:07 Pulse 68 11/11/23 00:14 Resp 16 11/11/23 00:14 BP 128/71 11/11/23 00:14 Pulse Ox 94 11/11/23 00:14 O2 Del Method Nasal Cannula 11/11/23 00:14 O2 Flow Rate 4 11/11/23 00:14 BMI result Body Mass Index 27.0 Constitutional - Awake and Alert, No apparent distress Eyes - EOMI Cardiovascular - RRR, (+) murmur. Respiratory - Normal lung expansion, Normal respiratory effort, No respiratory distress, tachypnea, bibasilar crackles. Gastrointestinal - NT / ND; +BS; No rebound or guarding Extremities - severe pitting edema of lower extremities. Musculoskeletal - Normal inspection, normal ROM Skin - Warm/Dry Neurological - Alert & oriented x3. Psychological - Appropriate affect Results Labs 11/10/23 23:16 11/10/23 23:16 Labs: Laboratory Results - last 24 hr 11/10/23 23:16 MCV 94.2 MCH 29.9 MCHC 31.7 RDW 17.0 H Plt Count 164 MPV 11.1 Immature Gran % (Auto) 0.6 H Neut % (Auto) 89.8 H Lymph % (Auto) 4.4 L [place] % (Auto) 5.1 Eos % (Auto) 0.1 Baso % (Auto) 0.0 Lymph # (Auto) 0.4 L [place] # (Auto) 0.4 Eos # (Auto) 0.0 Baso # (Auto) 0.0 Abs Immat Gran (auto) 0.05 H Absolute Neuts (auto) 7.7 Absolute Nucleated RBC 0.260 H Nucleated RBC % (auto) 3.0 H Smear Tech's Comments VERIFIED Anion Gap 20 Estim Creat Clear Calc 17.8 Estimated GFR 19 Random Glucose 116 H Calcium 8.9 Total Bilirubin 2.1 H Direct Bilirubin 1.1 H AST 225 H ALT 149 H Alkaline Phosphatase 177 H B-Natriuretic Peptide 3038 H Total Protein 7.0 Albumin 3.1 L Influenza Type A (PCR) NEGATIVE Influenza Type B (PCR) NEGATIVE RSV RNA Qual (PCR) NEGATIVE SARS-CoV-2 RNA (RT-PCR) NEGATIVE Imaging Radiologist's Impressions: Impressions Chest X-Ray 11/10/23 22:47 IMPRESSION: Low lung volumes with chronic interstitial lung disease. Superimposed interstitial opacities are slightly more pronounced as compared to prior and could be due to a degree of pulmonary interstitial edema or an atypical infectious process. No significant pleural effusions. Assessment and Plan (1) Congestive heart failure: Qualifiers: Heart failure type: systolic Heart failure chronicity: acute on chronic Qualified Code(s): I50.23 - Acute on chronic systolic (congestive) heart failure Status: Acute (2) Gout: Qualifiers: Gout site: unspecified site Gout etiology: unspecified cause C hronicity: chronic Presence of tophus: without tophus Qualified Code(s): M [id number] - Chronic gout, unspecified, without tophus (tophi) Status: Acute (3) Neuropathy: Status: Acute Plan Darek Arana is a 88 years old man admitted with: 1. Acute on chronic systolic congestive heart failure/ischemic cardiomyopathy (EF 15-20%) s/p AICD. Admit to hospitalist service. Telemetry. Continue pulse oximetry. Continue supplemental oxygen via nasal cannula to keep oxygen saturation over 90%. Continue therapy with Lasix 60 mg IV daily. Continue Isordil and Plavix. Daily weigh. I&O. Recheck BNP in 2 days. Cardiology consult for further recommendations. 2. Elevated troponin likely due to above. ?NSTEMI. Will continue to monitor troponin. Patient is taking Plavix and statin. 3. Chronic kidney disease, renal function worsening. Possible secondary to above. Continue to monitor renal function closely. 4. Elevated LFTs, likely secondary to congestion due to conclude her failure. Will continue to monitor. 5. Atrial fibrillation, rate and rhythm controlled. Telemetry. Continue Eliquis and amiodarone. 6. Pulmonary fibrosis. Continue supplemental oxygen. Bronchodiltator therapy as needed. 7. Gout. Continue allopurinol. 8. Hyperlipidemia. Continue statin. 9. Neuropathy. Gabapentin dose decreased due to current renal function. VTE prophylaxis: Eliquis. Code Status: DNR/DNI (discussed with patient and son -bedside). The patient will require hospitalization of at least two nights for treatment of?acute on chronic exacerbation with oxygen therapy, IV diuretics, close monitoring, and cardiology consultation. Quality Stroke Does the patient have a stroke diagnosis?: No VTE Prior VTE?: No VTE Risk Level:: Medical - moderate - high VTE Device Contraindication: Treatment Not Indicated VTE Drug Contraindication: Treatment Not Indicated
[2023-11-11] MEDS: Albuterol/Iprat 2.5/0.5MG 3 ML AMPUL.NEB INHALE (05:22)
[2023-11-11] MEDS: Furosemide 100 MG/10 ML VIAL 80 MG IVPUSH ×2 (06:09→09:42)
--- NOTE | 2023-11-11 06:14 | PC.NURSE ---
@ 0436 pt desaturated to 86% on 4l nc. while adjusting self in bed. did not recover past 87%pt placed on 10l non rebreather @ 10l recovered to 95% pt ablet to be titrateted back to 4l maintaining at 94% md aware @ 0517 pt dropped to 87% on 4l RT called to bedside. aware. pt requesting breathing tx, pt also stating has not been able to void since receiving lasix. bladder scan showed 446ml in bladder. this rn placed cuday catheter 30ml balloon inflated 600ml immediate output . md to bedside. pt medicated according to mar. per pt being placed on rescue cpap
[2023-11-11 06:35] LABS: Hematocrit 44.2 % (42.0-52.0); Imm Gran Abs Auto 0.08 X10*3/uL (0.00-0.03); Imm Gran Pct Auto 0.9 % (0.0-0.4); Lymphocytes Absolute Auto 0.1 X10*3/uL (1.2-4.9); Lymphocytes Percent Auto 1.5 % (20-40); MANUAL DIFF FLAG SCAN; Mean Corpuscular HGB Conc 31.7 g/dl (31.0-36.0); Mean Corpuscular Hemoglobin 29.8 pg (27.0-33.0); Mean Platelet Volume 11.6 fL (9.4-12.4); Monocytes Absolute Auto 0.2 X10*3/uL (0.1-1.2); Monocytes Percent Auto 2.6 % (2-11); Neutrophils Absolute Auto 8.3 x10*3/uL (2.0-8.3); Platelet Count 163 X10*3/uL (160-400); Red Cell Distribution Width 17.2 % (11.0-16.0); SCAN SMEAR FLAG 1; White Blood Count 8.8 X10*3/uL (4.8-10.8)
[2023-11-11 06:41] LABS: NRBC Pct Auto 2.6 /100WBC (0.0-0.2)
[2023-11-11 06:50] LABS: Troponin-I High Sensitivity 75.4 ng/L (<3.5-35.0)
[2023-11-11 06:51] LABS: Alanine Aminotransferase 187 U/L (0-40); Albumin Level 3.1 g/dL (3.5-5.0); Alkaline Phosphatase 181 U/L (39-117); Anion Gap 21 (12-20); Aspartate Amino Transferase 262 U/L (5-37); Bilirubin Total 2.4 mg/dL (0.0-1.0); Blood Urea Nitrogen 85 mg/dL (9-16); Calcium 9.1 mg/dL (8.4-10.2); Carbon Dioxide 22 mmol/L (22-29); Chloride 102 mmol/L (96-108); Creatinine Clr Calc Pharmacy 17.5; Estimated Glomerular Filt Rate 18; Glucose Random 120 mg/dL (60-115); Potassium 4.1 mmol/L (3.3-5.1); Sodium 141 mmol/L (135-145)
--- NOTE | 2023-11-11 07:19 | PC.NURSE ---
Alert and oriented, denies pain or discomfort. continues on cpap, sating 94%. VSS
[2023-11-11 07:29] LABS: Appearance Urine Clear; Color Urine Yellow; Glucose Urine UA Negative (Negative); Leukocyte Esterase Urine Negative (Negative); Nitrite Urine Negative (Negative); PH 5.5 (5.0-9.0); Specific Gravity - Urine 1.015 (1.005-1.025); UMIC TRIGGER UACC YES; Urine Blood Moderate (2+) (Negative); Urine Ketones Negative (Negative); Urine Protein 30 (1+) mg/dL (Neg-Trace)
--- NOTE | 2023-11-11 07:31 | PC.NURSE ---
Patient removed cpap stating he can not tolerate it any longer. Placed on oxy mask at 10 liters sating 91%.
--- NOTE | 2023-11-11 07:44 | PC.NURSE ---
sating 95% via oxymask, provider notified patient no longer on cpap
[2023-11-11 07:48] LABS: Bacteria Urine None Seen (None Seen); Squamous Epithelial Cell Urine 0-2 /HPF (0-2); WBC Urine 0-5 /HPF (0-5)
[2023-11-11] MEDS: allopurinoL 100 MG TABLET PO (07:59)
[2023-11-11] MEDS: hydrALAZINE HCl 25 MG TABLET PO (08:00)
[2023-11-11] MEDS: Apixaban 2.5 MG TABLET PO (08:00)
[2023-11-11] MEDS: Isosorbide Dinitrate 10 MG TABLET PO (08:00)
[2023-11-11] MEDS: Gabapentin 100 MG CAPSULE PO (08:00)
[2023-11-11] MEDS: Amiodarone HCL 200 MG TABLET PO (08:00)
[2023-11-11] MEDS: Clopidogrel Bisulfate 75 MG TABLET PO (08:00)
[2023-11-11] MEDS: 0.9 % Sodium Chloride Flush 3 ML SYRINGE IVFLUSH ×3 (08:03→23:37)
--- NOTE | 2023-11-11 08:10 | PHA.MEDREC ---
Pharmacy Consult ? Medication Reconciliation Pharmacy has completed the medication reconciliation. Patient's male family member had list on phone of meds.
--- NOTE | 2023-11-11 08:43 | MHC.CM.PN ---
CM met with Patient and his Son/HCP/Darek Kirby at bedside. Patient live in a house with his Son and he uses a cane to assist with mobility. Patient had no services [employer]OX [employer] and he prefers not to have VNA. Home/self care is the goal and CM has initiated and will follow for dc planning.PCP is Dr. Song Quiñonez.
[2023-11-11 09:45] LABS: Troponin-I High Sensitivity 78.9 ng/L (<3.5-35.0)
[2023-11-11 09:46] LABS: Venous Blood Gas Refer to POC result
[2023-11-11 09:50] LABS: ABG Base Excess -3.1 mmol/L; ABG HCO3 20 mmol/L (22-26); ABG pCO2 31 mmHg (32-45); ABG pH 7.41 (7.35-7.45); ABG pO2 54 mmHg (83-108)
--- NOTE | 2023-11-11 09:51 | PC.NURSE ---
Sating 90% on 7 liters via oxymask
[2023-11-11] MEDS: Furosemide 200 MG in 0.9 % Sodium Chloride 80 ML IVCONT (11:00)
[2023-11-11 12:32] LABS: Troponin-I High Sensitivity 69.8 ng/L (<3.5-35.0)
--- NOTE | 2023-11-11 13:03 | P.CONCA_ITS ---
History of Present Illness History of Present Illness Date of Service: 11/11/23 Requesting physician: Melchor Bautista Consult reason: congestive heart failure Chief complaint: Acute on chornic congestive heart failure Narrative: I was consulted to 3 Darek in cardiology consultation today for decompensated congestive heart failure. Patient is very complicated elderly gentleman with prior history of severe ischemic cardiomyopathy status post biventricular ICD placement, prior atrial fibrillation which appears to be more persistent recently, frequent PVCs, CAD, pulmonary fibrosis, advancing chronic kidney disease and frailty. Patient lives at home, had a recent pulse generator change at the time his pacemaker mode was changed to VVIR raising the question whether he was in persistent chronic atrial fibrillation despite being on amiodarone therapy. His amiodarone was supposedly stopped at [facility] for that reason probably although it is unclear from the charts, and patient and patient's family not aware of it. However is amiodarone was restarted recently for increased burden of PVCs and ineffective Bi V pacing. Patient also on high-dose Lasix 80 mg the morning 40 mg at bedtime. On hydralazine 25 mg p.o. t.i.d.. Also on isosorbide dinitrate 10 mg p.o. t.i.d.. Had not tolerated beta-blockers in the past as per him as he had what appears to be orthostatic syncope. He is on Eliquis 2.5 mg b.i.d. for anticoagulation. Also has history of neuropathy and is on gabapentin is also on simvastatin with low-dose. Patient present hospital progressive congestive heart failure symptoms with progressive weight gain, leg edema and worsening shortness of breath and decided to hold off till he was not able to breathe much. Came to the hospital was noted to be in decompensated congestive heart failure with requiring high levels of oxygen, BNP the 3000 range with chest x-ray suggestive of pulmonary interstitial edema on top of his interstitial lung disease. Patient was then started on Lasix has had tepid diuresis but oxygen requirement is gone down to 7 L. Still remain short of breath and has leg edema. Was started on Lasix drip. He denies any palpitations. Denies any recent fever chills. Denies any lightheadedness, syncope. No chest pain. Review of Systems 2 Constitutional: Constitutional: Reports weakness Eyes: Eyes: Reports no additional eye complaints Cardiovascular: Cardiovascular: Denies chest pain, Reports leg edema, Denies lightheadedness, Denies Loss of Consciousness, Denies palpitations, Reports dyspnea on exertion and Reports orthopnea Respiratory: Respiratory: Denies cough, Reports dyspnea on exertion and Denies wheezing Gastrointestinal: Gastrointestinal: Denies no additional gastrointestinal complaints Musculoskeletal: Musculoskeletal: Denies no additional musculoskeletal complaints Neurologic: Reports system reviewed and no additional complaints, except as documented and Reports weakness Psychiatric: Psychiatric: Reports no additional psychiatric complaints Endocrine: Endocrine: Reports no additional endocrine complaints and Denies palpitations Allergic/Immunologic: Allergic/Immunologic: Denies wheezing [facility] Past Medical History Medical History Neuropathy Gout Atrial fibrillation CKD (chronic kidney disease) CKD (chronic kidney disease) stage 4, GFR 15-29 ml/min Dizziness Elevated troponin Implantable cardioverter-defibrillator generator end of life Acute on chronic HFrEF (heart failure with reduced ejection fraction) ICD (implantable cardioverter-defibrillator) in place PVC (premature ventricular contraction) Acute on chronic systolic (congestive) heart failure Pneumonia CKD (chronic kidney disease) Hypoxia Hemoptysis Bronchitis Encounter for monitoring amiodarone therapy PAF (paroxysmal atrial fibrillation) IPF (idiopathic pulmonary fibrosis) Ischemic cardiomyopathy Family History Family History Father No problems noted. Mother No problems noted. Surgical History Surgical History History of implantable cardiac defibrillator (ICD) (~02/2016) Social History Social History Household Members: Children Household Members Other:: son Housing: House Do you presently have visiting nurse or other home services: No Alcohol intake: former Patient Tobacco Use Status: Former Tobacco user Quit Date: 1973 Tobacco use type: Cigarette, Cigar and Pipe Smoked in Last 30 Days: No e-Cigarette/Vaping Use: Never Used Second Hand Smoke Exposure: No Use of substances other than those prescribed or required for medical reasons: No Advance Directives: Yes Advance Directives on File: Yes Advance Directives Date on File: 04/19/21 service: Yes Current occupational status: retired Meds Allergies Allergy/AdvReac Type Severity Reaction Status Date / Time metoprolol [METOPROLOL] AdvReac Severe SYNCOPE Verified 11/10/23 22:17 Active Medications: Current Medications Acetaminophen (Acetaminophen 325 Mg Tablet) 650 mg PO Q6H PRN PRN Reason: Pain, Mild (Pain Scale 1-3) Albuterol/Ipratropium (Albuterol/Iprat 2.5/0.5mg 3 Ml Ampul.Neb) 3 ml INHALE Q4H PRN PRN Reason: Shortness of Breath/Wheezing Last Admin: 11/11/23 05:22 Dose: 3 ml Allopurinol (Allopurinol 100 Mg Tablet) 100 mg PO DAILY [facility] Last Admin: 11/11/23 07:59 Dose: 100 mg Amiodarone HCl (Amiodarone Hcl 200 Mg Tablet) 200 mg PO DAILY [facility] Last Admin: 11/11/23 08:00 Dose: 200 mg Apixaban (Apixaban 2.5 Mg Tablet) 2.5 mg PO BID [facility] Last Admin: 11/11/23 08:00 Dose: 2.5 mg Clopidogrel Bisulfate (Clopidogrel Bisulfate 75 Mg Tablet) 75 mg PO DAILY [facility] Last Admin: 11/11/23 08:00 Dose: 75 mg Gabapentin (Gabapentin 100 Mg Capsule) 100 mg PO DAILY [facility] Last Admin: 11/11/23 08:00 Dose: 100 mg Hydralazine HCl (Hydralazine Hcl 25 Mg Tablet) 25 mg PO TID [facility]; Protocol Last Admin: 11/11/23 08:00 Dose: 25 mg Furosemide 200 mg/ Sodium (Chloride) 100 mls @ 5 mls/hr IVCONT .Q20H [facility] Last Admin: 11/11/23 11:00 Dose: 10 mg/hr, 5 mls/hr Isosorbide Dinitrate (Isosorbide Dinitrate 10 Mg Tablet) 10 mg PO TID [facility]; Protocol Last Admin: 11/11/23 08:00 Dose: 10 mg Sodium Chloride (0.9 % Sodium Chloride Flush 3 Ml Syringe) 3 ml IVFLUSH QSHIFT [facility] Last Admin: 11/11/23 08:03 Dose: 3 ml Home Medications Medication Instructions Recorded Confirmed Last Taken Type gabapentin 100 mg capsule 200 mg PO TID NEUROPATHY 10/11/20 11/11/23 11/10/23 History allopurinol 100 mg tablet 100 mg PO DAILY 02/03/23 11/11/23 11/10/23 History simvastatin 10 mg tablet 10 mg PO BEDTIME 09/25/23 11/11/23 11/10/23 History amiodarone 200 mg tablet 200 mg PO DAILY 11/11/23 11/11/23 11/10/23 History apixaban 2.5 mg tablet (Eliquis) 2.5 mg PO BID 11/11/23 11/11/23 11/10/23 History clopidogrel 75 mg tablet 75 mg PO DAILY 11/11/23 11/11/23 11/10/23 History furosemide 20 mg tablet 40 mg PO BEDTIME 11/11/23 11/11/23 11/10/23 History furosemide 40 mg tablet 80 mg PO DAILY 11/11/23 11/11/23 11/10/23 History hydralazine 25 mg tablet 25 mg PO TID 11/11/23 11/11/23 11/10/23 History isosorbide dinitrate 10 mg tablet 10 mg PO TID 11/11/23 11/11/23 11/10/23 History Physical Exam 2 Vital Signs: Vital Signs: Last Vital Signs Temp 97.6 F 11/10/23 22:07 Pulse 68 11/11/23 09:51 Resp 18 11/11/23 09:41 BP 123/65 11/11/23 09:41 Pulse Ox 90 L 11/11/23 09:51 O2 Del Method Oxymask 11/11/23 09:51 O2 Flow Rate 7 11/11/23 09:51 BMI result Body Mass Index 27.0 Const: General: cooperative, alert, awake and in distress mild and respiratory Nutritional Appearance: other (Frail appearing) O rientation/consciousness: patient oriented x3 HEENT: Head: Yes normocephalic and Yes atraumatic Neck: Neck: Yes trachea midline, Yes supple and Yes JVD Resp: Effort & Inspection: normal respiratory effort Auscultation: c rackles, rales and no wheezes Cardio: Jugular venous distension: JVD Palpation: abnormal PMI displaced PMI Rate: regular rate Rhythm: abnormal rhythm with ectopic beats Heart sounds: S1 normal heart sound present, S2 normal heart sound present, no click, no gallops and no murmurs GI: Inspection: Yes distended Skin: General skin exam: no rashes or lesions noted and ecchymosis Neuro: General: patient oriented x3 and no focal motor deficits Extrem: General: No clubbing, No cyanosis and Yes edema Psych: Appearance: grossly normal Objective Labs and Meds 11/11/23 06:22 11/11/23 06:22 Lab results: Laboratory Results - last 24 hr 11/10/23 11/11/23 11/11/23 23:16 06:22 07:16 WBC 8.6 8.8 RBC 4.45 L 4.70 Hgb 13.3 L 14.0 Hct 41.9 L 44.2 MCV 94.2 94.0 MCH 29.9 29.8 MCHC 31.7 31.7 RDW 17.0 H 17.2 H Plt Count 164 163 MPV 11.1 11.6 Immature Gran % (Auto) 0.6 H 0.9 H Neut % (Auto) 89.8 H 95.0 H Lymph % (Auto) 4.4 L 1.5 L [place] % (Auto) 5.1 2.6 Eos % (Auto) 0.1 0.0 Baso % (Auto) 0.0 0.0 Lymph # (Auto) 0.4 L 0.1 L [place] # (Auto) 0.4 0.2 Eos # (Auto) 0.0 0.0 Baso # (Auto) 0.0 0.0 Abs Immat Gran (auto) 0.05 H 0.08 H Absolute Neuts (auto) 7.7 8.3 Absolute Nucleated RBC 0.260 H 0.230 H Nucleated RBC % (auto) 3.0 H 2.6 H Smear Tech's Comments VERIFIED O2 Saturation ABG pH at Pt Temp ABG pCO2 at Pt Temp ABG pO2 at Pt Temp ABG HCO3 ABG Base Excess (Actual) Sodium 140 141 Potassium 4.3 4.1 Chloride 102 102 Carbon Dioxide 22 22 Anion Gap 20 21 H BUN 82 H 85 H Creatinine 3.14 H 3.20 H Estim Creat Clear Calc 17.8 17.5 Estimated GFR 19 18 Random Glucose 116 H 120 H Calcium 8.9 9.1 Total Bilirubin 2.1 H 2.4 H Direct Bilirubin 1.1 H AST 225 H 262 H ALT 149 H 187 H Alkaline Phosphatase 177 H 181 H Troponin I High Sens 72.4 H D 75.4 H B-Natriuretic Peptide 3038 H Total Protein 7.0 7.0 Albumin 3.1 L 3.1 L Urine Color Yellow Urine Appearance Clear Urine pH 5.5 Ur Specific [place] 1.015 Urine Protein 30 (1+) H Urine Glucose (UA) Negative Urine Ketones Negative Urine Blood Moderate (2+) H Urine Nitrite Negative Ur Leukocyte Esterase Negative Urine RBC 11-20 H Urine WBC 0-5 Ur Squamous Epith Cells 0-2 Urine Bacteria None Seen Hyaline Casts 3-5 Influenza Type A (PCR) NEGATIVE Influenza Type B (PCR) NEGATIVE RSV RNA Qual (PCR) NEGATIVE SARS-CoV-2 RNA (RT-PCR) NEGATIVE 11/11/23 11/11/23 11/11/23 08:58 09:43 11:57 WBC RBC Hgb Hct MCV MCH MCHC RDW Plt Count MPV Immature Gran % (Auto) Neut % (Auto) Lymph % (Auto) [place] % (Auto) Eos % (Auto) Baso % (Auto) Lymph # (Auto) [place] # (Auto) Eos # (Auto) Baso # (Auto) Abs Immat Gran (auto) Absolute Neuts (auto) Absolute Nucleated RBC Nucleated RBC % (auto) Smear Tech's Comments O2 Saturation 80.0 ABG pH at Pt Temp 7.41 ABG pCO2 at Pt Temp 31 L ABG pO2 at Pt Temp 54 L ABG HCO3 20 L ABG Base Excess (Actual) -3.1 Sodium Potassium Chloride Carbon Dioxide Anion Gap BUN Creatinine Estim Creat Clear Calc Estimated GFR Random Glucose Calcium Total Bilirubin Direct Bilirubin AST ALT Alkaline Phosphatase Troponin I High Sens 78.9 H 69.8 H B-Natriuretic Peptide Total Protein Albumin Urine Color Urine Appearance Urine pH Ur Specific [place] Urine Protein Urine Glucose (UA) Urine Ketones Urine Blood Urine Nitrite Ur Leukocyte Esterase Urine RBC Urine WBC Ur Squamous Epith Cells Urine Bacteria Hyaline Casts Influenza Type A (PCR) Influenza Type B (PCR) RSV RNA Qual (PCR) SARS-CoV-2 RNA (RT-PCR) EKG shows ventricular paced rhythm with PVCs Imaging Radiologist's impression: Impressions Chest X-Ray 11/10/23 22:47 IMPRESSION: Low lung volumes with chronic interstitial lung disease. Superimposed interstitial opacities are slightly more pronounced as compared to prior and could be due to a degree of pulmonary interstitial edema or an atypical infectious process. No significant pleural effusions. Assessment and Plan (1) Acute decompensated heart failure: Status: Acute Patient present with symptoms and signs consistent with worsening and decompensated systolic heart failure. He has very poor prognosis given his advanced age, worsening renal dysfunction, persistent atrial fibrillation, severe LV systolic dysfunction, frailty, as well as intolerance to neurohormonal modulation. This was discussed with him. Management will be symptomatic relief and prevention of acute exacerbations. Management was discussed in details with patient and patient's family. For now agree with Lasix drip at 5 mg an hour and strict intake and output chart needs to be pursued. If he has poor response would consider increasing Lasix to 10 mg an hour in add metolazone in addition. Continue monitor renal function closely. Please trend BNP as well. Continue replace electrolytes as needed. Has not tolerated other neurohormonal modulation with beta-blockers as well as angiotensin receptor sean. Cannot use mineral corticoid inhibitor therapy due to advancing renal dysfunction. Continue maximize hydralazine which can be bumped up to 50 mg b.i.d. and continue Isordil. Overall prognosis guarded and should consider palliative care. Currently Bi V pacing appropriately although intermittent PVCs probably would make Bi V pacing less effective. On discharge would switch him to an alternative loop diuretic such as bumetanide 2 mg b.i.d.. Discussed in details about heart failure management and additional diuretics at home prior to decompensation leading to hospitalization (2) Persistent atrial fibrillation: Status: Acute Patient seems to be in persistent atrial fibrillation this point time and not controlling or able to control his rhythm at this point time amiodarone is probably not effective. Given his underlying pulmonary fibrosis, would discontinue amiodarone therapy unless it is required for rate control as he has not tolerated beta-blockers in the past and cannot use digoxin due to advancing renal dysfunction. Continue Eliquis at 2.5 mg b.i.d.. (3) ICD (implantable cardioverter-defibrillator) in place: Status: Acute Biventricular ICD in place programmed in VVIR due to persistent atrial fibrillation. Will continue monitor. Will follow with him. Greater than 45 minutes was spent in managing his complex care Procedures Date of Service Date of Service: 11/11/23
--- NOTE | 2023-11-11 16:02 | PC.NURSE ---
Patient oob to bedside commode and recline chair. desated into low 80's, respiratory called provider aware
--- NOTE | 2023-11-11 16:07 | PC.NURSE ---
Placed on cpap by respiratory, provider notified
[2023-11-11 16:48] LABS: Troponin-I High Sensitivity 64.7 ng/L (<3.5-35.0)
--- NOTE | 2023-11-11 16:51 | PC.NURSE ---
ICU provider at bedside. Patient removed cpap to speak with provider, sating 65% on RA. Provider spoke with patient regarding goals of care
--- NOTE | 2023-11-11 16:59 | PC.NURSE ---
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 Patient will not be placed back on cpap / bipap. ICU provider with re-address current orders
--- NOTE | 2023-11-11 17:06 | P.ACPN_ITS ---
Advanced Care Planning Note Advanced Care Planning Note Discussed with: patient and family member(s) Time spent (in minutes): 30 Narrative: I met and introduced myself to Mr. Arana, his daughter, and his son at the bedside. I offered my understanding of his presentation to the emergency department and his work-up thus far, which suggests that he is in a heart failure exacerbation that is complicated by pulmonary edema and acute renal insufficiency. Mr. Arana and his family expressed understanding of this. We discussed his DNR and DNI status, which he confirmed. We discussed possible next steps, which may likely include BiPAP, and possibly hemodialysis. Mr. Arana stated he would not want invasive treatment, including BiPAP and hemodilaysis. Further, Mr. Arana spoke to his current discomfort, described as air hunger and anxiety. We discussed comfort-focused care. Mr. Arana expressed that would like to transition to comfort-focused care. His daughter and son are in agreement with his wishes. I told Mr. Arana I would place orders for comfort- focused care and update Dr. Bautista. Problems Discussed (1) Acute decompensated heart failure: (2) Persistent atrial fibrillation: (3) ICD (implantable cardioverter-defibrillator) in place:
--- NOTE | 2023-11-11 17:13 | PC.NURSE ---
Patient declining use of 02. Sitting up in recliner chair with family at bedside
--- NOTE | 2023-11-11 17:30 | PC.NURSE ---
family requesting O2 for comfort, pulse ox @ 68% on RA, 87-90% on oxymask @ 15L, resp notified. 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
--- NOTE | 2023-11-11 18:05 | P.EN_ITS ---
Event Note Date of Service: 11/11/23 Event Note: Patient seen and examined by hospitalist team this morning. Seen and examined again: Patient shortness of breath progressively worsening Physical exam: Unchanged from H&P Assessment plan: Coordinated in H&P. Acute hypoxemic respiratory failure secondary to possible CHF in the setting of SAULO on CKD: Patient was given IV Lasix drip, metolazone patient urinary output is not improving, short of breath progressively worsening: Cardiology also saw the patient-continue above, subsequently seen by ICU (please see ICU note in detail)-subsequent Icu d/w patient and patient is KAIAKO KOHANGA REO. Time Spent With Patient Time: Total time managing care of this patient today ____ minutes.
--- NOTE | 2023-11-11 18:21 | PC.NURSE ---
Placed on oxy mask at 15 l sating 9% with no sob. Family at bedside
[2023-11-11] MEDS: LORazepam 2 MG/ML VIAL 1 MG IVPUSH (20:37)
[2023-11-11] MEDS: Morphine Sulfate 4 MG/ML CARTRIDGE IVPUSH (22:58)
--- NOTE | 2023-11-12 03:09 | HO.SKINPHOTO ---
Location: Category: Stage: Length: Width: Depth: cm Location: Category: Stage: Length: Width: Depth: cm Location: Category: Stage: Length: Width: Depth: cm Location: Category: Stage: Length: Width: Depth: cm Location: Category: Stage: Length: Width: Depth: cm Location:bilateral buttocks Category:pressure Stage:2 Length: Width: Depth: cm
--- NOTE | 2023-11-12 03:14 | HO.SKINPHOTO ---
Location: Category: Stage: Length: Width: Depth: cm Location: Category: Stage: Length: Width: Depth: cm Location: Category: Stage: Length: Width: Depth: cm Location: Category: Stage: Length: Width: Depth: cm Location: Category: Stage: Length: Width: Depth: cm Location: Category: Stage: Length: Width: Depth: cm
[2023-11-12 03:21] VITALS: RESP 16
[2023-11-12] MEDS: Morphine Sulfate 4 MG/ML CARTRIDGE IVPUSH ×3 (03:43→15:35)
[2023-11-12] MEDS: 0.9 % Sodium Chloride Flush 3 ML SYRINGE IVFLUSH (09:56)
--- NOTE | 2023-11-12 11:10 | MHC.CM.PN ---
EMR REVIEWED. PER MD ROUNDS PATIENT IS NOW STOCK ASSOCIATE. NO PLAN FOR DC. CM WILL CONTINUE TO FOLLOW.
[2023-11-12] MEDS: Scopolamine 1.5 MG PATCH.TD.3 TRANSDERMA (12:47)
[2023-11-12 15:02] VITALS: RESP 14
--- NOTE | 2023-11-12 15:27 | P.PNIM_ITS ---
Subjective Subjective Date of Service: 11/12/23 Interval History: weak,sleepy Review of Systems Review of Systems: Yes all other systems are reviewed and are negative Physical Exam 2 Vital Signs: Vital Signs: Last Vital Signs Temp 97.6 F 11/10/23 22:07 Pulse 68 11/11/23 20:00 Resp 14 11/12/23 15:02 BP 135/61 11/11/23 20:00 Pulse Ox 83 L 11/11/23 20:00 O2 Del Method Oxymask 11/11/23 20:00 O2 Flow Rate 10 11/11/23 20:00 BMI result Body Mass Index 27.0 Appearance: weak.ill appearing cvs: rrr, [id number] . res: fair air entry . abd: soft, bs present. ext pulses present , no cyanosis . neuro: axo3 , nonfocal. Objective Data Active Medications Acetaminophen (Acetaminophen 325 Mg Tablet) 650 mg PO Q6H PRN PRN Reason: Pain, Mild (Pain Scale 1-3) Gabapentin (Gabapentin 100 Mg Capsule) 100 mg PO DAILY [facility] Last Admin: 11/12/23 09:57 Dose: Not Given Documented By: LALITA Non-Admin Reason: unable- FRAME STYLIST Haloperidol Lactate (Haloperidol Lactate 5 Mg/Ml Vial) 2.5 mg IVPUSH Q2H PRN PRN Reason: Agitation Lorazepam (Lorazepam 2 Mg/Ml Vial) 1 mg IVPUSH Q1H PRN PRN Reason: Anxiety Last Admin: 11/11/23 20:37 Dose: 1 mg Documented By: JANE Morphine Sulfate (Morphine Sulfate 4 Mg/Ml Cartridge) 4 mg IVPUSH Q1H PRN PRN Reason: Discomfort/Shortness of breath Last Admin: 11/12/23 09:49 Dose: 4 mg Documented By: LALITA Ondansetron HCl (Ondansetron Hcl 4 Mg/2 Ml Vial) 4 mg IVPUSH Q8H PRN PRN Reason: Nausea and Vomiting Scopolamine (Scopolamine 1.5 Mg Patch.Td.3) 1.5 mg TRANSDERMA Q72H [facility] Last Admin: 11/12/23 12:47 Dose: 1.5 mg Documented By: VICKY Sodium Chloride (0.9 % Sodium Chloride Flush 3 Ml Syringe) 3 ml IVFLUSH QSHIFT [facility] Last Admin: 11/12/23 15:05 Dose: Not Given Documented By: VICKY Non-Admin 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 Labs 11/11/23 06:22 11/11/23 06:22 Labs: Laboratory Results - last 24 hr 11/10/23 23:16 Smear Path Review Assessment and Plan (1) Acute decompensated heart failure: Status: Acute Plan 88-year-old M with past medical history of chronic systolic heart failure, ischemic cardiomyopathy, EF of 15-20%, implantable cardiac defibrillator, chronic kidney disease, artery fibrillation, pulmonary fibrosis: Came to the hospital because of shortness of breath found to have acute hypoxemic respiratory failure secondary to CHF exacerbation in the setting of worsening renal function: Patient was given IV diuresis aggressive, CPAP: Patient did not produce much, hypoxia and renal function continue to worsen: With further discussion with ICU-patient family decided against aggressive interventions and decided for comfort care(please see ICU note from 11/11/23). 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 Quality Stroke Does the patient have a stroke diagnosis?: No VTE Prior VTE?: No VTE Risk Level:: Medical - moderate - high VTE Device Contraindication: Treatment Not Indicated VTE Drug Contraindication: Treatment Not Indicated
--- NOTE | 2023-11-12 17:20 | P.DN_ITS ---
Discharge Sum: Prov Provider Primary care physician: Song Quiñonez MD Admitting clinician: Audie Joseph Attending physician on admission: Audie Joseph Pronouncing clinician: Melchor Bautista Discharge Sum: Diag Contributing Factors (1) Acute decompensated heart failure: Discharge Sum: Summary Date and Time Date of admission: 11/11/23 01:08 Summary Details: 88-year-old M with past medical history of chronic systolic heart failure, ischemic cardiomyopathy, EF of 15-20%, implantable cardiac defibrillator, chronic kidney disease, artery fibrillation, pulmonary fibrosis: Came to the hospital because of shortness of breath found to have acute hypoxemic respiratory failure secondary to CHF exacerbation in the setting of worsening renal function: Patient was given IV diuresis aggressive, CPAP: Patient did not produce much, hypoxia and renal function continue to worsen: With further discussion with ICU-patient family decided against aggressive interventions and decided for comfort care(please see ICU note from 11/11/23). 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 Patient passed comfortably today at 16:06pm. Additional Data Confirmation of as documented by pronouncing clinician: no pulse, no respirations, no heart sounds and pupils fixed and dilated Family: at bedside Attending physician: Melchor Bautista MD Was code activated?: No
--- NOTE | 2023-11-25 17:45 | P.CDIM_ITS ---
PROVIDER RESPONSE TEXT: To clarify, the appropriate diagnosis supported by the clinical indicators: CKD, please provide stage QUERY TEXT: PHYSICIAN'S DOCUMENTATION REQUEST Date of Query: 11/25/2023 12:08 PM EST Patient Name: Darek Arana Admit Date: 11/11/2023 RETROSPECTIVE QUERY Dear Melchor Bautista, A review of the medical record indicates additional documentation may be needed. Please review below and update the documentation accordingly. Clinical Indicators: ED 11/10 - PMH - CKD 4 H&P 11/11 - PMH - CKD 4 Plan: Chronic kidney disease, renal function worsening, monitor renal function. Event note: Acute hypoxemic respiratory failure secondary to possible CHF in the setting of SAULO on CK D. note: CHF exacerbation in the setting of worsening renal function. BUN 85 CR 3.20 GFR 19 Please clarify which of the following accurately represents the patient's stage of the noted CKD for consistency of documentation: CKD, please provide stage ESRD - CKD V now requiring permanent dialysis and/or transplant Other (explain) Clinically unable to determine (explain) Thank you, Tosha Lombardo, CCS, CDIS Use of terms such as suspected, likely, concern for, or probable (associated with a specific diagnosi s that is being evaluated, monitored, or treated as if it exists) are acceptable and can be coded in the inpatient se tting, when documented at the time of discharge. Please use your independent medical judgment in providing your response. THIS QUERY IS PART OF THE PERMANENT MEDICAL RECORD
== END 2023-11-12 18:29 | disposition expired | DRG 194 ==
LOC: HO.ED 11-11 00:40 → HO.EDOVER 11-11 01:20 → HO.S3 11-11 19:07
PROVIDERS: Admitting Provider Internal Medicine; Emergency Provider Emergency Medicine Emergency Medical Services; PCP Internal Medicine; Visit Provider Internal Medicine
DX: I50.23 Acute on chronic systolic (congestive) heart failure (principal); J96.01 Acute respiratory failure with hypoxia; N17.9 Acute kidney failure, unspecified; Z66 Do not resuscitate; E78.5 Hyperlipidemia, unspecified; G62.9 Polyneuropathy, unspecified; I25.10 Atherosclerotic heart disease of native coronary artery without angina pectoris; I48.19 Other persistent atrial fibrillation; N18.4 Chronic kidney disease, stage 4 (severe); Z51.5 Encounter for palliative care; J84.10 Pulmonary fibrosis, unspecified; Z79.01 Long term (current) use of anticoagulants; I25.5 Ischemic cardiomyopathy; Z20.822 Contact with and (suspected) exposure to COVID-19; Z95.810 Presence of automatic (implantable) cardiac defibrillator; Z87.891 Personal history of nicotine dependence; Z79.02 Long term (current) use of antithrombotics/antiplatelets; Z79.899 Other long term (current) drug therapy
CPT/HCPCS: 0241U; 36415; 71045; 80048; 80053; 80076; 81001; 82803; 83880; 84484; 85025; 93005; 94640; 94660; 99285; J1940; J2060; J2270; J2930

== ENCOUNTER → 2023-11-10 22:36 | Outpatient (BNV) | payer OTHER, SELFPAY | PROVIDERS: Admitting Provider Internal Medicine; Emergency Provider Emergency Medicine Emergency Medical Services; Visit Provider Internal Medicine Cardiovascular Disease | DX: I49.1 Atrial premature depolarization (principal); R94.31 Abnormal electrocardiogram [ECG] [EKG] | CPT/HCPCS: 93010 ==

== ENCOUNTER → 2023-11-11 01:08 | Outpatient (BNV) | payer OTHER, SELFPAY | PROVIDERS: Admitting Provider Internal Medicine; Emergency Provider Emergency Medicine Emergency Medical Services; Visit Provider Internal Medicine | DX: I50.23 Acute on chronic systolic (congestive) heart failure (principal); M1A.9XX0 Chronic gout, unspecified, without tophus (tophi); G62.9 Polyneuropathy, unspecified | CPT/HCPCS: 99223; 99239; 99499 ==

== ENCOUNTER → 2023-11-11 01:08 | Outpatient (BNV) | payer OTHER, SELFPAY | PROVIDERS: Admitting Provider Internal Medicine; Emergency Provider Emergency Medicine Emergency Medical Services; Visit Provider Internal Medicine Cardiovascular Disease | DX: I50.9 Heart failure, unspecified (principal); I48.19 Other persistent atrial fibrillation; Z95.810 Presence of automatic (implantable) cardiac defibrillator | CPT/HCPCS: 99223 ==

== ENCOUNTER → 2023-11-11 01:08 | Outpatient (BNV) | payer OTHER, SELFPAY | PROVIDERS: Admitting Provider Internal Medicine; Emergency Provider Emergency Medicine Emergency Medical Services; Visit Provider Internal Medicine Critical Care Medicine | DX: I50.9 Heart failure, unspecified (principal); I48.19 Other persistent atrial fibrillation; Z95.810 Presence of automatic (implantable) cardiac defibrillator | CPT/HCPCS: 99497 ==